=== PATIENT | female | born 1950 | race Native Hawaiian/Other Pacific Islander ===

== ENCOUNTER 2017-09-25 20:15 | Inpatient (IN) | payer BC, MEDICARE ==
[2017-09-25] MEDS ORDERED: Sodium Chloride 0.9% 1,000 ML IV SCH (20:30)
[2017-09-25] MEDS ORDERED: Piperacill/Tazo 4.5gm in NS 4.5 GM/100 ML BAG IVPB STA (20:39)
--- NOTE | 2017-09-25 20:48 | ED PDOC ---
Arrival/HPI - General Chief Complaint: Shortness Of Breath Time Seen by Provider: 09/25/17 20:17 Historian: Patient, Family - History of Present Illness Narrative History of Present Illness (Text): you were treated in the ED today for hx of diabetes, hypertension, having eaten very little at [employer], went home with nausea/vomiting/difficulty breathing and intermittent abdomen discomfort but no bile/blood and had transient loss of consciousness without head injury/neck pain per daughter and otherwise without any headache/dizziness/difficulty breathing/chest pain/abdomen pain/numbness/ tingling/loss of limb function/pain with urination. Time/Duration: 4-6 hours Past Medical History - Provider Review Nursing Documentation Reviewed: Yes - Travel History Have you recently traveled outside [place] w/in the past 3 mons?: No - Endocrine/Metabolic Hx Diabetes Mellitus Type 2: Yes - Psychiatric Hx Substance Use: No Family/Social History - Physician Review Nursing Documentation Reviewed: Yes Family/Social History: No Known Family HX Smoking Status: n Hx Alcohol Use: No Hx Substance Use: No Allergies/Home Meds Allergies/Adverse Reactions: Allergies No Known Allergies Allergy (Verified 09/25/17 20:25) Home Medications: Home Meds Medication Instructions Recorded Confirmed Clopidogrel [Plavix] 75 mg PO DAILY 09/25/17 09/25/17 Enalapril Maleate [Vasotec] 20 mg PO DAILY 09/25/17 09/25/17 Gemfibrozil 600 mg PO DAILY 09/25/17 09/25/17 Insulin Glargine, Recombina 30 unit SC ACB 09/25/17 09/25/17 [Lantus] Insulin Glargine, Recombina 30 unit SC ACD 09/25/17 09/25/17 [Lantus] Insulin Lispro [humALOG] 30 units SC ACL 09/25/17 09/25/17 MetFORMIN [glucOPHAGE] 1,000 mg PO BID 09/25/17 09/25/17 Metoprolol Succinate [Toprol XL] 200 mg PO BID 09/25/17 09/25/17 Pravastatin Sodium [Pravachol] 40 mg PO DAILY 09/25/17 09/25/17 Review of Systems - Review of Systems Constitutional: Fatigue Eyes: Normal ENT: Normal Respiratory: SOB, Cough Cardiovascular: Chest Pain Gastrointestinal: Abdominal Pain, Nausea, Vomiting Genitourinary Female: Normal Musculoskeletal: Normal Skin: Normal Neurological: Normal Endocrine: Normal Hemo/Lymphatic: Normal Psychiatric: Normal Physical Exam Vital Signs Reviewed: Yes Vital Signs Temp Pulse Resp BP Pulse Ox 09/25/17 23:00 100.1 F H 75 16 142/51 L 98 09/25/17 22:10 100.2 F H 16 98 09/25/17 21:56 100.4 F H 81 16 145/54 L 97 09/25/17 20:25 102.4 F H 113 H 18 154/120 H 91 L Temperature: Afebrile Blood Pressure: Hypertensive Pulse: Tachycardic Respiratory Rate: Normal Appearance: Positive for: Ill-Appearing Pain Distress: None Mental Status: Positive for: Alert and Oriented X 3 - Systems Exam Head: Present: Atraumatic, Normocephalic Pupils: Present: PERRL Extroacular Muscles: Present: EOMI Conjunctiva: Present: Normal Ears: Present: Normal Mouth: Present: Moist Mucous Membranes Pharnyx: Present: Normal Nose (External): Present: Atraumatic Nose (Internal): Present: Normal Inspection Neck: Present: Normal Range of Motion Respiratory/Chest: Present: Clear to Auscultation, Good Air Exchange Cardiovascular: Present: Regular Rate and Rhythm Abdomen: No: Tenderness, Distention, Normal Bowel Sounds, Peritoneal Signs, Rebound, Guarding, McBurney's Point Tender, Rovsing's Sign Present, Hernias, Feeding Tubes, Ostomy Tubes, Mass/Organomegaly, Scars, Other Back: Present: Normal Inspection Upper Extremity: Present: Normal Inspection Lower Extremity: Present: Normal Inspection Neurological: Present: GCS=15, CN II-XII Intact, Speech Normal, Motor Func Grossly Intact Skin: Present: Warm, Normal Color Psychiatric: Present: Alert, Oriented x 3, Normal Insight, Normal Concentration Medical Decision Making ED Course and Treatment: you were treated in the ED today for hx of diabetes, hypertension, having eaten very little at [employer], went home with nausea/vomiting/difficulty breathing and intermittent abdomen discomfort but no bile/blood and had transient loss of consciousness without head injury/neck pain per daughter and otherwise without any headache/dizziness/difficulty breathing/chest pain/abdomen pain/numbness/ tingling/loss of limb function/pain with urination. You were otherwise breathing easily, pink moist lips, talking with daughter, good strength/ sensation, alert/oriented, walking easily, clear lungs, no abdomen tenderness, fever temp 102.4, fast heart rate 113, stable breathing rate 18, low oxygen level 91% room air, elevated blood pressure 154/110 which we recommend repeat in 2-3 days primary care office to determine further treatment, you have blood tests infection count 22, stable blood level hemoglobin 17/platelets 365, stable chemistry sodium, potassium 3.4 replaced, glucose 82, anion gap elevated 24, liver AST/ALT 503/256 elevated, Liver Alklaline Phosphatase 267 elevated, Liver bilirubin 3.1 elevated, magnesium 1.4 replaced, heart blood test 0.02, elevated lactic 5.9, urine test____, ECG NSR, intraveous fluids, zosyn, tylenol , zofran, influenza, code sepsis, observation done in the ED with improvement. 09/25/17 22:18: Patient is influenza positive. fs 49 dextrose, d5 ns 20meq k improved 278 cxr mild vascular markings CT Head Without Intravenous Contrast Dictated and Authenticated by: Mayo Barrios MD 09/25/2017 10:13 PM Eastern Time ([place] & [place]) CLINICAL HISTORY: 67 years old, female; Signs and symptoms; Alteration of consciousness; Somnolence (drowsiness); Additional info: 67yof, loss of consciousness TECHNIQUE: Axial computed tomography images of the head/brain without intravenous contrast. All CT scans at this facility use one or more dose reduction techniques, viz.: automated exposure control; ma/kV adjustment per patient size (including targeted exams where dose is matched to indication; i.e. head); or iterative reconstruction technique. COMPARISON: No relevant prior studies available. FINDINGS: Limitations: Limited asymmetric positioning. Brain: Small extra-axial nodule is present in the right hemispheric convexity near the vertex consistent with meningioma, which measures approximately 15 mm image 21, series #2. No additional intra-axial lesions are seen. Mild volume loss is seen in keeping with age. Mild decrease in attenuation of the periventricular white matter likely related to small vessel ischemic change. The brain is otherwise unremarkable. Normal fung-white matter differentiation is present, without acute hemorrhage, or additional mass. Ventricles: Unremarkable. No ventriculomegaly. Bones/joints: Unremarkable. No acute fracture. Soft tissues: Unremarkable. Vasculature: The vasculature demonstrates diffuse moderate atherosclerotic calcification. Sinuses: Unremarkable as visualized. No acute sinusitis. Mastoid air cells: Unremarkable as visualized. No mastoid effusion. IMPRESSION: Age-related atrophy and chronic white matter ischemic changes, with no evidence of an acute intracranial abnormality. Small meningioma is present in the right hemispheric convexity, measuring 1.5 cm. No significant mass effect or midline shift. CT Abdomen and Pelvis Without Intravenous Contrast Dictated and Authenticated by: Mayo Barrios MD 09/25/2017 10:17 PM Eastern Time ([place] & [place]) CLINICAL HISTORY: 67 years old, female; Signs and symptoms; Fever; Shortness of breath; Additional info: 67yof, fever, SOB, hypoxia TECHNIQUE: Axial computed tomography images of the abdomen and pelvis without intravenous contrast. All CT scans at this facility use one or more dose reduction techniques, viz.: automated exposure control; ma/kV adjustment per patient size (including targeted exams where dose is matched to indication; i.e. head); or iterative reconstruction technique. COMPARISON: No relevant prior studies available. FINDINGS: Artifacts: Motion artifact does moderately limit the sensitivity of this examination. Patient arm positioning results in beam hardening artifact which degrades image quality.The spine demonstrates moderate degenerative changes at multiple levels. Lower thorax: No acute findings. ABDOMEN: Liver: There is a diffuse mild decrease in hepatic parenchymal density, consistent with mild fatty infiltration. Gallbladder and bile ducts: Mild gallbladder distention is seen. Multiple calcified gallstones are present. No gallbladder wall thickening or pericholecystic fluid to suggest cholecystitis. Pancreas: Mild pancreatic atrophy without mass or surrounding fluid. No ductal dilation. Spleen: Unremarkable. No splenomegaly. Adrenals: Unremarkable. No mass. Kidneys and ureters: No obstructing renal stones or hydronephrosis. No solid mass. Normal appearance of both ureters, and renal pelvises. Stomach and bowel: There is nonspecific colonic wall thickening most likely related to incomplete distention. The stomach is normal. The small bowel loops appear within normal limits, no signs of wall thickening, mucosal edema, or bowel distention. Moderate amount of formed fecal material is seen within the sigmoid loops which may be associated with constipation. Appendix: A normal appendix is identified. A normal appendix is identified. PELVIS: Bladder: Unremarkable. No stones. Reproductive: Unremarkable as visualized. ABDOMEN and PELVIS: Intraperitoneal space: Unremarkable. No free air. No significant fluid collection. Bones/joints: The spine demonstrates moderate degenerative changes at multiple levels. Soft tissues: There is minimal focus of subcutaneous stranding without air consistent with recent injection. Vasculature: The aorta demonstrates moderate atherosclerotic calcification. No abdominal aortic aneurysm. Lymph nodes: Unremarkable. No enlarged lymph nodes. IMPRESSION: Study is limited secondary to motion. No acute findings are seen. Cholelithiasis, with moderate gallbladder distention, no definite signs of cholecystitis. Mild hepatic steatosis. CT Chest Without Intravenous Contrast Dictated and Authenticated by: Mayo Barrios MD 09/25/2017 10:19 PM Eastern Time ([place] & [place]) CLINICAL HISTORY: 67 years old, female; Signs and symptoms; Fever; Shortness of breath; Additional info: 67yof, fever, SOB, hypoxia TECHNIQUE: Axial computed tomography images of the chest without intravenous contrast. All CT scans at this facility use one or more dose reduction techniques, viz.: automated exposure control; ma/kV adjustment per patient size (including targeted exams where dose is matched to indication; i.e. head); or iterative reconstruction technique. COMPARISON: No relevant prior studies available. FINDINGS: Lungs: Minimal scarring of the inferior margin of the lingula. Lungs overall clear. No focal lung consolidation, pulmonary infiltrates, no cavitary changes are seen. Pleural space: Unremarkable. No pneumothorax. No significant effusion. Heart: Unremarkable. No cardiomegaly. No significant pericardial effusion. Bones/joints: The spine demonstrates mild degenerative changes at multiple levels. No acute fracture. No dislocation. Soft tissues: Unremarkable. Vasculature: The aorta demonstrates moderate atherosclerotic calcification. There is moderate atherosclerotic calcification of the coronary arteries. No thoracic aortic aneurysm. Lymph nodes: Unremarkable. No enlarged lymph nodes. IMPRESSION: No acute chest findings. No signs of edema or pneumonia. 09/25/17 23:26 09/26/17 00:37 09/26/17 00:38 awaiting us. 09/26/17 01:18 US Abdomen Limited, Right Upper Quadrant EXAM DATE/TIME: 09/25/2017 9:36 PM Dictated and Authenticated by: Unique Fisher MD 09/26/2017 1:17 AM Eastern Time ([place] & [place]) CLINICAL HISTORY: 67 years old, female; Pain; Abdominal pain; Generalized; Additional info: 67yof , n/v total bili 3.1. Small gallstone seen on CT 09/25/17 TECHNIQUE: Real-time ultrasound of the right upper quadrant with image documentation. COMPARISON: CT - CHEST,ABDOMEN,PELVIS W/O CONT 2017-09-25 20:51 FINDINGS: Liver: Echotexture of the liver is heterogeneous. Liver is enlarged.There is hepatopedal flow in the main portal vein. Gallbladder: Gallbladder is distended with no stones, sludge or wall thickening. Common bile duct: Common bile duct measures 5.5 mm in diameter. Pancreas: Pancreas is partially obscured by bowel gas. Right kidney: Right kidney is unremarkable. Aorta: Aorta and inferior vena cava are not optimally demonstrated. Other findings: The IMPRESSION: Enlarged fatty liver; distended gallbladder, no ductal dilatation, small stones seen on CT are not identified; limited visualization of the pancreas 09/26/17 01:24 d/w Dr. Hall who stated continue ivf hydration, add vancomycin, d/w ICU Dr. Cheek for rule out cholangitis. 09/26/17 01:31 d/w Dr. Cheek who accepted to icu. npo. Reassessment Condition: Improved - Lab Interpretations Lab Results: 09/25/17 20:30 09/25/17 20:30 Lab Results 09/26/17 00:30: POC Glucose (mg/dL) 278 H 09/26/17 00:22: POC Glucose (mg/dL) 49 L 09/26/17 00:21: POC Glucose (mg/dL) 59 L 09/25/17 23:50: pO2 57 H, VBG pH 7.33, VBG pCO2 42.0, VBG HCO3 22.1, VBG Total CO2 23.4, VBG O2 Sat (Calc) 92.4 H, VBG Base Excess -3.7 L, VBG Potassium 4.1, Sodium 137.0, Chloride 104.0, Glucose 55 L, Lactate 2.9 H, FiO2 21.0, Venous Blood Potassium 4.1 09/25/17 21:30: Influenza Typ A,B (EIA) Pos for influenza a H 09/25/17 20:30: pO2 51, VBG pH 7.33, VBG pCO2 41.0, VBG HCO3 21.6, VBG Total CO2 22.9, VBG O2 Sat (Calc) 90.7 H, VBG Base Excess -4.1 L, VBG Potassium 3.8, Sodium 138.0, Chloride 101.0, Glucose 84, Lactate 5.9 H*, FiO2 21.0, Venous Blood Potassium 3.8 09/25/17 20:30: Sodium 144, Chloride 100, Potassium 3.4 L, Carbon Dioxide 23, Anion Gap 24 H, BUN 18, Creatinine 0.9, Est GFR ( Amer) > 60, Est GFR ( Non-Af Amer) > 60, Random Glucose 86, Calcium 10.7 H, Magnesium 1.4 L, Total Bilirubin 3.1 H, AST 503 H, ALT 256 H, Alkaline Phosphatase 267 H, Lactate Dehydrogenase 1956 H, Total Creatine Kinase 92, Troponin I 0.02, NT-Pro-B Natriuret Pep 603 H, Total Protein 9.4 H, Albumin 4.9 H, Globulin 4.5, Albumin/ Globulin Ratio 1.1 09/25/17 20:30: PT 12.0, INR 1.05, APTT 35.9 09/25/17 20:30: WBC 22.2 H, RBC 5.79, Hgb 17.3 H, Hct 49.4 H, MCV 85.3, MCH 29.9 , MCHC 35.0, RDW 14.4, Plt Count 365, MPV 12.2 H, Gran % 89.6 H, Lymph % (Auto) 8.1 L, [place] % (Auto) 2.1, Eos % (Auto) 0.1 L, Baso % (Auto) 0.1, Gran # 19.85 H , Lymph # (Auto) 1.8, [place] # (Auto) 0.5, Eos # (Auto) 0.0, Baso # (Auto) 0.02 09/25/17 20:23: POC Glucose (mg/dL) 82 I have reviewed the lab results: Yes - RAD Interpretation Radiology Orders: 09/25/17 20:26 CHEST PORTABLE [RAD] Stat 09/25/17 20:41 CHEST,ABDOMEN, PELVIS W/O CONT [CT] Stat HEAD W/O CONTRAST [CT] Stat 09/25/17 21:36 GALL BLADDER [US] Stat Auto Motor Mechanic: Radiologist (ct head/chest/abdome and pelvis mdm) - EKG Interpretation Interpreted by ED Physician: Yes (NSR, flipped t waves avr) Type: 12 lead EKG - Medication Orders Current Medication Orders: Sodium Chloride (Sodium Chloride 0.9%) 1,000 mls @ 100 mls/hr IV .Q10H ADRIANE Last Admin: 09/25/17 20:44 Dose: 100 mls/hr eMAR Start Stop Document 09/25/17 20:44 AB (Rec: 09/25/17 20:44 AB [id number]) Intravenous Solution Start Date 09/25/17 Start Time 20:44 End Date 09/25/17 Potassium Chloride/Dextrose/Sod Cl (Potassium Chl 10 Meq In D5-1/2ns) 1,000 mls @ 100 mls/hr IV .Q10H ADRIANE Last Admin: 09/26/17 01:02 Dose: 100 mls/hr eMAR Start Stop Document 09/26/17 01:02 AB (Rec: 09/26/17 01:02 AB [id number]) Intravenous Solution Start Date 09/26/17 Start Time 01:02 End Date 09/26/17 Vancomycin HCl (Vancomycin 1gm) 1 gm in 250 mls @ 167 mls/hr IVPB STAT STA PRN Reason: Protocol Stop: 09/26/17 02:41 Oseltamivir Phosphate (Tamiflu) 30 mg PO BID ADRIANE PRN Reason: Protocol Last Admin: 09/25/17 23:20 Dose: 30 mg Discontinued Medications Acetaminophen (Tylenol 650 Mg Supp) 650 mg RC STAT STA Stop: 09/25/17 20:40 Last Admin: 09/25/17 21:10 Dose: 650 mg Re-Assess: MAR Pain/Vitals Document 09/25/17 22:10 AB (Rec: 09/25/17 23:09 AB [id number]) Vitals Temperature (97.6 F-99.6 F) 100.2 F Temperature Source Rectal Dextrose (Dextrose 50% Inj) 50 ml IVP STAT STA Stop: 09/26/17 00:37 Last Admin: 09/26/17 00:49 Dose: Piperacillin Sod/Tazobactam Sod (Zosyn 4.5 Gm In Ns 100ml) 4.5 gm in 100 mls @ 200 mls/hr IVPB STAT STA PRN Reason: Protocol Stop: 09/25/17 21:08 Last Admin: 09/25/17 21:09 Dose: 200 mls/hr eMAR Start Stop Document 09/25/17 21:09 SAEED (Rec: 09/25/17 21:10 SAEED [facility] [id number]) Intravenous Solution Start Date 09/25/17 Start Time 21:10 Magnesium Sulfate/Dextrose (Magnesium Sulfate 1 Gm/100 Ml D5w) 1 gm in 100 mls @ 100 mls/hr IVPB ONCE ONE Stop: 09/25/17 22:36 Last Admin: 09/25/17 23:18 Dose: 100 mls/hr eMAR Start Stop Document 09/25/17 23:18 AB (Rec: 09/25/17 23:18 AB [id number]) Intravenous Solution Start Date 09/25/17 Start Time 23:18 End Date 09/25/17 Sodium Chloride (Sodium Chloride 0.9%) 1,000 mls @ 999 mls/hr IV .Q1H1M STA Stop: 09/26/17 00:24 Last Admin: 09/26/17 00:30 Dose: 999 mls/hr eMAR Start Stop Document 09/26/17 00:30 AB (Rec: 09/26/17 00:30 AB [id number]) Intravenous Solution Start Date 09/25/17 Start Time 20:56 End Date 09/25/17 End time 21:56 Total Infusion Time 60 Dextrose/Sodium Chloride (Dextrose 5%/0.45% Ns 1000 Ml) 1,000 mls @ 100 mls/hr IV .Q10H ADRIANE Ondansetron HCl (Zofran Inj) 4 mg IVP STAT STA Stop: 09/25/17 20:40 Last Admin: 09/25/17 20:43 Dose: 4 mg IVP Administration Document 09/25/17 20:43 AB (Rec: 09/25/17 20:43 AB [id number]) Charges for Administration # of IVP Administrations 1 Potassium Chloride (K-Dur 20 Meq Er Tab) 20 meq PO STAT STA Stop: 09/25/17 21:38 Last Admin: 09/25/17 23:18 Dose: 20 meq NIHSS Stroke Scale 3 - Date/Time Evaluation Performed Date Performed: 09/25/17 - How Severe is the Stroke Level of Consciousness: 0=Alert LOC to Questions: 0=Both comments correct LOC to commands: 0=Obeys both correctly Best Gaze: 0=Normal Visual: 0=No visual loss Facial: 0=Normal Motor Arm - Left: 0=No drift Motor Arm - Right: 0=No drift Motor Leg - Left: 0=No drift Motor Leg - Right: 0=No drift Limb Ataxia: 0=Absent Sensory: 0=Normal Best Language: 0=No aphasia Dysarthia: 0=Normal articulation Extinction & Inattention (Neglect): 0=Normal, no object Score: 0 Disposition/Present on Arrival - Present on Arrival Any Indicators Present on Arrival: No History of DVT/PE: No History of Uncontrolled Diabetes: No Urinary Catheter: No History of Decub. Ulcer: No History Surgical Site Infection Following: None - Disposition Have Diagnosis and Disposition been Completed?: Yes Diagnosis: Influenza, Elevated liver enzymes, Sepsis Disposition: HOSPITALIZED Disposition Time: 01:34 Patient Plan: Admission Condition: IMPROVED Discharge Instructions (ExitCare): Sepsis (ED) Referrals: Patito Camejo, [Primary Care Provider] - Follow up with primary Forms: [employer] ([place] Citizen)
[2017-09-25 20:52] LABS: VENOUS BLOOD GAS BASE EXCESS -4.1 mmol/L (0.0-2.0); VENOUS BLOOD GAS PO2 51 mm/Hg (30-55); VENOUS BLOOD PH 7.33 (7.32-7.43)
[2017-09-25 20:54] LABS: BASO # 0.02 K/mm3 (0.0-2.0); BASO % 0.1 % (0.0-3.0); EOS % 0.1 % (1.5-5.0); GRAN # 19.85 (1.4-6.5); GRAN % 89.6 % (50.0-68.0); HEMOGLOBIN 17.3 g/dL (12.0-16.0); LYMPH # 1.8 (1.2-3.4); LYMPH % 8.1 % (22.0-35.0); MEAN CELL VOLUME 85.3 fl (80.0-105.0); MEAN CORPUSCULAR HEMOGLOBIN 29.9 pg (25.0-35.0); MEAN PLATELET VOLUME 12.2 fl (7.0-11.0); MONO # 0.5 (0.1-0.6); MONO % 2.1 % (1.0-6.0); RBC 5.79 10^6/uL (3.5-6.1); RED CELL DISTRIBUTION WIDTH 14.4 % (11.5-14.5); WHITE BLOOD COUNT 22.2 10^3/ul (4.5-11.0)
[2017-09-25 21:01] LABS: ALB/GLOB RATIO 1.1 (1.1-1.8); ALBUMIN 4.9 g/dL (3.0-4.8); ALT/SGPT 256 U/L (7-56); AST/SGOT 503 U/L (14-36); BLOOD UREA NITROGEN 18 mg/dL (7-21); CALCIUM 10.7 mg/dL (8.4-10.5); GFR AFRICAN-AMERICAN > 60; GFR NON-AFRICAN AMERICAN > 60
[2017-09-25 21:04] LABS: INR 1.05 (0.93-1.08); PARTIAL THROMBOPLASTIN TIME 35.9 Seconds (25.1-36.5)
[2017-09-25 21:13] LABS: B-TYPE NATRIURETIC PEPTIDE 603 pg/mL (0-450); TROPONIN I 0.02 ng/mL
[2017-09-25] MEDS ORDERED: Potassium Chloride 20 mEq ER Tab PO STA (21:37)
[2017-09-25] MEDS ORDERED: Magnesium Sulfate 1 gm in D5W 1 GM/100 ML BAG IVPB ONE (21:37)
[2017-09-25] MEDS ORDERED: Sodium Chloride 0.9% 1,000 ML IV STA (23:24)
[2017-09-26] MEDS ORDERED: Dextrose 50% SYRINGE Inj (50 ml) ONE (00:24)
[2017-09-26 00:29] LABS: VENOUS BLOOD GAS BASE EXCESS -3.7 mmol/L (0.0-2.0); VENOUS BLOOD GAS PO2 57 mm/Hg (30-55); VENOUS BLOOD PH 7.33 (7.32-7.43)
[2017-09-26] MEDS ORDERED: Dextrose 50% SYRINGE Inj (50 ml) IVP STA (00:36)
--- NOTE | 2017-09-26 00:40 | PCM.SEPTIC ---
Sepsis Progress Note - Reassessment Type Date of Evaluation: 09/26/17 Time of Evaluation: 00:32 Reassessment Type: Non-invasive reassessment - Non Invasive Reassessment Were the most recent vital sign reviewed: Yes Vital Sign (Latest): Temp Pulse Resp BP Pulse Ox 100.1 F H 75 16 142/51 L 98 09/25/17 23:00 09/25/17 23:00 09/25/17 23:00 09/25/17 23:00 09/25/17 23:00 Cardiovascular: Yes: Regular Rate, Rhythm Respiratory: Yes: Normal Breath Sounds Capillary Refill: Normal (Less than 2 sec) Skin: Normal Color, Warm <Steve Reyes - Last Filed: 09/26/17 00:41> - Non Invasive Reassessment Vital Sign (Latest): Temp Pulse Resp BP Pulse Ox 99.2 F 62 20 123/61 98 09/26/17 02:57 09/26/17 02:57 09/26/17 02:57 09/26/17 02:57 09/26/17 02:57 <Jenny Beasley - Last Filed: 09/26/17 03:41> Attending/Attestation - Attestation I have personally seen and examined this patient.: No I have fully participated in the care of the patient.: Yes I have reviewed all pertinent clinical information, including history, physical exam and plan: Yes <Jenny Beasley - Last Filed: 09/26/17 03:41>
[2017-09-26] MEDS ORDERED: Potassium Chl 10 mEq in D5-1/2 1,000 ML IV SCH ×2 (00:45→05:07)
[2017-09-26] MEDS ORDERED: Dextrose 5%/0.45% NS 1,000 ML IV SCH (00:45)
[2017-09-26] MEDS ORDERED: Vancomycin 1gm in NS 250ml 1 GM/250 ML BAG IVPB STA (01:12)
--- NOTE | 2017-09-26 01:17 | US ---
EXAM: US Abdomen Limited, Right Upper Quadrant EXAM DATE/TIME: 09/25/2017 9:36 PM CLINICAL HISTORY: 67 years old, female; Pain; Abdominal pain; Generalized; Additional info: 67yof, n/v total bili 3.1. Small gallstone seen on CT 09/25/17 TECHNIQUE: Real-time ultrasound of the right upper quadrant with image documentation. COMPARISON: CT - CHEST,ABDOMEN,PELVIS W/O CONT 2017-09-25 20:51 FINDINGS: Liver: Echotexture of the liver is heterogeneous. Liver is enlarged.There is hepatopedal flow in the main portal vein. Gallbladder: Gallbladder is distended with no stones, sludge or wall thickening. Common bile duct: Common bile duct measures 5.5 mm in diameter. Pancreas: Pancreas is partially obscured by bowel gas. Right kidney: Right kidney is unremarkable. Aorta: Aorta and inferior vena cava are not optimally demonstrated. Other findings: The IMPRESSION: Enlarged fatty liver; distended gallbladder, no ductal dilatation, small stones seen on CT are not identified; limited visualization of the pancreas
[2017-09-26 04:02] VITALS: BMI 27.3
--- NOTE | 2017-09-26 04:22 | CP.PCM.CON ---
History of Present Illness - History of Present Illness History of Present Illness: Josselyn Rankin, PGY1, ICU Consult Note for Dr Cheek: CC: nausea, vomiting, fever 67 year old female, poor historian with PMH DM, HTN, HLD, presents for nausea, vomiting, subjective fevers for past 2 days. Pt states that she also felt weakness, decreased appetite, nausea, vomiting 2-3 episodes of nonbloody, yellow fluid per day. Pt reports that while vomiting this AM, she hit her forehead in the bathroom to the door. Denies LOC, syncope, mental status changes. Pt also reports nonbloody, yellow diarrheal episodes for past 2 days, associated with epigastric abdominal discomfort. ROS is positive for chills, dizziness, decreased appetite, nonproductive cough, mild body aches. Denies cp, sob, diaphoresis, palpitations, wheezing, neck pain, urinary symptoms, leg swelling. Denies sick contacts or recent travel. In ED, pt febrile 102 F, tachycardic HR 113 NSR, leukocytosis 22.2, lactate 5.9 , elevated t bili 3.1, elevated AST 503, ALT 256, ALP 267, LDH 1956, hypoglycemic 49. Abd US showed enlarged fatty liver, distended gallbladder; no inflammation. Influenza positive. Received renally dosed tamiflu, Vanc, Zosyn, 1 L NS bolus, D50 amp, zofran in ED. 12 point ROS obtained and negative, except as per HPI. PMD: in [place], [place] - does not recall name PMH: DM, HTN, HLD PSH: denies All: NKA FH: father, DM Mother, heart enlargement SH: lives with and daughter in [place]. Denies alcohol/tobacco/ recreational drug use. Retired. Review of Systems - Review of Systems All systems: reviewed and no additional remarkable complaints except Review of Systems: as pre HPI Past Patient History - Past Social History Smoking Status: n - ENDOCRINE/METABOLIC Hx Diabetes Mellitus Type 2: Yes - PSYCHIATRIC Hx Substance Use: No Meds Allergies/Adverse Reactions: Allergies Allergy/AdvReac Type Severity Reaction Status Date / Time No Known Allergies Allergy Verified 09/25/17 20:25 - Medications Medications: Current Medications Sodium Chloride (Sodium Chloride 0.9%) 1,000 mls @ 100 mls/hr IV .Q10H ADRIANE Last Admin: 09/25/17 20:44 Dose: 100 mls/hr Potassium Chloride/Dextrose/Sod Cl (Potassium Chl 10 Meq In D5-1/2ns) 1,000 mls @ 100 mls/hr IV .Q10H ADRIANE Last Admin: 09/26/17 01:02 Dose: 100 mls/hr Piperacillin Sod/Tazobactam Sod (Zosyn 3.375 In Ns 100ml) 100 mls @ 200 mls/hr IVPB Q6 ADRIANE PRN Reason: Protocol Stop: 09/26/17 12:29 Oseltamivir Phosphate (Tamiflu) 30 mg PO BID ADRIANE PRN Reason: Protocol Physical Exam - Constitutional Appears: Non-toxic, No Acute Distress, Older Than Stated Age - Head Exam Head Exam: NORMOCEPHALIC Additional comments: + bluish bruise on left frontal area - Eye Exam Eye Exam: EOMI, PERRL. absent: Conjunctival injection, Nystagmus, Periorbital tenderness Pupil Exam: NORMAL ACCOMODATION, PERRL. absent: Fixed, Irregular, Unequal Additional comments: + mild scleral icterus - ENT Exam ENT Exam: Mucous Membranes Dry - Neck Exam Neck exam: Positive for: Full Rom - Respiratory Exam Respiratory Exam: Clear to Auscultation Bilateral, NORMAL BREATHING PATTERN. absent: Accessory Muscle Use, Chest Wall Tenderness, Rales, Rhonchi, Wheezes, Stridor - Cardiovascular Exam Cardiovascular Exam: RRR, +S1, +S2. absent: Systolic Murmur - GI/Abdominal Exam GI & Abdominal Exam: Normal Bowel Sounds, Soft, Tenderness (epigastric tenderness). absent: Distended, Guarding, Mass, Organomegaly, Rebound, Rigid - Extremities Exam Extremities exam: Positive for: normal inspection, pedal pulses present. Negative for: calf tenderness, pedal edema - Back Exam Back exam: NORMAL INSPECTION. absent: CVA tenderness (L), CVA tenderness (R) - Neurological Exam Neurological exam: Alert, CN II-XII Intact, Oriented x3 - Psychiatric Exam Psychiatric exam: Normal Affect, Normal Mood - Skin Skin Exam: Dry, Warm Additional comments: + mildly jaundiced Results - Vital Signs Recent Vital Signs: Last Vital Signs Temp 99.2 F 09/26/17 02:57 Pulse 62 09/26/17 02:57 Resp 20 09/26/17 02:57 BP 123/61 09/26/17 02:57 Pulse Ox 98 09/26/17 02:57 - Labs Result Diagrams: 09/25/17 20:30 09/25/17 20:30 Labs: Laboratory Results - last 24 hr 09/26/17 02:02 POC Glucose (mg/dL) 181 H Assessment & Plan - Assessment and Plan (Free Text) Assessment: 67 year old female with PMH DM, HTN, HLD, presents for epigastric pain, vomiting , fever, diarrhea, found to have influenza, sepsis: Neurological AAOx4 at the time of my exam. Previously in ED, pt was AOx2. Cont to monitor. Head CT neg for acute changes. Small meningioma is present in the right hemispheric convexity, measuring 1.5 cm. No significant mass effect or midline shift. Under close monitoring Cardiovascular BP on low side, HR 62 NSR. Hx of HTN. Hold home antiHTN - vasotec and toprol xl Pt complains of epigastric pain Initial trop 0.02. f/u serial trops with EKG Maintain MAP>65. Hemodynamically stable. Cont to monitor. Pulmonary Saturating well on 2L NC CT chest: No acute chest findings. No signs of edema or pneumonia. Continuous pulse ox monitoring GI CT abd pelvis: Study is limited secondary to motion. No acute findings are seen. Cholelithiasis, with moderate gallbladder distention, no definite signs of cholecystitis. Mild hepatic steatosis. Abd US: Enlarged fatty liver; distended gallbladder, no ductal dilatation, small stones seen on CT are not identified; limited visualization of the pancreas t bili 3.1, AST 503, ALT 267, ALP 267, LDH 1955 - cholestasis holding home statin and gemfibrozil in setting of cholestasis F/u GGT, direct bili NPO Start Protonix 40 mg IV q 12h PRN zofran GI consulted. F/u recs - ERCP? daily cmp. monitor LFTs Neprhro/Electrolytes BUN/Cr 18/0.9. Hypokalemic 3.4, repleted in IVF. Hypomagnesemia 1.4, repleted. maintain euvolemia. Continue to monitor. ID Leukocytosis 22.2, hgb 17.3 (no prior baseline as this is pt's first visit here) Tmax 102 F, tachycardic 113, leukocytosis 22.2, lactate 5.9->2.9. Influenza positive. Received tamiflu, vancomycin, zosyn, IVF bolus 1L in ED after code sepsis called. Sepsis 2/2 cholangitis vs influenza vs gastroenteritis F/u lactate, UA, Urine culture, cbc in AM IVF D51/2 NS @ 125/h On Renally dosed Tamiflu (as low CrCl), zosyn Endo Pt has hx of DM. Hypoglycemic in setting of sepsis? D51/2 NS @ 100 Accucheck q 2h Hold home hypoglycemic agents and insulin Cont to monitor. Consider adding ISS once BS readings are better. GI/DVT ppx: protonix/SCDs Patient was seen and examined and case was discussed at length with attending physician, Dr Cheek. - Date & Time Date: 09/26/17 Time: 05:27
[2017-09-26] MEDS: Piperacillin/Tazobact 3.375 gm 100 ML IVPB SCH ×2 (06:01→11:04)
[2017-09-26 06:54] LABS: VENOUS BLOOD GAS BASE EXCESS -4.5 mmol/L (0.0-2.0); VENOUS BLOOD GAS PO2 61 mm/Hg (30-55); VENOUS BLOOD PH 7.33 (7.32-7.43)
[2017-09-26 06:57] LABS: BASO # 0.02 K/mm3 (0.0-2.0); BASO % 0.1 % (0.0-3.0); EOS % 0.1 % (1.5-5.0); GRAN # 16.73 (1.4-6.5); GRAN % 89.4 % (50.0-68.0); HEMOGLOBIN 12.9 g/dL (12.0-16.0); LYMPH # 1.1 (1.2-3.4); MEAN CELL VOLUME 84.9 fl (80.0-105.0); MEAN CORPUSCULAR HEMOGLOBIN 28.7 pg (25.0-35.0); MEAN CORPUSCULAR HGB CONC 33.9 g/dl (31.0-37.0); MEAN PLATELET VOLUME 11.9 fl (7.0-11.0); MONO # 0.8 (0.1-0.6); MONO % 4.4 % (1.0-6.0); RBC 4.49 10^6/uL (3.5-6.1); RED CELL DISTRIBUTION WIDTH 14.4 % (11.5-14.5); WHITE BLOOD COUNT 18.7 10^3/ul (4.5-11.0)
--- NOTE | 2017-09-26 06:58 | CP.CCUPN ---
<Brenda Brownla - Last Filed: 09/26/17 10:13> CCU Subjective - Physician Review Subjective (Free Text): 09/26/17 08:00 Patient was admitted to icu overnight due to sepsis. Patient has been hemodynamically stable. States the abdominal pain has resolved. Denies cp, sob, n/v/d. Tmax 102.4, but has since resolved. Currently afebrile. CCU Objective - Vital Signs / Intake & Output Vital Signs (Last 4 hours): Vital Signs Temp Pulse Pulse Resp BP Pulse Ox 09/26/17 06:00 61 16 114/52 L 98 09/26/17 05:00 60 15 107/47 L 99 09/26/17 04:00 97.5 F L 58 L 15 104/47 L 98 09/26/17 03:15 97.5 F L 62 62 22 131/64 Intake and Output (Last 8hrs): Intake & Output 09/25/17 09/25/17 09/26/17 14:59 22:59 06:59 Intake Total 1800 Balance 1800 Weight 149 lb 12.8 oz Intake: IV 1800 Left Hand 1450 Right Hand 350 Other: Voiding Method Bedpan - Physical Exam Head: Positive for: Atraumatic, Normocephalic Pupils: Positive for: PERRL Extroacular Muscles: Positive for: EOMI Conjunctiva: Positive for: Normal Ears: Positive for: Normal Mouth: Positive for: Moist Mucous Membranes Pharnyx: Positive for: Normal Nose (External): Positive for: Atraumatic Nose (Internal): Positive for: Normal Inspection Neck: Positive for: Normal Range of Motion Respiratory/Chest: Positive for: Clear to Auscultation, Good Air Exchange Cardiovascular: Positive for: Regular Rate and Rhythm Abdomen: Negative for: Tenderness, Distention, Normal Bowel Sounds, Peritoneal Signs, Rebound, Guarding, McBurney's Point Tender, Rovsing's Sign Present, Hernias, Feeding Tubes, Ostomy Tubes, Mass/Organomegaly, Scars, Other Back: Positive for: Normal Inspection Upper Extremity: Positive for: Normal Inspection Lower Extremity: Positive for: Normal Inspection Neurological: Positive for: GCS=15, CN II-XII Intact, Speech Normal, Motor Func Grossly Intact Skin: Positive for: Warm, Normal Color Psychiatric: Positive for: Alert, Oriented x 3, Normal Insight, Normal Concentration - Medications Active Medications: Active Medications Generic Name Dose Route Start Last Admin Trade Name Freq PRN Reason Stop Dose Admin Piperacillin Sod/Tazobactam Sod 100 mls @ 200 mls/hr 09/26/17 06:00 09/26/17 06:01 Zosyn 3.375 In Ns 100ml IVPB 09/26/17 12:29 200 mls/hr Q6 ADRIANE Administration Protocol Potassium Chloride/Dextrose/Sod Cl 1,000 mls @ 125 mls/hr 09/26/17 05:07 01/08 05:10 Potassium Chl 10 Meq In D5-1/2ns IV 125 mls/hr .Q8H ADRIANE Administration Ondansetron HCl 4 mg 09/26/17 04:21 Zofran Inj IVP Q6H PRN Nausea/Vomiting Oseltamivir Phosphate 30 mg 09/26/17 10:00 Tamiflu PO BID ADRIANE Protocol Pantoprazole Sodium 40 mg 09/26/17 10:00 Protonix Inj IVP Q12 ADRIANE - Patient Studies Lab Studies: Lab Studies 09/26/17 09/26/17 Range/Units 04:11 02:02 POC Glucose (mg/dL) 149 H 181 H (65-110) mg/dL Laboratory Results - last 24 hr 09/26/17 09/26/17 02:02 04:11 POC Glucose (mg/dL) 181 H 149 H EKG/Cardiology Studies: Cardiology / EKG Studies 09/26/17 EKG [ELECTROCARDIOGRAM] Routine Comment: Reason For Exam: epigastric pain Fingerstick Blood Sugar Results: 173 Results Reviewed to Date: Yes Critical Care Progress Note - Nutrition Nutrition: Nutrition Category Date Time Status NPO Diet [DIET] Diets 09/26/17 Breakfast Ordered Assessment/Plan - Assessment and Plan (Free Text) Assessment: Patient is a 67 y/o with PMHx DM, HTN, HLD, admitted with sepsis likely due to acute cholangitis. Patient responded to adequate fluid resuscitation, and lactic acid trended down. patient was also found to have influenza, on tramiflu and droplet isolation. Plan: Neuro: awake and alert at baseline Pulm: O2 supplementation prn to maintain O2 sat above 90%. Cardiac: h/o htn, on iv hydration to maintain MAP above 65%. ID: sepsis with cholangitis as the possible source. Patient also had influenza positive. Cultures are pending. Leukocytosis trending down, fever resolved. continue with zosyn. will change tamiflu dosage to 75 mg bid. Renal: Lactic acidosis likely due to sepsis, lactic acid trended down. Will continue to monitor renal function. Endo: h/o DM- hypoglycemia resolved, fingerstick and insulin sliding scale. GI: Transaminitis likely due to acute cholangitis, u/s with cbd of 5.5, with sludge, and fatty liver. patient is npo for ERCP this morning. LFT trending down. Gi following Heme: Leukocytosis trended down h/h stabilizing, will continue to monitor. DVT prophylaxis: mechanical compressive device. Patient seen, examined and case discussed with the visual specialist. - Date & Time Date: 09/26/17 Time: 10:15 <Ariel Jacobs - Last Filed: 09/26/17 10:57> CCU Objective - Vital Signs / Intake & Output Vital Signs (Last 4 hours): Vital Signs Pulse 09/26/17 08:58 61 Intake and Output (Last 8hrs): Intake & Output 09/25/17 09/26/17 09/26/17 22:59 06:59 14:59 Intake Total 1800 Balance 1800 Weight 149 lb 12.8 oz Intake: IV 1800 Left Hand 1450 Right Hand 350 Other: Voiding Method Bedpan - Medications Active Medications: Active Medications Generic Name Dose Route Start Last Admin Trade Name Freq PRN Reason Stop Dose Admin Piperacillin Sod/Tazobactam Sod 100 mls @ 200 mls/hr 09/26/17 06:00 09/26/17 06:01 Zosyn 3.375 In Ns 100ml IVPB 09/26/17 12:29 200 mls/hr Q6 ADRIANE Administration Protocol Potassium Chloride 20 meq/ 1,010 mls @ 125 mls/hr 09/26/17 10:30 Sodium Chloride IV 09/27/17 10:44 .Q8H5M ADRIANE Insulin Human Regular 0 units 09/26/17 12:00 Humulin R Low SC Q6 ADRIANE Protocol Ondansetron HCl 4 mg 09/26/17 04:21 Zofran Inj IVP Q6H PRN Nausea/Vomiting Oseltamivir Phosphate 30 mg 09/26/17 10:00 Tamiflu PO BID ADRIANE Protocol Pantoprazole Sodium 40 mg 09/26/17 10:00 Protonix Inj IVP DAILY ADRIANE - Patient Studies Lab Studies: Lab Studies 09/26/17 09/26/17 09/26/17 Range/Units 06:30 06:30 06:30 WBC (4.5-11.0) 10^3/ul RBC (3.5-6.1) 10^6/uL Hgb (12.0-16.0) g/dL Hct (36.0-48.0) % MCV (80.0-105.0) fl MCH (25.0-35.0) pg MCHC (31.0-37.0) g/dl RDW (11.5-14.5) % Plt Count (120.0-450.0) 10^3/uL MPV (7.0-11.0) fl Gran % (50.0-68.0) % Lymph % (Auto) (22.0-35.0) % [place] % (Auto) (1.0-6.0) % Eos % (Auto) (1.5-5.0) % Baso % (Auto) (0.0-3.0) % Gran # (1.4-6.5) Lymph # (Auto) (1.2-3.4) [place] # (Auto) (0.1-0.6) Eos # (Auto) (0.0-0.7) Baso # (Auto) (0.0-2.0) K/mm3 PT (9.4-12.5) SECONDS INR (0.93-1.08) APTT (25.1-36.5) Seconds pO2 61 H (30-55) mm/Hg VBG pH 7.33 (7.32-7.43) VBG pCO2 40.0 (40-60) VBG HCO3 21.1 (21-28) mmol/l VBG Total CO2 22.3 (22-28) mmol.L VBG O2 Sat (Calc) 94.3 H (40-65) % VBG Base Excess -4.5 L (0.0-2.0) mmol/L VBG Potassium 3.9 (3.6-5.2) mmol/L Sodium 136.0 137 (132-148) mmol/L Chloride 105.0 105 (98-107) mmol/L Glucose 188 H (65-105) mg/dl Lactate 2.1 (0.7-2.1) mmol/L FiO2 21.0 % Potassium 3.8 (3.6-5.0) mmol/L Carbon Dioxide 21 (21-33) mmol/L Anion Gap 16 (10-20) BUN 23 H (7-21) mg/dL Creatinine 1.1 (0.7-1.2) mg/dl Est GFR ( Amer) 60 Est GFR (Non-Af Amer) 49 POC Glucose (mg/dL) (65-110) mg/dL Random Glucose 187 H (70-110) mg/dL Calcium 8.9 (8.4-10.5) mg/dL Total Bilirubin 2.8 H (0.2-1.3) mg/dL Direct Bilirubin 2.6 H (0.0-0.4) mg/dL GGT 255 H (8-78) U/L AST 272 H D (14-36) U/L ALT 187 H (7-56) U/L Alkaline Phosphatase 153 H D (38-126) U/L Total Creatine Kinase 99 (35-230) U/L Troponin I 0.04 D ng/mL Total Protein 6.5 (5.8-8.3) g/dL Albumin 3.3 (3.0-4.8) g/dL Globulin 3.2 gm/dL Albumin/Globulin Ratio 1.0 L (1.1-1.8) Triglycerides 78 (35-160) mg/dL Cholesterol 103 L (130-200) mg/dL LDL Cholesterol Direct 33 (0-129) mg/dL HDL Cholesterol 37 (29-60) mg/dL Venous Blood Potassium 3.9 (3.6-5.2) mmol/L 09/26/17 09/26/17 09/26/17 Range/Units 06:30 06:01 06:00 WBC 18.7 H (4.5-11.0) 10^3/ul RBC 4.49 (3.5-6.1) 10^6/uL Hgb 12.9 D (12.0-16.0) g/dL Hct 38.1 (36.0-48.0) % MCV 84.9 (80.0-105.0) fl MCH 28.7 (25.0-35.0) pg MCHC 33.9 (31.0-37.0) g/dl RDW 14.4 (11.5-14.5) % Plt Count 278 (120.0-450.0) 10^3/uL MPV 11.9 H (7.0-11.0) fl Gran % 89.4 H (50.0-68.0) % Lymph % (Auto) 6.0 L (22.0-35.0) % [place] % (Auto) 4.4 (1.0-6.0) % Eos % (Auto) 0.1 L (1.5-5.0) % Baso % (Auto) 0.1 (0.0-3.0) % Gran # 16.73 H (1.4-6.5) Lymph # (Auto) 1.1 L (1.2-3.4) [place] # (Auto) 0.8 H (0.1-0.6) Eos # (Auto) 0.0 (0.0-0.7) Baso # (Auto) 0.02 (0.0-2.0) K/mm3 PT 13.5 H (9.4-12.5) SECONDS INR 1.17 H (0.93-1.08) APTT 30.6 (25.1-36.5) Seconds pO2 (30-55) mm/Hg VBG pH (7.32-7.43) VBG pCO2 (40-60) VBG HCO3 (21-28) mmol/l VBG Total CO2 (22-28) mmol.L VBG O2 Sat (Calc) (40-65) % VBG Base Excess (0.0-2.0) mmol/L VBG Potassium (3.6-5.2) mmol/L Sodium (132-148) mmol/L Chloride (98-107) mmol/L Glucose (65-105) mg/dl Lactate (0.7-2.1) mmol/L FiO2 % Potassium (3.6-5.0) mmol/L Carbon Dioxide (21-33) mmol/L Anion Gap (10-20) BUN (7-21) mg/dL Creatinine (0.7-1.2) mg/dl Est GFR ( Amer) Est GFR (Non-Af Amer) POC Glucose (mg/dL) 173 H (65-110) mg/dL Random Glucose (70-110) mg/dL Calcium (8.4-10.5) mg/dL Total Bilirubin (0.2-1.3) mg/dL Direct Bilirubin (0.0-0.4) mg/dL GGT (8-78) U/L AST (14-36) U/L ALT (7-56) U/L Alkaline Phosphatase (38-126) U/L Total Creatine Kinase (35-230) U/L Troponin I ng/mL Total Protein (5.8-8.3) g/dL Albumin (3.0-4.8) g/dL Globulin gm/dL Albumin/Globulin Ratio (1.1-1.8) Triglycerides (35-160) mg/dL Cholesterol (130-200) mg/dL LDL Cholesterol Direct (0-129) mg/dL HDL Cholesterol (29-60) mg/dL Venous Blood Potassium (3.6-5.2) mmol/L 09/26/17 09/26/17 Range/Units 04:11 02:02 WBC (4.5-11.0) 10^3/ul RBC (3.5-6.1) 10^6/uL Hgb (12.0-16.0) g/dL Hct (36.0-48.0) % MCV (80.0-105.0) fl MCH (25.0-35.0) pg MCHC (31.0-37.0) g/dl RDW (11.5-14.5) % Plt Count (120.0-450.0) 10^3/uL MPV (7.0-11.0) fl Gran % (50.0-68.0) % Lymph % (Auto) (22.0-35.0) % [place] % (Auto) (1.0-6.0) % Eos % (Auto) (1.5-5.0) % Baso % (Auto) (0.0-3.0) % Gran # (1.4-6.5) Lymph # (Auto) (1.2-3.4) [place] # (Auto) (0.1-0.6) Eos # (Auto) (0.0-0.7) Baso # (Auto) (0.0-2.0) K/mm3 PT (9.4-12.5) SECONDS INR (0.93-1.08) APTT (25.1-36.5) Seconds pO2 (30-55) mm/Hg VBG pH (7.32-7.43) VBG pCO2 (40-60) VBG HCO3 (21-28) mmol/l VBG Total CO2 (22-28) mmol.L VBG O2 Sat (Calc) (40-65) % VBG Base Excess (0.0-2.0) mmol/L VBG Potassium (3.6-5.2) mmol/L Sodium (132-148) mmol/L Chloride (98-107) mmol/L Glucose (65-105) mg/dl Lactate (0.7-2.1) mmol/L FiO2 % Potassium (3.6-5.0) mmol/L Carbon Dioxide (21-33) mmol/L Anion Gap (10-20) BUN (7-21) mg/dL Creatinine (0.7-1.2) mg/dl Est GFR ( Amer) Est GFR (Non-Af Amer) POC Glucose (mg/dL) 149 H 181 H (65-110) mg/dL Random Glucose (70-110) mg/dL Calcium (8.4-10.5) mg/dL Total Bilirubin (0.2-1.3) mg/dL Direct Bilirubin (0.0-0.4) mg/dL GGT (8-78) U/L AST (14-36) U/L ALT (7-56) U/L Alkaline Phosphatase (38-126) U/L Total Creatine Kinase (35-230) U/L Troponin I ng/mL Total Protein (5.8-8.3) g/dL Albumin (3.0-4.8) g/dL Globulin gm/dL Albumin/Globulin Ratio (1.1-1.8) Triglycerides (35-160) mg/dL Cholesterol (130-200) mg/dL LDL Cholesterol Direct (0-129) mg/dL HDL Cholesterol (29-60) mg/dL Venous Blood Potassium (3.6-5.2) mmol/L Laboratory Results - last 24 hr 09/26/17 09/26/17 09/26/17 02:02 04:11 06:00 WBC 18.7 H RBC 4.49 Hgb 12.9 D Hct 38.1 MCV 84.9 MCH 28.7 MCHC 33.9 RDW 14.4 Plt Count 278 MPV 11.9 H Gran % 89.4 H Lymph % (Auto) 6.0 L [place] % (Auto) 4.4 Eos % (Auto) 0.1 L Baso % (Auto) 0.1 Gran # 16.73 H Lymph # (Auto) 1.1 L [place] # (Auto) 0.8 H Eos # (Auto) 0.0 Baso # (Auto) 0.02 PT INR APTT pO2 VBG pH VBG pCO2 VBG HCO3 VBG Total CO2 VBG O2 Sat (Calc) VBG Base Excess VBG Potassium Sodium Chloride Glucose Lactate FiO2 Potassium Carbon Dioxide Anion Gap BUN Creatinine Est GFR ( Amer) Est GFR (Non-Af Amer) POC Glucose (mg/dL) 181 H 149 H Random Glucose Calcium Total Bilirubin Direct Bilirubin GGT AST ALT Alkaline Phosphatase Total Creatine Kinase Troponin I Total Protein Albumin Globulin Albumin/Globulin Ratio Triglycerides Cholesterol LDL Cholesterol Direct HDL Cholesterol Venous Blood Potassium 09/26/17 09/26/17 09/26/17 06:01 06:30 06:30 WBC RBC Hgb Hct MCV MCH MCHC RDW Plt Count MPV Gran % Lymph % (Auto) [place] % (Auto) Eos % (Auto) Baso % (Auto) Gran # Lymph # (Auto) [place] # (Auto) Eos # (Auto) Baso # (Auto) PT 13.5 H INR 1.17 H APTT 30.6 pO2 VBG pH VBG pCO2 VBG HCO3 VBG Total CO2 VBG O2 Sat (Calc) VBG Base Excess VBG Potassium Sodium 137 Chloride 105 Glucose Lactate FiO2 Potassium 3.8 Carbon Dioxide 21 Anion Gap 16 BUN 23 H Creatinine 1.1 Est GFR ( Amer) 60 Est GFR (Non-Af Amer) 49 POC Glucose (mg/dL) 173 H Random Glucose 187 H Calcium 8.9 Total Bilirubin 2.8 H Direct Bilirubin 2.6 H GGT 255 H AST 272 H D ALT 187 H Alkaline Phosphatase 153 H D Total Creatine Kinase Troponin I Total Protein 6.5 Albumin 3.3 Globulin 3.2 Albumin/Globulin Ratio 1.0 L Triglycerides Cholesterol LDL Cholesterol Direct HDL Cholesterol Venous Blood Potassium 09/26/17 09/26/17 06:30 06:30 WBC RBC Hgb Hct MCV MCH MCHC RDW Plt Count MPV Gran % Lymph % (Auto) [place] % (Auto) Eos % (Auto) Baso % (Auto) Gran # Lymph # (Auto) [place] # (Auto) Eos # (Auto) Baso # (Auto) PT INR APTT pO2 61 H VBG pH 7.33 VBG pCO2 40.0 VBG HCO3 21.1 VBG Total CO2 22.3 VBG O2 Sat (Calc) 94.3 H VBG Base Excess -4.5 L VBG Potassium 3.9 Sodium 136.0 Chloride 105.0 Glucose 188 H Lactate 2.1 FiO2 21.0 Potassium Carbon Dioxide Anion Gap BUN Creatinine Est GFR ( Amer) Est GFR (Non-Af Amer) POC Glucose (mg/dL) Random Glucose Calcium Total Bilirubin Direct Bilirubin GGT AST ALT Alkaline Phosphatase Total Creatine Kinase 99 Troponin I 0.04 D Total Protein Albumin Globulin Albumin/Globulin Ratio Triglycerides 78 Cholesterol 103 L LDL Cholesterol Direct 33 HDL Cholesterol 37 Venous Blood Potassium 3.9 EKG/Cardiology Studies: Cardiology / EKG Studies 09/26/17 EKG [ELECTROCARDIOGRAM] Routine Comment: Reason For Exam: epigastric pain 09/26/17 07:45 EKG [ELECTROCARDIOGRAM] DAILY Comment: Reason For Exam: HTN 09/27/17 07:45 EKG [ELECTROCARDIOGRAM] DAILY Comment: Reason For Exam: HTN Critical Care Progress Note - Nutrition Nutrition: Nutrition Category Date Time Status NPO Diet [DIET] Diets 09/26/17 Breakfast Ordered Assessment/Plan - Assessment and Plan (Free Text) Plan: Patient seen and examined, on rounds with resident, agree with note with following additions/exceptions: Patient is a 67 y/o with PMHx DM, HTN, HLD, admitted with severe sepsis, likely 2/2 GB pathology, ascending cholangitis, as well influenza. Currently afebrile, HD stable, comfortable in NAD, benign abd exam. Reports no major complaints. Lactic acid downtrended. Seen by GI, awaiting ERCP today Severe Sepsis DM Influenza/FLU Elevated LFTs r/o Cholangitis Gallstones Recommend: - supp o2 as needed - broad spectrum antibiotics, Vanco, Zosyn - follow UCx, BCx, Procal - IVF hydration - monitor HH - monitor LFTs - NPO - ERCP today - FS control - GI ppx - DVT ppx - Monitor in MICU
[2017-09-26 07:15] LABS: INR 1.17 (0.93-1.08); PROTHROMBIN TIME 13.5 SECONDS (9.4-12.5)
[2017-09-26 07:30] LABS: PARTIAL THROMBOPLASTIN TIME 30.6 Seconds (25.1-36.5)
[2017-09-26 07:40] LABS: ALBUMIN 3.3 g/dL (3.0-4.8); BILIRUBIN,DIRECT 2.6 mg/dL (0.0-0.4); CALCIUM 8.9 mg/dL (8.4-10.5)
[2017-09-26 08:27] LABS: TROPONIN I 0.04 ng/mL
--- NOTE | 2017-09-26 08:46 | RAD ---
HISTORY: 67F, sob COMPARISON: 09/02/2014 FINDINGS: LUNGS: No active pulmonary disease. PLEURA: No significant pleural effusion identified, no pneumothorax apparent. CARDIOVASCULAR: Normal. OSSEOUS STRUCTURES: No significant abnormalities. VISUALIZED UPPER ABDOMEN: Normal. OTHER FINDINGS: None. IMPRESSION: No active disease.
--- NOTE | 2017-09-26 09:51 | CT ---
PROCEDURE: CT HEAD WITHOUT CONTRAST. HISTORY: 67yoF, loss of consciousness COMPARISON: None available. TECHNIQUE: Axial computed tomography images were obtained through the head/brain without intravenous contrast. Radiation dose: Total exam DLP = 1086 mGy-cm. This CT exam was performed using one or more of the following dose reduction techniques: Automated exposure control, adjustment of the mA and/or kV according to patient size, and/or use of iterative reconstruction technique. FINDINGS: HEMORRHAGE: No intracranial hemorrhage. BRAIN: There is a 12 x 18 mm meningioma over the right posterior frontal convexity. No atrophy or chronic microvascular ischemic changes. VENTRICLES: Unremarkable. No hydrocephalus. CALVARIUM: Unremarkable. PARANASAL SINUSES: Unremarkable as visualized. No significant inflammatory changes. MASTOID AIR CELLS: Unremarkable as visualized. No inflammatory changes. OTHER FINDINGS: The report concurs with the preliminary [facility] report IMPRESSION: No acute findings
--- NOTE | 2017-09-26 09:57 | CT ---
PROCEDURE: CT Chest, Abdomen and Pelvis without intravenous contrast HISTORY: 67yoF, fever, sob, hypoxia COMPARISON: None. TECHNIQUE: Radiation dose: Total exam DLP = 1532 mGy-cm. This CT exam was performed using one or more of the following dose reduction techniques: Automated exposure control, adjustment of the mA and/or kV according to patient size, and/or use of iterative reconstruction technique. FINDINGS: CT CHEST WITHOUT CONTRAST: LUNGS: Clear. No nodule, mass or consolidation. MEDIASTINUM: Unremarkable. Normal caliber aorta and pulmonary arterial trunk. Normal size heart. LYMPH NODES: Unremarkable. PLEURA: Unremarkable. No pneumothorax. No pleural fluid. BONES: Unremarkable. OTHER FINDINGS: None. CT ABDOMEN AND PELVIS: LIVER: There is diffuse fatty infiltration of the liver GALLBLADDER AND BILE DUCTS: Gallbladder is mildly distended. Small stones are layered in the gallbladder fundus. No evidence of inflammation PANCREAS: Unremarkable. No gross lesion or ductal dilatation. SPLEEN: Unremarkable. ADRENALS: Unremarkable. No mass. KIDNEYS AND URETERS: Unremarkable. No hydronephrosis. No solid mass. VASCULATURE: Unremarkable. No aortic aneurysm. BOWEL: Unremarkable. No obstruction. No gross mural thickening. APPENDIX: Normal appendix. PERITONEUM: Unremarkable. No free fluid. No free air. LYMPH NODES: Unremarkable. No enlarged lymph nodes. BLADDER: Unremarkable. REPRODUCTIVE: Unremarkable. BONES: No acute fracture. OTHER FINDINGS: The report concurs with the preliminary [facility] report IMPRESSION: No acute findings
--- NOTE | 2017-09-26 10:24 | CP.PCM.PN ---
Subjective - Date & Time of Evaluation Date of Evaluation: 09/26/17 Time of Evaluation: 07:45 - Subjective Subjective: PGY1 Medicine Note for Dr. Hall Patient seen and examined at bedside. Patient is feeling a little better. She is alert, awake, and oriented. Patient is going for ERCP today with GI. Patient has only complaining of mild abd pain. Objective - Vital Signs/Intake and Output Vital Signs (last 24 hours): Temp Pulse Resp BP Pulse Ox 97.5 F L 61 16 114/52 L 98 09/26/17 04:00 09/26/17 08:58 09/26/17 06:00 09/26/17 06:00 09/26/17 06:00 Intake and Output: 09/26/17 09/26/17 06:59 18:59 Intake Total 1800 Balance 1800 - Medications Medications: Current Medications Piperacillin Sod/Tazobactam Sod (Zosyn 3.375 In Ns 100ml) 100 mls @ 200 mls/hr IVPB Q6 ADRIANE PRN Reason: Protocol Stop: 09/26/17 12:29 Last Admin: 09/26/17 06:01 Dose: 200 mls/hr Potassium Chloride/Dextrose/Sod Cl (Potassium Chl 10 Meq In D5-1/2ns) 1,000 mls @ 125 mls/hr IV .Q8H ADRIANE Last Admin: 09/26/17 05:10 Dose: 125 mls/hr Insulin Human Regular (Humulin R Low) 0 units SC Q6 ADRIANE PRN Reason: Protocol Ondansetron HCl (Zofran Inj) 4 mg IVP Q6H PRN PRN Reason: Nausea/Vomiting Oseltamivir Phosphate (Tamiflu) 30 mg PO BID [facility] PRN Reason: Protocol Pantoprazole Sodium (Protonix Inj) 40 mg IVP DAILY ADRIANE - Labs Labs: 09/26/17 06:00 09/26/17 06:30 PT 13.5 SECONDS (9.4-12.5) H 09/26/17 06:30 INR 1.17 (0.93-1.08) H 09/26/17 06:30 APTT 30.6 Seconds (25.1-36.5) 09/26/17 06:30 - Constitutional Appears: No Acute Distress - Head Exam Head Exam: ATRAUMATIC, NORMOCEPHALIC - Eye Exam Eye Exam: EOMI Pupil Exam: PERRL - ENT Exam ENT Exam: Mucous Membranes Moist - Respiratory Exam Respiratory Exam: Clear to Ausculation Bilateral, NORMAL BREATHING PATTERN - Cardiovascular Exam Cardiovascular Exam: REGULAR RHYTHM, +S1, +S2 - GI/Abdominal Exam GI & Abdominal Exam: Soft, Tenderness (RUQ), Normal Bowel Sounds. absent: Distended, Firm, Guarding, Rigid - Extremities Exam Extremities Exam: Normal Capillary Refill. absent: Pedal Edema - Back Exam Back Exam: absent: CVA tenderness (L), CVA tenderness (R) - Neurological Exam Neurological Exam: Alert, Awake, Oriented x3 - Psychiatric Exam Psychiatric exam: Normal Affect, Normal Mood - Skin Skin Exam: Dry, Intact, Warm Assessment and Plan - Assessment and Plan (Free Text) Plan: 67 year old female with PMH DM, HTN, HLD, presents for epigastric pain, vomiting , fever, diarrhea, found to have influenza and sepsis likely secondary to ascending cholangitis Neuro AAOx3 Head CT neg for acute changes. Small meningioma is present in the right hemispheric convexity, measuring 1.5 cm. No significant mass effect or midline shift. HOB > 30 degrees Cardio IVF D5 1/2 NS Hx of HTN. Hold home antiHTN - vasotec and toprol xl Maintain MAP>65 Pulm Saturating well on 2L NC Maintain SaO2 >90% CT chest: No acute chest findings. No signs of edema or pneumonia. Continuous pulse ox monitoring GI ERCP today CT abd pelvis: Study is limited secondary to motion. No acute findings are seen. Cholelithiasis, with moderate gallbladder distention, no definite signs of cholecystitis. Mild hepatic steatosis. Abd US: Enlarged fatty liver; distended gallbladder, no ductal dilatation, small stones seen on CT are not identified; limited visualization of the pancreas Monitor LFTs NPO Protonix Q12h zofran PRN GI consult, help appreciated Nephro Replete electrolytes as needed IVF D5 1/2 NS ID Leukocytosis 22.2, hgb 17.3 (no prior baseline as this is pt's first visit here) Tmax 102 F, tachycardic 113, leukocytosis 22.2, lactate 5.9->2.9. Influenza positive. Received tamiflu, vancomycin, zosyn, IVF bolus 1L in ED after code sepsis called. Sepsis 2/2 cholangitis vs influenza vs gastroenteritis IVF D5 1/2 NS On Renally dosed Tamiflu (as low CrCl), zosyn Endo Euglycemia 140-180 D5 1/2 NS Accuchecks Hold home hypoglycemic agents and insulin GI/DVT prophylaxis: protonix/SCDs Discussed with Dr. Rafael Wilkinson PGY1
[2017-09-26] MEDS ORDERED: Iohexol 240 (50 ml) ONE (10:40)
[2017-09-26 11:01] LABS: VENOUS BLOOD GAS BASE EXCESS -3.6 mmol/L (0.0-2.0); VENOUS BLOOD GAS PO2 63 mm/Hg (30-55); VENOUS BLOOD PH 7.36 (7.32-7.43)
[2017-09-26 11:04] LABS: ALB/GLOB RATIO 1.1 (1.1-1.8); ALBUMIN 3.2 g/dL (3.0-4.8); BILIRUBIN,DIRECT 2.5 mg/dL (0.0-0.4)
[2017-09-26] MEDS: Insulin Reg-LOW-Coverage SC SCH ×2 (11:05→17:10)
[2017-09-26] MEDS ORDERED: Etomidate 20 mg/10ml Inj IV ONE (11:10)
[2017-09-26] MEDS ORDERED: Midazolam 2 MG/2 ML VIAL ONE (11:24)
[2017-09-26] MEDS ORDERED: Succinylcholine 200 mg/10 ml Inj IV ONE (11:24)
--- NOTE | 2017-09-26 11:29 | CP.PCM.CON ---
<Lily Silverman - Last Filed: 09/26/17 12:13> History of Present Illness - History of Present Illness History of Present Illness: GI Fellow PGY4 Consult Note This is a 67 year old female, poor historian with PMH DM, HTN, HLD, presents for nausea, vomiting, abdominal pain and subjective fevers for past 1 day. Pt states that after eating her lunch which was soup she did not feels well and was associated with abdominal pain and multiple episodes of vomiting. Pain was epigastric and spread though her abdomen but abdominal pain got better after nonbloody biliou emesis. She felt dizzy after vomiting and hit her head on the bathroom flood but no LOC. Pt took two Excedrin which helped her sleep for a few hrs. But soon she started having fevers and chills and felt ill so came to the ER. She reports nonproductive cough, mild body aches. Denies cp, sob, Denies sick contacts or recent travel. In ED, pt febrile 102.5 F, tachycardic HR 113 NSR, leukocytosis 22.2, lactate 5.9, elevated t bili 3.1, elevated AST 503, ALT 256, ALP 267, LDH 1956, hypoglycemic 49. CT showed gallstones with no dilated CBD, Abd US showed enlarged fatty liver, distended gallbladder; no inflammation. Influenza positive. Received tamiflu, Vanc, Zosyn, 1 L NS bolus, D50 amp, zofran in ED. ROS: 12 point ROS obtained and negative, except as per HPI. PMH: DM, HTN, HLD PSH: denies FH: negative for liver or colon cancer SH: lives with and daughter in [place]. Denies alcohol/tobacco/ recreational drug use. Retired. Past Patient History - Past Social History Smoking Status: n - CARDIAC Hx Angina: No Hx Cardia Arrhythmia: No Hx Circulatory Problems: No Hx Congestive Heart Failure: No Hx Hypertension: Yes - PULMONARY Hx Respiratory Disorders: No - NEUROLOGICAL Hx Neurological Disorder: No - HEENT Hx HEENT Problems: No Other/Comment: use reading eyeglasses - RENAL Hx Chronic Kidney Disease: No - ENDOCRINE/METABOLIC Hx Diabetes Mellitus Type 2: Yes - HEMATOLOGICAL/ONCOLOGICAL Hx Blood Disorders: No - INTEGUMENTARY Hx Dermatological Problems: No - MUSCULOSKELETAL/RHEUMATOLOGICAL Hx Falls: Yes - GASTROINTESTINAL Hx Gastrointestinal Disorders: No - GENITOURINARY/GYNECOLOGICAL Hx Genitourinary Disorders: No - PSYCHIATRIC Hx Substance Use: No - SURGICAL HISTORY Hx Surgeries: No Hx Cardiac Catheterization: No Hx Coronary Stent: No Meds Allergies/Adverse Reactions: Allergies Allergy/AdvReac Type Severity Reaction Status Date / Time No Known Allergies Allergy Verified 09/25/17 20:25 - Medications Medications: Current Medications Piperacillin Sod/Tazobactam Sod (Zosyn 3.375 In Ns 100ml) 100 mls @ 200 mls/hr IVPB Q6 ADRIANE PRN Reason: Protocol Stop: 09/26/17 12:29 Last Admin: 09/26/17 11:04 Dose: 200 mls/hr Potassium Chloride 20 meq/ (Sodium Chloride) 1,010 mls @ 125 mls/hr IV .Q8H5M [facility] Stop: 09/27/17 10:44 Insulin Human Regular (Humulin R Low) 0 units SC Q6 ADRIANE PRN Reason: Protocol Last Admin: 09/26/17 11:05 Dose: Not Given Ondansetron HCl (Zofran Inj) 4 mg IVP Q6H PRN PRN Reason: Nausea/Vomiting Oseltamivir Phosphate (Tamiflu) 30 mg PO BID [facility] PRN Reason: Protocol Last Admin: 09/26/17 11:02 Dose: 30 mg Pantoprazole Sodium (Protonix Inj) 40 mg IVP DAILY [facility] Last Admin: 09/26/17 11:04 Dose: 40 mg Physical Exam - Constitutional Appears: Non-toxic, No Acute Distress - Head Exam Head Exam: ATRAUMATIC, NORMAL INSPECTION, NORMOCEPHALIC - Eye Exam Eye Exam: EOMI, Normal appearance, PERRL Pupil Exam: PERRL - ENT Exam ENT Exam: Mucous Membranes Dry - Neck Exam Neck exam: Positive for: Normal Inspection - Respiratory Exam Respiratory Exam: Clear to Auscultation Bilateral, NORMAL BREATHING PATTERN - Cardiovascular Exam Cardiovascular Exam: REGULAR RHYTHM - GI/Abdominal Exam GI & Abdominal Exam: Normal Bowel Sounds, Soft. absent: Distended, Guarding, Organomegaly, Rigid, Tenderness - Extremities Exam Extremities exam: Positive for: full ROM, normal inspection - Back Exam Back exam: NORMAL INSPECTION - Neurological Exam Neurological exam: Alert, Oriented x3 - Psychiatric Exam Psychiatric exam: Normal Affect, Normal Mood - Skin Skin Exam: Dry, Intact, Normal Color, Warm Results - Vital Signs Recent Vital Signs: Last Vital Signs Temp 97.5 F L 09/26/17 04:00 Pulse 61 09/26/17 08:58 Resp 16 09/26/17 06:00 BP 114/52 L 09/26/17 06:00 Pulse Ox 98 09/26/17 06:00 - Labs Result Diagrams: 09/26/17 06:00 09/26/17 06:30 Labs: Laboratory Results - last 24 hr 09/26/17 09/26/17 09/26/17 02:02 04:11 06:00 WBC 18.7 H RBC 4.49 Hgb 12.9 D Hct 38.1 MCV 84.9 MCH 28.7 MCHC 33.9 RDW 14.4 Plt Count 278 MPV 11.9 H Gran % 89.4 H Lymph % (Auto) 6.0 L [place] % (Auto) 4.4 Eos % (Auto) 0.1 L Baso % (Auto) 0.1 Gran # 16.73 H Lymph # (Auto) 1.1 L [place] # (Auto) 0.8 H Eos # (Auto) 0.0 Baso # (Auto) 0.02 PT INR APTT pO2 VBG pH VBG pCO2 VBG HCO3 VBG Total CO2 VBG O2 Sat (Calc) VBG Base Excess VBG Potassium Sodium Chloride Glucose Lactate FiO2 Potassium Carbon Dioxide Anion Gap BUN Creatinine Est GFR ( Amer) Est GFR (Non-Af Amer) POC Glucose (mg/dL) 181 H 149 H Random Glucose Calcium Magnesium Total Bilirubin Direct Bilirubin GGT AST ALT Alkaline Phosphatase Total Creatine Kinase Troponin I Total Protein Albumin Globulin Albumin/Globulin Ratio Triglycerides Cholesterol LDL Cholesterol Direct HDL Cholesterol Venous Blood Potassium 09/26/17 09/26/17 09/26/17 06:01 06:30 06:30 WBC RBC Hgb Hct MCV MCH MCHC RDW Plt Count MPV Gran % Lymph % (Auto) [place] % (Auto) Eos % (Auto) Baso % (Auto) Gran # Lymph # (Auto) [place] # (Auto) Eos # (Auto) Baso # (Auto) PT 13.5 H INR 1.17 H APTT 30.6 pO2 VBG pH VBG pCO2 VBG HCO3 VBG Total CO2 VBG O2 Sat (Calc) VBG Base Excess VBG Potassium Sodium 137 Chloride 105 Glucose Lactate FiO2 Potassium 3.8 Carbon Dioxide 21 Anion Gap 16 BUN 23 H Creatinine 1.1 Est GFR ( Amer) 60 Est GFR (Non-Af Amer) 49 POC Glucose (mg/dL) 173 H Random Glucose 187 H Calcium 8.9 Magnesium Total Bilirubin 2.8 H Direct Bilirubin 2.6 H GGT 255 H AST 272 H D ALT 187 H Alkaline Phosphatase 153 H D Total Creatine Kinase Troponin I Total Protein 6.5 Albumin 3.3 Globulin 3.2 Albumin/Globulin Ratio 1.0 L Triglycerides Cholesterol LDL Cholesterol Direct HDL Cholesterol Venous Blood Potassium 09/26/17 09/26/17 09/26/17 06:30 06:30 10:30 WBC RBC Hgb Hct MCV MCH MCHC RDW Plt Count MPV Gran % Lymph % (Auto) [place] % (Auto) Eos % (Auto) Baso % (Auto) Gran # Lymph # (Auto) [place] # (Auto) Eos # (Auto) Baso # (Auto) PT INR APTT pO2 61 H 63 H VBG pH 7.33 7.36 VBG pCO2 40.0 38.0 L VBG HCO3 21.1 21.5 VBG Total CO2 22.3 22.7 VBG O2 Sat (Calc) 94.3 H 95.2 H VBG Base Excess -4.5 L -3.6 L VBG Potassium 3.9 3.6 Sodium 136.0 136.0 Chloride 105.0 106.0 Glucose 188 H 173 H Lactate 2.1 2.0 FiO2 21.0 21.0 Potassium Carbon Dioxide Anion Gap BUN Creatinine Est GFR ( Amer) Est GFR (Non-Af Amer) POC Glucose (mg/dL) Random Glucose Calcium Magnesium Total Bilirubin Direct Bilirubin GGT AST ALT Alkaline Phosphatase Total Creatine Kinase 99 Troponin I 0.04 D Total Protein Albumin Globulin Albumin/Globulin Ratio Triglycerides 78 Cholesterol 103 L LDL Cholesterol Direct 33 HDL Cholesterol 37 Venous Blood Potassium 3.9 3.6 09/26/17 09/26/17 10:30 11:05 WBC RBC Hgb Hct MCV MCH MCHC RDW Plt Count MPV Gran % Lymph % (Auto) [place] % (Auto) Eos % (Auto) Baso % (Auto) Gran # Lymph # (Auto) [place] # (Auto) Eos # (Auto) Baso # (Auto) PT INR APTT pO2 VBG pH VBG pCO2 VBG HCO3 VBG Total CO2 VBG O2 Sat (Calc) VBG Base Excess VBG Potassium Sodium Chloride Glucose Lactate FiO2 Potassium Carbon Dioxide Anion Gap BUN Creatinine Est GFR ( Amer) Est GFR (Non-Af Amer) POC Glucose (mg/dL) 139 H Random Glucose Calcium Magnesium 1.9 Total Bilirubin 2.7 H Direct Bilirubin 2.5 H GGT AST 282 H ALT 186 H Alkaline Phosphatase 144 H Total Creatine Kinase Troponin I Total Protein 6.3 Albumin 3.2 Globulin 3.1 Albumin/Globulin Ratio 1.1 Triglycerides Cholesterol LDL Cholesterol Direct HDL Cholesterol Venous Blood Potassium Assessment & Plan - Assessment and Plan (Free Text) Assessment: This is a 67y F with pmhx of HTN HLD, DM presenting with abdominal pain, N/V. 1. Cholangitis-elevated LFTs, WBC, fevers and imaging with possible stones 2. Influenza 3. Elevated LFTs 4. Sepsis Plan: -Continue supportive care for pain control and anti-emetics -Pt initially presenting with abdominal pain,N/V,febrile, sepsis,WBC, elevated LFTs with imaging concerning for stones, concern for cholanagitis as etiology for presentation -Aggressive IVF hydration -Broad spectrum IV abx -Blood cx -Plan for EUS/ERCP for cholangitis today, possible sludge vs stone -Tamiflu for influenza -Monitor LFTs -Will continue to follow closely <Jamie Ndiaye - Last Filed: 09/26/17 13:50> Meds - Medications Medications: Current Medications Potassium Chloride 20 meq/ (Sodium Chloride) 1,010 mls @ 125 mls/hr IV .Q8H5M [facility] Stop: 09/27/17 10:44 Insulin Human Regular (Humulin R Low) 0 units SC Q6 ADRIANE PRN Reason: Protocol Last Admin: 09/26/17 11:05 Dose: Not Given Ondansetron HCl (Zofran Inj) 4 mg IVP Q6H PRN PRN Reason: Nausea/Vomiting Oseltamivir Phosphate (Tamiflu) 30 mg PO BID [facility] PRN Reason: Protocol Last Admin: 09/26/17 11:02 Dose: 30 mg Pantoprazole Sodium (Protonix Inj) 40 mg IVP DAILY [facility] Last Admin: 09/26/17 11:04 Dose: 40 mg Results - Vital Signs Recent Vital Signs: Last Vital Signs Temp 98.7 F 09/26/17 12:50 Pulse 61 09/26/17 12:50 Resp 18 09/26/17 12:50 BP 145/60 03/06/18 12:50 Pulse Ox 98 09/26/17 12:50 - Labs Result Diagrams: 09/26/17 06:00 09/26/17 06:30 Labs: Laboratory Results - last 24 hr 09/26/17 09/26/17 09/26/17 02:02 04:11 06:00 WBC 18.7 H RBC 4.49 Hgb 12.9 D Hct 38.1 MCV 84.9 MCH 28.7 MCHC 33.9 RDW 14.4 Plt Count 278 MPV 11.9 H Gran % 89.4 H Lymph % (Auto) 6.0 L [place] % (Auto) 4.4 Eos % (Auto) 0.1 L Baso % (Auto) 0.1 Gran # 16.73 H Lymph # (Auto) 1.1 L [place] # (Auto) 0.8 H Eos # (Auto) 0.0 Baso # (Auto) 0.02 PT INR APTT pO2 VBG pH VBG pCO2 VBG HCO3 VBG Total CO2 VBG O2 Sat (Calc) VBG Base Excess VBG Potassium Sodium Chloride Glucose Lactate FiO2 Potassium Carbon Dioxide Anion Gap BUN Creatinine Est GFR ( Amer) Est GFR (Non-Af Amer) POC Glucose (mg/dL) 181 H 149 H Random Glucose Hemoglobin A1c Calcium Magnesium Total Bilirubin Direct Bilirubin GGT AST ALT Alkaline Phosphatase Total Creatine Kinase Troponin I Total Protein Albumin Globulin Albumin/Globulin Ratio Triglycerides Cholesterol LDL Cholesterol Direct HDL Cholesterol Venous Blood Potassium 09/26/17 09/26/17 09/26/17 06:00 06:01 06:30 WBC RBC Hgb Hct MCV MCH MCHC RDW Plt Count MPV Gran % Lymph % (Auto) [place] % (Auto) Eos % (Auto) Baso % (Auto) Gran # Lymph # (Auto) [place] # (Auto) Eos # (Auto) Baso # (Auto) PT 13.5 H INR 1.17 H APTT 30.6 pO2 VBG pH VBG pCO2 VBG HCO3 VBG Total CO2 VBG O2 Sat (Calc) VBG Base Excess VBG Potassium Sodium Chloride Glucose Lactate FiO2 Potassium Carbon Dioxide Anion Gap BUN Creatinine Est GFR ( Amer) Est GFR (Non-Af Amer) POC Glucose (mg/dL) 173 H Random Glucose Hemoglobin A1c 9.0 H Calcium Magnesium Total Bilirubin Direct Bilirubin GGT AST ALT Alkaline Phosphatase Total Creatine Kinase Troponin I Total Protein Albumin Globulin Albumin/Globulin Ratio Triglycerides Cholesterol LDL Cholesterol Direct HDL Cholesterol Venous Blood Potassium 09/26/17 09/26/17 09/26/17 06:30 06:30 06:30 WBC RBC Hgb Hct MCV MCH MCHC RDW Plt Count MPV Gran % Lymph % (Auto) [place] % (Auto) Eos % (Auto) Baso % (Auto) Gran # Lymph # (Auto) [place] # (Auto) Eos # (Auto) Baso # (Auto) PT INR APTT pO2 61 H VBG pH 7.33 VBG pCO2 40.0 VBG HCO3 21.1 VBG Total CO2 22.3 VBG O2 Sat (Calc) 94.3 H VBG Base Excess -4.5 L VBG Potassium 3.9 Sodium 137 136.0 Chloride 105 105.0 Glucose 188 H Lactate 2.1 FiO2 21.0 Potassium 3.8 Carbon Dioxide 21 Anion Gap 16 BUN 23 H Creatinine 1.1 Est GFR ( Amer) 60 Est GFR (Non-Af Amer) 49 POC Glucose (mg/dL) Random Glucose 187 H Hemoglobin A1c Calcium 8.9 Magnesium Total Bilirubin 2.8 H Direct Bilirubin 2.6 H GGT 255 H AST 272 H D ALT 187 H Alkaline Phosphatase 153 H D Total Creatine Kinase 99 Troponin I 0.04 D Total Protein 6.5 Albumin 3.3 Globulin 3.2 Albumin/Globulin Ratio 1.0 L Triglycerides 78 Cholesterol 103 L LDL Cholesterol Direct 33 HDL Cholesterol 37 Venous Blood Potassium 3.9 09/26/17 09/26/17 09/26/17 10:30 10:30 11:05 WBC RBC Hgb Hct MCV MCH MCHC RDW Plt Count MPV Gran % Lymph % (Auto) [place] % (Auto) Eos % (Auto) Baso % (Auto) Gran # Lymph # (Auto) [place] # (Auto) Eos # (Auto) Baso # (Auto) PT INR APTT pO2 63 H VBG pH 7.36 VBG pCO2 38.0 L VBG HCO3 21.5 VBG Total CO2 22.7 VBG O2 Sat (Calc) 95.2 H VBG Base Excess -3.6 L VBG Potassium 3.6 Sodium 136.0 Chloride 106.0 Glucose 173 H Lactate 2.0 FiO2 21.0 Potassium Carbon Dioxide Anion Gap BUN Creatinine Est GFR ( Amer) Est GFR (Non-Af Amer) POC Glucose (mg/dL) 139 H Random Glucose Hemoglobin A1c Calcium Magnesium 1.9 Total Bilirubin 2.7 H Direct Bilirubin 2.5 H GGT AST 282 H ALT 186 H Alkaline Phosphatase 144 H Total Creatine Kinase Troponin I Total Protein 6.3 Albumin 3.2 Globulin 3.1 Albumin/Globulin Ratio 1.1 Triglycerides Cholesterol LDL Cholesterol Direct HDL Cholesterol Venous Blood Potassium 3.6 Attending/Attestation - Attestation I have personally seen and examined this patient.: Yes I have fully participated in the care of the patient.: Yes I have reviewed all pertinent clinical information: Yes Notes (Text): 09/26/17 11:49 67 year old female with h/o DM, HTN, HLD admitted with N/V, abdo pain, jaundice , fever/leukocytosis and cholelithiasis. Suspect cholangitis. Recommend urgent EUS/ERCP today. Recommend IV antibiotics in the meantime.
[2017-09-26] MEDS: Indomethacin 50 MG Suppository PR ONE ×2 (12:29→14:39)
[2017-09-26] MEDS ORDERED: Lactated Ringer's 1,000 ML IV SCH (12:30)
--- NOTE | 2017-09-26 12:58 | RAD ---
PROCEDURE: ERCP HISTORY: ? CBD OBST COMPARISON: TECHNIQUE: Fluoroscopy was provided in the endoscopy suite. 21 seconds of fluoro time. Three images were provided FINDINGS: The study shows opacification of the common duct with passage of a wire. The common duct is normal in caliber IMPRESSION: As above
[2017-09-26] MEDS ORDERED: Sodium Chloride 0.9% 1,000 ML IV SCH (13:30)
--- NOTE | 2017-09-26 13:47 | CP.PCM.CON ---
History of Present Illness - History of Present Illness History of Present Illness: Surgery: Dr. Saunders CC: abd pain HPI: 67F w. pmh of HTN and DM presents to ED w/ sepsis 2/2 cholangitis. Pt had new onset epigastric pain starting yesterday. Pain was constant. She denied alleviating aggravating factors. She reported decreased appetite and multiple episodes of non-bloody emesis which left her feeling light headed. She also reported fever and chills. She states that there was no improvement in her symptoms prompting her to come to ED where she was found to be septic w. wbc of 22, lactate of 5.[address] of abd showed gallstones and U/S of abd showed sludge. After undergoing IVF resuscitation pt underwent ERCP w. sphincterotomy today. 12Pt ROS negative unless specified PMH: see above PSH: none NKDA Meds: MAR reviewed Social: No ETOH/Tobacco/Drugs Fhx: non-contributory Review of Systems - Review of Systems All systems: reviewed and no additional remarkable complaints except (HPI) Past Patient History - Past Social History Smoking Status: n - CARDIAC Hx Angina: No Hx Cardia Arrhythmia: No Hx Circulatory Problems: No Hx Congestive Heart Failure: No Hx Hypertension: Yes - PULMONARY Hx Respiratory Disorders: No - NEUROLOGICAL Hx Neurological Disorder: No - HEENT Hx HEENT Problems: No Other/Comment: use reading eyeglasses - RENAL Hx Chronic Kidney Disease: No - ENDOCRINE/METABOLIC Hx Diabetes Mellitus Type 2: Yes - HEMATOLOGICAL/ONCOLOGICAL Hx Blood Disorders: No - INTEGUMENTARY Hx Dermatological Problems: No - MUSCULOSKELETAL/RHEUMATOLOGICAL Hx Falls: Yes - GASTROINTESTINAL Hx Gastrointestinal Disorders: No - GENITOURINARY/GYNECOLOGICAL Hx Genitourinary Disorders: No - PSYCHIATRIC Hx Substance Use: No - SURGICAL HISTORY Hx Surgeries: No Hx Cardiac Catheterization: No Hx Coronary Stent: No Meds Allergies/Adverse Reactions: Allergies Allergy/AdvReac Type Severity Reaction Status Date / Time No Known Allergies Allergy Verified 09/25/17 20:25 - Medications Medications: Current Medications Potassium Chloride 20 meq/ (Sodium Chloride) 1,010 mls @ 125 mls/hr IV .Q8H5M ADRIANE Stop: 09/27/17 10:44 Insulin Human Regular (Humulin R Low) 0 units SC Q6 ADRIANE PRN Reason: Protocol Last Admin: 09/26/17 11:05 Dose: Not Given Ondansetron HCl (Zofran Inj) 4 mg IVP Q6H PRN PRN Reason: Nausea/Vomiting Oseltamivir Phosphate (Tamiflu) 30 mg PO BID ADRIANE PRN Reason: Protocol Last Admin: 09/26/17 11:02 Dose: 30 mg Pantoprazole Sodium (Protonix Inj) 40 mg IVP DAILY [facility] Last Admin: 09/26/17 11:04 Dose: 40 mg Physical Exam - Constitutional Appears: Non-toxic, No Acute Distress - Head Exam Head Exam: ATRAUMATIC, NORMOCEPHALIC - Eye Exam Eye Exam: EOMI, Scleral icterus - ENT Exam ENT Exam: Mucous Membranes Moist - Neck Exam Neck exam: Positive for: Full Rom - Respiratory Exam Respiratory Exam: NORMAL BREATHING PATTERN. absent: Accessory Muscle Use, Respiratory Distress - Cardiovascular Exam Cardiovascular Exam: REGULAR RHYTHM - GI/Abdominal Exam GI & Abdominal Exam: Soft. absent: Distended, Firm, Guarding, Rebound, Rigid, Tenderness - Extremities Exam Extremities exam: Negative for: calf tenderness, pedal edema - Neurological Exam Neurological exam: Alert, Oriented x3 - Psychiatric Exam Psychiatric exam: Normal Affect, Normal Mood - Skin Skin Exam: Dry, Intact, Warm Results - Vital Signs Recent Vital Signs: Last Vital Signs Temp 98.7 F 09/26/17 12:50 Pulse 61 09/26/17 12:50 Resp 18 09/26/17 12:50 BP 145/60 09/26/17 12:50 Pulse Ox 98 09/26/17 12:50 - Labs Result Diagrams: 09/26/17 06:00 09/26/17 06:30 Labs: Laboratory Results - last 24 hr 09/26/17 09/26/17 09/26/17 02:02 04:11 06:00 WBC 18.7 H RBC 4.49 Hgb 12.9 D Hct 38.1 MCV 84.9 MCH 28.7 MCHC 33.9 RDW 14.4 Plt Count 278 MPV 11.9 H Gran % 89.4 H Lymph % (Auto) 6.0 L Atkinson % (Auto) 4.4 Eos % (Auto) 0.1 L Baso % (Auto) 0.1 Gran # 16.73 H Lymph # (Auto) 1.1 L Atkinson # (Auto) 0.8 H Eos # (Auto) 0.0 Baso # (Auto) 0.02 PT INR APTT pO2 VBG pH VBG pCO2 VBG HCO3 VBG Total CO2 VBG O2 Sat (Calc) VBG Base Excess VBG Potassium Sodium Chloride Glucose Lactate FiO2 Potassium Carbon Dioxide Anion Gap BUN Creatinine Est GFR ( Amer) Est GFR (Non-Af Amer) POC Glucose (mg/dL) 181 H 149 H Random Glucose Hemoglobin A1c Calcium Magnesium Total Bilirubin Direct Bilirubin GGT AST ALT Alkaline Phosphatase Total Creatine Kinase Troponin I Total Protein Albumin Globulin Albumin/Globulin Ratio Triglycerides Cholesterol LDL Cholesterol Direct HDL Cholesterol Venous Blood Potassium 09/26/17 09/26/17 09/26/17 06:00 06:01 06:30 WBC RBC Hgb Hct MCV MCH MCHC RDW Plt Count MPV Gran % Lymph % (Auto) Atkinson % (Auto) Eos % (Auto) Baso % (Auto) Gran # Lymph # (Auto) Atkinson # (Auto) Eos # (Auto) Baso # (Auto) PT 13.5 H INR 1.17 H APTT 30.6 pO2 VBG pH VBG pCO2 VBG HCO3 VBG Total CO2 VBG O2 Sat (Calc) VBG Base Excess VBG Potassium Sodium Chloride Glucose Lactate FiO2 Potassium Carbon Dioxide Anion Gap BUN Creatinine Est GFR ( Amer) Est GFR (Non-Af Amer) POC Glucose (mg/dL) 173 H Random Glucose Hemoglobin A1c 9.0 H Calcium Magnesium Total Bilirubin Direct Bilirubin GGT AST ALT Alkaline Phosphatase Total Creatine Kinase Troponin I Total Protein Albumin Globulin Albumin/Globulin Ratio Triglycerides Cholesterol LDL Cholesterol Direct HDL Cholesterol Venous Blood Potassium 09/26/17 09/26/17 09/26/17 06:30 06:30 06:30 WBC RBC Hgb Hct MCV MCH MCHC RDW Plt Count MPV Gran % Lymph % (Auto) Atkinson % (Auto) Eos % (Auto) Baso % (Auto) Gran # Lymph # (Auto) Atkinson # (Auto) Eos # (Auto) Baso # (Auto) PT INR APTT pO2 61 H VBG pH 7.33 VBG pCO2 40.0 VBG HCO3 21.1 VBG Total CO2 22.3 VBG O2 Sat (Calc) 94.3 H VBG Base Excess -4.5 L VBG Potassium 3.9 Sodium 137 136.0 Chloride 105 105.0 Glucose 188 H Lactate 2.1 FiO2 21.0 Potassium 3.8 Carbon Dioxide 21 Anion Gap 16 BUN 23 H Creatinine 1.1 Est GFR ( Amer) 60 Est GFR (Non-Af Amer) 49 POC Glucose (mg/dL) Random Glucose 187 H Hemoglobin A1c Calcium 8.9 Magnesium Total Bilirubin 2.8 H Direct Bilirubin 2.6 H GGT 255 H AST 272 H D ALT 187 H Alkaline Phosphatase 153 H D Total Creatine Kinase 99 Troponin I 0.04 D Total Protein 6.5 Albumin 3.3 Globulin 3.2 Albumin/Globulin Ratio 1.0 L Triglycerides 78 Cholesterol 103 L LDL Cholesterol Direct 33 HDL Cholesterol 37 Venous Blood Potassium 3.9 09/26/17 09/26/17 09/26/17 10:30 10:30 11:05 WBC RBC Hgb Hct MCV MCH MCHC RDW Plt Count MPV Gran % Lymph % (Auto) Atkinson % (Auto) Eos % (Auto) Baso % (Auto) Gran # Lymph # (Auto) Atkinson # (Auto) Eos # (Auto) Baso # (Auto) PT INR APTT pO2 63 H VBG pH 7.36 VBG pCO2 38.0 L VBG HCO3 21.5 VBG Total CO2 22.7 VBG O2 Sat (Calc) 95.2 H VBG Base Excess -3.6 L VBG Potassium 3.6 Sodium 136.0 Chloride 106.0 Glucose 173 H Lactate 2.0 FiO2 21.0 Potassium Carbon Dioxide Anion Gap BUN Creatinine Est GFR ( Amer) Est GFR (Non-Af Amer) POC Glucose (mg/dL) 139 H Random Glucose Hemoglobin A1c Calcium Magnesium 1.9 Total Bilirubin 2.7 H Direct Bilirubin 2.5 H GGT AST 282 H ALT 186 H Alkaline Phosphatase 144 H Total Creatine Kinase Troponin I Total Protein 6.3 Albumin 3.2 Globulin 3.1 Albumin/Globulin Ratio 1.1 Triglycerides Cholesterol LDL Cholesterol Direct HDL Cholesterol Venous Blood Potassium 3.6 - Imaging and Cardiology CT scan - abdomen Status: Image reviewed by me, Report reviewed by me US - abdomen Status: Image reviewed by me, Report reviewed by me Assessment & Plan - Assessment and Plan (Free Text) Assessment: 67F w. cholangitis s/p ERCP -c/w IVF and abx -Trend LFTs -will plan for cholecystectomy when LFTs WNL -will d/w attending John PGY3
--- NOTE | 2017-09-26 15:19 | HP ---
HISTORY OF PRESENT ILLNESS: The patient is a 67-year-old, [place] female, who presented to the [facility] emergency room complaining of vomiting, fever, shortness of breath. The patient came to the emergency room via [facility]. According to the ER physician evaluation, the patient presented with stated that she eaten at [employer] and went home and developed nausea, vomiting, difficulty breathing, intermittent abdominal discomfort. Shaw dizzy. The patient denies any loss of consciousness. CODE STATUS: Full code. LIVING WILL ADVANCED DIRECTIVE: None. ALLERGIES: NONE. HEIGHT: 5 feet 2. WEIGHT: 149. BMI: 27. HOME MEDICATIONS: Humalog 30 units with lunch and Lantus 30 units with dinner, Lantus 30 units with breakfast, Plavix 75 daily, Pravachol 40 mg daily, metformin 1000 mg twice a day, Toprol-XL 200 twice a day, gemfibrozil 600 mg daily, Vasotec 20 mg daily. SOCIAL HISTORY: Denies smoking, alcohol, drug use, communicable disease. MENSTRUAL HISTORY: Postmenopausal. FAMILY HISTORY: Positive for diabetes, hypertension. PAST MEDICAL AND SURGICAL HISTORY: History of hypertension, history of insulin-requiring diabetes mellitus, history of dyslipidemia. Past medical history is significant for history of hypertriglyceridemia, hyperlipidemia. PHYSICAL EXAMINATION: The patient is seen in the Intensive Care Unit. VITAL SIGNS: T-max is 102.4; heart rate 113, 81, 75, 58, 62; blood pressure 154/120, 145/42, 123/61, 104/47; respirations 15; O2 sat 98%. GENERAL: The patient is seen lying in the bed. The patient is alert, awake responsive. HEENT: Head examination normocephalic, atraumatic. HEENT examination shows pink conjunctivae, anicteric sclerae, dry oral mucosa. No neck rigidity. No carotid bruit. CHEST: Kyphosis. LUNGS: Shows occasional rhonchi. CARDIOVASCULAR: S1, S2. Regular rhythm. Questionable soft systolic murmur, left sternal border, right second intercostal space, left second intercostal space. ABDOMEN: Soft. Positive bowel sounds. Positive epigastric, right upper quadrant, right periumbilical tenderness. No rebound tenderness. Questionable right costovertebral angle tenderness. GENITALIA: Female. RECTAL: Deferred. EXTREMITIES: Show no pitting edema, no calf tenderness, no Homans' sign. Neurologic: The patient is alert, awake, responsive, is able to move upper and lower extremity without assistance. Gait examination is not tested. VASCULAR: Palpable pulses. MUSCULOSKELETAL: Shows a body mass index of 27.4. PSYCHIATRIC: Negative. DIAGNOSTICS: WBC 22.2, repeat WBC 18.7; hemoglobin and hematocrit 17.3 and 49.4, repeat hemoglobin and hematocrit 12.9 and 38.1; platelets 365, down to 278. Granulocytes 89%. PT/PTT 12.0 and 35.9, 13.5 and 30.6. VBG initially shows a lactate of 5.9, then 2.9, then 2.1. Initial chemistry was abnormal for potassium of 3.4, anion gap 24, BUN 18, creatinine 0.9, calcium 10.7, magnesium 1.4. Total bili 3.1, down to 2.8. DGTP 255. AST 503, down to 272; ALT 256 to 187; alk phos 267 to 153; LDH 1956. Troponin 0.02. BNP 603. Total protein 9.4, down to 6.5; albumin 4.9, down to 3.3. Cholesterol 103, LDL 33, HDL 37, triglyceride 78. Repeat sodium 137, potassium 3.8, chloride 105, CO2 of 21, anion gap 16, BUN 23, creatinine 1.1, glucose 187. Lipase is normal. Influenza A serology is positive. The patient had a chest x-ray done, which was reviewed. The patient had a CT of the chest, CT head, gallbladder ultrasound reviewed. EKG was done, which was reviewed. The patient was seen in the emergency room by Dr. Treadwell. The patient is started on IV fluid sepsis protocol. The patient was started on broad-spectrum antibiotics. The patient was evaluated by cook tortilla. IMPRESSION AND PLAN: A 67-year-old female presented with complaints of nausea, vomiting, subjective fever, weakness, poor appetite after eating at [facility]. Vomiting of yellowish material and also complaining of some infrequent diarrhea with abdominal discomfort. 1. Questionable sepsis versus systemic inflammatory response syndrome. 2. Hypertension and hypotension. 3. Leukocytosis with granulocytosis. 4. Erythrocytosis, probably hemoconcentration. 5. Lactic acidosis. 6. Increased anion gap metabolic acidosis. 7. Hypokalemia. 8. Prerenal kidney injury. 9. Hyperglycemia. 10. Hypomagnesemia. 11. Transaminitis with hyperbilirubinemia. 12. Indeterminate troponin. 13. Prerenal kidney injury. 14. Influenza A questionable viral infection with high-grade fever of 102.4. 15. Transaminitis. 16. Influenza viral infection. 17. Hepatic steatosis. 18. Cholelithiasis with gallbladder distention. 19. Questionable cholangitis. 20. Right posterior frontal 12 x 18 mm meningioma. 21. Hepatomegaly with hepatic steatosis and distended gallbladder. 22. History of hypertension, history of insulin-requiring diabetes mellitus, history of hyperlipidemia, hypertriglyceridemia. 23. Possible sepsis secondary to cholangitis and cholelithiasis versus questionable cholecystitis. 24. Acute influenza A infection. Plan at this time, the patient has been ordered repeat serial labs. The patient has been ordered hemoglobin A1c. The patient has been ordered repeat LFTs. Hepatitis serologies has been ordered. The patient has been ordered blood cultures. Urine cultures ordered. CONSULTATION: 1. Gastroenterology. 2. Infectious Disease. 3. Surgery. Procalcitonin level has been ordered. The patient is on IV fluid with potassium supplementation. The patient is on regular insulin low-dose sliding scale coverage. The patient has been given magnesium sulfate rider, Protonix 40 IV daily, Tamiflu 30 mg twice a day. The patient was given vancomycin 1 g IV in the ER, Zofran 4 mg IV q. 6, Zosyn 3.375 g IV q. 6 hours. Infectious Disease consultation, surgical consultation have been ordered. The patient was started on IV fluid with potassium supplementation 0.9. The patient is on normal saline with potassium supplementation. The patient is on sliding scale coverage q. 6 hours. The patient is on Protonix 40 IV daily. The patient has been ordered HIDA scan, oxygen, repeat EKG. The patient is on n.p.o. The patient has been ordered GI, DVT prophylaxis. At present, the patient is awaiting further evaluation by Gastroenterology, Infectious Disease and Surgery. In addition, the patient will be ordered an echo with Doppler for anticipated possible further GI surgical intervention. Cardiology consultation has also been requested. At present, the patient is admitted to Intensive Care Unit for further management and treatment and evaluation. Dictated and electronically signed, not read. Bruce Hall MD [facility] # [id number]
[2017-09-26 16:57] LABS: HEPATITIS B SURFACE AG Negative (NEGATIVE)
[2017-09-26 17:03] LABS: HEPATITIS A IGM NEGATIVE (NEGATIVE); HEPATITIS B CORE AB NEGATIVE (NEGATIVE)
[2017-09-26 17:14] LABS: HEPATITIS C ANTIBODY NEGATIVE (NEGATIVE)
[2017-09-26 17:39] LABS: URINE BILIRUBIN SMALL (NEGATIVE); URINE BLOOD TRACE-INTACT (NEGATIVE); URINE GLUCOSE (UA) NEGATIVE (NEGATIVE); URINE LEUKOCYTE ESTERASE NEGATIVE Leu/uL (NEGATIVE); URINE PROTEIN >=300 mg/dL (<30 mg/dL); URINE UROBILINOGEN 0.2 E.U./dL (<1 E.U./dL)
[2017-09-26 17:40] LABS: URINE APPEARANCE CLEAR (CLEAR); URINE COLOR YELLOW (YELLOW)
[2017-09-26 17:53] LABS: URINE WBC 0 - 2 /hpf (0-6)
[2017-09-26 17:54] LABS: URINE AMORPHOUS SEDIMENT FEW; URINE BACTERIA LARGE (NEG)
[2017-09-26] MEDS ORDERED: Piperacillin/Tazobact 3.375 gm 100 ML IVPB SCH (18:00)
--- NOTE | 2017-09-26 18:37 | CARD ---
APPROVED REPORT EXAM: Two-dimensional and M-mode echocardiogram with Doppler and color Doppler. INDICATION Cardiac Disease: CAD 2D DIMENSIONS Left Atrium (2D)3.7 (1.6-4.0cm)IVSd1.1 (0.7-1.1cm) LVDd4.0 (3.9-5.9cm)PWd1.1 (0.7-1.1cm) LVDs2.3 (2.5-4.0cm)FS (%) 42.8 % LVEF (%)74.5 (>50%) M-Mode DIMENSIONS Aortic Root3.00 (2.2-3.7cm)Aortic Cusp Exc.1.50 (1.5-2.0cm) Aortic Valve AoV Peak Bqtnioxd056.0cm/Shama Peak GR.10mmHg Mitral Valve MV E Fsiveezi96.3cm/sMV A Tlwssyyd841.0cm/sE/A ratio0.9 TDI Lateral E' Peak V8.48cm/sMedial E' Peak V7.70cm/sE/Lateral E'11.4 E/Medial E'12.5 Pulmonary Valve PV Peak Dmlllhqc94.7cm/sPV Peak Grad.1mmHg Tricuspid Valve TR Peak [id number]/sRAP [id number] Peak Gr.24mmHg [id number] LEFT VENTRICLE The left ventricle is normal size. There is borderline concentric left ventricular hypertrophy. The left ventricular function is normal. The left ventricular ejection fraction is within the normal range. There is normal LV segmental wall motion. Transmitral Doppler flow pattern is Grade I-abnormal relaxation pattern. RIGHT VENTRICLE The right ventricle is normal size. There is normal right ventricular wall thickness. The right ventricular systolic function is normal. ATRIA The left atrium size is normal. The right atrium size is normal. AORTIC VALVE The aortic valve is mildly thickened. No aortic regurgitation is present. There is no aortic valvular stenosis. MITRAL VALVE The mitral valve is moderately thickened. Mitral regurgitation is trace. There is no mitral valve stenosis. TRICUSPID VALVE There is mild pulmonary hypertension. GREAT VESSELS The aortic root is normal in size. The IVC is normal in size and collapses >50% with inspiration. PERICARDIAL EFFUSION There is a trace loculated anterior pericardial effusion. <Conclusion> The left ventricle is normal size. There is borderline concentric left ventricular hypertrophy. The left ventricular function is normal. The left ventricular ejection fraction is within the normal range. There is normal LV segmental wall motion. Transmitral Doppler flow pattern is Grade I-abnormal relaxation pattern. There is mild pulmonary hypertension.
--- NOTE | 2017-09-26 19:48 | CARD ---
APPROVED REPORT EKG Measurement Heart [id number] <Conclusion> Normal sinus rhythm Cannot rule out Anterior infarct, age undetermined Abnormal ECG
--- NOTE | 2017-09-26 21:18 | CARD ---
APPROVED REPORT EKG Measurement Heart [id number] <Conclusion> Normal sinus rhythm Possible Anterior infarct, age undetermined Abnormal ECG
[2017-09-26] MEDS ORDERED: Absorbable Gelatin Sponge Size 100 MM ONE (23:24)
[2017-09-26] MEDS ORDERED: [UNRECOGNIZED DRUG - OTHER] MM ONE (23:25)
--- NOTE | 2017-09-26 23:54 | CON ---
DATE: 09/26/2017 CARDIOLOGY CONSULTATION HISTORY OF PRESENT ILLNESS: The patient is a 67-year-old woman who presents with abdominal symptoms including nausea and vomiting. She was found to have elevated LFTs. PAST MEDICAL HISTORY: Notable for diabetes mellitus, hypertension, and hypercholesterolemia. No previous cardiac history is noted. No chest pain or shortness of breath. SOCIAL HISTORY: The patient does not smoke. REVIEW OF SYSTEMS: A 14-point review of systems was reviewed in detail. No cardiac symptomatology is noted. PHYSICAL EXAMINATION: VITAL SIGNS: Blood pressure 145/60; the heart rates in the 60s, normal sinus rhythm. NECK: Negative JVD. LUNGS: Without rales. HEART: Reveals S1, S2. EXTREMITIES: Without edema. EKG shows normal sinus rhythm with no acute changes. LABORATORY DATA: LFTs are elevated. Troponin is negative. BUN and creatinine are unremarkable. Hemoglobin is 12.9 with an elevated white count of 18.7. IMPRESSION: 1. Nausea and vomiting. 2. Gallbladder and biliary disease. 3. Diabetes mellitus. 4. Hypertension. 5. Hypercholesterolemia. Given these findings, there is no evidence for acute cardiac issues at this time. There are no cardiac contraindications or any possible planned abdominal surgery. We will obtain an echocardiogram to get a better understanding of her LV function. Yonathan De Dios MD
[2017-09-27] MEDS: Piperacillin/Tazobact 3.375 gm 100 ML IVPB SCH ×5 (00:15→23:09)
[2017-09-27] MEDS: Insulin Reg-LOW-Coverage SC SCH ×5 (00:21→23:22)
--- NOTE | 2017-09-27 05:50 | CON ---
DATE: 09/26/2017 LOCATION: The patient is seen in the ICU, 129, bed 3. CHIEF COMPLAINT: Fever, nausea and vomiting x1 day. HISTORY OF PRESENT ILLNESS: This is a 67-year-old [place] female with diabetes mellitus, hypertension, hyperlipidemia who was admitted to the emergency room with nausea, vomiting, abdominal pain, found to have cholangitis and influenza; Infectious Disease consultation requested. REVIEW OF SYSTEMS: Reveals the patient's daughter is at the bedside, who states that her fevers and chills, abdominal discomfort, nausea and vomiting were acute and 1-day duration. There is no chest pain. There is mild shortness of breath. No headaches or blurred vision. There is generalized aches and pains. PAST MEDICAL HISTORY: Significant for diabetes mellitus, hypertension, hyperlipidemia. PAST SURGICAL HISTORY: Noncontributory. ALLERGIES: PATIENT HAS NO KNOWN ALLERGIES. MEDICATIONS AT HOME: Include insulin, Plavix, pravastatin, metformin, metoprolol, gemfibrozil and Vasotec. PHYSICAL EXAMINATION: GENERAL: On exam, patient is in bed now with comfortable. VITAL SIGNS: Temperature of 98, T-max is 102.4, respiratory rate of 24; heart rate of 66, it was up to 113; blood pressure is 104/40. HEENT: Examination of HEENT is unremarkable. NECK: Supple. LUNGS: Have decreased breath sounds. HEART: Exam normal S1, S2. ABDOMEN: Examination is soft, nontender. No organomegaly. No rebound. LABORATORY DATA: Laboratory examination reveals the patient's white count of 22,000, hemoglobin of 17, platelets of 365 and 89% granulocytosis. Coagulation is noted. The blood gases are reviewed. BUN of 23, creatinine of 1.1. LFTs are noted and elevated, and patient did have a procalcitonin of 0.86. Urinalysis is reviewed. Immunology is reviewed. Serology is influenza positive. Hepatitis profile is negative. Microbiology reveals the blood cultures are negative. CAT scan of the chest and abdomen is reviewed. Chest x-rays, noted to be no active pulmonary disease. surgical consultation is reviewed. Dr. Ndiaye's consultation is also reviewed. ASSESSMENT AND PLAN: This is a 67-year-old female with diabetes mellitus, hypertension, hyperlipidemia, admitted with a fever of 102.4, heart rate of 113 and respiratory rate of 24, nausea, vomiting and abdominal pain. Sepsis with acute cholangitis, status post endoscopic retrograde cholangiopancreatography with sphincterotomy, also with positive influenza A. We will treat the patient with Tamiflu and Zosyn and check on the culture results. Recommend 5 days of Tamiflu and the patient for possible cholecystectomy. We will follow closely with you. Pawan Martin MD
[2017-09-27 06:50] LABS: BASO # 0.04 K/mm3 (0.0-2.0); BASO % 0.3 % (0.0-3.0); EOS # 0.3 (0.0-0.7); EOS % 2.2 % (1.5-5.0); GRAN # 8.86 (1.4-6.5); HEMOGLOBIN 13.7 g/dL (12.0-16.0); LYMPH # 1.1 (1.2-3.4); LYMPH % 9.5 % (22.0-35.0); MEAN CELL VOLUME 85.7 fl (80.0-105.0); MEAN CORPUSCULAR HEMOGLOBIN 28.8 pg (25.0-35.0); MEAN CORPUSCULAR HGB CONC 33.7 g/dl (31.0-37.0); MEAN PLATELET VOLUME 11.9 fl (7.0-11.0); MONO # 1.4 (0.1-0.6); RBC 4.75 10^6/uL (3.5-6.1); RED CELL DISTRIBUTION WIDTH 14.7 % (11.5-14.5); WHITE BLOOD COUNT 11.7 10^3/ul (4.5-11.0)
--- NOTE | 2017-09-27 06:52 | CP.CCUPN ---
<Love Brown - Last Filed: 09/27/17 10:42> CCU Subjective - Physician Review Subjective (Free Text): 09/27/17 08:27 Patient had no overnight acute events. Patient is s/p ERCP yesterday. Patient states the abdominal pain is mild. Denies fever or chills. No nausea or vomiting. CCU Objective - Vital Signs / Intake & Output Vital Signs (Last 4 hours): Vital Signs Temp Pulse Resp BP Pulse Ox 09/27/17 06:45 77 20 158/73 H 94 L 09/27/17 06:18 64 185/76 H 09/27/17 06:00 68 26 H 185/76 H 93 L 09/27/17 05:00 67 20 187/75 H 94 L 09/27/17 04:00 99 F 71 20 184/78 H 94 L 09/27/17 03:00 71 22 187/74 H 96 Intake and Output (Last 8hrs): Intake & Output 09/26/17 09/26/17 09/27/17 14:59 22:59 06:59 Intake Total 1590 2000 Output Total 400 1900 Balance 1190 100 Intake: IV 1350 1700 Left Hand 1250 1500 Right Hand 100 200 Oral 240 300 Output: Urine 400 1900 Urine, Voided 400 1900 - Physical Exam Head: Positive for: Atraumatic, Normocephalic Pupils: Positive for: PERRL Extroacular Muscles: Positive for: EOMI Conjunctiva: Positive for: Normal Ears: Positive for: Normal Mouth: Positive for: Moist Mucous Membranes Pharnyx: Positive for: Normal Nose (External): Positive for: Atraumatic Nose (Internal): Positive for: Normal Inspection Neck: Positive for: Normal Range of Motion Respiratory/Chest: Positive for: Clear to Auscultation, Good Air Exchange Cardiovascular: Positive for: Regular Rate and Rhythm Abdomen: Positive for: Tenderness (mild upper quadrant. ). Negative for: Distention, Normal Bowel Sounds, Peritoneal Signs, Rebound, Guarding, McBurney' s Point Tender, Rovsing's Sign Present, Hernias, Feeding Tubes, Ostomy Tubes, Mass/Organomegaly, Scars, Other Back: Positive for: Normal Inspection Upper Extremity: Positive for: Normal Inspection Lower Extremity: Positive for: Normal Inspection Neurological: Positive for: GCS=15, CN II-XII Intact, Speech Normal, Motor Func Grossly Intact Skin: Positive for: Warm, Normal Color Psychiatric: Positive for: Alert, Oriented x 3, Normal Insight, Normal Concentration - Medications Active Medications: Active Medications Generic Name Dose Route Start Last Admin Trade Name Freq PRN Reason Stop Dose Admin Hydralazine HCl 10 mg 09/27/17 06:07 09/27/17 06:18 Apresoline IVP 10 mg Q6 PRN Administration Systolic Blood Pressure Potassium Chloride 20 meq/ 1,010 mls @ 125 mls/hr 09/26/17 10:30 09/27/17 05: 00 Sodium Chloride IV 09/27/17 10:44 125 mls/hr .[id number] ADRIANE Administration Piperacillin Sod/Tazobactam Sod 100 mls @ 200 mls/hr 09/27/17 00:00 09/27/17 05:21 Zosyn 3.375 In Ns 100ml IVPB 10/07/17 00:01 200 mls/hr Q6 ADRIANE Administration Protocol Insulin Human Regular 0 units 09/26/17 12:00 09/27/17 06:06 Humulin R Low SC Not Given Q6 ADRIANE Protocol Ondansetron HCl 4 mg 09/26/17 04:21 Zofran Inj IVP Q6H PRN Nausea/Vomiting Oseltamivir Phosphate 30 mg 09/26/17 10:00 09/26/17 17:10 Tamiflu PO 30 mg BID ADRIANE Administration Protocol Pantoprazole Sodium 40 mg 09/26/17 10:00 09/26/17 11:04 Protonix Inj IVP 40 mg DAILY ADRIANE Administration - Patient Studies Lab Studies: Lab Studies 09/27/17 09/27/17 09/26/17 Range/Units 06:04 00:19 17:15 WBC (4.5-11.0) 10^3/ul RBC (3.5-6.1) 10^6/uL Hgb (12.0-16.0) g/dL Hct (36.0-48.0) % MCV (80.0-105.0) fl MCH (25.0-35.0) pg MCHC (31.0-37.0) g/dl RDW (11.5-14.5) % Plt Count (120.0-450.0) 10^3/uL MPV (7.0-11.0) fl Gran % (50.0-68.0) % Lymph % (Auto) (22.0-35.0) % [place] % (Auto) (1.0-6.0) % Eos % (Auto) (1.5-5.0) % Baso % (Auto) (0.0-3.0) % Gran # (1.4-6.5) Lymph # (Auto) (1.2-3.4) [place] # (Auto) (0.1-0.6) Eos # (Auto) (0.0-0.7) Baso # (Auto) (0.0-2.0) K/mm3 PT (9.4-12.5) SECONDS INR (0.93-1.08) APTT (25.1-36.5) Seconds pO2 (30-55) mm/Hg VBG pH (7.32-7.43) VBG pCO2 (40-60) VBG HCO3 (21-28) mmol/l VBG Total CO2 (22-28) mmol.L VBG O2 Sat (Calc) (40-65) % VBG Base Excess (0.0-2.0) mmol/L VBG Potassium (3.6-5.2) mmol/L Sodium (132-148) mmol/L Chloride (98-107) mmol/L Glucose (65-105) mg/dl Lactate (0.7-2.1) mmol/L FiO2 % Potassium (3.6-5.0) mmol/L Carbon Dioxide (21-33) mmol/L Anion Gap (10-20) BUN (7-21) mg/dL Creatinine (0.7-1.2) mg/dl Est GFR ( Amer) Est GFR (Non-Af Amer) POC Glucose (mg/dL) 89 106 (65-110) mg/dL Random Glucose (70-110) mg/dL Hemoglobin A1c (4.2-6.5) % Calcium (8.4-10.5) mg/dL Magnesium (1.7-2.2) mg/dL Total Bilirubin (0.2-1.3) mg/dL Direct Bilirubin (0.0-0.4) mg/dL GGT (8-78) U/L AST (14-36) U/L ALT (7-56) U/L Alkaline Phosphatase (38-126) U/L Total Creatine Kinase (35-230) U/L Troponin I ng/mL Total Protein (5.8-8.3) g/dL Albumin (3.0-4.8) g/dL Globulin gm/dL Albumin/Globulin Ratio (1.1-1.8) Triglycerides (35-160) mg/dL Cholesterol (130-200) mg/dL LDL Cholesterol Direct (0-129) mg/dL HDL Cholesterol (29-60) mg/dL Venous Blood Potassium (3.6-5.2) mmol/L Urine Color Yellow (YELLOW) Urine Appearance Clear (CLEAR) Urine pH 6.0 (4.7-8.0) Ur Specific [place] 1.025 (1.005-1.035) Urine Protein >=300 H (<30 mg/dL) mg/dL Urine Glucose (UA) Negative (NEGATIVE) mg/dL Urine Ketones Negative (NEGATIVE) mg/dL Urine Blood Trace-intact H (NEGATIVE) Urine Nitrate Negative (NEGATIVE) Urine Bilirubin Small H (NEGATIVE) Urine Urobilinogen 0.2 (<1 E.U./dL) E.U./dL Ur Leukocyte Esterase Negative (NEGATIVE) Blas/uL Urine RBC 2 - 5 (0-2) /hpf Urine WBC 0 - 2 (0-6) /hpf Ur Epithelial Cells 4 - 5 (0-5) /hpf Amorphous Sediment Few Urine Bacteria Large (NEG) Urine Other Fiber IgG (700.0-1600.0) mg/dL Hepatitis A IgM Ab (NEGATIVE) Hep Bs Antigen (NEGATIVE) Hep B Core IgM Ab (NEGATIVE) Hepatitis C Antibody (NEGATIVE) 09/26/17 09/26/17 09/26/17 Range/Units 15:52 13:00 11:05 WBC (4.5-11.0) 10^3/ul RBC (3.5-6.1) 10^6/uL Hgb (12.0-16.0) g/dL Hct (36.0-48.0) % MCV (80.0-105.0) fl MCH (25.0-35.0) pg MCHC (31.0-37.0) g/dl RDW (11.5-14.5) % Plt Count (120.0-450.0) 10^3/uL MPV (7.0-11.0) fl Gran % (50.0-68.0) % Lymph % (Auto) (22.0-35.0) % [place] % (Auto) (1.0-6.0) % Eos % (Auto) (1.5-5.0) % Baso % (Auto) (0.0-3.0) % Gran # (1.4-6.5) Lymph # (Auto) (1.2-3.4) [place] # (Auto) (0.1-0.6) Eos # (Auto) (0.0-0.7) Baso # (Auto) (0.0-2.0) K/mm3 PT (9.4-12.5) SECONDS INR (0.93-1.08) APTT (25.1-36.5) Seconds pO2 (30-55) mm/Hg VBG pH (7.32-7.43) VBG pCO2 (40-60) VBG HCO3 (21-28) mmol/l VBG Total CO2 (22-28) mmol.L VBG O2 Sat (Calc) (40-65) % VBG Base Excess (0.0-2.0) mmol/L VBG Potassium (3.6-5.2) mmol/L Sodium (132-148) mmol/L Chloride (98-107) mmol/L Glucose (65-105) mg/dl Lactate (0.7-2.1) mmol/L FiO2 % Potassium (3.6-5.0) mmol/L Carbon Dioxide (21-33) mmol/L Anion Gap (10-20) BUN (7-21) mg/dL Creatinine (0.7-1.2) mg/dl Est GFR ( Amer) Est GFR (Non-Af Amer) POC Glucose (mg/dL) 90 139 H (65-110) mg/dL Random Glucose (70-110) mg/dL Hemoglobin A1c (4.2-6.5) % Calcium (8.4-10.5) mg/dL Magnesium (1.7-2.2) mg/dL Total Bilirubin (0.2-1.3) mg/dL Direct Bilirubin (0.0-0.4) mg/dL GGT (8-78) U/L AST (14-36) U/L ALT (7-56) U/L Alkaline Phosphatase (38-126) U/L Total Creatine Kinase (35-230) U/L Troponin I ng/mL Total Protein (5.8-8.3) g/dL Albumin (3.0-4.8) g/dL Globulin gm/dL Albumin/Globulin Ratio (1.1-1.8) Triglycerides (35-160) mg/dL Cholesterol (130-200) mg/dL LDL Cholesterol Direct (0-129) mg/dL HDL Cholesterol (29-60) mg/dL Venous Blood Potassium (3.6-5.2) mmol/L Urine Color (YELLOW) Urine Appearance (CLEAR) Urine pH (4.7-8.0) Ur Specific [place] (1.005-1.035) Urine Protein (<30 mg/dL) mg/dL Urine Glucose (UA) (NEGATIVE) mg/dL Urine Ketones (NEGATIVE) mg/dL Urine Blood (NEGATIVE) Urine Nitrate (NEGATIVE) Urine Bilirubin (NEGATIVE) Urine Urobilinogen (<1 E.U./dL) E.U./dL Ur Leukocyte Esterase (NEGATIVE) Blas/uL Urine RBC (0-2) /hpf Urine WBC (0-6) /hpf Ur Epithelial Cells (0-5) /hpf Amorphous Sediment Urine Bacteria (NEG) Urine Other IgG 1162.7 (700.0-1600.0) mg/dL Hepatitis A IgM Ab (NEGATIVE) Hep Bs Antigen (NEGATIVE) Hep B Core IgM Ab (NEGATIVE) Hepatitis C Antibody (NEGATIVE) 09/26/17 09/26/17 09/26/17 Range/Units 10:30 10:30 10:30 WBC (4.5-11.0) 10^3/ul RBC (3.5-6.1) 10^6/uL Hgb (12.0-16.0) g/dL Hct (36.0-48.0) % MCV (80.0-105.0) fl MCH (25.0-35.0) pg MCHC (31.0-37.0) g/dl RDW (11.5-14.5) % Plt Count (120.0-450.0) 10^3/uL MPV (7.0-11.0) fl Gran % (50.0-68.0) % Lymph % (Auto) (22.0-35.0) % [place] % (Auto) (1.0-6.0) % Eos % (Auto) (1.5-5.0) % Baso % (Auto) (0.0-3.0) % Gran # (1.4-6.5) Lymph # (Auto) (1.2-3.4) [place] # (Auto) (0.1-0.6) Eos # (Auto) (0.0-0.7) Baso # (Auto) (0.0-2.0) K/mm3 PT (9.4-12.5) SECONDS INR (0.93-1.08) APTT (25.1-36.5) Seconds pO2 63 H (30-55) mm/Hg VBG pH 7.36 (7.32-7.43) VBG pCO2 38.0 L (40-60) VBG HCO3 21.5 (21-28) mmol/l VBG Total CO2 22.7 (22-28) mmol.L VBG O2 Sat (Calc) 95.2 H (40-65) % VBG Base Excess -3.6 L (0.0-2.0) mmol/L VBG Potassium 3.6 (3.6-5.2) mmol/L Sodium 136.0 (132-148) mmol/L Chloride 106.0 (98-107) mmol/L Glucose 173 H (65-105) mg/dl Lactate 2.0 (0.7-2.1) mmol/L FiO2 21.0 % Potassium (3.6-5.0) mmol/L Carbon Dioxide (21-33) mmol/L Anion Gap (10-20) BUN (7-21) mg/dL Creatinine (0.7-1.2) mg/dl Est GFR ( Amer) Est GFR (Non-Af Amer) POC Glucose (mg/dL) (65-110) mg/dL Random Glucose (70-110) mg/dL Hemoglobin A1c (4.2-6.5) % Calcium (8.4-10.5) mg/dL Magnesium 1.9 (1.7-2.2) mg/dL Total Bilirubin 2.7 H (0.2-1.3) mg/dL Direct Bilirubin 2.5 H (0.0-0.4) mg/dL GGT (8-78) U/L AST 282 H (14-36) U/L ALT 186 H (7-56) U/L Alkaline Phosphatase 144 H (38-126) U/L Total Creatine Kinase (35-230) U/L Troponin I ng/mL Total Protein 6.3 (5.8-8.3) g/dL Albumin 3.2 (3.0-4.8) g/dL Globulin 3.1 gm/dL Albumin/Globulin Ratio 1.1 (1.1-1.8) Triglycerides (35-160) mg/dL Cholesterol (130-200) mg/dL LDL Cholesterol Direct (0-129) mg/dL HDL Cholesterol (29-60) mg/dL Venous Blood Potassium 3.6 (3.6-5.2) mmol/L Urine Color (YELLOW) Urine Appearance (CLEAR) Urine pH (4.7-8.0) Ur Specific [place] (1.005-1.035) Urine Protein (<30 mg/dL) mg/dL Urine Glucose (UA) (NEGATIVE) mg/dL Urine Ketones (NEGATIVE) mg/dL Urine Blood (NEGATIVE) Urine Nitrate (NEGATIVE) Urine Bilirubin (NEGATIVE) Urine Urobilinogen (<1 E.U./dL) E.U./dL Ur Leukocyte Esterase (NEGATIVE) Blas/uL Urine RBC (0-2) /hpf Urine WBC (0-6) /hpf Ur Epithelial Cells (0-5) /hpf Amorphous Sediment Urine Bacteria (NEG) Urine Other IgG (700.0-1600.0) mg/dL Hepatitis A IgM Ab Negative (NEGATIVE) Hep Bs Antigen Negative (NEGATIVE) Hep B Core IgM Ab Negative (NEGATIVE) Hepatitis C Antibody Negative (NEGATIVE) 09/26/17 09/26/17 09/26/17 Range/Units 06:30 06:30 06:30 WBC (4.5-11.0) 10^3/ul RBC (3.5-6.1) 10^6/uL Hgb (12.0-16.0) g/dL Hct (36.0-48.0) % MCV (80.0-105.0) fl MCH (25.0-35.0) pg MCHC (31.0-37.0) g/dl RDW (11.5-14.5) % Plt Count (120.0-450.0) 10^3/uL MPV (7.0-11.0) fl Gran % (50.0-68.0) % Lymph % (Auto) (22.0-35.0) % [place] % (Auto) (1.0-6.0) % Eos % (Auto) (1.5-5.0) % Baso % (Auto) (0.0-3.0) % Gran # (1.4-6.5) Lymph # (Auto) (1.2-3.4) [place] # (Auto) (0.1-0.6) Eos # (Auto) (0.0-0.7) Baso # (Auto) (0.0-2.0) K/mm3 PT (9.4-12.5) SECONDS INR (0.93-1.08) APTT (25.1-36.5) Seconds pO2 61 H (30-55) mm/Hg VBG pH 7.33 (7.32-7.43) VBG pCO2 40.0 (40-60) VBG HCO3 21.1 (21-28) mmol/l VBG Total CO2 22.3 (22-28) mmol.L VBG O2 Sat (Calc) 94.3 H (40-65) % VBG Base Excess -4.5 L (0.0-2.0) mmol/L VBG Potassium 3.9 (3.6-5.2) mmol/L Sodium 136.0 137 (132-148) mmol/L Chloride 105.0 105 (98-107) mmol/L Glucose 188 H (65-105) mg/dl Lactate 2.1 (0.7-2.1) mmol/L FiO2 21.0 % Potassium 3.8 (3.6-5.0) mmol/L Carbon Dioxide 21 (21-33) mmol/L Anion Gap 16 (10-20) BUN 23 H (7-21) mg/dL Creatinine 1.1 (0.7-1.2) mg/dl Est GFR ( Amer) 60 Est GFR (Non-Af Amer) 49 POC Glucose (mg/dL) (65-110) mg/dL Random Glucose 187 H (70-110) mg/dL Hemoglobin A1c (4.2-6.5) % Calcium 8.9 (8.4-10.5) mg/dL Magnesium (1.7-2.2) mg/dL Total Bilirubin 2.8 H (0.2-1.3) mg/dL Direct Bilirubin 2.6 H (0.0-0.4) mg/dL GGT 255 H (8-78) U/L AST 272 H D (14-36) U/L ALT 187 H (7-56) U/L Alkaline Phosphatase 153 H D (38-126) U/L Total Creatine Kinase 99 (35-230) U/L Troponin I 0.04 D ng/mL Total Protein 6.5 (5.8-8.3) g/dL Albumin 3.3 (3.0-4.8) g/dL Globulin 3.2 gm/dL Albumin/Globulin Ratio 1.0 L (1.1-1.8) Triglycerides 78 (35-160) mg/dL Cholesterol 103 L (130-200) mg/dL LDL Cholesterol Direct 33 (0-129) mg/dL HDL Cholesterol 37 (29-60) mg/dL Venous Blood Potassium 3.9 (3.6-5.2) mmol/L Urine Color (YELLOW) Urine Appearance (CLEAR) Urine pH (4.7-8.0) Ur Specific [place] (1.005-1.035) Urine Protein (<30 mg/dL) mg/dL Urine Glucose (UA) (NEGATIVE) mg/dL Urine Ketones (NEGATIVE) mg/dL Urine Blood (NEGATIVE) Urine Nitrate (NEGATIVE) Urine Bilirubin (NEGATIVE) Urine Urobilinogen (<1 E.U./dL) E.U./dL Ur Leukocyte Esterase (NEGATIVE) Blas/uL Urine RBC (0-2) /hpf Urine WBC (0-6) /hpf Ur Epithelial Cells (0-5) /hpf Amorphous Sediment Urine Bacteria (NEG) Urine Other IgG (700.0-1600.0) mg/dL Hepatitis A IgM Ab (NEGATIVE) Hep Bs Antigen (NEGATIVE) Hep B Core IgM Ab (NEGATIVE) Hepatitis C Antibody (NEGATIVE) 09/26/17 09/26/17 09/26/17 Range/Units 06:30 06:01 06:00 WBC (4.5-11.0) 10^3/ul RBC (3.5-6.1) 10^6/uL Hgb (12.0-16.0) g/dL Hct (36.0-48.0) % MCV (80.0-105.0) fl MCH (25.0-35.0) pg MCHC (31.0-37.0) g/dl RDW (11.5-14.5) % Plt Count (120.0-450.0) 10^3/uL MPV (7.0-11.0) fl Gran % (50.0-68.0) % Lymph % (Auto) (22.0-35.0) % [place] % (Auto) (1.0-6.0) % Eos % (Auto) (1.5-5.0) % Baso % (Auto) (0.0-3.0) % Gran # (1.4-6.5) Lymph # (Auto) (1.2-3.4) [place] # (Auto) (0.1-0.6) Eos # (Auto) (0.0-0.7) Baso # (Auto) (0.0-2.0) K/mm3 PT 13.5 H (9.4-12.5) SECONDS INR 1.17 H (0.93-1.08) APTT 30.6 (25.1-36.5) Seconds pO2 (30-55) mm/Hg VBG pH (7.32-7.43) VBG pCO2 (40-60) VBG HCO3 (21-28) mmol/l VBG Total CO2 (22-28) mmol.L VBG O2 Sat (Calc) (40-65) % VBG Base Excess (0.0-2.0) mmol/L VBG Potassium (3.6-5.2) mmol/L Sodium (132-148) mmol/L Chloride (98-107) mmol/L Glucose (65-105) mg/dl Lactate (0.7-2.1) mmol/L FiO2 % Potassium (3.6-5.0) mmol/L Carbon Dioxide (21-33) mmol/L Anion Gap (10-20) BUN (7-21) mg/dL Creatinine (0.7-1.2) mg/dl Est GFR ( Amer) Est GFR (Non-Af Amer) POC Glucose (mg/dL) 173 H (65-110) mg/dL Random Glucose (70-110) mg/dL Hemoglobin A1c 9.0 H (4.2-6.5) % Calcium (8.4-10.5) mg/dL Magnesium (1.7-2.2) mg/dL Total Bilirubin (0.2-1.3) mg/dL Direct Bilirubin (0.0-0.4) mg/dL GGT (8-78) U/L AST (14-36) U/L ALT (7-56) U/L Alkaline Phosphatase (38-126) U/L Total Creatine Kinase (35-230) U/L Troponin I ng/mL Total Protein (5.8-8.3) g/dL Albumin (3.0-4.8) g/dL Globulin gm/dL Albumin/Globulin Ratio (1.1-1.8) Triglycerides (35-160) mg/dL Cholesterol (130-200) mg/dL LDL Cholesterol Direct (0-129) mg/dL HDL Cholesterol (29-60) mg/dL Venous Blood Potassium (3.6-5.2) mmol/L Urine Color (YELLOW) Urine Appearance (CLEAR) Urine pH (4.7-8.0) Ur Specific [place] (1.005-1.035) Urine Protein (<30 mg/dL) mg/dL Urine Glucose (UA) (NEGATIVE) mg/dL Urine Ketones (NEGATIVE) mg/dL Urine Blood (NEGATIVE) Urine Nitrate (NEGATIVE) Urine Bilirubin (NEGATIVE) Urine Urobilinogen (<1 E.U./dL) E.U./dL Ur Leukocyte Esterase (NEGATIVE) Blas/uL Urine RBC (0-2) /hpf Urine WBC (0-6) /hpf Ur Epithelial Cells (0-5) /hpf Amorphous Sediment Urine Bacteria (NEG) Urine Other IgG (700.0-1600.0) mg/dL Hepatitis A IgM Ab (NEGATIVE) Hep Bs Antigen (NEGATIVE) Hep B Core IgM Ab (NEGATIVE) Hepatitis C Antibody (NEGATIVE) 09/26/17 Range/Units 06:00 WBC 18.7 H (4.5-11.0) 10^3/ul RBC 4.49 (3.5-6.1) 10^6/uL Hgb 12.9 D (12.0-16.0) g/dL Hct 38.1 (36.0-48.0) % MCV 84.9 (80.0-105.0) fl MCH 28.7 (25.0-35.0) pg MCHC 33.9 (31.0-37.0) g/dl RDW 14.4 (11.5-14.5) % Plt Count 278 (120.0-450.0) 10^3/uL MPV 11.9 H (7.0-11.0) fl Gran % 89.4 H (50.0-68.0) % Lymph % (Auto) 6.0 L (22.0-35.0) % [place] % (Auto) 4.4 (1.0-6.0) % Eos % (Auto) 0.1 L (1.5-5.0) % Baso % (Auto) 0.1 (0.0-3.0) % Gran # 16.73 H (1.4-6.5) Lymph # (Auto) 1.1 L (1.2-3.4) [place] # (Auto) 0.8 H (0.1-0.6) Eos # (Auto) 0.0 (0.0-0.7) Baso # (Auto) 0.02 (0.0-2.0) K/mm3 PT (9.4-12.5) SECONDS INR (0.93-1.08) APTT (25.1-36.5) Seconds pO2 (30-55) mm/Hg VBG pH (7.32-7.43) VBG pCO2 (40-60) VBG HCO3 (21-28) mmol/l VBG Total CO2 (22-28) mmol.L VBG O2 Sat (Calc) (40-65) % VBG Base Excess (0.0-2.0) mmol/L VBG Potassium (3.6-5.2) mmol/L Sodium (132-148) mmol/L Chloride (98-107) mmol/L Glucose (65-105) mg/dl Lactate (0.7-2.1) mmol/L FiO2 % Potassium (3.6-5.0) mmol/L Carbon Dioxide (21-33) mmol/L Anion Gap (10-20) BUN (7-21) mg/dL Creatinine (0.7-1.2) mg/dl Est GFR ( Amer) Est GFR (Non-Af Amer) POC Glucose (mg/dL) (65-110) mg/dL Random Glucose (70-110) mg/dL Hemoglobin A1c (4.2-6.5) % Calcium (8.4-10.5) mg/dL Magnesium (1.7-2.2) mg/dL Total Bilirubin (0.2-1.3) mg/dL Direct Bilirubin (0.0-0.4) mg/dL GGT (8-78) U/L AST (14-36) U/L ALT (7-56) U/L Alkaline Phosphatase (38-126) U/L Total Creatine Kinase (35-230) U/L Troponin I ng/mL Total Protein (5.8-8.3) g/dL Albumin (3.0-4.8) g/dL Globulin gm/dL Albumin/Globulin Ratio (1.1-1.8) Triglycerides (35-160) mg/dL Cholesterol (130-200) mg/dL LDL Cholesterol Direct (0-129) mg/dL HDL Cholesterol (29-60) mg/dL Venous Blood Potassium (3.6-5.2) mmol/L Urine Color (YELLOW) Urine Appearance (CLEAR) Urine pH (4.7-8.0) Ur Specific [place] (1.005-1.035) Urine Protein (<30 mg/dL) mg/dL Urine Glucose (UA) (NEGATIVE) mg/dL Urine Ketones (NEGATIVE) mg/dL Urine Blood (NEGATIVE) Urine Nitrate (NEGATIVE) Urine Bilirubin (NEGATIVE) Urine Urobilinogen (<1 E.U./dL) E.U./dL Ur Leukocyte Esterase (NEGATIVE) Blas/uL Urine RBC (0-2) /hpf Urine WBC (0-6) /hpf Ur Epithelial Cells (0-5) /hpf Amorphous Sediment Urine Bacteria (NEG) Urine Other IgG (700.0-1600.0) mg/dL Hepatitis A IgM Ab (NEGATIVE) Hep Bs Antigen (NEGATIVE) Hep B Core IgM Ab (NEGATIVE) Hepatitis C Antibody (NEGATIVE) Laboratory Results - last 24 hr 09/26/17 09/26/17 09/26/17 06:00 06:00 06:01 WBC 18.7 H RBC 4.49 Hgb 12.9 D Hct 38.1 MCV 84.9 MCH 28.7 MCHC 33.9 RDW 14.4 Plt Count 278 MPV 11.9 H Gran % 89.4 H Lymph % (Auto) 6.0 L [place] % (Auto) 4.4 Eos % (Auto) 0.1 L Baso % (Auto) 0.1 Gran # 16.73 H Lymph # (Auto) 1.1 L [place] # (Auto) 0.8 H Eos # (Auto) 0.0 Baso # (Auto) 0.02 PT INR APTT pO2 VBG pH VBG pCO2 VBG HCO3 VBG Total CO2 VBG O2 Sat (Calc) VBG Base Excess VBG Potassium Sodium Chloride Glucose Lactate FiO2 Potassium Carbon Dioxide Anion Gap BUN Creatinine Est GFR ( Amer) Est GFR (Non-Af Amer) POC Glucose (mg/dL) 173 H Random Glucose Hemoglobin A1c 9.0 H Calcium Magnesium Total Bilirubin Direct Bilirubin GGT AST ALT Alkaline Phosphatase Total Creatine Kinase Troponin I Total Protein Albumin Globulin Albumin/Globulin Ratio Triglycerides Cholesterol LDL Cholesterol Direct HDL Cholesterol Venous Blood Potassium Urine Color Urine Appearance Urine pH Ur Specific [place] Urine Protein Urine Glucose (UA) Urine Ketones Urine Blood Urine Nitrate Urine Bilirubin Urine Urobilinogen Ur Leukocyte Esterase Urine RBC Urine WBC Ur Epithelial Cells Amorphous Sediment Urine Bacteria Urine Other IgG Hepatitis A IgM Ab Hep Bs Antigen Hep B Core IgM Ab Hepatitis C Antibody 09/26/17 09/26/17 09/26/17 06:30 06:30 06:30 WBC RBC Hgb Hct MCV MCH MCHC RDW Plt Count MPV Gran % Lymph % (Auto) [place] % (Auto) Eos % (Auto) Baso % (Auto) Gran # Lymph # (Auto) [place] # (Auto) Eos # (Auto) Baso # (Auto) PT 13.5 H INR 1.17 H APTT 30.6 pO2 61 H VBG pH 7.33 VBG pCO2 40.0 VBG HCO3 21.1 VBG Total CO2 22.3 VBG O2 Sat (Calc) 94.3 H VBG Base Excess -4.5 L VBG Potassium 3.9 Sodium 137 136.0 Chloride 105 105.0 Glucose 188 H Lactate 2.1 FiO2 21.0 Potassium 3.8 Carbon Dioxide 21 Anion Gap 16 BUN 23 H Creatinine 1.1 Est GFR ( Amer) 60 Est GFR (Non-Af Amer) 49 POC Glucose (mg/dL) Random Glucose 187 H Hemoglobin A1c Calcium 8.9 Magnesium Total Bilirubin 2.8 H Direct Bilirubin 2.6 H GGT 255 H AST 272 H D ALT 187 H Alkaline Phosphatase 153 H D Total Creatine Kinase Troponin I Total Protein 6.5 Albumin 3.3 Globulin 3.2 Albumin/Globulin Ratio 1.0 L Triglycerides Cholesterol LDL Cholesterol Direct HDL Cholesterol Venous Blood Potassium 3.9 Urine Color Urine Appearance Urine pH Ur Specific [place] Urine Protein Urine Glucose (UA) Urine Ketones Urine Blood Urine Nitrate Urine Bilirubin Urine Urobilinogen Ur Leukocyte Esterase Urine RBC Urine WBC Ur Epithelial Cells Amorphous Sediment Urine Bacteria Urine Other IgG Hepatitis A IgM Ab Hep Bs Antigen Hep B Core IgM Ab Hepatitis C Antibody 09/26/17 09/26/17 09/26/17 06:30 10:30 10:30 WBC RBC Hgb Hct MCV MCH MCHC RDW Plt Count MPV Gran % Lymph % (Auto) [place] % (Auto) Eos % (Auto) Baso % (Auto) Gran # Lymph # (Auto) [place] # (Auto) Eos # (Auto) Baso # (Auto) PT INR APTT pO2 63 H VBG pH 7.36 VBG pCO2 38.0 L VBG HCO3 21.5 VBG Total CO2 22.7 VBG O2 Sat (Calc) 95.2 H VBG Base Excess -3.6 L VBG Potassium 3.6 Sodium 136.0 Chloride 106.0 Glucose 173 H Lactate 2.0 FiO2 21.0 Potassium Carbon Dioxide Anion Gap BUN Creatinine Est GFR ( Amer) Est GFR (Non-Af Amer) POC Glucose (mg/dL) Random Glucose Hemoglobin A1c Calcium Magnesium 1.9 Total Bilirubin 2.7 H Direct Bilirubin 2.5 H GGT AST 282 H ALT 186 H Alkaline Phosphatase 144 H Total Creatine Kinase 99 Troponin I 0.04 D Total Protein 6.3 Albumin 3.2 Globulin 3.1 Albumin/Globulin Ratio 1.1 Triglycerides 78 Cholesterol 103 L LDL Cholesterol Direct 33 HDL Cholesterol 37 Venous Blood Potassium 3.6 Urine Color Urine Appearance Urine pH Ur Specific [place] Urine Protein Urine Glucose (UA) Urine Ketones Urine Blood Urine Nitrate Urine Bilirubin Urine Urobilinogen Ur Leukocyte Esterase Urine RBC Urine WBC Ur Epithelial Cells Amorphous Sediment Urine Bacteria Urine Other IgG Hepatitis A IgM Ab Hep Bs Antigen Hep B Core IgM Ab Hepatitis C Antibody 09/26/17 09/26/17 09/26/17 10:30 11:05 13:00 WBC RBC Hgb Hct MCV MCH MCHC RDW Plt Count MPV Gran % Lymph % (Auto) [place] % (Auto) Eos % (Auto) Baso % (Auto) Gran # Lymph # (Auto) [place] # (Auto) Eos # (Auto) Baso # (Auto) PT INR APTT pO2 VBG pH VBG pCO2 VBG HCO3 VBG Total CO2 VBG O2 Sat (Calc) VBG Base Excess VBG Potassium Sodium Chloride Glucose Lactate FiO2 Potassium Carbon Dioxide Anion Gap BUN Creatinine Est GFR ( Amer) Est GFR (Non-Af Amer) POC Glucose (mg/dL) 139 H Random Glucose Hemoglobin A1c Calcium Magnesium Total Bilirubin Direct Bilirubin GGT AST ALT Alkaline Phosphatase Total Creatine Kinase Troponin I Total Protein Albumin Globulin Albumin/Globulin Ratio Triglycerides Cholesterol LDL Cholesterol Direct HDL Cholesterol Venous Blood Potassium Urine Color Urine Appearance Urine pH Ur Specific [place] Urine Protein Urine Glucose (UA) Urine Ketones Urine Blood Urine Nitrate Urine Bilirubin Urine Urobilinogen Ur Leukocyte Esterase Urine RBC Urine WBC Ur Epithelial Cells Amorphous Sediment Urine Bacteria Urine Other IgG 1162.7 Hepatitis A IgM Ab Negative Hep Bs Antigen Negative Hep B Core IgM Ab Negative Hepatitis C Antibody Negative 09/26/17 09/26/17 09/27/17 15:52 17:15 00:19 WBC RBC Hgb Hct MCV MCH MCHC RDW Plt Count MPV Gran % Lymph % (Auto) [place] % (Auto) Eos % (Auto) Baso % (Auto) Gran # Lymph # (Auto) [place] # (Auto) Eos # (Auto) Baso # (Auto) PT INR APTT pO2 VBG pH VBG pCO2 VBG HCO3 VBG Total CO2 VBG O2 Sat (Calc) VBG Base Excess VBG Potassium Sodium Chloride Glucose Lactate FiO2 Potassium Carbon Dioxide Anion Gap BUN Creatinine Est GFR ( Amer) Est GFR (Non-Af Amer) POC Glucose (mg/dL) 90 106 Random Glucose Hemoglobin A1c Calcium Magnesium Total Bilirubin Direct Bilirubin GGT AST ALT Alkaline Phosphatase Total Creatine Kinase Troponin I Total Protein Albumin Globulin Albumin/Globulin Ratio Triglycerides Cholesterol LDL Cholesterol Direct HDL Cholesterol Venous Blood Potassium Urine Color Yellow Urine Appearance Clear Urine pH 6.0 Ur Specific [place] 1.025 Urine Protein >=300 H Urine Glucose (UA) Negative Urine Ketones Negative Urine Blood Trace-intact H Urine Nitrate Negative Urine Bilirubin Small H Urine Urobilinogen 0.2 Ur Leukocyte Esterase Negative Urine RBC 2 - 5 Urine WBC 0 - 2 Ur Epithelial Cells 4 - 5 Amorphous Sediment Few Urine Bacteria Large Urine Other Fiber IgG Hepatitis A IgM Ab Hep Bs Antigen Hep B Core IgM Ab Hepatitis C Antibody 09/27/17 06:04 WBC RBC Hgb Hct MCV MCH MCHC RDW Plt Count MPV Gran % Lymph % (Auto) [place] % (Auto) Eos % (Auto) Baso % (Auto) Gran # Lymph # (Auto) [place] # (Auto) Eos # (Auto) Baso # (Auto) PT INR APTT pO2 VBG pH VBG pCO2 VBG HCO3 VBG Total CO2 VBG O2 Sat (Calc) VBG Base Excess VBG Potassium Sodium Chloride Glucose Lactate FiO2 Potassium Carbon Dioxide Anion Gap BUN Creatinine Est GFR ( Amer) Est GFR (Non-Af Amer) POC Glucose (mg/dL) 89 Random Glucose Hemoglobin A1c Calcium Magnesium Total Bilirubin Direct Bilirubin GGT AST ALT Alkaline Phosphatase Total Creatine Kinase Troponin I Total Protein Albumin Globulin Albumin/Globulin Ratio Triglycerides Cholesterol LDL Cholesterol Direct HDL Cholesterol Venous Blood Potassium Urine Color Urine Appearance Urine pH Ur Specific [place] Urine Protein Urine Glucose (UA) Urine Ketones Urine Blood Urine Nitrate Urine Bilirubin Urine Urobilinogen Ur Leukocyte Esterase Urine RBC Urine WBC Ur Epithelial Cells Amorphous Sediment Urine Bacteria Urine Other IgG Hepatitis A IgM Ab Hep Bs Antigen Hep B Core IgM Ab Hepatitis C Antibody EKG/Cardiology Studies: Cardiology / EKG Studies 09/27/17 07:45 EKG [ELECTROCARDIOGRAM] DAILY Comment: Reason For Exam: HTN Fingerstick Blood Sugar Results: 89 Results Reviewed to Date: Yes Critical Care Progress Note - Nutrition Nutrition: Nutrition Category Date Time Status Liquid Diet [DIET] Diets 09/26/17 Dinner Ordered NPO Diet [DIET] Diets 09/27/17 Breakfast Ordered Assessment/Plan - Assessment and Plan (Free Text) Assessment: Patient is a 67 y/o with PMHx DM, HTN, HLD, admitted with sepsis likely due to possible acute cholangitis/cholecystitis. Patient responded to adequate fluid resuscitation, and lactic acid trended down. Patient is s/p ERCP yesterday. Plan: Neuro: awake and alert at baseline Pulm: O2 supplementation prn to maintain O2 sat above 90%. Cardiac: h/o htn- will resume home meds, starting with lisinopril 40 mg daily and adjust prn. ID: sepsis with cholangitis/cholecystitis as the possible source. Patient also had influenza positive on tamiflu. Cultures with no growth. leukocytosis continue to trend, and patient is afebrile. continue with zosyn. ID following. Renal: Lactic acidosis likely due to sepsis-resolved, will monitor renal function. Hypokalemia resolved. will dc iv hydration if patient tolerates po intake. Endo: h/o DM- hypoglycemia resolved, fingerstick and insulin sliding scale. GI: Transaminitis likely due to acute cholangitis/cholecystsis. s/p ERCP with sludge. Patient is scheduled for cholecystectomy tomorrow. LFTs trending down, except t bili with upward trend. Abdominal pain improved. Gi and surgery following Heme: Leukocytosis trended down h/h stabilizing, will continue to monitor. DVT prophylaxis: mechanical compressive device. Patient seen, examined and case discussed with the homogenizer operator. - Date & Time Date: 09/27/17 Time: 10:55 <Ariel Jacobs - Last Filed: 09/27/17 11:23> CCU Objective - Vital Signs / Intake & Output Vital Signs (Last 4 hours): Vital Signs Pulse BP 09/27/17 10:08 83 174/74 H Intake and Output (Last 8hrs): Intake & Output 09/26/17 09/27/17 09/27/17 22:59 06:59 14:59 Intake Total 1590 2000 Output Total 400 1900 Balance 1190 100 Intake: IV 1350 1700 Left Hand 1250 1500 Right Hand 100 200 Oral 240 300 Output: Urine 400 1900 Urine, Voided 400 1900 - Medications Active Medications: Active Medications Generic Name Dose Route Start Last Admin Trade Name Freq PRN Reason Stop Dose Admin Amlodipine Besylate 2.5 mg 09/27/17 11:00 Norvasc PO DAILY ADRIANE Hydralazine HCl 10 mg 09/27/17 06:07 09/27/17 10:08 Apresoline IVP 10 mg Q6 PRN Administration Systolic Blood Pressure Piperacillin Sod/Tazobactam Sod 100 mls @ 200 mls/hr 09/27/17 00:00 09/27/17 05:21 Zosyn 3.375 In Ns 100ml IVPB 10/07/17 00:01 200 mls/hr Q6 ADRIANE Administration Protocol Sodium Chloride 1,000 mls @ 80 mls/hr 09/27/17 09:30 09/27/17 09:47 Sodium Chloride 0.9% IV 80 mls/hr .[id number] ADRIANE Administration Insulin Human Regular 0 units 09/26/17 12:00 09/27/17 06:06 Humulin R Low SC Not Given Q6 [facility] Protocol Lisinopril 40 mg 09/27/17 11:00 Zestril PO DAILY ADRIANE Metoprolol Succinate 100 mg 09/27/17 11:00 Toprol Xl PO BRK ADRIANE Ondansetron HCl 4 mg 09/26/17 04:21 Zofran Inj IVP Q6H PRN Nausea/Vomiting Oseltamivir Phosphate 30 mg 09/27/17 09:18 09/27/17 09:45 Tamiflu PO 30 mg BID ADRIANE Administration Protocol Pantoprazole Sodium 40 mg 09/26/17 10:00 09/27/17 09:45 Protonix Inj IVP 40 mg DAILY ADRIANE Administration Phytonadione 5 mg 09/27/17 10:00 09/27/17 09:40 Vitamin K Tab PO 09/28/17 10:01 5 mg DAILY ADRIANE Administration - Patient Studies Lab Studies: Microbiology Studies 09/26/17 03:25 MRSA Culture (Admit) - Final Nose MRSA NOT DETECTED 09/26/17 17:15 Urine Culture - Final Urine,Clean Catch No Growth (<1,000 CFU/ML) Lab Studies 09/27/17 09/27/17 09/27/17 Range/Units 09:35 06:30 06:04 WBC (4.5-11.0) 10^3/ul RBC (3.5-6.1) 10^6/uL Hgb (12.0-16.0) g/dL Hct (36.0-48.0) % MCV (80.0-105.0) fl MCH (25.0-35.0) pg MCHC (31.0-37.0) g/dl RDW (11.5-14.5) % Plt Count (120.0-450.0) 10^3/uL MPV (7.0-11.0) fl Gran % (50.0-68.0) % Lymph % (Auto) (22.0-35.0) % [place] % (Auto) (1.0-6.0) % Eos % (Auto) (1.5-5.0) % Baso % (Auto) (0.0-3.0) % Gran # (1.4-6.5) Lymph # (Auto) (1.2-3.4) [place] # (Auto) (0.1-0.6) Eos # (Auto) (0.0-0.7) Baso # (Auto) (0.0-2.0) K/mm3 PT 13.5 H (9.4-12.5) SECONDS INR 1.17 H (0.93-1.08) APTT 36.1 (25.1-36.5) Seconds Sodium (132-148) mmol/L Potassium (3.6-5.0) mmol/L Chloride (98-107) mmol/L Carbon Dioxide (21-33) mmol/L Anion Gap (10-20) BUN (7-21) mg/dL Creatinine (0.7-1.2) mg/dl Est GFR ( Amer) Est GFR (Non-Af Amer) POC Glucose (mg/dL) 89 (65-110) mg/dL Random Glucose (70-110) mg/dL Hemoglobin A1c (4.2-6.5) % Calcium (8.4-10.5) mg/dL Magnesium (1.7-2.2) mg/dL Total Bilirubin (0.2-1.3) mg/dL Direct Bilirubin (0.0-0.4) mg/dL GGT 320 H (8-78) U/L AST (14-36) U/L ALT (7-56) U/L Alkaline Phosphatase (38-126) U/L Total Protein (5.8-8.3) g/dL Albumin (3.0-4.8) g/dL Globulin gm/dL Albumin/Globulin Ratio (1.1-1.8) Urine Color (YELLOW) Urine Appearance (CLEAR) Urine pH (4.7-8.0) Ur Specific [place] (1.005-1.035) Urine Protein (<30 mg/dL) mg/dL Urine Glucose (UA) (NEGATIVE) mg/dL Urine Ketones (NEGATIVE) mg/dL Urine Blood (NEGATIVE) Urine Nitrate (NEGATIVE) Urine Bilirubin (NEGATIVE) Urine Urobilinogen (<1 E.U./dL) E.U./dL Ur Leukocyte Esterase (NEGATIVE) Blas/uL Urine RBC (0-2) /hpf Urine WBC (0-6) /hpf Ur Epithelial Cells (0-5) /hpf Amorphous Sediment Urine Bacteria (NEG) Urine Other IgG (700.0-1600.0) mg/dL Hepatitis A IgM Ab (NEGATIVE) Hep Bs Antigen (NEGATIVE) Hep B Core IgM Ab (NEGATIVE) Hepatitis C Antibody (NEGATIVE) 09/27/17 09/27/17 09/27/17 Range/Units 06:00 06:00 00:19 WBC 11.7 H D (4.5-11.0) 10^3/ul RBC 4.75 (3.5-6.1) 10^6/uL Hgb 13.7 (12.0-16.0) g/dL Hct 40.7 (36.0-48.0) % MCV 85.7 (80.0-105.0) fl MCH 28.8 (25.0-35.0) pg MCHC 33.7 (31.0-37.0) g/dl RDW 14.7 H (11.5-14.5) % Plt Count 237 (120.0-450.0) 10^3/uL MPV 11.9 H (7.0-11.0) fl Gran % 76.0 H (50.0-68.0) % Lymph % (Auto) 9.5 L (22.0-35.0) % [place] % (Auto) 12.0 H (1.0-6.0) % Eos % (Auto) 2.2 (1.5-5.0) % Baso % (Auto) 0.3 (0.0-3.0) % Gran # 8.86 H (1.4-6.5) Lymph # (Auto) 1.1 L (1.2-3.4) [place] # (Auto) 1.4 H (0.1-0.6) Eos # (Auto) 0.3 (0.0-0.7) Baso # (Auto) 0.04 (0.0-2.0) K/mm3 PT (9.4-12.5) SECONDS INR (0.93-1.08) APTT (25.1-36.5) Seconds Sodium 146 (132-148) mmol/L Potassium 4.2 (3.6-5.0) mmol/L Chloride 112 H (98-107) mmol/L Carbon Dioxide 20 L (21-33) mmol/L Anion Gap 18 (10-20) BUN 17 (7-21) mg/dL Creatinine 0.9 (0.7-1.2) mg/dl Est GFR ( Amer) > 60 Est GFR (Non-Af Amer) > 60 POC Glucose (mg/dL) 106 (65-110) mg/dL Random Glucose 98 (70-110) mg/dL Hemoglobin A1c (4.2-6.5) % Calcium 9.2 (8.4-10.5) mg/dL Magnesium 1.9 (1.7-2.2) mg/dL Total Bilirubin 3.1 H (0.2-1.3) mg/dL Direct Bilirubin 2.9 H (0.0-0.4) mg/dL GGT (8-78) U/L AST 183 H D (14-36) U/L ALT 174 H (7-56) U/L Alkaline Phosphatase 186 H D (38-126) U/L Total Protein 6.4 (5.8-8.3) g/dL Albumin 3.3 (3.0-4.8) g/dL Globulin 3.1 gm/dL Albumin/Globulin Ratio 1.0 L (1.1-1.8) Urine Color (YELLOW) Urine Appearance (CLEAR) Urine pH (4.7-8.0) Ur Specific [place] (1.005-1.035) Urine Protein (<30 mg/dL) mg/dL Urine Glucose (UA) (NEGATIVE) mg/dL Urine Ketones (NEGATIVE) mg/dL Urine Blood (NEGATIVE) Urine Nitrate (NEGATIVE) Urine Bilirubin (NEGATIVE) Urine Urobilinogen (<1 E.U./dL) E.U./dL Ur Leukocyte Esterase (NEGATIVE) Blas/uL Urine RBC (0-2) /hpf Urine WBC (0-6) /hpf Ur Epithelial Cells (0-5) /hpf Amorphous Sediment Urine Bacteria (NEG) Urine Other IgG (700.0-1600.0) mg/dL Hepatitis A IgM Ab (NEGATIVE) Hep Bs Antigen (NEGATIVE) Hep B Core IgM Ab (NEGATIVE) Hepatitis C Antibody (NEGATIVE) 09/26/17 09/26/17 09/26/17 Range/Units 17:15 15:52 13:00 WBC (4.5-11.0) 10^3/ul RBC (3.5-6.1) 10^6/uL Hgb (12.0-16.0) g/dL Hct (36.0-48.0) % MCV (80.0-105.0) fl MCH (25.0-35.0) pg MCHC (31.0-37.0) g/dl RDW (11.5-14.5) % Plt Count (120.0-450.0) 10^3/uL MPV (7.0-11.0) fl Gran % (50.0-68.0) % Lymph % (Auto) (22.0-35.0) % [place] % (Auto) (1.0-6.0) % Eos % (Auto) (1.5-5.0) % Baso % (Auto) (0.0-3.0) % Gran # (1.4-6.5) Lymph # (Auto) (1.2-3.4) [place] # (Auto) (0.1-0.6) Eos # (Auto) (0.0-0.7) Baso # (Auto) (0.0-2.0) K/mm3 PT (9.4-12.5) SECONDS INR (0.93-1.08) APTT (25.1-36.5) Seconds Sodium (132-148) mmol/L Potassium (3.6-5.0) mmol/L Chloride (98-107) mmol/L Carbon Dioxide (21-33) mmol/L Anion Gap (10-20) BUN (7-21) mg/dL Creatinine (0.7-1.2) mg/dl Est GFR ( Amer) Est GFR (Non-Af Amer) POC Glucose (mg/dL) 90 (65-110) mg/dL Random Glucose (70-110) mg/dL Hemoglobin A1c (4.2-6.5) % Calcium (8.4-10.5) mg/dL Magnesium (1.7-2.2) mg/dL Total Bilirubin (0.2-1.3) mg/dL Direct Bilirubin (0.0-0.4) mg/dL GGT (8-78) U/L AST (14-36) U/L ALT (7-56) U/L Alkaline Phosphatase (38-126) U/L Total Protein (5.8-8.3) g/dL Albumin (3.0-4.8) g/dL Globulin gm/dL Albumin/Globulin Ratio (1.1-1.8) Urine Color Yellow (YELLOW) Urine Appearance Clear (CLEAR) Urine pH 6.0 (4.7-8.0) Ur Specific [place] 1.025 (1.005-1.035) Urine Protein >=300 H (<30 mg/dL) mg/dL Urine Glucose (UA) Negative (NEGATIVE) mg/dL Urine Ketones Negative (NEGATIVE) mg/dL Urine Blood Trace-intact H (NEGATIVE) Urine Nitrate Negative (NEGATIVE) Urine Bilirubin Small H (NEGATIVE) Urine Urobilinogen 0.2 (<1 E.U./dL) E.U./dL Ur Leukocyte Esterase Negative (NEGATIVE) Blas/uL Urine RBC 2 - 5 (0-2) /hpf Urine WBC 0 - 2 (0-6) /hpf Ur Epithelial Cells 4 - 5 (0-5) /hpf Amorphous Sediment Few Urine Bacteria Large (NEG) Urine Other Fiber IgG 1162.7 (700.0-1600.0) mg/dL Hepatitis A IgM Ab (NEGATIVE) Hep Bs Antigen (NEGATIVE) Hep B Core IgM Ab (NEGATIVE) Hepatitis C Antibody (NEGATIVE) 09/26/17 09/26/17 Range/Units 10:30 06:00 WBC (4.5-11.0) 10^3/ul RBC (3.5-6.1) 10^6/uL Hgb (12.0-16.0) g/dL Hct (36.0-48.0) % MCV (80.0-105.0) fl MCH (25.0-35.0) pg MCHC (31.0-37.0) g/dl RDW (11.5-14.5) % Plt Count (120.0-450.0) 10^3/uL MPV (7.0-11.0) fl Gran % (50.0-68.0) % Lymph % (Auto) (22.0-35.0) % [place] % (Auto) (1.0-6.0) % Eos % (Auto) (1.5-5.0) % Baso % (Auto) (0.0-3.0) % Gran # (1.4-6.5) Lymph # (Auto) (1.2-3.4) [place] # (Auto) (0.1-0.6) Eos # (Auto) (0.0-0.7) Baso # (Auto) (0.0-2.0) K/mm3 PT (9.4-12.5) SECONDS INR (0.93-1.08) APTT (25.1-36.5) Seconds Sodium (132-148) mmol/L Potassium (3.6-5.0) mmol/L Chloride (98-107) mmol/L Carbon Dioxide (21-33) mmol/L Anion Gap (10-20) BUN (7-21) mg/dL Creatinine (0.7-1.2) mg/dl Est GFR ( Amer) Est GFR (Non-Af Amer) POC Glucose (mg/dL) (65-110) mg/dL Random Glucose (70-110) mg/dL Hemoglobin A1c 9.0 H (4.2-6.5) % Calcium (8.4-10.5) mg/dL Magnesium (1.7-2.2) mg/dL Total Bilirubin (0.2-1.3) mg/dL Direct Bilirubin (0.0-0.4) mg/dL GGT (8-78) U/L AST (14-36) U/L ALT (7-56) U/L Alkaline Phosphatase (38-126) U/L Total Protein (5.8-8.3) g/dL Albumin (3.0-4.8) g/dL Globulin gm/dL Albumin/Globulin Ratio (1.1-1.8) Urine Color (YELLOW) Urine Appearance (CLEAR) Urine pH (4.7-8.0) Ur Specific [place] (1.005-1.035) Urine Protein (<30 mg/dL) mg/dL Urine Glucose (UA) (NEGATIVE) mg/dL Urine Ketones (NEGATIVE) mg/dL Urine Blood (NEGATIVE) Urine Nitrate (NEGATIVE) Urine Bilirubin (NEGATIVE) Urine Urobilinogen (<1 E.U./dL) E.U./dL Ur Leukocyte Esterase (NEGATIVE) Blas/uL Urine RBC (0-2) /hpf Urine WBC (0-6) /hpf Ur Epithelial Cells (0-5) /hpf Amorphous Sediment Urine Bacteria (NEG) Urine Other IgG (700.0-1600.0) mg/dL Hepatitis A IgM Ab Negative (NEGATIVE) Hep Bs Antigen Negative (NEGATIVE) Hep B Core IgM Ab Negative (NEGATIVE) Hepatitis C Antibody Negative (NEGATIVE) Laboratory Results - last 24 hr 09/26/17 09/26/17 09/26/17 06:00 10:30 13:00 WBC RBC Hgb Hct MCV MCH MCHC RDW Plt Count MPV Gran % Lymph % (Auto) [place] % (Auto) Eos % (Auto) Baso % (Auto) Gran # Lymph # (Auto) [place] # (Auto) Eos # (Auto) Baso # (Auto) PT INR APTT Sodium Potassium Chloride Carbon Dioxide Anion Gap BUN Creatinine Est GFR ( Amer) Est GFR (Non-Af Amer) POC Glucose (mg/dL) Random Glucose Hemoglobin A1c 9.0 H Calcium Magnesium Total Bilirubin Direct Bilirubin GGT AST ALT Alkaline Phosphatase Total Protein Albumin Globulin Albumin/Globulin Ratio Urine Color Urine Appearance Urine pH Ur Specific [place] Urine Protein Urine Glucose (UA) Urine Ketones Urine Blood Urine Nitrate Urine Bilirubin Urine Urobilinogen Ur Leukocyte Esterase Urine RBC Urine WBC Ur Epithelial Cells Amorphous Sediment Urine Bacteria Urine Other IgG 1162.7 Hepatitis A IgM Ab Negative Hep Bs Antigen Negative Hep B Core IgM Ab Negative Hepatitis C Antibody Negative 09/26/17 09/26/17 09/27/17 15:52 17:15 00:19 WBC RBC Hgb Hct MCV MCH MCHC RDW Plt Count MPV Gran % Lymph % (Auto) [place] % (Auto) Eos % (Auto) Baso % (Auto) Gran # Lymph # (Auto) [place] # (Auto) Eos # (Auto) Baso # (Auto) PT INR APTT Sodium Potassium Chloride Carbon Dioxide Anion Gap BUN Creatinine Est GFR ( Amer) Est GFR (Non-Af Amer) POC Glucose (mg/dL) 90 106 Random Glucose Hemoglobin A1c Calcium Magnesium Total Bilirubin Direct Bilirubin GGT AST ALT Alkaline Phosphatase Total Protein Albumin Globulin Albumin/Globulin Ratio Urine Color Yellow Urine Appearance Clear Urine pH 6.0 Ur Specific [place] 1.025 Urine Protein >=300 H Urine Glucose (UA) Negative Urine Ketones Negative Urine Blood Trace-intact H Urine Nitrate Negative Urine Bilirubin Small H Urine Urobilinogen 0.2 Ur Leukocyte Esterase Negative Urine RBC 2 - 5 Urine WBC 0 - 2 Ur Epithelial Cells 4 - 5 Amorphous Sediment Few Urine Bacteria Large Urine Other Fiber IgG Hepatitis A IgM Ab Hep Bs Antigen Hep B Core IgM Ab Hepatitis C Antibody 09/27/17 09/27/17 09/27/17 06:00 06:00 06:04 WBC 11.7 H D RBC 4.75 Hgb 13.7 Hct 40.7 MCV 85.7 MCH 28.8 MCHC 33.7 RDW 14.7 H Plt Count 237 MPV 11.9 H Gran % 76.0 H Lymph % (Auto) 9.5 L [place] % (Auto) 12.0 H Eos % (Auto) 2.2 Baso % (Auto) 0.3 Gran # 8.86 H Lymph # (Auto) 1.1 L [place] # (Auto) 1.4 H Eos # (Auto) 0.3 Baso # (Auto) 0.04 PT INR APTT Sodium 146 Potassium 4.2 Chloride 112 H Carbon Dioxide 20 L Anion Gap 18 BUN 17 Creatinine 0.9 Est GFR ( Amer) > 60 Est GFR (Non-Af Amer) > 60 POC Glucose (mg/dL) 89 Random Glucose 98 Hemoglobin A1c Calcium 9.2 Magnesium 1.9 Total Bilirubin 3.1 H Direct Bilirubin 2.9 H GGT AST 183 H D ALT 174 H Alkaline Phosphatase 186 H D Total Protein 6.4 Albumin 3.3 Globulin 3.1 Albumin/Globulin Ratio 1.0 L Urine Color Urine Appearance Urine pH Ur Specific [place] Urine Protein Urine Glucose (UA) Urine Ketones Urine Blood Urine Nitrate Urine Bilirubin Urine Urobilinogen Ur Leukocyte Esterase Urine RBC Urine WBC Ur Epithelial Cells Amorphous Sediment Urine Bacteria Urine Other IgG Hepatitis A IgM Ab Hep Bs Antigen Hep B Core IgM Ab Hepatitis C Antibody 09/27/17 09/27/17 06:30 09:35 WBC RBC Hgb Hct MCV MCH MCHC RDW Plt Count MPV Gran % Lymph % (Auto) [place] % (Auto) Eos % (Auto) Baso % (Auto) Gran # Lymph # (Auto) [place] # (Auto) Eos # (Auto) Baso # (Auto) PT 13.5 H INR 1.17 H APTT 36.1 Sodium Potassium Chloride Carbon Dioxide Anion Gap BUN Creatinine Est GFR ( Amer) Est GFR (Non-Af Amer) POC Glucose (mg/dL) Random Glucose Hemoglobin A1c Calcium Magnesium Total Bilirubin Direct Bilirubin GGT 320 H AST ALT Alkaline Phosphatase Total Protein Albumin Globulin Albumin/Globulin Ratio Urine Color Urine Appearance Urine pH Ur Specific [place] Urine Protein Urine Glucose (UA) Urine Ketones Urine Blood Urine Nitrate Urine Bilirubin Urine Urobilinogen Ur Leukocyte Esterase Urine RBC Urine WBC Ur Epithelial Cells Amorphous Sediment Urine Bacteria Urine Other IgG Hepatitis A IgM Ab Hep Bs Antigen Hep B Core IgM Ab Hepatitis C Antibody EKG/Cardiology Studies: Cardiology / EKG Studies 09/27/17 07:45 EKG [ELECTROCARDIOGRAM] DAILY Comment: Reason For Exam: HTN Critical Care Progress Note - Nutrition Nutrition: Nutrition Category Date Time Status Liquid Diet [DIET] Diets 09/27/17 Breakfast Ordered Assessment/Plan - Assessment and Plan (Free Text) Plan: Patient seen and examined, on rounds with resident, agree with note with following additions/exceptions: Patient is a 67 y/o with PMHx DM, HTN, HLD, admitted with severe sepsis, likely 2/2 GB pathology, ascending cholangitis, as well influenza. Currently afebrile, HD stable, comfortable in NAD, benign abd exam. Reports no major complaints. Lactic acid downtrended. Seen by GI, s/p ERCP yesterday ( please refer to the report) Severe Sepsis DM Influenza/FLU Elevated LFTs r/o Cholangitis Gallstones Recommend: - supp o2 as needed - broad spectrum antibiotics, Vanco, Zosyn - follow UCx, BCx, Procal - DC IVF - monitor HH - monitor LFTs - resume diet - BP control - FS control - GI ppx - DVT ppx - stable, transfer to telemetry
[2017-09-27 07:53] LABS: ALBUMIN 3.3 g/dL (3.0-4.8); ALT/SGPT 174 U/L (7-56); AST/SGOT 183 U/L (14-36); BILIRUBIN,DIRECT 2.9 mg/dL (0.0-0.4); BLOOD UREA NITROGEN 17 mg/dL (7-21); CALCIUM 9.2 mg/dL (8.4-10.5); GFR AFRICAN-AMERICAN > 60; GFR NON-AFRICAN AMERICAN > 60
--- NOTE | 2017-09-27 08:32 | CP.PCM.PN ---
Subjective - Date & Time of Evaluation Date of Evaluation: 09/27/17 Time of Evaluation: 08:31 - Subjective Subjective: Surgery: Dr. Palma Patient without abdominal pain, n/v/f/c. No acute events overnight. Objective - Vital Signs/Intake and Output Vital Signs (last 24 hours): Temp Pulse Resp BP Pulse Ox 99 F 77 20 158/73 H 94 L 09/27/17 04:00 09/27/17 06:45 09/27/17 06:45 09/27/17 06:45 09/27/17 06:45 Intake and Output: 09/27/17 09/27/17 06:59 18:59 Intake Total 2000 Output Total 1900 Balance 100 - Medications Medications: Current Medications Hydralazine HCl (Apresoline) 10 mg IVP Q6 PRN PRN Reason: Systolic Blood Pressure Last Admin: 09/27/17 06:18 Dose: 10 mg Potassium Chloride 20 meq/ (Sodium Chloride) 1,010 mls @ 125 mls/hr IV .Q8H5M [facility] Stop: 09/27/17 10:44 Last Admin: 09/27/17 05:00 Dose: 125 mls/hr Piperacillin Sod/Tazobactam Sod (Zosyn 3.375 In Ns 100ml) 100 mls @ 200 mls/hr IVPB Q6 ADRIANE PRN Reason: Protocol Stop: 10/07/17 00:01 Last Admin: 09/27/17 05:21 Dose: 200 mls/hr Insulin Human Regular (Humulin R Low) 0 units SC Q6 ADRIANE PRN Reason: Protocol Last Admin: 09/27/17 06:06 Dose: Not Given Ondansetron HCl (Zofran Inj) 4 mg IVP Q6H PRN PRN Reason: Nausea/Vomiting Oseltamivir Phosphate (Tamiflu) 30 mg PO BID [facility] PRN Reason: Protocol Last Admin: 09/26/17 17:10 Dose: 30 mg Pantoprazole Sodium (Protonix Inj) 40 mg IVP DAILY [facility] Last Admin: 09/26/17 11:04 Dose: 40 mg - Labs Labs: 09/27/17 06:00 09/27/17 06:00 PT 13.5 SECONDS (9.4-12.5) H 09/26/17 06:30 INR 1.17 (0.93-1.08) H 09/26/17 06:30 APTT 30.6 Seconds (25.1-36.5) 09/26/17 06:30 - Constitutional Appears: Non-toxic, No Acute Distress - Head Exam Head Exam: ATRAUMATIC, NORMOCEPHALIC - Eye Exam Eye Exam: EOMI, Normal appearance - ENT Exam ENT Exam: Mucous Membranes Moist - Respiratory Exam Respiratory Exam: NORMAL BREATHING PATTERN. absent: Respiratory Distress - Cardiovascular Exam Cardiovascular Exam: REGULAR RHYTHM. absent: Tachycardia - GI/Abdominal Exam GI & Abdominal Exam: Soft. absent: Distended, Guarding, Rigid, Tenderness, Rebound Assessment and Plan - Assessment and Plan (Free Text) Assessment: 67 y/o female with acute cholangitis s/p ERCP with sphincterotomy Plan: -+ flu, will postpone OR for lap pati until resolves -Tbili increased today, repeat CMP in am -ok for CLD, then ADAT -d/w Dr. Echavarria [facility] [place] PGY3
--- NOTE | 2017-09-27 08:33 | CP.PCM.PN ---
<Lily Silverman - Last Filed: 09/27/17 18:47> Subjective - Date & Time of Evaluation Date of Evaluation: 09/27/17 Time of Evaluation: 07:00 - Subjective Subjective: GI Fellow PGY4 Progress Note Pt seen and evaluated at bedside,she is doing okay with no abdominal pain, nausea, vomiting. Pt with no Bm bu passing gas. Pt still reports having chills, no fevers recorded. ROS: A 12pt ROS was negative except as above Objective - Vital Signs/Intake and Output Vital Signs (last 24 hours): Temp Pulse Resp BP Pulse Ox 99 F 77 20 158/73 H 94 L 09/27/17 04:00 09/27/17 06:45 09/27/17 06:45 09/27/17 06:45 09/27/17 06:45 Intake and Output: 09/27/17 09/27/17 06:59 18:59 Intake Total 2000 Output Total 1900 Balance 100 - Medications Medications: Current Medications Hydralazine HCl (Apresoline) 10 mg IVP Q6 PRN PRN Reason: Systolic Blood Pressure Last Admin: 09/27/17 06:18 Dose: 10 mg Potassium Chloride 20 meq/ (Sodium Chloride) 1,010 mls @ 125 mls/hr IV .[id number] [facility] Stop: 09/27/17 10:44 Last Admin: 09/27/17 05:00 Dose: 125 mls/hr Piperacillin Sod/Tazobactam Sod (Zosyn 3.375 In Ns 100ml) 100 mls @ 200 mls/hr IVPB Q6 [facility] PRN Reason: Protocol Stop: 10/07/17 00:01 Last Admin: 09/27/17 05:21 Dose: 200 mls/hr Insulin Human Regular (Humulin R Low) 0 units SC Q6 [facility] PRN Reason: Protocol Last Admin: 09/27/17 06:06 Dose: Not Given Ondansetron HCl (Zofran Inj) 4 mg IVP Q6H PRN PRN Reason: Nausea/Vomiting Oseltamivir Phosphate (Tamiflu) 30 mg PO BID [facility] PRN Reason: Protocol Last Admin: 09/26/17 17:10 Dose: 30 mg Pantoprazole Sodium (Protonix Inj) 40 mg IVP DAILY [facility] Last Admin: 09/26/17 11:04 Dose: 40 mg - Labs Labs: 09/27/17 06:00 09/27/17 06:00 PT 13.5 SECONDS (9.4-12.5) H 09/26/17 06:30 INR 1.17 (0.93-1.08) H 09/26/17 06:30 APTT 30.6 Seconds (25.1-36.5) 09/26/17 06:30 - Constitutional Appears: Non-toxic, No Acute Distress - Head Exam Head Exam: ATRAUMATIC, NORMAL INSPECTION, NORMOCEPHALIC - Eye Exam Eye Exam: EOMI, Normal appearance, PERRL Pupil Exam: PERRL - ENT Exam ENT Exam: Mucous Membranes Moist - Neck Exam Neck Exam: Full ROM, Normal Inspection - Respiratory Exam Respiratory Exam: Clear to Ausculation Bilateral, NORMAL BREATHING PATTERN - Cardiovascular Exam Cardiovascular Exam: REGULAR RHYTHM, +S1, +S2 - GI/Abdominal Exam GI & Abdominal Exam: Soft, Normal Bowel Sounds. absent: Distended, Guarding, Rigid, Tenderness - Rectal Exam Rectal Exam: Deferred - Extremities Exam Extremities Exam: Full ROM, Normal Inspection - Back Exam Back Exam: NORMAL INSPECTION - Neurological Exam Neurological Exam: Alert, Awake, Oriented x3 - Psychiatric Exam Psychiatric exam: Normal Affect, Normal Mood - Skin Skin Exam: Dry, Intact, Normal Color, Warm Assessment and Plan - Assessment and Plan (Free Text) Assessment: This is a 67y F with pmhx of HTN HLD, DM presenting with abdominal pain, N/V. 1. Suspected Cholangitis s/p ERCP with sludge 2. Influenza 3. Elevated LFTs 4. Sepsis Plan: -Continue supportive care for pain control and anti-emetics - Pt clinically improving with no fevers, abdominal pain and WBC 11.7 from 22 - s/p urgent EUS/ERCP for suspected cholangitis with sphincterotomy and sludge no stones - Monitor LFTs, slowly down trending - IVF hydration - IV abx - Blood cx negative - Tamiflu for influenza - Will continue to follow closely <Shani Florian - Last Filed: 09/27/17 19:43> Objective - Vital Signs/Intake and Output Vital Signs (last 24 hours): Temp Pulse Resp BP Pulse Ox 98.3 F 83 20 174/63 H 94 L 09/27/17 16:00 09/27/17 18:04 09/27/17 06:45 09/27/17 18:04 09/27/17 06:45 - Medications Medications: Current Medications Amlodipine Besylate (Norvasc) 2.5 mg PO DAILY [facility] Last Admin: 09/27/17 12:16 Dose: 2.5 mg Hydralazine HCl (Apresoline) 10 mg IVP Q6 PRN PRN Reason: Systolic Blood Pressure Last Admin: 09/27/17 18:04 Dose: 10 mg Piperacillin Sod/Tazobactam Sod (Zosyn 3.375 In Ns 100ml) 100 mls @ 200 mls/hr IVPB Q6 [facility] PRN Reason: Protocol Stop: 10/07/17 00:01 Last Admin: 09/27/17 17:34 Dose: 200 mls/hr Sodium Chloride (Sodium Chloride 0.9%) 1,000 mls @ 80 mls/hr IV .[id number] [facility] Last Admin: 09/27/17 09:47 Dose: 80 mls/hr Insulin Human Regular (Humulin R Low) 0 units SC Q6 [facility] PRN Reason: Protocol Last Admin: 09/27/17 17:48 Dose: 3 units Lisinopril (Zestril) 40 mg PO DAILY [facility] Last Admin: 09/27/17 12:16 Dose: 40 mg Metoprolol Succinate (Toprol Xl) 100 mg PO BRK [facility] Last Admin: 09/27/17 12:17 Dose: 100 mg Ondansetron HCl (Zofran Inj) 4 mg IVP Q6H PRN PRN Reason: Nausea/Vomiting Oseltamivir Phosphate (Tamiflu) 30 mg PO BID [facility] PRN Reason: Protocol Last Admin: 09/27/17 17:15 Dose: 30 mg Pantoprazole Sodium (Protonix Inj) 40 mg IVP DAILY [facility] Last Admin: 09/27/17 09:45 Dose: 40 mg Phytonadione (Vitamin K Tab) 5 mg PO DAILY [facility] Stop: 09/28/17 10:01 Last Admin: 09/27/17 09:40 Dose: 5 mg - Labs Labs: 09/27/17 06:00 09/27/17 06:00 PT 13.5 SECONDS (9.4-12.5) H 09/27/17 09:35 INR 1.17 (0.93-1.08) H 09/27/17 09:35 APTT 36.1 Seconds (25.1-36.5) 09/27/17 09:35 Attending/Attestation - Attestation I have personally seen and examined this patient.: Yes I have fully participated in the care of the patient.: Yes I have reviewed all pertinent clinical information, including history, physical exam and plan: Yes Notes (Text): 09/27/17 19:40 Patient seen with GI fellow. This is a 67 yr old F with PMH of HTN HLD, DM presenting with abdominal pain, N/V and cholangitis s/p ERCP with sphincterotomy. On contact precautions for Influenza. Clinical improvement. LFT slowly down trending. Clear liquid diet as per surgery. Rest of plan as per surgical team and MICU. Thank you for letting us participate in the care of your patient
[2017-09-27] MEDS: Sodium Chloride 0.9% 1,000 ML IV SCH ×2 (09:47→22:00)
[2017-09-27 10:14] LABS: INR 1.17 (0.93-1.08); PARTIAL THROMBOPLASTIN TIME 36.1 Seconds (25.1-36.5); PROTHROMBIN TIME 13.5 SECONDS (9.4-12.5)
--- NOTE | 2017-09-27 11:13 | PN ---
DATE: 09/27/2017 CARDIOLOGY FOLLOWUP SUBJECTIVE: The patient is more comfortable today. Her abdominal pain is resolved. PHYSICAL EXAMINATION VITAL SIGNS: Blood pressure is 158/73, the heart rates in the 70s. NECK: Negative JVD. LUNGS: Without rales. HEART: Reveals S1 and S2. EXTREMITIES: Without edema. LABORATORY DATA: White count is down to 11.7. Chemistries: The glucose is 89. IMPRESSION: 1. The patient is positive for the flu. 2. No evidence for acute cardiac issues. 3. Diabetes mellitus. 4. Gallbladder disease. 5. Hypertension. 6. Hypercholesterolemia. PLAN: Given these findings, an echocardiogram is pending today. Yonathan De Dios MD
[2017-09-27] MEDS: Metoprolol Succinate 100 mg XL Tab PO SCH (12:17)
--- NOTE | 2017-09-27 12:27 | PN ---
DATE: 09/27/2017 SUBJECTIVE: The patient is seen in room ICU, bed 3. The patient is lying in the bed. Overnight nurse's notes were reviewed. The patient underwent EGD, ERCP. The patient is in isolation for influenza. PHYSICAL EXAMINATION: VITAL SIGNS: T-max 99.1. Telemetry shows sinus rhythm; heart rate 64, 67, 61, 71; blood pressure is 158/73, 185/75, 177/84; respirations 20, O2 sat is 95%, 96%, 98%, 94%. Intake/output noted. HEENT: Head examination normocephalic, atraumatic. HEENT examination shows pinkish conjunctivae. Dry oral mucosa. No neck rigidity. CHEST: Kyphosis. LUNGS: Shows occasional rhonchi, upper lung perea. No rales, crackles or wheezing. CARDIOVASCULAR: S1, S2, regular rhythm. ABDOMEN: Soft. Positive bowel sound. Positive epigastric right upper quadrant tenderness. Positive periumbilical tenderness. GENITALIA: Female. RECTAL: Deferred. No hepatosplenomegaly noted. EXTREMITY: Shows no pitting edema, no calf tenderness, no Homans' sign. Positive SCDs noted. MUSCULOSKELETAL: Shows a body mass index of 27. NEUROLOGIC: The patient is alert, awake, responsive. DIAGNOSTICS: On 09/27/2017, WBC 11.7, hemoglobin and hematocrit 13.7 and 40.7, platelet 237. Granulocytes 76% segs. Sodium 146, potassium 4.2, chloride 112, CO2 of 20, anion gap 18, BUN 17, creatinine 0.9, GFR greater than 60, glucose 89, calcium 9.2, magnesium 1.9, total bili has gone up to 3.1 from 2.7, direct bili is 2.9. AST is coming down to 180 from 503, ALT is down to 174 from 256, alk phos is 186, total protein is 6.4, albumin 3.3. Troponin is indeterminate at 0.04. Cholesterol 103, LDL 33, HDL 37, triglyceride 78. The blood and urine cultures are negative. The patient underwent EUS followed by ERCP yesterday, the results noted. IMPRESSION AND PLAN: 1. Sepsis with acute cholangitis. 2. Status post endoscopic retrograde cholangiopancreatography and endoscopic ultrasound with sphincterotomy. 3. Acute influenza A. 4. Hypertension. 5. High-grade fever. 6. Transient hypoxemia. 7. Right antecubital area bleeding secondary to venipuncture. 8. Leukocytosis with granulocytosis. 9. Questionable mild coagulopathy. 10. Lactic acidosis. 11. Hyperbilirubinemia with transaminitis. 12. Uncontrolled insulin-requiring diabetes mellitus with hyperglycemia and hemoglobin A1c of 9.0. 13. Hypokalemia. 14. Severe transaminitis. 15. Hyperprocalcitoninemia. 16. Proteinuria. 17. Bilirubinuria, pyuria, bacteriuria. 18. Positive influenza A. 19. Left ventricle ejection fraction of 74% with borderline concentric left ventricular hypertrophy and grade 1 abnormal relaxation pattern. 20. Moderately thickened mitral valve with mild mitral regurgitation. 21. Deconditioning. 22. Hypertension. 23. Status post endoscopic ultrasound. 24. Gallbladder sludge and common bile duct sludge. 25. Hyperbilirubinemia. 26. Transaminitis. 27. Obstructive jaundice. 28. Status post endoscopic retrograde cholangiopancreatography with sphincterotomy and extraction of sludge. Plan at this time, the patient will be considered for transfer out of the ICU after cleared by Gastroenterology, Surgery. The patient has been ordered repeat serial labs. The patient has been ordered CMP, LFT, magnesium, CBC, PT/PTT. The patient was seen by patternmaker apprentice metal. DANIELLE, LKM, mitochondrial antismooth muscle antibodies ordered, blood cultures ordered. CURRENT CONSULTATION: 1. Cardiology. 2. Gastroenterology. 3. Surgery. 4. Infectious Disease. The patient is referred for diabetic education, TCU eval. CURRENT MEDICATIONS: 1. Hydralazine 10 mg IV q. 6 p.r.n. 2. Regular insulin sliding scale coverage q. 6. 3. Protonix 40 mg IV daily. 4. The patient is on IV fluid 0.9 normal saline at 125 mL an hour with potassium supplementation, which will be adjusted down from 125 to 80 mL an hour. The patient's IV fluid will be decreased to 80 mL an hour. 5. The patient is on Tamiflu 30 mg twice a day. 6. The patient was given a dose of vitamin K 5 mg. 7. Zofran 4 IV q. 6 p.r.n. 8. Zosyn 3.375 g IV q. 6. HIDA scan is pending. Oxygen 2 L continuous. The patient has been ordered liquid diet by the ICU resident. The patient has been ordered out of bed, occupational therapy, physical therapy. At present, the patient is evaluated by all subspecialty. The patient will be considered to be transferred out of the ICU once cleared by Gastroenterology and Surgery. Dictated and electronically signed, not read. Bruce Hall MD
--- NOTE | 2017-09-27 17:12 | CARD ---
APPROVED REPORT EKG Measurement Heart [id number] <Conclusion> Normal sinus rhythm Normal ECG
[2017-09-27] MEDS: guaiFENesin 200 mg/10 ml Syrup UD PO PRN (21:51)
--- NOTE | 2017-09-27 23:23 | PN ---
DATE: SUBJECTIVE: Patient is seen early this morning in room 129, bed 3. She is doing well. No fevers, no chills. PHYSICAL EXAMINATION: VITAL SIGNS: Temperature is down to 98, blood pressure is 170/60, respiratory rate of 18, heart rate of 83. HEENT: Unremarkable. NECK: Supple. LUNGS: Have decreased breath sounds. HEART: Normal S1, S2. ABDOMEN: Soft, nontender. LABORATORY EXAMINATION: Reveals the white count is down to 11,700, hemoglobin of 13, platelets of 237. The chemistries reveal a BUN of 17, creatinine of 0.9, procalcitonin is noted to be 0.8. Urinalysis is noted and immunology is noted. Serology: Influenza is positive. HIV is negative. Hepatitis profile is negative. Microbiology: Reveals the blood cultures, no growth. Nasal MRSA is not detected. Urine culture is negative. REVIEW OF ORDERS: Revels the patient to be on Zosyn and the patient is also on Tamiflu. ASSESSMENT AND PLAN: This is a 67-year-old female who is seen early this morning in room 129, bed 3, with history of diabetes, hypertension, and hyperlipidemia who was admitted with temperature of 102, tachycardia, dyspnea, nausea, vomiting, abdominal pain. 1. Sepsis with acute cholangitis and status post endoscopic retrograde cholangiopancreatography and sphincterotomy also with a positive influenza, on Tamiflu and Zosyn. We will complete 5 days of Tamiflu, awaiting for surgical intervention for the gallbladder, and patient had an endoscopic retrograde cholangiopancreatography with a balloon sweep and sphincterotomy and endoscopic ultrasound. Pawan Martin MD
[2017-09-28] MEDS: Piperacillin/Tazobact 3.375 gm 100 ML IVPB SCH ×2 (05:05→13:44)
[2017-09-28] MEDS: Insulin Reg-LOW-Coverage SC SCH ×3 (06:46→16:44)
[2017-09-28 06:51] LABS: BASO # 0.04 K/mm3 (0.0-2.0); BASO % 0.4 % (0.0-3.0); EOS # 0.2 (0.0-0.7); EOS % 1.7 % (1.5-5.0); GRAN # 8.67 (1.4-6.5); LYMPH # 1.4 (1.2-3.4); LYMPH % 12.5 % (22.0-35.0); MEAN CELL VOLUME 84.7 fl (80.0-105.0); MEAN CORPUSCULAR HEMOGLOBIN 28.9 pg (25.0-35.0); MEAN CORPUSCULAR HGB CONC 34.1 g/dl (31.0-37.0); MEAN PLATELET VOLUME 11.7 fl (7.0-11.0); MONO # 1.1 (0.1-0.6); MONO % 9.4 % (1.0-6.0); RBC 4.5 10^6/uL (3.5-6.1); RED CELL DISTRIBUTION WIDTH 14.7 % (11.5-14.5); WHITE BLOOD COUNT 11.4 10^3/ul (4.5-11.0)
[2017-09-28 07:21] LABS: ALBUMIN 3.3 g/dL (3.0-4.8); ALT/SGPT 123 U/L (7-56); AST/SGOT 87 U/L (14-36); BILIRUBIN,DIRECT 1.6 mg/dL (0.0-0.4); BLOOD UREA NITROGEN 12 mg/dL (7-21); CALCIUM 8.9 mg/dL (8.4-10.5); GAMMA GLUTAMYL TRANSPEPTIDASE 401 U/L (8-78); GFR AFRICAN-AMERICAN > 60; GFR NON-AFRICAN AMERICAN > 60
[2017-09-28 07:26] LABS: INR 1.09 (0.93-1.08); PARTIAL THROMBOPLASTIN TIME 34.3 Seconds (25.1-36.5); PROTHROMBIN TIME 12.6 SECONDS (9.4-12.5)
--- NOTE | 2017-09-28 08:50 | CP.PCM.PN ---
Subjective - Date & Time of Evaluation Date of Evaluation: 09/28/17 Time of Evaluation: 08:47 - Subjective Subjective: Surgery: Dr. Saunders Pt seen and examined. Resting comfortably in bed. Pain resolved. No N/V. Tolerating CLD. Objective - Vital Signs/Intake and Output Vital Signs (last 24 hours): Temp Pulse Resp BP Pulse Ox 99.3 F 82 20 178/75 H 96 09/28/17 04:00 09/28/17 06:00 09/28/17 04:00 09/28/17 04:50 09/28/17 04:00 Intake and Output: 09/28/17 09/28/17 06:59 18:59 Intake Total 1280 Output Total 1000 Balance 280 - Medications Medications: Current Medications Acetaminophen (Tylenol 325mg Tab) 650 mg PO Q4H PRN PRN Reason: Fever >100.4 F Amlodipine Besylate (Norvasc) 2.5 mg PO DAILY [facility] Last Admin: 09/27/17 12:16 Dose: 2.5 mg Guaifenesin (Robitussin) 200 mg PO Q4H PRN PRN Reason: Cough and congestion Last Admin: 09/27/17 21:51 Dose: 200 mg Hydralazine HCl (Apresoline) 10 mg IVP Q6 PRN PRN Reason: Systolic Blood Pressure Last Admin: 09/28/17 04:50 Dose: 10 mg Piperacillin Sod/Tazobactam Sod (Zosyn 3.375 In Ns 100ml) 100 mls @ 200 mls/hr IVPB Q6 [facility] PRN Reason: Protocol Stop: 10/07/17 00:01 Last Admin: 09/28/17 05:05 Dose: 200 mls/hr Sodium Chloride (Sodium Chloride 0.9%) 1,000 mls @ 80 mls/hr IV .[id number] [facility] Last Admin: 09/27/17 22:00 Dose: 80 mls/hr Insulin Human Regular (Humulin R Low) 0 units SC Q6 [facility] PRN Reason: Protocol Last Admin: 09/28/17 06:46 Dose: Not Given Lisinopril (Zestril) 40 mg PO DAILY [facility] Last Admin: 09/27/17 12:16 Dose: 40 mg Metoprolol Succinate (Toprol Xl) 100 mg PO BRK [facility] Last Admin: 09/27/17 12:17 Dose: 100 mg Ondansetron HCl (Zofran Inj) 4 mg IVP Q6H PRN PRN Reason: Nausea/Vomiting Oseltamivir Phosphate (Tamiflu) 30 mg PO BID [facility] PRN Reason: Protocol Last Admin: 09/27/17 17:15 Dose: 30 mg Pantoprazole Sodium (Protonix Inj) 40 mg IVP DAILY [facility] Last Admin: 09/27/17 09:45 Dose: 40 mg Phytonadione (Vitamin K Tab) 5 mg PO DAILY [facility] Stop: 09/28/17 10:01 Last Admin: 09/27/17 09:40 Dose: 5 mg - Labs Labs: 09/28/17 05:45 09/28/17 05:45 PT 12.6 SECONDS (9.4-12.5) H 09/28/17 05:45 INR 1.09 (0.93-1.08) H 09/28/17 05:45 APTT 34.3 Seconds (25.1-36.5) 09/28/17 05:45 - Constitutional Appears: Non-toxic, No Acute Distress - Head Exam Head Exam: ATRAUMATIC, NORMOCEPHALIC - Eye Exam Eye Exam: EOMI Pupil Exam: NORMAL ACCOMODATION - ENT Exam ENT Exam: Mucous Membranes Moist - Neck Exam Neck Exam: Full ROM - Respiratory Exam Respiratory Exam: NORMAL BREATHING PATTERN. absent: Accessory Muscle Use, Respiratory Distress - GI/Abdominal Exam GI & Abdominal Exam: absent: Distended, Firm, Guarding, Rigid, Tenderness, Rebound - Neurological Exam Neurological Exam: Alert, Awake, Oriented x3 - Psychiatric Exam Psychiatric exam: Normal Affect, Normal Mood Assessment and Plan - Assessment and Plan (Free Text) Assessment: 67F w. cholangitis s/p ERCP Plan: -Plan for OR tomorrow for lap pati -NPO at midnight -d/w attending Zemaitis PGY3
[2017-09-28] MEDS: Metoprolol Succinate 100 mg XL Tab PO SCH (10:18)
[2017-09-28] MEDS ORDERED: Magnesium Sulfate 2 GM in Sodium Chloride 0.9% 100 ML IVPB SCH (10:30)
[2017-09-28] MEDS: Sodium Chloride 0.9% 1,000 ML IV SCH (11:06)
--- NOTE | 2017-09-28 11:59 | CP.PCM.PN ---
Subjective - Date & Time of Evaluation Date of Evaluation: 09/28/17 Time of Evaluation: 09:00 - Subjective Subjective: Medicine Note for Dr. Hall Patient seen and examined at bedside. No acute event overnight. Patient states pain has improved. She states her breathing is getting better as well. Denies fever/chills and nausea/vomiting. Patient will likely have laparoscopic cholecystectomy Monday. She is now NPO. Objective - Vital Signs/Intake and Output Vital Signs (last 24 hours): Temp Pulse Resp BP Pulse Ox 99.3 F 86 18 163/83 H 96 09/28/17 04:00 09/28/17 10:18 09/28/17 09:59 09/28/17 10:18 09/28/17 09:59 Intake and Output: 09/28/17 09/28/17 06:59 18:59 Intake Total 1280 Output Total 1000 Balance 280 - Medications Medications: Current Medications Acetaminophen (Tylenol 325mg Tab) 650 mg PO Q4H PRN PRN Reason: Fever >100.4 F Guaifenesin (Robitussin) 200 mg PO Q4H PRN PRN Reason: Cough and congestion Last Admin: 09/27/17 21:51 Dose: 200 mg Hydralazine HCl (Apresoline) 10 mg IVP Q6 PRN PRN Reason: Systolic Blood Pressure Last Admin: 09/28/17 04:50 Dose: 10 mg Piperacillin Sod/Tazobactam Sod (Zosyn 3.375 In Ns 100ml) 100 mls @ 200 mls/hr IVPB Q6 [facility] PRN Reason: Protocol Stop: 10/07/17 00:01 Last Admin: 09/28/17 05:05 Dose: 200 mls/hr Sodium Chloride (Sodium Chloride 0.9%) 1,000 mls @ 80 mls/hr IV .[id number] [facility] Last Admin: 09/28/17 11:06 Dose: 80 mls/hr Magnesium Sulfate 2 gm/ Sodium (Chloride) 104 mls @ 102 mls/hr IVPB Q2H [facility] Stop: 09/28/17 13:32 Last Admin: 09/28/17 11:07 Dose: 102 mls/hr Potassium Chloride (Potassium Chloride 20 Meq/100 Ml) 20 meq in 100 mls @ 50 mls/hr IVPB Q2H [facility] Stop: 09/28/17 14:29 Last Admin: 09/28/17 11:36 Dose: 50 mls/hr Insulin Human Regular (Humulin R Low) 0 units SC Q6 [facility] PRN Reason: Protocol Last Admin: 09/28/17 06:46 Dose: Not Given Lisinopril (Zestril) 40 mg PO DAILY [facility] Last Admin: 09/28/17 11:37 Dose: 40 mg Metoprolol Succinate (Toprol Xl) 100 mg PO BRK [facility] Last Admin: 09/28/17 10:18 Dose: 100 mg Ondansetron HCl (Zofran Inj) 4 mg IVP Q6H PRN PRN Reason: Nausea/Vomiting Oseltamivir Phosphate (Tamiflu) 30 mg PO BID [facility] PRN Reason: Protocol Last Admin: 09/28/17 10:18 Dose: 30 mg Pantoprazole Sodium (Protonix Inj) 40 mg IVP DAILY [facility] Last Admin: 09/28/17 10:19 Dose: 40 mg - Labs Labs: 09/28/17 05:45 09/28/17 05:45 PT 12.6 SECONDS (9.4-12.5) H 09/28/17 05:45 INR 1.09 (0.93-1.08) H 09/28/17 05:45 APTT 34.3 Seconds (25.1-36.5) 09/28/17 05:45 - Constitutional Appears: No Acute Distress - Head Exam Head Exam: ATRAUMATIC, NORMOCEPHALIC - Eye Exam Eye Exam: EOMI, Normal appearance Pupil Exam: PERRL - ENT Exam ENT Exam: Mucous Membranes Moist - Neck Exam Neck Exam: absent: Tenderness - Respiratory Exam Respiratory Exam: Clear to Ausculation Bilateral, NORMAL BREATHING PATTERN - Cardiovascular Exam Cardiovascular Exam: REGULAR RHYTHM, +S1, +S2 - GI/Abdominal Exam GI & Abdominal Exam: Soft, Normal Bowel Sounds. absent: Distended, Firm, Guarding, Rigid, Tenderness, Rebound - Extremities Exam Extremities Exam: Normal Capillary Refill - Back Exam Back Exam: absent: CVA tenderness (L), CVA tenderness (R) - Neurological Exam Neurological Exam: Alert, Awake, CN II-XII Intact, Oriented x3 - Psychiatric Exam Psychiatric exam: Normal Affect, Normal Mood - Skin Skin Exam: Dry, Intact, Warm Assessment and Plan - Assessment and Plan (Free Text) Plan: 67 year old female with PMH DM, HTN, HLD, presents for epigastric pain, vomiting , fever, diarrhea, found to have influenza and sepsis likely secondary to ascending cholangitis Neuro AAOx3 Head CT neg for acute changes. Small meningioma is present in the right hemispheric convexity, measuring 1.5 cm. No significant mass effect or midline shift. HOB > 30 degrees Cardio IVF Maintain MAP>65 Lisinopril Metoprolol Hydralazine PRN Pulm Saturating well on 2L NC Maintain SaO2 >90% CT chest: No acute chest findings. No signs of edema or pneumonia. Continuous pulse ox monitoring Robitussin for cough GI NPO for OR Lap cholecystectomy planned for Monday LFTs downtrending CT abd pelvis: Study is limited secondary to motion. No acute findings are seen. Cholelithiasis, with moderate gallbladder distention, no definite signs of cholecystitis. Mild hepatic steatosis. Abd US: Enlarged fatty liver; distended gallbladder, no ductal dilatation, small stones seen on CT are not identified; limited visualization of the pancreas Protonix Q12h zofran PRN GI consult, help appreciated Nephro Replete electrolytes as needed (IV Mag sulfate/KCL today) IVF ID Leukocytosis resolving Influenza positive Tamiflu IV ABX Tylenol PRN Endo Euglycemia 140-180 Accuchecks ISS GI/DVT prophylaxis: protonix/SCDs Discussed with Dr. Rafael Wilkinson PGY1
--- NOTE | 2017-09-28 12:10 | PN ---
DATE: 09/28/2017 SUBJECTIVE: Patient is seen in ICU, bed three. Patient is lying in the bed. Patient is comfortable. Patient does not appear to be in any distress. Overnight nurse's notes were reviewed. Patient was found to be alert, awake and oriented x3 by the nurses. PHYSICAL EXAMINATION: VITAL SIGNS: T-max is 100 degrees Fahrenheit yesterday down to 99.3. Telemetry shows sinus rhythm, 80s, 90s. Blood pressure 163/83, 169/44, 178/75. O2 sat is 96% to 98%. Intake and output, output is 1300. Today's output is 1000. HEENT: Head examination, normocephalic, atraumatic. HEENT examination shows pink conjunctivae. Dry oral mucosa. No neck rigidity. CHEST: Kyphosis. LUNGS: Shows no rales, crackles or wheezing. Questionable decreased breath sound at the left base. CARDIOVASCULAR: Shows S1, S2, regular rhythm. ABDOMEN: Soft. Positive epigastric right upper quadrant tenderness. Positive right periumbilical tenderness. GENITALIA: Female. RECTAL: Examination is deferred. EXTREMITIES: Shows no pitting edema. No calf tenderness. No Homans' sign. Positive SCDs. NEUROLOGIC: Patient is alert, awake, responsive. Gait examination not tested. DIAGNOSTICS: On 09/28, WBC 11.4, hemoglobin/hematocrit 13 and 38.1, platelet 263. Granulocytes, 76% segs. PT/PTT 12.6, 34.9. Sodium 142, potassium 3.2, chloride 108, CO2 20, anion gap 16, BUN 12, creatinine 0.8, GFR greater than 60, glucose 208, magnesium 1.6, total bili 1.8, direct bili 1.6. Magnesium 1.6, total bili 1.8, direct bili 1.6, GGTP 401, AST 87, ALT 123, alk phos 243. HIV and hepatitis negative. Microbiology, urine MRSA and blood cultures negative. EKG and echo was reviewed. EKG is within normal limit. Patient is seen by Infectious Disease yesterday and Surgery. Their recommendations were noted. IMPRESSION AND PLAN: 1. Sepsis secondary to acute cholangitis. 2. Status post endoscopic retrograde cholangiopancreatography and sphincterotomy. 3. Positive influenza A systemic viral illness. 4. Cholelithiasis with acute cholangitis. 5. Hypertension. 6. Tachycardia. 7. Leukocytosis with granulocytosis. 8. Status post erythrocytosis. 9. Mild coagulopathy. 10. Lactic acidosis. 11. Hypokalemia. 12. Hyperglycemia with uncontrolled diabetes mellitus with hemoglobin A1c of 9.0. 13. Hypomagnesemia. 14. Hyperbilirubinemia. 15. Obstructive jaundice. 16. Transaminitis. 17. Possible gallstone hepatitis. 18. Hyperprocalcitoninemia 19. Proteinuria, microscopic hematuria, bacteriuria. 20. Borderline concentric left ventricular hypertrophy. 21. Grade 1 abnormal relaxation pattern. 22. Mild pulmonary arterial hypertension with right ventricular systolic pressure of 34 mmHg. Plan at this time, patient has been ordered serial labs. CONSULTATIONS: 1. Cardiology. 2. Surgery. 3. Infectious Disease. 4. Gastroenterology. CURRENT MEDICATIONS: 1. Hydralazine 10 mg IV q. 6 p.r.n. 2. Humulin low-dose sliding scale coverage. 3. Magnesium sulfate 2 g rider x2. 4. Potassium 20 mEq riders x2. 5. Protonix 40 mg IV daily. 6. Robitussin 200 mg q. 4 p.r.n. 7. 0.9 normal saline at 80 mL an hour ordered by the medical radiation tech. 8. Tamiflu 30 mg twice a day. 9. Toprol XL 100 mg daily. 10. Tylenol 650 mg q. 4. 11. Patient started on Zestril 40 mg daily. 12. Zofran 4 IV q. 6 p.r.n. 13. Zosyn 3.375 g IV q. 6. Patient is on oxygen. Patient is on n.p.o. made by the cardiovascular surgical tech. Patient is on fingerstick blood sugar. Patient has been ordered out of bed to chair, BENI barrett, SCDs, physical therapy, occupational therapy. Patient is awaiting out of transfer to ICU transfer. Dictated and electronically signed, not read. Bruce Hall MD
[2017-09-28] MEDS ORDERED: DiphenhydrAMINE 50 mg/ml Inj IVP PRN (13:06)
[2017-09-28] MEDS ORDERED: Midazolam 2 MG/2 ML VIAL ONE (17:44)
[2017-09-28] MEDS ORDERED: Propofol 10 mg/ml Inj (20 ML) ONE (17:44)
[2017-09-28] MEDS ORDERED: Rocuronium 10 mg/ml (5 ml) ONE (17:45)
[2017-09-28] MEDS ORDERED: Iohexol 240 (50 ml) ONE (17:49)
[2017-09-28] MEDS ORDERED: Bupivacaine 0.5% Inj(30mL) ONE (17:49)
[2017-09-28] MEDS ORDERED: Desflurane Inhalation Anesthetic Liq (240 ml) ONE (19:39)
--- NOTE | 2017-09-28 19:59 | PCM.SURG1 ---
Surgeon's Initial Post Op Note - Surgeon's Notes Surgeon: Chip Service Director: John PGY3 Type of Anesthesia: General Endo, Local Pre-Operative Diagnosis: Cholangitis Operative Findings: normal anatomy Post-Operative Diagnosis: same Operation Performed: laparoscopic cholecystectomy Specimen/Specimens Removed: gallbladder Estimated Blood Loss: EBL {In ML}: 10 Blood Products Given: N/A Drains Used: No Drains Post-Op Condition: Good Date of Surgery/Procedure: 09/28/17 Time of Surgery/Procedure: 19:59
[2017-09-28 20:24] LABS: ARTERIAL BLOOD GAS HCO3 21.1 mmol/L (21-28); ARTERIAL BLOOD GAS O2 SAT 99.3 % (95-98); ARTERIAL BLOOD GAS PCO2 45 mm/Hg (35-45); ARTERIAL BLOOD GAS PH 7.28 (7.35-7.45); ARTERIAL BLOOD GAS TCO2 22.5 mmol.L (22-28)
[2017-09-28] MEDS ORDERED: Labetalol 5 mg/ml Inj 20ML IV STA (20:35)
--- NOTE | 2017-09-28 21:25 | CP.PCM.CON ---
<Steve Reyes - Last Filed: 09/28/17 22:29> History of Present Illness - History of Present Illness History of Present Illness: ICU Consult Note Patient is a 67 female with past medical history of DM, HTN, HLD, who was brought to [facility] ICU s/p laproscopic cholecystectomy for ERCP evidence of biliary sludge and acute cholangitis during this admission. Patient noted to have tachypnea, elevated HTN, tachycardia and poor response to stimuli. Patient was placed on non-rebreather, given IV hydralazine, IV labatelol and IVP lasix. CXR was preformed showing increased pulmonary vasculature bilateral when compared to previous CXR. ABG was drawn showing pH 7.28, pCO2 45, pO2 153, HCO3 21.1. Patient was placed on BiPAP and repeat labs were drawn. Patient is somnolent at time of interview and responds to verbal stimuli and is able to follow simple commands. Patient ROS is limited secondary to mental status. Medical history is collected from chart review. PMH: DM, HTN, HLD, PSH: Lab cholecystectomy, SocHx: Denies Tobacco, EOTH, ID All: [id number] Meds: MAR Reviewed PMD: Dr. Bruce Hall Review of Systems - Review of Systems Review of Systems: Unable to obtain secondary to patient mental status Past Patient History - Past Social History Smoking Status: n Alcohol: None Drugs: Denies - CARDIAC Hx Congestive Heart Failure: No Hx Hypertension: Yes - PULMONARY Hx Respiratory Disorders: No - NEUROLOGICAL Hx Neurological Disorder: No - HEENT Hx HEENT Problems: No Other/Comment: use reading eyeglasses - RENAL Hx Chronic Kidney Disease: No - ENDOCRINE/METABOLIC Hx Diabetes Mellitus Type 2: Yes - HEMATOLOGICAL/ONCOLOGICAL Hx Blood Transfusions: No Hx Blood Transfusion Reaction: No - INTEGUMENTARY Hx Dermatological Problems: No - MUSCULOSKELETAL/RHEUMATOLOGICAL Hx Falls: Yes - GASTROINTESTINAL Hx Gastrointestinal Disorders: No - GENITOURINARY/GYNECOLOGICAL Hx Genitourinary Disorders: No - PSYCHIATRIC Hx Substance Use: No - SURGICAL HISTORY Hx Surgeries: No - ANESTHESIA Hx Anesthesia Reactions: No Hx Malignant Hyperthermia: No Meds Allergies/Adverse Reactions: Allergies Allergy/AdvReac Type Severity Reaction Status Date / Time No Known Allergies Allergy Verified 09/25/17 20:25 - Medications Medications: Current Medications Acetaminophen (Tylenol 325mg Tab) 650 mg PO Q4H PRN PRN Reason: Fever >100.4 F Diphenhydramine HCl (Benadryl) 50 mg IVP Q4H PRN PRN Reason: Allergy symptoms Last Admin: 09/28/17 13:44 Dose: 50 mg Guaifenesin (Robitussin) 200 mg PO Q4H PRN PRN Reason: Cough and congestion Last Admin: 09/27/17 21:51 Dose: 200 mg Hydralazine HCl (Apresoline) 10 mg IVP Q6 PRN PRN Reason: Systolic Blood Pressure Last Admin: 09/28/17 04:50 Dose: 10 mg Sodium Chloride (Sodium Chloride 0.9%) 1,000 mls @ 80 mls/hr IV .[id number] [facility] Last Admin: 09/28/17 11:06 Dose: 80 mls/hr Meropenem (Merrem Iv 1 Gm Premix) 50 mls @ 100 mls/hr IVPB Q8 [facility] PRN Reason: Protocol Stop: 10/07/17 22:01 Insulin Human Regular (Humulin R Low) 0 units SC Q6 [facility] PRN Reason: Protocol Last Admin: 09/28/17 16:44 Dose: 1 units Lisinopril (Zestril) 40 mg PO DAILY [facility] Last Admin: 09/28/17 11:37 Dose: 40 mg Metoprolol Succinate (Toprol Xl) 100 mg PO BRK [facility] Last Admin: 09/28/17 10:18 Dose: 100 mg Ondansetron HCl (Zofran Inj) 4 mg IVP Q6H PRN PRN Reason: Nausea/Vomiting Oseltamivir Phosphate (Tamiflu) 30 mg PO BID [facility] PRN Reason: Protocol Last Admin: 09/28/17 10:18 Dose: 30 mg Pantoprazole Sodium (Protonix Inj) 40 mg IVP DAILY [facility] Last Admin: 09/28/17 10:19 Dose: 40 mg Physical Exam - Constitutional Additional comments: Appears stated age, laying in bed on non-rebreather, tachypneic, responding to verbal stimuli, limited verbal response to questioning - Head Exam Head Exam: ATRAUMATIC, NORMAL INSPECTION, NORMOCEPHALIC - Eye Exam Eye Exam: EOMI, PERRL - ENT Exam ENT Exam: Mucous Membranes Moist - Respiratory Exam Respiratory Exam: Clear to Auscultation Bilateral, Respiratory Distress. absent : Rhonchi, Wheezes - Cardiovascular Exam Cardiovascular Exam: Tachycardia, +S1, +S2. absent: Systolic Murmur - GI/Abdominal Exam GI & Abdominal Exam: Diminished Bowel Sounds, Distended, Soft. absent: Firm, Guarding, Rigid - Extremities Exam Extremities exam: Positive for: normal inspection. Negative for: calf tenderness Additional comments: SCDs in place b/l - Neurological Exam Neurological exam: Alert Additional comments: oriented to name, able to follow simple commands - Psychiatric Exam Psychiatric exam: Anxious - Skin Skin Exam: Normal Color, Warm Results - Vital Signs Recent Vital Signs: Last Vital Signs Temp 97.8 F 09/28/17 16:00 Pulse 97 H 09/28/17 21:00 Resp 29 H 09/28/17 20:29 BP 224/124 H 09/28/17 21:00 Pulse Ox 99 09/28/17 20:29 - Labs Result Diagrams: 09/28/17 21:19 09/28/17 21:19 Labs: Laboratory Results - last 24 hr 09/27/17 09/27/17 09/28/17 06:00 23:18 05:22 WBC RBC Hgb Hct MCV MCH MCHC RDW Plt Count MPV Gran % Lymph % (Auto) Drew % (Auto) Eos % (Auto) Baso % (Auto) Gran # Lymph # (Auto) Drew # (Auto) Eos # (Auto) Baso # (Auto) PT INR APTT pCO2 pO2 HCO3 ABG pH ABG Total CO2 ABG O2 Saturation ABG Base Excess ABG Potassium Glucose Lactate FiO2 Sodium Potassium Chloride Carbon Dioxide Anion Gap BUN Creatinine Est GFR ( Amer) Est GFR (Non-Af Amer) POC Glucose (mg/dL) 211 H 181 H Random Glucose Calcium Magnesium Total Bilirubin Direct Bilirubin GGT AST ALT Alkaline Phosphatase Total Protein Albumin Globulin Albumin/Globulin Ratio Arterial Blood Potassium DANIELLE Screen Negative Anti-Mitochondrial Ab Negative Smooth Muscle Ab Titer TEST NOT PERFORMED Anti-Smooth Muscle Ab Negative 09/28/17 09/28/17 09/28/17 05:45 05:45 05:45 WBC 11.4 H RBC 4.50 Hgb 13.0 Hct 38.1 MCV 84.7 MCH 28.9 MCHC 34.1 RDW 14.7 H Plt Count 263 MPV 11.7 H Gran % 76.0 H Lymph % (Auto) 12.5 L Drew % (Auto) 9.4 H Eos % (Auto) 1.7 Baso % (Auto) 0.4 Gran # 8.67 H Lymph # (Auto) 1.4 Drew # (Auto) 1.1 H Eos # (Auto) 0.2 Baso # (Auto) 0.04 PT 12.6 H INR 1.09 H APTT 34.3 pCO2 pO2 HCO3 ABG pH ABG Total CO2 ABG O2 Saturation ABG Base Excess ABG Potassium Glucose Lactate FiO2 Sodium 142 Potassium 3.2 L Chloride 108 H Carbon Dioxide 20 L Anion Gap 16 BUN 12 Creatinine 0.8 Est GFR ( Amer) > 60 Est GFR (Non-Af Amer) > 60 POC Glucose (mg/dL) Random Glucose 208 H Calcium 8.9 Magnesium 1.6 L Total Bilirubin 1.8 H Direct Bilirubin 1.6 H GGT 401 H AST 87 H D ALT 123 H Alkaline Phosphatase 243 H D Total Protein 6.8 Albumin 3.3 Globulin 3.5 Albumin/Globulin Ratio 1.0 L Arterial Blood Potassium DANIELLE Screen Anti-Mitochondrial Ab Smooth Muscle Ab Titer Anti-Smooth Muscle Ab 09/28/17 09/28/17 09/28/17 12:07 16:39 20:21 WBC RBC Hgb Hct MCV MCH MCHC RDW Plt Count MPV Gran % Lymph % (Auto) Drew % (Auto) Eos % (Auto) Baso % (Auto) Gran # Lymph # (Auto) Drew # (Auto) Eos # (Auto) Baso # (Auto) PT INR APTT pCO2 45 pO2 153.0 H HCO3 21.1 ABG pH 7.28 L ABG Total CO2 22.5 ABG O2 Saturation 99.3 H ABG Base Excess -5.6 L ABG Potassium 3.3 L Glucose 211 H Lactate 1.3 FiO2 100.0 Sodium 138.0 Potassium Chloride 109.0 H Carbon Dioxide Anion Gap BUN Creatinine Est GFR ( Amer) Est GFR (Non-Af Amer) POC Glucose (mg/dL) 235 H 194 H Random Glucose Calcium Magnesium Total Bilirubin Direct Bilirubin GGT AST ALT Alkaline Phosphatase Total Protein Albumin Globulin Albumin/Globulin Ratio Arterial Blood Potassium 3.3 L DANIELLE Screen Anti-Mitochondrial Ab Smooth Muscle Ab Titer Anti-Smooth Muscle Ab Assessment & Plan - Assessment and Plan (Free Text) Assessment: 67 female with past medical history of DM, HTN, HLD, who presented to [facility] ED with cholecystitis, positive influenza who presents to ICU from OR s/p cholecystectomy with tachypnea, elevated HR, HTN and increased pulmonary congestion. Patient given antihypertensives, lasix, and placed on BiPAP. Patient will remain in ICU overnight for further monitoring and evaluation. Plan: Neuro: -Somnolent s/p anesthesia, AOx2, place and name - Likely 2/2 anesthesia vs. CO2 retention - CT head showing Small meningioma is present in the right hemispheric convexity , measuring 1.5 cm. No significant mass effect or midline shif - Keep HOB >30 degrees - Monitor mental status Cardio: HTN - BP noted to be 230s/100s s/p operation vs. pain, history of chronic HTN - Hydralazine 20mg IVP - Continue Hydralazine prn - Labatelol 10 IVP given - Lasix 40 IVP - BP showing improvement, 147/63 - Holding IVF - If patient BP continues to be elevated will consider labatelol gtt Tachycardia - NSR, 105-110 - Labatelol 10 IVP - HR 90s after placed on BiPAP - continue to monitor Pulmonary: Hypercapnic Respiratory Failure s/p lap cholecystectomy - Increased pulmonary congestion b/l on CXR when compared to prior in setting of s/p cholecystectomy with + influenza - ABG showing pH of 7.28, pCO2 45, pO2 153, HCO3 21 FiO2 100 - Lasix 40IVP given - Continue BiPAP with settings 14/6/40% FiO2 and monitor clinically - If patient continues to show tachypnea and poor respiratory picture will hold off ABG until morning, if not repeat after 1 hour of BiPAP and titrate GI: s/p Lab cholecystectomy previous imaging showing - CT abd pelvis: Study is limited secondary to motion. No acute findings are seen. Cholelithiasis, with moderate gallbladder distention, no definite signs of cholecystitis. Mild hepatic steatosis. - Abd US: Enlarged fatty liver; distended gallbladder, no ductal dilatation, small stones seen on CT are not identified; limited visualization of the pancreas - Protonix IV 40 - Zofran Prn - GI consulted and following patient Nephro ABG showing Metabolic Acidosis picture - monitor I/O - Replace lytes - Repeat CMP, Mg, Phos now ID Influenza positive - Tamiflu - Tylenol prn Acute cholangitis s/p lap pati - Continue merrem Endo Maintain euglycemia with gola of 140-180 Accuchecks ISS GI/DVT ppx - Protonix - SCDs Case and plan discussed with attending Dr. Charley Reyes PGY1 - Date & Time Date: 09/28/17 Time: 21:27 <Jim Whitehead Q - Last Filed: 09/29/17 02:52> Meds - Medications Medications: Current Medications Acetaminophen (Tylenol 325mg Tab) 650 mg PO Q4H PRN PRN Reason: Fever >100.4 F Diphenhydramine HCl (Benadryl) 50 mg IVP Q4H PRN PRN Reason: Allergy symptoms Last Admin: 09/28/17 13:44 Dose: 50 mg Guaifenesin (Robitussin) 200 mg PO Q4H PRN PRN Reason: Cough and congestion Last Admin: 09/27/17 21:51 Dose: 200 mg Hydralazine HCl (Apresoline) 10 mg IVP Q6 PRN PRN Reason: Systolic Blood Pressure Last Admin: 09/28/17 04:50 Dose: 10 mg Sodium Chloride (Sodium Chloride 0.9%) 1,000 mls @ 80 mls/hr IV .[id number] [facility] Last Admin: 09/28/17 11:06 Dose: 80 mls/hr Meropenem (Merrem Iv 1 Gm Premix) 50 mls @ 100 mls/hr IVPB Q8 [facility] PRN Reason: Protocol Stop: 10/07/17 22:01 Last Admin: 09/28/17 22:02 Dose: Not Given Insulin Human Regular (Humulin R Low) 0 units SC Q6 [facility] PRN Reason: Protocol Last Admin: 09/28/17 16:44 Dose: 1 units Lisinopril (Zestril) 40 mg PO DAILY [facility] Last Admin: 09/28/17 11:37 Dose: 40 mg Metoprolol Succinate (Toprol Xl) 100 mg PO BRK [facility] Last Admin: 09/28/17 10:18 Dose: 100 mg Ondansetron HCl (Zofran Inj) 4 mg IVP Q6H PRN PRN Reason: Nausea/Vomiting Oseltamivir Phosphate (Tamiflu) 30 mg PO BID [facility] PRN Reason: Protocol Last Admin: 09/28/17 10:18 Dose: 30 mg Pantoprazole Sodium (Protonix Inj) 40 mg IVP DAILY [facility] Last Admin: 09/28/17 10:19 Dose: 40 mg Results - Vital Signs Recent Vital Signs: Last Vital Signs Temp 98.6 F 09/28/17 22:35 Pulse 19 L 09/28/17 22:35 Resp 25 H 09/28/17 21:30 BP 133/61 09/28/17 21:30 Pulse Ox 99 09/28/17 21:30 - Labs Result Diagrams: 09/28/17 21:19 09/28/17 21:19 Labs: Laboratory Results - last 24 hr 09/27/17 09/27/17 09/28/17 06:00 23:18 05:22 WBC RBC Hgb Hct MCV MCH MCHC RDW Plt Count MPV Gran % Lymph % (Auto) Drew % (Auto) Eos % (Auto) Baso % (Auto) Gran # Lymph # (Auto) Drew # (Auto) Eos # (Auto) Baso # (Auto) PT INR APTT pCO2 pO2 HCO3 ABG pH ABG Total CO2 ABG O2 Saturation ABG Base Excess ABG Potassium Glucose Lactate FiO2 Sodium Potassium Chloride Carbon Dioxide Anion Gap BUN Creatinine Est GFR ( Amer) Est GFR (Non-Af Amer) POC Glucose (mg/dL) 211 H 181 H Random Glucose Calcium Phosphorus Magnesium Total Bilirubin Direct Bilirubin GGT AST ALT Alkaline Phosphatase Total Protein Albumin Globulin Albumin/Globulin Ratio Arterial Blood Potassium DANIELLE Screen Negative Anti-Mitochondrial Ab Negative Smooth Muscle Ab Titer TEST NOT PERFORMED Anti-Smooth Muscle Ab Negative 09/28/17 09/28/17 09/28/17 05:45 05:45 05:45 WBC 11.4 H RBC 4.50 Hgb 13.0 Hct 38.1 MCV 84.7 MCH 28.9 MCHC 34.1 RDW 14.7 H Plt Count 263 MPV 11.7 H Gran % 76.0 H Lymph % (Auto) 12.5 L Drew % (Auto) 9.4 H Eos % (Auto) 1.7 Baso % (Auto) 0.4 Gran # 8.67 H Lymph # (Auto) 1.4 Drew # (Auto) 1.1 H Eos # (Auto) 0.2 Baso # (Auto) 0.04 PT 12.6 H INR 1.09 H APTT 34.3 pCO2 pO2 HCO3 ABG pH ABG Total CO2 ABG O2 Saturation ABG Base Excess ABG Potassium Glucose Lactate FiO2 Sodium 142 Potassium 3.2 L Chloride 108 H Carbon Dioxide 20 L Anion Gap 16 BUN 12 Creatinine 0.8 Est GFR ( Amer) > 60 Est GFR (Non-Af Amer) > 60 POC Glucose (mg/dL) Random Glucose 208 H Calcium 8.9 Phosphorus Magnesium 1.6 L Total Bilirubin 1.8 H Direct Bilirubin 1.6 H GGT 401 H AST 87 H D ALT 123 H Alkaline Phosphatase 243 H D Total Protein 6.8 Albumin 3.3 Globulin 3.5 Albumin/Globulin Ratio 1.0 L Arterial Blood Potassium DANIELLE Screen Anti-Mitochondrial Ab Smooth Muscle Ab Titer Anti-Smooth Muscle Ab 09/28/17 09/28/17 09/28/17 12:07 16:39 20:21 WBC RBC Hgb Hct MCV MCH MCHC RDW Plt Count MPV Gran % Lymph % (Auto) Drew % (Auto) Eos % (Auto) Baso % (Auto) Gran # Lymph # (Auto) Drew # (Auto) Eos # (Auto) Baso # (Auto) PT INR APTT pCO2 45 pO2 153.0 H HCO3 21.1 ABG pH 7.28 L ABG Total CO2 22.5 ABG O2 Saturation 99.3 H ABG Base Excess -5.6 L ABG Potassium 3.3 L Glucose 211 H Lactate 1.3 FiO2 100.0 Sodium 138.0 Potassium Chloride 109.0 H Carbon Dioxide Anion Gap BUN Creatinine Est GFR ( Amer) Est GFR (Non-Af Amer) POC Glucose (mg/dL) 235 H 194 H Random Glucose Calcium Phosphorus Magnesium Total Bilirubin Direct Bilirubin GGT AST ALT Alkaline Phosphatase Total Protein Albumin Globulin Albumin/Globulin Ratio Arterial Blood Potassium 3.3 L DANIELLE Screen Anti-Mitochondrial Ab Smooth Muscle Ab Titer Anti-Smooth Muscle Ab 09/28/17 09/28/17 09/28/17 21:19 21:19 23:36 WBC 16.2 H D RBC 4.70 Hgb 13.6 Hct 40.3 MCV 85.7 MCH 28.9 MCHC 33.7 RDW 14.5 Plt Count 275 MPV 11.2 H Gran % 83.6 H Lymph % (Auto) 8.7 L Drew % (Auto) 5.8 Eos % (Auto) 1.6 Baso % (Auto) 0.3 Gran # 13.53 H Lymph # (Auto) 1.4 Drew # (Auto) 0.9 H Eos # (Auto) 0.3 Baso # (Auto) 0.05 PT INR APTT pCO2 pO2 HCO3 ABG pH ABG Total CO2 ABG O2 Saturation ABG Base Excess ABG Potassium Glucose Lactate FiO2 Sodium 140 Potassium 3.6 Chloride 107 Carbon Dioxide 20 L Anion Gap 18 BUN 12 Creatinine 0.9 Est GFR ( Amer) > 60 Est GFR (Non-Af Amer) > 60 POC Glucose (mg/dL) 243 H Random Glucose 246 H Calcium 9.1 Phosphorus 3.3 Magnesium 1.8 Total Bilirubin 1.8 H Direct Bilirubin GGT AST 80 H ALT 111 H Alkaline Phosphatase 281 H Total Protein 7.1 Albumin 3.6 Globulin 3.5 Albumin/Globulin Ratio 1.0 L Arterial Blood Potassium DANIELLE Screen Anti-Mitochondrial Ab Smooth Muscle Ab Titer Anti-Smooth Muscle Ab Attending/Attestation - Attestation I have personally seen and examined this patient.: Yes I have fully participated in the care of the patient.: Yes I have reviewed all pertinent clinical information: Yes Notes (Text): 09/29/17 02:47 I agree with the above mentioned note and exam by the resident with the addition /exception of the followin67 y/o female with Htn, DM, dyslipidemia was evaluated due to concerns for respiratory distress today. Patient was admitted on this visit for ascending cholangitis, underwent ERCP with removal of sludge, however symptoms persisted so she was taken for an Ex-lap today for cholecystectomy. Post-op, patient was extubated and transferred to her room which was physically in the ICU, however she was a remote telemetry patient. I was asked to evaluate the patient for respiratory distress, tachypnea, hypertensive urgency and tachycardia. Patient was speaking in short sentences complaining of difficulty breathing and shortness of breath. She appeared to have flash pulmonary edema after her surgical procedure; she was diuresed, placed on bipap and given labetolol IVP for blood pressure/heart rate management. She was officially transferred to the ICU now. She improved overnight and has been hemodynamically stable since. strict i's and o's continue with bipap therapy until the AM, then change to nasal cannula hypoxic respiratory failure improving; likely secondary to flash edema hypertensive urgency resolved; SBP returned to within normal limits; hydralazine IVP prn s/p ex lap; abd soft, ntd/nd labs and images available to myself thus far have been reviewed total time of care: 45 minutes
[2017-09-28 21:33] LABS: BASO # 0.05 K/mm3 (0.0-2.0); BASO % 0.3 % (0.0-3.0); EOS # 0.3 (0.0-0.7); EOS % 1.6 % (1.5-5.0); GRAN # 13.53 (1.4-6.5); GRAN % 83.6 % (50.0-68.0); HEMOGLOBIN 13.6 g/dL (12.0-16.0); LYMPH # 1.4 (1.2-3.4); LYMPH % 8.7 % (22.0-35.0); MEAN CELL VOLUME 85.7 fl (80.0-105.0); MEAN CORPUSCULAR HEMOGLOBIN 28.9 pg (25.0-35.0); MEAN CORPUSCULAR HGB CONC 33.7 g/dl (31.0-37.0); MEAN PLATELET VOLUME 11.2 fl (7.0-11.0); MONO # 0.9 (0.1-0.6); MONO % 5.8 % (1.0-6.0); RBC 4.7 10^6/uL (3.5-6.1); RED CELL DISTRIBUTION WIDTH 14.5 % (11.5-14.5); WHITE BLOOD COUNT 16.2 10^3/ul (4.5-11.0)
[2017-09-28 21:34] LABS: ALBUMIN 3.6 g/dL (3.0-4.8); ALT/SGPT 111 U/L (7-56); AST/SGOT 80 U/L (14-36); BLOOD UREA NITROGEN 12 mg/dL (7-21); CALCIUM 9.1 mg/dL (8.4-10.5); GFR AFRICAN-AMERICAN > 60; GFR NON-AFRICAN AMERICAN > 60
--- NOTE | 2017-09-28 21:38 | PN ---
DATE: 09/28/2017 SUBJECTIVE: The patient is in bed, in no acute distress, nontoxic, was seen this morning. PHYSICAL EXAMINATION: VITAL SIGNS: Temperature is 98, T-max is 100, blood pressure is 160/80, respiratory rate of 18. HEENT: Unremarkable. NECK: Supple. LUNGS: Have decreased breath sounds. HEART: Normal S1, S2. ABDOMEN: Soft, nontender. Later today, I was called. I heard the patient had developed a new rash on her arm, chest, and back. LABORATORY DATA: Reveals a white count of 11,400, hemoglobin of 13, platelets of 263. Chemistries reveals a BUN of 12, creatinine of 0.8. Urinalysis is noted. ASSESSMENT AND PLAN: A 67-year-old female, who was seen earlier this morning with diabetes, hypertension, hyperlipidemia, admitted with sepsis with acute cholangitis, status post endoscopic retrograde cholangiopancreatography and sphincterotomy, also found to have a positive influenza. We will discontinue the Zosyn. The patient is for possible surgery and we will continue Tamiflu for 5 days and use meropenem. Pending possible cholecystectomy tomorrow. We will follow closely with you. Pawan Martin MD
[2017-09-28] MEDS: Meropenem IV 1 gm in NS 50 ML IVPB SCH (22:02)
[2017-09-29] MEDS: Meropenem IV 1 gm in NS 50 ML IVPB SCH ×3 (06:21→21:38)
[2017-09-29 06:44] LABS: BASO # 0.02 K/mm3 (0.0-2.0); BASO % 0.1 % (0.0-3.0); EOS % 0.1 % (1.5-5.0); GRAN # 14.12 (1.4-6.5); GRAN % 86.7 % (50.0-68.0); HEMOGLOBIN 13.6 g/dL (12.0-16.0); LYMPH # 1.1 (1.2-3.4); MEAN CELL VOLUME 86.1 fl (80.0-105.0); MEAN CORPUSCULAR HEMOGLOBIN 28.6 pg (25.0-35.0); MEAN CORPUSCULAR HGB CONC 33.3 g/dl (31.0-37.0); MEAN PLATELET VOLUME 11.4 fl (7.0-11.0); MONO % 6.1 % (1.0-6.0); RBC 4.75 10^6/uL (3.5-6.1); RED CELL DISTRIBUTION WIDTH 14.9 % (11.5-14.5); WHITE BLOOD COUNT 16.3 10^3/ul (4.5-11.0)
[2017-09-29 06:50] LABS: INR 1.05 (0.93-1.08); PARTIAL THROMBOPLASTIN TIME 30.7 Seconds (25.1-36.5); PROTHROMBIN TIME 12.1 SECONDS (9.4-12.5)
[2017-09-29] MEDS: Insulin Reg-LOW-Coverage SC SCH ×5 (07:07→16:35)
--- NOTE | 2017-09-29 07:18 | CP.CCUPN ---
<WyattRosendo denise - Last Filed: 09/29/17 10:40> CCU Subjective - Physician Review Subjective (Free Text): Rosendo Schneider PGY1 ICU Note for Dr. Duval Patient was seen and examined in ICU. She states that her pain has improved and her breathing is better. she denies passing flatus or having BM's post-op. she denies n/v or severe abdominal pain. she denies fevers/chills, chest pain, or any shortness of breath, or back pain. she was on BiPAP overnight, but is now satting well and comfortable on NC. CCU Objective - Vital Signs / Intake & Output Vital Signs (Last 4 hours): Vital Signs Temp Pulse Resp BP Pulse Ox 09/29/17 05:00 99.1 F 09/29/17 04:46 163/73 H 09/29/17 04:45 84 20 100 09/29/17 04:30 99.5 F 78 17 151/68 H 100 09/29/17 04:15 81 18 163/61 H 100 09/29/17 04:00 99.5 F 82 17 150/68 100 09/29/17 03:45 85 16 163/67 H 100 09/29/17 03:30 83 21 162/70 H 100 Intake and Output (Last 8hrs): Intake & Output 09/28/17 09/29/17 09/29/17 22:59 06:59 14:59 Intake Total 1360 Output Total 1200 Balance 160 Intake: IV 1260 Right Hand 1260 Oral 100 Output: Urine 1200 Urine, Voided 1200 Other: # Bowel Movements 1 - Physical Exam Head: Positive for: Atraumatic, Normocephalic Pupils: Positive for: PERRL Extroacular Muscles: Positive for: EOMI Conjunctiva: Positive for: Normal Mouth: Positive for: Dry Neck: Positive for: Normal Range of Motion Respiratory/Chest: Positive for: Clear to Auscultation, Good Air Exchange. Negative for: Wheezes, Rales, Retracting, Rhonchi, Tachypneic Cardiovascular: Positive for: Regular Rate and Rhythm, Normal S1, S2. Negative for: Murmurs Abdomen: Positive for: Tenderness, Scars (incision sites post-op, clean/dry, no active bleeding). Negative for: Distention, Normal Bowel Sounds (hypoactive), Peritoneal Signs, Rebound, Guarding, McBurney's Point Tender, Rovsing's Sign Present, Hernias, Feeding Tubes, Ostomy Tubes, Mass/Organomegaly, Other Back: Positive for: Normal Inspection Upper Extremity: Positive for: Normal Inspection, NORMAL PULSES. Negative for: Edema Lower Extremity: Positive for: Normal Inspection, Neurovascularly Intact. Negative for: Edema Neurological: Positive for: GCS=15, CN II-XII Intact, Speech Normal, Motor Func Grossly Intact, Normal Sensory Function Skin: Positive for: Warm, Normal Color Psychiatric: Positive for: Alert, Oriented x 3, Normal Insight, Normal Concentration - Medications Active Medications: Active Medications Generic Name Dose Route Start Last Admin Trade Name Freq PRN Reason Stop Dose Admin Acetaminophen 650 mg 09/27/17 22:19 Tylenol 325mg Tab PO Q4H PRN Fever >100.4 F Diphenhydramine HCl 50 mg 09/28/17 13:06 09/28/17 13:44 Benadryl IVP 50 mg Q4H PRN Administration Allergy symptoms Guaifenesin 200 mg 09/27/17 21:40 09/27/17 21:51 Robitussin PO 200 mg Q4H PRN Administration Cough and congestion Hydralazine HCl 10 mg 09/27/17 06:07 09/28/17 04:50 Apresoline IVP 10 mg Q6 PRN Administration Systolic Blood Pressure Sodium Chloride 1,000 mls @ 80 mls/hr 09/27/17 09:30 09/28/17 11:06 Sodium Chloride 0.9% IV 80 mls/hr .[id number] YOSEPH Administration Meropenem 50 mls @ 100 mls/hr 09/28/17 22:00 09/29/17 06:21 Merrem Iv 1 Gm Premix IVPB 10/07/17 22:01 100 mls/hr Q8 YOSEPH Administration Protocol Insulin Human Regular 0 units 09/26/17 12:00 09/29/17 07:07 Humulin R Low SC Not Given Q6 YOSEPH Protocol Lisinopril 40 mg 09/27/17 11:00 09/28/17 11:37 Zestril PO 40 mg DAILY YOSEPH Administration Metoprolol Succinate 100 mg 09/27/17 11:00 09/28/17 10:18 Toprol Xl PO 100 mg BRK YOSEPH Administration Ondansetron HCl 4 mg 09/26/17 04:21 Zofran Inj IVP Q6H PRN Nausea/Vomiting Oseltamivir Phosphate 30 mg 09/27/17 09:18 09/28/17 10:18 Tamiflu PO 30 mg BID YOSEPH Administration Protocol Pantoprazole Sodium 40 mg 09/26/17 10:00 09/28/17 10:19 Protonix Inj IVP 40 mg DAILY YOSEPH Administration - Patient Studies Lab Studies: Lab Studies 09/29/17 09/29/17 09/29/17 Range/Units 06:35 05:50 05:50 WBC 16.3 H (4.5-11.0) 10^3/ul RBC 4.75 (3.5-6.1) 10^6/uL Hgb 13.6 (12.0-16.0) g/dL Hct 40.9 (36.0-48.0) % MCV 86.1 (80.0-105.0) fl MCH 28.6 (25.0-35.0) pg MCHC 33.3 (31.0-37.0) g/dl RDW 14.9 H (11.5-14.5) % Plt Count 315 (120.0-450.0) 10^3/uL MPV 11.4 H (7.0-11.0) fl Gran % 86.7 H (50.0-68.0) % Lymph % (Auto) 7.0 L (22.0-35.0) % [place] % (Auto) 6.1 H (1.0-6.0) % Eos % (Auto) 0.1 L (1.5-5.0) % Baso % (Auto) 0.1 (0.0-3.0) % Gran # 14.12 H (1.4-6.5) Lymph # (Auto) 1.1 L (1.2-3.4) [place] # (Auto) 1.0 H (0.1-0.6) Eos # (Auto) 0.0 (0.0-0.7) Baso # (Auto) 0.02 (0.0-2.0) K/mm3 PT 12.1 (9.4-12.5) SECONDS INR 1.05 (0.93-1.08) APTT 30.7 (25.1-36.5) Seconds pCO2 (35-45) mm/Hg pO2 (80-100) mm/Hg HCO3 (21-28) mmol/L ABG pH (7.35-7.45) ABG Total CO2 (22-28) mmol.L ABG O2 Saturation (95-98) % ABG Base Excess (-2.0-3.0) mmol/L ABG Potassium (3.6-5.2) mmol/L Glucose (65-105) mg/dl Lactate (0.7-2.1) mmol/L FiO2 % Sodium (132-148) mmol/L Potassium (3.6-5.0) mmol/L Chloride (98-107) mmol/L Carbon Dioxide (21-33) mmol/L Anion Gap (10-20) BUN (7-21) mg/dL Creatinine (0.7-1.2) mg/dl Est GFR ( Amer) Est GFR (Non-Af Amer) POC Glucose (mg/dL) 279 H (65-110) mg/dL Random Glucose (70-110) mg/dL Calcium (8.4-10.5) mg/dL Phosphorus (2.5-4.5) mg/dL Magnesium (1.7-2.2) mg/dL Total Bilirubin (0.2-1.3) mg/dL Direct Bilirubin (0.0-0.4) mg/dL GGT (8-78) U/L AST (14-36) U/L ALT (7-56) U/L Alkaline Phosphatase (38-126) U/L Total Protein (5.8-8.3) g/dL Albumin (3.0-4.8) g/dL Globulin gm/dL Albumin/Globulin Ratio (1.1-1.8) Arterial Blood Potassium (3.6-5.2) mmol/L DANIELLE Screen (Negative) Anti-Mitochondrial Ab (Negative) Smooth Muscle Ab Titer Anti-Smooth Muscle Ab (Negative) 09/28/17 09/28/17 09/28/17 Range/Units 23:36 21:19 21:19 WBC 16.2 H D (4.5-11.0) 10^3/ul RBC 4.70 (3.5-6.1) 10^6/uL Hgb 13.6 (12.0-16.0) g/dL Hct 40.3 (36.0-48.0) % MCV 85.7 (80.0-105.0) fl MCH 28.9 (25.0-35.0) pg MCHC 33.7 (31.0-37.0) g/dl RDW 14.5 (11.5-14.5) % Plt Count 275 (120.0-450.0) 10^3/uL MPV 11.2 H (7.0-11.0) fl Gran % 83.6 H (50.0-68.0) % Lymph % (Auto) 8.7 L (22.0-35.0) % [place] % (Auto) 5.8 (1.0-6.0) % Eos % (Auto) 1.6 (1.5-5.0) % Baso % (Auto) 0.3 (0.0-3.0) % Gran # 13.53 H (1.4-6.5) Lymph # (Auto) 1.4 (1.2-3.4) [place] # (Auto) 0.9 H (0.1-0.6) Eos # (Auto) 0.3 (0.0-0.7) Baso # (Auto) 0.05 (0.0-2.0) K/mm3 PT (9.4-12.5) SECONDS INR (0.93-1.08) APTT (25.1-36.5) Seconds pCO2 (35-45) mm/Hg pO2 (80-100) mm/Hg HCO3 (21-28) mmol/L ABG pH (7.35-7.45) ABG Total CO2 (22-28) mmol.L ABG O2 Saturation (95-98) % ABG Base Excess (-2.0-3.0) mmol/L ABG Potassium (3.6-5.2) mmol/L Glucose (65-105) mg/dl Lactate (0.7-2.1) mmol/L FiO2 % Sodium 140 (132-148) mmol/L Potassium 3.6 (3.6-5.0) mmol/L Chloride 107 (98-107) mmol/L Carbon Dioxide 20 L (21-33) mmol/L Anion Gap 18 (10-20) BUN 12 (7-21) mg/dL Creatinine 0.9 (0.7-1.2) mg/dl Est GFR ( Amer) > 60 Est GFR (Non-Af Amer) > 60 POC Glucose (mg/dL) 243 H (65-110) mg/dL Random Glucose 246 H (70-110) mg/dL Calcium 9.1 (8.4-10.5) mg/dL Phosphorus 3.3 (2.5-4.5) mg/dL Magnesium 1.8 (1.7-2.2) mg/dL Total Bilirubin 1.8 H (0.2-1.3) mg/dL Direct Bilirubin (0.0-0.4) mg/dL GGT (8-78) U/L AST 80 H (14-36) U/L ALT 111 H (7-56) U/L Alkaline Phosphatase 281 H (38-126) U/L Total Protein 7.1 (5.8-8.3) g/dL Albumin 3.6 (3.0-4.8) g/dL Globulin 3.5 gm/dL Albumin/Globulin Ratio 1.0 L (1.1-1.8) Arterial Blood Potassium (3.6-5.2) mmol/L DANIELLE Screen (Negative) Anti-Mitochondrial Ab (Negative) Smooth Muscle Ab Titer Anti-Smooth Muscle Ab (Negative) 09/28/17 09/28/17 09/28/17 Range/Units 20:21 16:39 12:07 WBC (4.5-11.0) 10^3/ul RBC (3.5-6.1) 10^6/uL Hgb (12.0-16.0) g/dL Hct (36.0-48.0) % MCV (80.0-105.0) fl MCH (25.0-35.0) pg MCHC (31.0-37.0) g/dl RDW (11.5-14.5) % Plt Count (120.0-450.0) 10^3/uL MPV (7.0-11.0) fl Gran % (50.0-68.0) % Lymph % (Auto) (22.0-35.0) % [place] % (Auto) (1.0-6.0) % Eos % (Auto) (1.5-5.0) % Baso % (Auto) (0.0-3.0) % Gran # (1.4-6.5) Lymph # (Auto) (1.2-3.4) [place] # (Auto) (0.1-0.6) Eos # (Auto) (0.0-0.7) Baso # (Auto) (0.0-2.0) K/mm3 PT (9.4-12.5) SECONDS INR (0.93-1.08) APTT (25.1-36.5) Seconds pCO2 45 (35-45) mm/Hg pO2 153.0 H (80-100) mm/Hg HCO3 21.1 (21-28) mmol/L ABG pH 7.28 L (7.35-7.45) ABG Total CO2 22.5 (22-28) mmol.L ABG O2 Saturation 99.3 H (95-98) % ABG Base Excess -5.6 L (-2.0-3.0) mmol/L ABG Potassium 3.3 L (3.6-5.2) mmol/L Glucose 211 H (65-105) mg/dl Lactate 1.3 (0.7-2.1) mmol/L FiO2 100.0 % Sodium 138.0 (132-148) mmol/L Potassium (3.6-5.0) mmol/L Chloride 109.0 H (98-107) mmol/L Carbon Dioxide (21-33) mmol/L Anion Gap (10-20) BUN (7-21) mg/dL Creatinine (0.7-1.2) mg/dl Est GFR ( Amer) Est GFR (Non-Af Amer) POC Glucose (mg/dL) 194 H 235 H (65-110) mg/dL Random Glucose (70-110) mg/dL Calcium (8.4-10.5) mg/dL Phosphorus (2.5-4.5) mg/dL Magnesium (1.7-2.2) mg/dL Total Bilirubin (0.2-1.3) mg/dL Direct Bilirubin (0.0-0.4) mg/dL GGT (8-78) U/L AST (14-36) U/L ALT (7-56) U/L Alkaline Phosphatase (38-126) U/L Total Protein (5.8-8.3) g/dL Albumin (3.0-4.8) g/dL Globulin gm/dL Albumin/Globulin Ratio (1.1-1.8) Arterial Blood Potassium 3.3 L (3.6-5.2) mmol/L DANIELLE Screen (Negative) Anti-Mitochondrial Ab (Negative) Smooth Muscle Ab Titer Anti-Smooth Muscle Ab (Negative) 09/28/17 09/28/17 09/28/17 Range/Units 05:45 05:45 05:45 WBC 11.4 H (4.5-11.0) 10^3/ul RBC 4.50 (3.5-6.1) 10^6/uL Hgb 13.0 (12.0-16.0) g/dL Hct 38.1 (36.0-48.0) % MCV 84.7 (80.0-105.0) fl MCH 28.9 (25.0-35.0) pg MCHC 34.1 (31.0-37.0) g/dl RDW 14.7 H (11.5-14.5) % Plt Count 263 (120.0-450.0) 10^3/uL MPV 11.7 H (7.0-11.0) fl Gran % 76.0 H (50.0-68.0) % Lymph % (Auto) 12.5 L (22.0-35.0) % [place] % (Auto) 9.4 H (1.0-6.0) % Eos % (Auto) 1.7 (1.5-5.0) % Baso % (Auto) 0.4 (0.0-3.0) % Gran # 8.67 H (1.4-6.5) Lymph # (Auto) 1.4 (1.2-3.4) [place] # (Auto) 1.1 H (0.1-0.6) Eos # (Auto) 0.2 (0.0-0.7) Baso # (Auto) 0.04 (0.0-2.0) K/mm3 PT 12.6 H (9.4-12.5) SECONDS INR 1.09 H (0.93-1.08) APTT 34.3 (25.1-36.5) Seconds pCO2 (35-45) mm/Hg pO2 (80-100) mm/Hg HCO3 (21-28) mmol/L ABG pH (7.35-7.45) ABG Total CO2 (22-28) mmol.L ABG O2 Saturation (95-98) % ABG Base Excess (-2.0-3.0) mmol/L ABG Potassium (3.6-5.2) mmol/L Glucose (65-105) mg/dl Lactate (0.7-2.1) mmol/L FiO2 % Sodium 142 (132-148) mmol/L Potassium 3.2 L (3.6-5.0) mmol/L Chloride 108 H (98-107) mmol/L Carbon Dioxide 20 L (21-33) mmol/L Anion Gap 16 (10-20) BUN 12 (7-21) mg/dL Creatinine 0.8 (0.7-1.2) mg/dl Est GFR ( Amer) > 60 Est GFR (Non-Af Amer) > 60 POC Glucose (mg/dL) (65-110) mg/dL Random Glucose 208 H (70-110) mg/dL Calcium 8.9 (8.4-10.5) mg/dL Phosphorus (2.5-4.5) mg/dL Magnesium 1.6 L (1.7-2.2) mg/dL Total Bilirubin 1.8 H (0.2-1.3) mg/dL Direct Bilirubin 1.6 H (0.0-0.4) mg/dL GGT 401 H (8-78) U/L AST 87 H D (14-36) U/L ALT 123 H (7-56) U/L Alkaline Phosphatase 243 H D (38-126) U/L Total Protein 6.8 (5.8-8.3) g/dL Albumin 3.3 (3.0-4.8) g/dL Globulin 3.5 gm/dL Albumin/Globulin Ratio 1.0 L (1.1-1.8) Arterial Blood Potassium (3.6-5.2) mmol/L DANIELLE Screen (Negative) Anti-Mitochondrial Ab (Negative) Smooth Muscle Ab Titer Anti-Smooth Muscle Ab (Negative) 09/27/17 Range/Units 06:00 WBC (4.5-11.0) 10^3/ul RBC (3.5-6.1) 10^6/uL Hgb (12.0-16.0) g/dL Hct (36.0-48.0) % MCV (80.0-105.0) fl MCH (25.0-35.0) pg MCHC (31.0-37.0) g/dl RDW (11.5-14.5) % Plt Count (120.0-450.0) 10^3/uL MPV (7.0-11.0) fl Gran % (50.0-68.0) % Lymph % (Auto) (22.0-35.0) % [place] % (Auto) (1.0-6.0) % Eos % (Auto) (1.5-5.0) % Baso % (Auto) (0.0-3.0) % Gran # (1.4-6.5) Lymph # (Auto) (1.2-3.4) [place] # (Auto) (0.1-0.6) Eos # (Auto) (0.0-0.7) Baso # (Auto) (0.0-2.0) K/mm3 PT (9.4-12.5) SECONDS INR (0.93-1.08) APTT (25.1-36.5) Seconds pCO2 (35-45) mm/Hg pO2 (80-100) mm/Hg HCO3 (21-28) mmol/L ABG pH (7.35-7.45) ABG Total CO2 (22-28) mmol.L ABG O2 Saturation (95-98) % ABG Base Excess (-2.0-3.0) mmol/L ABG Potassium (3.6-5.2) mmol/L Glucose (65-105) mg/dl Lactate (0.7-2.1) mmol/L FiO2 % Sodium (132-148) mmol/L Potassium (3.6-5.0) mmol/L Chloride (98-107) mmol/L Carbon Dioxide (21-33) mmol/L Anion Gap (10-20) BUN (7-21) mg/dL Creatinine (0.7-1.2) mg/dl Est GFR ( Amer) Est GFR (Non-Af Amer) POC Glucose (mg/dL) (65-110) mg/dL Random Glucose (70-110) mg/dL Calcium (8.4-10.5) mg/dL Phosphorus (2.5-4.5) mg/dL Magnesium (1.7-2.2) mg/dL Total Bilirubin (0.2-1.3) mg/dL Direct Bilirubin (0.0-0.4) mg/dL GGT (8-78) U/L AST (14-36) U/L ALT (7-56) U/L Alkaline Phosphatase (38-126) U/L Total Protein (5.8-8.3) g/dL Albumin (3.0-4.8) g/dL Globulin gm/dL Albumin/Globulin Ratio (1.1-1.8) Arterial Blood Potassium (3.6-5.2) mmol/L DANIELLE Screen Negative (Negative) Anti-Mitochondrial Ab Negative (Negative) Smooth Muscle Ab Titer TEST NOT PERFORMED Anti-Smooth Muscle Ab Negative (Negative) Laboratory Results - last 24 hr 09/27/17 09/28/17 09/28/17 06:00 05:45 05:45 WBC 11.4 H RBC 4.50 Hgb 13.0 Hct 38.1 MCV 84.7 MCH 28.9 MCHC 34.1 RDW 14.7 H Plt Count 263 MPV 11.7 H Gran % 76.0 H Lymph % (Auto) 12.5 L [place] % (Auto) 9.4 H Eos % (Auto) 1.7 Baso % (Auto) 0.4 Gran # 8.67 H Lymph # (Auto) 1.4 [place] # (Auto) 1.1 H Eos # (Auto) 0.2 Baso # (Auto) 0.04 PT INR APTT pCO2 pO2 HCO3 ABG pH ABG Total CO2 ABG O2 Saturation ABG Base Excess ABG Potassium Glucose Lactate FiO2 Sodium 142 Potassium 3.2 L Chloride 108 H Carbon Dioxide 20 L Anion Gap 16 BUN 12 Creatinine 0.8 Est GFR ( Amer) > 60 Est GFR (Non-Af Amer) > 60 POC Glucose (mg/dL) Random Glucose 208 H Calcium 8.9 Phosphorus Magnesium 1.6 L Total Bilirubin 1.8 H Direct Bilirubin 1.6 H GGT 401 H AST 87 H D ALT 123 H Alkaline Phosphatase 243 H D Total Protein 6.8 Albumin 3.3 Globulin 3.5 Albumin/Globulin Ratio 1.0 L Arterial Blood Potassium DANIELLE Screen Negative Anti-Mitochondrial Ab Negative Smooth Muscle Ab Titer TEST NOT PERFORMED Anti-Smooth Muscle Ab Negative 09/28/17 09/28/17 09/28/17 05:45 12:07 16:39 WBC RBC Hgb Hct MCV MCH MCHC RDW Plt Count MPV Gran % Lymph % (Auto) [place] % (Auto) Eos % (Auto) Baso % (Auto) Gran # Lymph # (Auto) [place] # (Auto) Eos # (Auto) Baso # (Auto) PT 12.6 H INR 1.09 H APTT 34.3 pCO2 pO2 HCO3 ABG pH ABG Total CO2 ABG O2 Saturation ABG Base Excess ABG Potassium Glucose Lactate FiO2 Sodium Potassium Chloride Carbon Dioxide Anion Gap BUN Creatinine Est GFR ( Amer) Est GFR (Non-Af Amer) POC Glucose (mg/dL) 235 H 194 H Random Glucose Calcium Phosphorus Magnesium Total Bilirubin Direct Bilirubin GGT AST ALT Alkaline Phosphatase Total Protein Albumin Globulin Albumin/Globulin Ratio Arterial Blood Potassium DANIELLE Screen Anti-Mitochondrial Ab Smooth Muscle Ab Titer Anti-Smooth Muscle Ab 09/28/17 09/28/17 09/28/17 20:21 21:19 21:19 WBC 16.2 H D RBC 4.70 Hgb 13.6 Hct 40.3 MCV 85.7 MCH 28.9 MCHC 33.7 RDW 14.5 Plt Count 275 MPV 11.2 H Gran % 83.6 H Lymph % (Auto) 8.7 L [place] % (Auto) 5.8 Eos % (Auto) 1.6 Baso % (Auto) 0.3 Gran # 13.53 H Lymph # (Auto) 1.4 [place] # (Auto) 0.9 H Eos # (Auto) 0.3 Baso # (Auto) 0.05 PT INR APTT pCO2 45 pO2 153.0 H HCO3 21.1 ABG pH 7.28 L ABG Total CO2 22.5 ABG O2 Saturation 99.3 H ABG Base Excess -5.6 L ABG Potassium 3.3 L Glucose 211 H Lactate 1.3 FiO2 100.0 Sodium 138.0 140 Potassium 3.6 Chloride 109.0 H 107 Carbon Dioxide 20 L Anion Gap 18 BUN 12 Creatinine 0.9 Est GFR ( Amer) > 60 Est GFR (Non-Af Amer) > 60 POC Glucose (mg/dL) Random Glucose 246 H Calcium 9.1 Phosphorus 3.3 Magnesium 1.8 Total Bilirubin 1.8 H Direct Bilirubin GGT AST 80 H ALT 111 H Alkaline Phosphatase 281 H Total Protein 7.1 Albumin 3.6 Globulin 3.5 Albumin/Globulin Ratio 1.0 L Arterial Blood Potassium 3.3 L DANIELLE Screen Anti-Mitochondrial Ab Smooth Muscle Ab Titer Anti-Smooth Muscle Ab 09/28/17 09/29/17 09/29/17 23:36 05:50 05:50 WBC 16.3 H RBC 4.75 Hgb 13.6 Hct 40.9 MCV 86.1 MCH 28.6 MCHC 33.3 RDW 14.9 H Plt Count 315 MPV 11.4 H Gran % 86.7 H Lymph % (Auto) 7.0 L [place] % (Auto) 6.1 H Eos % (Auto) 0.1 L Baso % (Auto) 0.1 Gran # 14.12 H Lymph # (Auto) 1.1 L [place] # (Auto) 1.0 H Eos # (Auto) 0.0 Baso # (Auto) 0.02 PT 12.1 INR 1.05 APTT 30.7 pCO2 pO2 HCO3 ABG pH ABG Total CO2 ABG O2 Saturation ABG Base Excess ABG Potassium Glucose Lactate FiO2 Sodium Potassium Chloride Carbon Dioxide Anion Gap BUN Creatinine Est GFR ( Amer) Est GFR (Non-Af Amer) POC Glucose (mg/dL) 243 H Random Glucose Calcium Phosphorus Magnesium Total Bilirubin Direct Bilirubin GGT AST ALT Alkaline Phosphatase Total Protein Albumin Globulin Albumin/Globulin Ratio Arterial Blood Potassium DANIELLE Screen Anti-Mitochondrial Ab Smooth Muscle Ab Titer Anti-Smooth Muscle Ab 09/29/17 06:35 WBC RBC Hgb Hct MCV MCH MCHC RDW Plt Count MPV Gran % Lymph % (Auto) [place] % (Auto) Eos % (Auto) Baso % (Auto) Gran # Lymph # (Auto) [place] # (Auto) Eos # (Auto) Baso # (Auto) PT INR APTT pCO2 pO2 HCO3 ABG pH ABG Total CO2 ABG O2 Saturation ABG Base Excess ABG Potassium Glucose Lactate FiO2 Sodium Potassium Chloride Carbon Dioxide Anion Gap BUN Creatinine Est GFR ( Amer) Est GFR (Non-Af Amer) POC Glucose (mg/dL) 279 H Random Glucose Calcium Phosphorus Magnesium Total Bilirubin Direct Bilirubin GGT AST ALT Alkaline Phosphatase Total Protein Albumin Globulin Albumin/Globulin Ratio Arterial Blood Potassium DANIELLE Screen Anti-Mitochondrial Ab Smooth Muscle Ab Titer Anti-Smooth Muscle Ab Fingerstick Blood Sugar Results: 249 Review of Systems - Review of Systems All systems: reviewed and no additional remarkable complaints except (as per HPI ) Critical Care Progress Note - Extremities/Vascular Does the Patient have a Central Venous Catheter?: No Does the Patient need a Central Venous Catheter?: No Does the Patient have a Garcia Catheter?: Yes Does the Patient need a Garcia Catheter?: Yes - Prophylaxis GI Prophylaxis GI: PPI - Prophylaxis DVT Prophylaxis DVT: Lovenox, SCDs - Nutrition Nutrition: Nutrition Category Date Time Status NPO Diet [DIET] Diets 09/29/17 Breakfast Ordered Assessment/Plan - Assessment and Plan (Free Text) Assessment: 67 yo female with past medical history of DM, HTN, and HLD who [place] [facility] with cholangitis s/p ERCP w/ removal of sludge and sphincterotomy, and cholecystitis s/p laparoscopic cholecystectomy POD1 who was transferred to ICU from [place] with tachypnea, tachycardia, HTN and increased pulmonary congestion. Patient given antihypertensives, lasix, and placed on BiPAP. She has clinically improved this morning and her SaO2 is 99% on NC. Her BP is better controlled today and she is hemodynamically stable. she remains on droplet precautions for +influenza. Plan: Neuro: - patient is awake and alert, at baseline - clinical condition improved significantly on BiPAP overnight - CT head showing Small meningioma is present in the right hemispheric convexity , measuring 1.5 cm. No significant mass effect or midline shift - Monitor mental status changes - encourage out of bed to chair - PT/OT pending Cardio: HTN w/ history of chronic HTN - BP has improved significantly and is normotensive at this time - Cont Hydralazine prn - cont Lisinopril yoseph, and metoprolol - IVF rate decreased - Cardiology following Tachycardia resolved - continue to monitor Pulmonary: post- op hypercapnic respiratory failure - AM CXR shows interval improvement in pulm congestion, as read by me - clinically improved - was on BiPAP all night, now satting well on NC - continue to monitor signs of hypoxemia or respiratory distress - O2 NC PRN - incentive spirometer encouraged - elevate head of bed > 30degress GI: s/p laparoscopic cholecystectomy POD1 - CT abd pelvis: showed cholelithiasis, with moderate gallbladder distention, no definite signs of cholecystitis. Mild hepatic steatosis. - Abd US: Enlarged fatty liver; distended gallbladder, no ductal dilatation, small stones seen on CT are not identified; limited visualization of the pancreas - ERCP showed normal caliber CBD - Protonix IV 40 - Zofran Prn - GI following patient - Surgery following patient - HHD diet - out of bed to chair encouraged Nephro - monitor I/O - Replace lytes as needed ID Influenza positive - Tamiflu - Tylenol prn - ID following Acute cholangitis s/p lap pati - Continue merrem Endo - Maintain euglycemia with goal of 140-180 - Accuchecks - ISS - Carb consistent diet GI/DVT ppx - Protonix - Lovenox and SCDs Dispo: Patient is hemodynamically stable. O2 Sats are satisfactory on NC. mental status has improved. will transfer from ICU to [facility] for further monitoring. Patient was seen, examined and discussed with attending, Dr. Simin Schneider PGY1 Pager # [phone] <Pedro Duval - Last Filed: 09/29/17 10:53> CCU Objective - Vital Signs / Intake & Output Vital Signs (Last 4 hours): Vital Signs Pulse Resp BP Pulse Ox 09/29/17 08:10 83 160/82 H 09/29/17 07:15 77 23 167/75 H 100 09/29/17 07:00 76 173/75 H 100 Intake and Output (Last 8hrs): Intake & Output 09/28/17 09/29/17 09/29/17 22:59 06:59 14:59 Intake Total 1360 100 Output Total 1200 1700 Balance 160 -1600 Intake: IV 1260 100 Left Hand 100 Right Hand 1260 Oral 100 Output: Urine 1200 1700 Urine, Voided 1200 1700 Other: # Bowel Movements 1 - Medications Active Medications: Active Medications Generic Name Dose Route Start Last Admin Trade Name Freq PRN Reason Stop Dose Admin Acetaminophen 650 mg 09/27/17 22:19 Tylenol 325mg Tab PO Q4H PRN Fever >100.4 F Diphenhydramine HCl 50 mg 09/28/17 13:06 09/28/17 13:44 Benadryl IVP 50 mg Q4H PRN Administration Allergy symptoms Enoxaparin Sodium 40 mg 09/29/17 10:00 09/29/17 09:46 Lovenox SC 40 mg DAILY YOSEPH Administration Protocol Guaifenesin 200 mg 09/27/17 21:40 09/27/17 21:51 Robitussin PO 200 mg Q4H PRN Administration Cough and congestion Hydralazine HCl 10 mg 09/27/17 06:07 09/28/17 04:50 Apresoline IVP 10 mg Q6 PRN Administration Systolic Blood Pressure Sodium Chloride 1,000 mls @ 80 mls/hr 09/27/17 09:30 09/28/17 11:06 Sodium Chloride 0.9% IV 80 mls/hr .[id number] YOSEPH Administration Meropenem 50 mls @ 100 mls/hr 09/28/17 22:00 09/29/17 06:21 Merrem Iv 1 Gm Premix IVPB 10/07/17 22:01 100 mls/hr Q8 YOSEPH Administration Protocol Insulin Human Regular 0 units 09/29/17 11:30 Humulin R Low SC ACHS YOSEPH Protocol Lisinopril 40 mg 09/27/17 11:00 09/29/17 09:46 Zestril PO 40 mg DAILY YOSEPH Administration Metoprolol Succinate 100 mg 09/27/17 11:00 09/29/17 08:10 Toprol Xl PO 100 mg BRK YOSEPH Administration Ondansetron HCl 4 mg 09/26/17 04:21 Zofran Inj IVP Q6H PRN Nausea/Vomiting Oseltamivir Phosphate 30 mg 09/27/17 09:18 09/29/17 09:45 Tamiflu PO 30 mg BID YOSEPH Administration Protocol Pantoprazole Sodium 40 mg 09/26/17 10:00 09/29/17 09:47 Protonix Inj IVP 40 mg DAILY YOSEPH Administration - Patient Studies Lab Studies: Lab Studies 09/29/17 09/29/17 09/29/17 Range/Units 07:42 06:35 05:50 WBC (4.5-11.0) 10^3/ul RBC (3.5-6.1) 10^6/uL Hgb (12.0-16.0) g/dL Hct (36.0-48.0) % MCV (80.0-105.0) fl MCH (25.0-35.0) pg MCHC (31.0-37.0) g/dl RDW (11.5-14.5) % Plt Count (120.0-450.0) 10^3/uL MPV (7.0-11.0) fl Gran % (50.0-68.0) % Lymph % (Auto) (22.0-35.0) % [place] % (Auto) (1.0-6.0) % Eos % (Auto) (1.5-5.0) % Baso % (Auto) (0.0-3.0) % Gran # (1.4-6.5) Lymph # (Auto) (1.2-3.4) [place] # (Auto) (0.1-0.6) Eos # (Auto) (0.0-0.7) Baso # (Auto) (0.0-2.0) K/mm3 PT 12.1 (9.4-12.5) SECONDS INR 1.05 (0.93-1.08) APTT 30.7 (25.1-36.5) Seconds pCO2 (35-45) mm/Hg pO2 (80-100) mm/Hg HCO3 (21-28) mmol/L ABG pH (7.35-7.45) ABG Total CO2 (22-28) mmol.L ABG O2 Saturation (95-98) % ABG Base Excess (-2.0-3.0) mmol/L ABG Potassium (3.6-5.2) mmol/L Sodium (132-148) mmol/L Chloride (98-107) mmol/L Glucose (65-105) mg/dl Lactate (0.7-2.1) mmol/L FiO2 % Potassium (3.6-5.0) mmol/L Carbon Dioxide (21-33) mmol/L Anion Gap (10-20) BUN (7-21) mg/dL Creatinine (0.7-1.2) mg/dl Est GFR ( Amer) Est GFR (Non-Af Amer) POC Glucose (mg/dL) 280 H 279 H (65-110) mg/dL Random Glucose (70-110) mg/dL Calcium (8.4-10.5) mg/dL Phosphorus (2.5-4.5) mg/dL Magnesium (1.7-2.2) mg/dL Total Bilirubin (0.2-1.3) mg/dL Direct Bilirubin (0.0-0.4) mg/dL GGT (8-78) U/L AST (14-36) U/L ALT (7-56) U/L Alkaline Phosphatase (38-126) U/L Total Protein (5.8-8.3) g/dL Albumin (3.0-4.8) g/dL Globulin gm/dL Albumin/Globulin Ratio (1.1-1.8) Arterial Blood Potassium (3.6-5.2) mmol/L DANIELLE Screen (Negative) Anti-Mitochondrial Ab (Negative) Smooth Muscle Ab Titer Anti-Smooth Muscle Ab (Negative) 09/29/17 09/29/17 09/28/17 Range/Units 05:50 05:50 23:36 WBC 16.3 H (4.5-11.0) 10^3/ul RBC 4.75 (3.5-6.1) 10^6/uL Hgb 13.6 (12.0-16.0) g/dL Hct 40.9 (36.0-48.0) % MCV 86.1 (80.0-105.0) fl MCH 28.6 (25.0-35.0) pg MCHC 33.3 (31.0-37.0) g/dl RDW 14.9 H (11.5-14.5) % Plt Count 315 (120.0-450.0) 10^3/uL MPV 11.4 H (7.0-11.0) fl Gran % 86.7 H (50.0-68.0) % Lymph % (Auto) 7.0 L (22.0-35.0) % [place] % (Auto) 6.1 H (1.0-6.0) % Eos % (Auto) 0.1 L (1.5-5.0) % Baso % (Auto) 0.1 (0.0-3.0) % Gran # 14.12 H (1.4-6.5) Lymph # (Auto) 1.1 L (1.2-3.4) [place] # (Auto) 1.0 H (0.1-0.6) Eos # (Auto) 0.0 (0.0-0.7) Baso # (Auto) 0.02 (0.0-2.0) K/mm3 PT (9.4-12.5) SECONDS INR (0.93-1.08) APTT (25.1-36.5) Seconds pCO2 (35-45) mm/Hg pO2 (80-100) mm/Hg HCO3 (21-28) mmol/L ABG pH (7.35-7.45) ABG Total CO2 (22-28) mmol.L ABG O2 Saturation (95-98) % ABG Base Excess (-2.0-3.0) mmol/L ABG Potassium (3.6-5.2) mmol/L Sodium 141 (132-148) mmol/L Chloride 107 (98-107) mmol/L Glucose (65-105) mg/dl Lactate (0.7-2.1) mmol/L FiO2 % Potassium 4.0 (3.6-5.0) mmol/L Carbon Dioxide 20 L (21-33) mmol/L Anion Gap 19 (10-20) BUN 16 (7-21) mg/dL Creatinine 1.0 (0.7-1.2) mg/dl Est GFR ( Amer) > 60 Est GFR (Non-Af Amer) 55 POC Glucose (mg/dL) 243 H (65-110) mg/dL Random Glucose 307 H* D (70-110) mg/dL Calcium 9.3 (8.4-10.5) mg/dL Phosphorus (2.5-4.5) mg/dL Magnesium 1.8 (1.7-2.2) mg/dL Total Bilirubin 2.0 H (0.2-1.3) mg/dL Direct Bilirubin 1.7 H (0.0-0.4) mg/dL GGT 393 H (8-78) U/L AST 73 H (14-36) U/L ALT 105 H (7-56) U/L Alkaline Phosphatase 244 H (38-126) U/L Total Protein 7.2 (5.8-8.3) g/dL Albumin 3.6 (3.0-4.8) g/dL Globulin 3.6 gm/dL Albumin/Globulin Ratio 1.0 L (1.1-1.8) Arterial Blood Potassium (3.6-5.2) mmol/L DANIELLE Screen (Negative) Anti-Mitochondrial Ab (Negative) Smooth Muscle Ab Titer Anti-Smooth Muscle Ab (Negative) 09/28/17 09/28/17 09/28/17 Range/Units 21:19 21:19 20:21 WBC 16.2 H D (4.5-11.0) 10^3/ul RBC 4.70 (3.5-6.1) 10^6/uL Hgb 13.6 (12.0-16.0) g/dL Hct 40.3 (36.0-48.0) % MCV 85.7 (80.0-105.0) fl MCH 28.9 (25.0-35.0) pg MCHC 33.7 (31.0-37.0) g/dl RDW 14.5 (11.5-14.5) % Plt Count 275 (120.0-450.0) 10^3/uL MPV 11.2 H (7.0-11.0) fl Gran % 83.6 H (50.0-68.0) % Lymph % (Auto) 8.7 L (22.0-35.0) % [place] % (Auto) 5.8 (1.0-6.0) % Eos % (Auto) 1.6 (1.5-5.0) % Baso % (Auto) 0.3 (0.0-3.0) % Gran # 13.53 H (1.4-6.5) Lymph # (Auto) 1.4 (1.2-3.4) [place] # (Auto) 0.9 H (0.1-0.6) Eos # (Auto) 0.3 (0.0-0.7) Baso # (Auto) 0.05 (0.0-2.0) K/mm3 PT (9.4-12.5) SECONDS INR (0.93-1.08) APTT (25.1-36.5) Seconds pCO2 45 (35-45) mm/Hg pO2 153.0 H (80-100) mm/Hg HCO3 21.1 (21-28) mmol/L ABG pH 7.28 L (7.35-7.45) ABG Total CO2 22.5 (22-28) mmol.L ABG O2 Saturation 99.3 H (95-98) % ABG Base Excess -5.6 L (-2.0-3.0) mmol/L ABG Potassium 3.3 L (3.6-5.2) mmol/L Sodium 140 138.0 (132-148) mmol/L Chloride 107 109.0 H (98-107) mmol/L Glucose 211 H (65-105) mg/dl Lactate 1.3 (0.7-2.1) mmol/L FiO2 100.0 % Potassium 3.6 (3.6-5.0) mmol/L Carbon Dioxide 20 L (21-33) mmol/L Anion Gap 18 (10-20) BUN 12 (7-21) mg/dL Creatinine 0.9 (0.7-1.2) mg/dl Est GFR ( Amer) > 60 Est GFR (Non-Af Amer) > 60 POC Glucose (mg/dL) (65-110) mg/dL Random Glucose 246 H (70-110) mg/dL Calcium 9.1 (8.4-10.5) mg/dL Phosphorus 3.3 (2.5-4.5) mg/dL Magnesium 1.8 (1.7-2.2) mg/dL Total Bilirubin 1.8 H (0.2-1.3) mg/dL Direct Bilirubin (0.0-0.4) mg/dL GGT (8-78) U/L AST 80 H (14-36) U/L ALT 111 H (7-56) U/L Alkaline Phosphatase 281 H (38-126) U/L Total Protein 7.1 (5.8-8.3) g/dL Albumin 3.6 (3.0-4.8) g/dL Globulin 3.5 gm/dL Albumin/Globulin Ratio 1.0 L (1.1-1.8) Arterial Blood Potassium 3.3 L (3.6-5.2) mmol/L DANIELLE Screen (Negative) Anti-Mitochondrial Ab (Negative) Smooth Muscle Ab Titer Anti-Smooth Muscle Ab (Negative) 09/28/17 09/28/17 09/27/17 Range/Units 16:39 12:07 06:00 WBC (4.5-11.0) 10^3/ul RBC (3.5-6.1) 10^6/uL Hgb (12.0-16.0) g/dL Hct (36.0-48.0) % MCV (80.0-105.0) fl MCH (25.0-35.0) pg MCHC (31.0-37.0) g/dl RDW (11.5-14.5) % Plt Count (120.0-450.0) 10^3/uL MPV (7.0-11.0) fl Gran % (50.0-68.0) % Lymph % (Auto) (22.0-35.0) % [place] % (Auto) (1.0-6.0) % Eos % (Auto) (1.5-5.0) % Baso % (Auto) (0.0-3.0) % Gran # (1.4-6.5) Lymph # (Auto) (1.2-3.4) [place] # (Auto) (0.1-0.6) Eos # (Auto) (0.0-0.7) Baso # (Auto) (0.0-2.0) K/mm3 PT (9.4-12.5) SECONDS INR (0.93-1.08) APTT (25.1-36.5) Seconds pCO2 (35-45) mm/Hg pO2 (80-100) mm/Hg HCO3 (21-28) mmol/L ABG pH (7.35-7.45) ABG Total CO2 (22-28) mmol.L ABG O2 Saturation (95-98) % ABG Base Excess (-2.0-3.0) mmol/L ABG Potassium (3.6-5.2) mmol/L Sodium (132-148) mmol/L Chloride (98-107) mmol/L Glucose (65-105) mg/dl Lactate (0.7-2.1) mmol/L FiO2 % Potassium (3.6-5.0) mmol/L Carbon Dioxide (21-33) mmol/L Anion Gap (10-20) BUN (7-21) mg/dL Creatinine (0.7-1.2) mg/dl Est GFR ( Amer) Est GFR (Non-Af Amer) POC Glucose (mg/dL) 194 H 235 H (65-110) mg/dL Random Glucose (70-110) mg/dL Calcium (8.4-10.5) mg/dL Phosphorus (2.5-4.5) mg/dL Magnesium (1.7-2.2) mg/dL Total Bilirubin (0.2-1.3) mg/dL Direct Bilirubin (0.0-0.4) mg/dL GGT (8-78) U/L AST (14-36) U/L ALT (7-56) U/L Alkaline Phosphatase (38-126) U/L Total Protein (5.8-8.3) g/dL Albumin (3.0-4.8) g/dL Globulin gm/dL Albumin/Globulin Ratio (1.1-1.8) Arterial Blood Potassium (3.6-5.2) mmol/L DANIELLE Screen Negative (Negative) Anti-Mitochondrial Ab Negative (Negative) Smooth Muscle Ab Titer TEST NOT PERFORMED Anti-Smooth Muscle Ab Negative (Negative) Laboratory Results - last 24 hr 09/27/17 09/28/17 09/28/17 06:00 12:07 16:39 WBC RBC Hgb Hct MCV MCH MCHC RDW Plt Count MPV Gran % Lymph % (Auto) [place] % (Auto) Eos % (Auto) Baso % (Auto) Gran # Lymph # (Auto) [place] # (Auto) Eos # (Auto) Baso # (Auto) PT INR APTT pCO2 pO2 HCO3 ABG pH ABG Total CO2 ABG O2 Saturation ABG Base Excess ABG Potassium Sodium Chloride Glucose Lactate FiO2 Potassium Carbon Dioxide Anion Gap BUN Creatinine Est GFR ( Amer) Est GFR (Non-Af Amer) POC Glucose (mg/dL) 235 H 194 H Random Glucose Calcium Phosphorus Magnesium Total Bilirubin Direct Bilirubin GGT AST ALT Alkaline Phosphatase Total Protein Albumin Globulin Albumin/Globulin Ratio Arterial Blood Potassium DANIELLE Screen Negative Anti-Mitochondrial Ab Negative Smooth Muscle Ab Titer TEST NOT PERFORMED Anti-Smooth Muscle Ab Negative 09/28/17 09/28/17 09/28/17 20:21 21:19 21:19 WBC 16.2 H D RBC 4.70 Hgb 13.6 Hct 40.3 MCV 85.7 MCH 28.9 MCHC 33.7 RDW 14.5 Plt Count 275 MPV 11.2 H Gran % 83.6 H Lymph % (Auto) 8.7 L [place] % (Auto) 5.8 Eos % (Auto) 1.6 Baso % (Auto) 0.3 Gran # 13.53 H Lymph # (Auto) 1.4 [place] # (Auto) 0.9 H Eos # (Auto) 0.3 Baso # (Auto) 0.05 PT INR APTT pCO2 45 pO2 153.0 H HCO3 21.1 ABG pH 7.28 L ABG Total CO2 22.5 ABG O2 Saturation 99.3 H ABG Base Excess -5.6 L ABG Potassium 3.3 L Sodium 138.0 140 Chloride 109.0 H 107 Glucose 211 H Lactate 1.3 FiO2 100.0 Potassium 3.6 Carbon Dioxide 20 L Anion Gap 18 BUN 12 Creatinine 0.9 Est GFR ( Amer) > 60 Est GFR (Non-Af Amer) > 60 POC Glucose (mg/dL) Random Glucose 246 H Calcium 9.1 Phosphorus 3.3 Magnesium 1.8 Total Bilirubin 1.8 H Direct Bilirubin GGT AST 80 H ALT 111 H Alkaline Phosphatase 281 H Total Protein 7.1 Albumin 3.6 Globulin 3.5 Albumin/Globulin Ratio 1.0 L Arterial Blood Potassium 3.3 L DANIELLE Screen Anti-Mitochondrial Ab Smooth Muscle Ab Titer Anti-Smooth Muscle Ab 09/28/17 09/29/17 09/29/17 23:36 05:50 05:50 WBC 16.3 H RBC 4.75 Hgb 13.6 Hct 40.9 MCV 86.1 MCH 28.6 MCHC 33.3 RDW 14.9 H Plt Count 315 MPV 11.4 H Gran % 86.7 H Lymph % (Auto) 7.0 L [place] % (Auto) 6.1 H Eos % (Auto) 0.1 L Baso % (Auto) 0.1 Gran # 14.12 H Lymph # (Auto) 1.1 L [place] # (Auto) 1.0 H Eos # (Auto) 0.0 Baso # (Auto) 0.02 PT INR APTT pCO2 pO2 HCO3 ABG pH ABG Total CO2 ABG O2 Saturation ABG Base Excess ABG Potassium Sodium 141 Chloride 107 Glucose Lactate FiO2 Potassium 4.0 Carbon Dioxide 20 L Anion Gap 19 BUN 16 Creatinine 1.0 Est GFR ( Amer) > 60 Est GFR (Non-Af Amer) 55 POC Glucose (mg/dL) 243 H Random Glucose 307 H* D Calcium 9.3 Phosphorus Magnesium 1.8 Total Bilirubin 2.0 H Direct Bilirubin 1.7 H GGT 393 H AST 73 H ALT 105 H Alkaline Phosphatase 244 H Total Protein 7.2 Albumin 3.6 Globulin 3.6 Albumin/Globulin Ratio 1.0 L Arterial Blood Potassium DANIELLE Screen Anti-Mitochondrial Ab Smooth Muscle Ab Titer Anti-Smooth Muscle Ab 09/29/17 09/29/17 09/29/17 05:50 06:35 07:42 WBC RBC Hgb Hct MCV MCH MCHC RDW Plt Count MPV Gran % Lymph % (Auto) [place] % (Auto) Eos % (Auto) Baso % (Auto) Gran # Lymph # (Auto) [place] # (Auto) Eos # (Auto) Baso # (Auto) PT 12.1 INR 1.05 APTT 30.7 pCO2 pO2 HCO3 ABG pH ABG Total CO2 ABG O2 Saturation ABG Base Excess ABG Potassium Sodium Chloride Glucose Lactate FiO2 Potassium Carbon Dioxide Anion Gap BUN Creatinine Est GFR ( Amer) Est GFR (Non-Af Amer) POC Glucose (mg/dL) 279 H 280 H Random Glucose Calcium Phosphorus Magnesium Total Bilirubin Direct Bilirubin GGT AST ALT Alkaline Phosphatase Total Protein Albumin Globulin Albumin/Globulin Ratio Arterial Blood Potassium DANIELLE Screen Anti-Mitochondrial Ab Smooth Muscle Ab Titer Anti-Smooth Muscle Ab Critical Care Progress Note - Nutrition Nutrition: Nutrition Category Date Time Status Consistent Carbohydrate [DIET] Diets 09/29/17 Breakfast Ordered Attending/Attestation - Attestation I have personally seen and examined this patient.: Yes I have fully participated in the care of the patient.: Yes I have reviewed all pertinent clinical information: Yes Notes (Text): 09/29/17 10:52 The patient was seen and examined at the bedside. Patient care was discussed with resident and ICU team in MDR rounds. Medical records, lab studies, and imaging were reviewed and management issues were discussed and formulated. Last 24H events reviewed. Agree with above treatment plans as outlined in ' note. Pt's condition is improved and pt is stable for downgrade.
--- NOTE | 2017-09-29 07:24 | CP.PCM.PN ---
Subjective - Date & Time of Evaluation Date of Evaluation: 09/29/17 Time of Evaluation: 07:20 - Subjective Subjective: Surgery: Dr. Saunders Patient denies pain, n/v/f/c. She tolerates liquids. On biPAP but overall clinically improved from last night. Objective - Vital Signs/Intake and Output Vital Signs (last 24 hours): Temp Pulse Resp BP Pulse Ox 99.1 F 77 23 167/75 H 100 09/29/17 05:00 09/29/17 07:15 09/29/17 07:15 09/29/17 07:15 09/29/17 07:15 Intake and Output: 09/29/17 09/29/17 06:59 18:59 Intake Total 100 Output Total 1700 Balance -1600 - Medications Medications: Current Medications Acetaminophen (Tylenol 325mg Tab) 650 mg PO Q4H PRN PRN Reason: Fever >100.4 F Diphenhydramine HCl (Benadryl) 50 mg IVP Q4H PRN PRN Reason: Allergy symptoms Last Admin: 09/28/17 13:44 Dose: 50 mg Guaifenesin (Robitussin) 200 mg PO Q4H PRN PRN Reason: Cough and congestion Last Admin: 09/27/17 21:51 Dose: 200 mg Hydralazine HCl (Apresoline) 10 mg IVP Q6 PRN PRN Reason: Systolic Blood Pressure Last Admin: 09/28/17 04:50 Dose: 10 mg Sodium Chloride (Sodium Chloride 0.9%) 1,000 mls @ 80 mls/hr IV .[id number] [facility] Last Admin: 09/28/17 11:06 Dose: 80 mls/hr Meropenem (Merrem Iv 1 Gm Premix) 50 mls @ 100 mls/hr IVPB Q8 [facility] PRN Reason: Protocol Stop: 10/07/17 22:01 Last Admin: 09/29/17 06:21 Dose: 100 mls/hr Insulin Human Regular (Humulin R Low) 0 units SC Q6 [facility] PRN Reason: Protocol Last Admin: 09/29/17 07:07 Dose: Not Given Lisinopril (Zestril) 40 mg PO DAILY [facility] Last Admin: 09/28/17 11:37 Dose: 40 mg Metoprolol Succinate (Toprol Xl) 100 mg PO BRK [facility] Last Admin: 09/28/17 10:18 Dose: 100 mg Ondansetron HCl (Zofran Inj) 4 mg IVP Q6H PRN PRN Reason: Nausea/Vomiting Oseltamivir Phosphate (Tamiflu) 30 mg PO BID [facility] PRN Reason: Protocol Last Admin: 09/28/17 10:18 Dose: 30 mg Pantoprazole Sodium (Protonix Inj) 40 mg IVP DAILY [facility] Last Admin: 09/28/17 10:19 Dose: 40 mg - Labs Labs: 09/29/17 05:50 09/28/17 21:19 PT 12.1 SECONDS (9.4-12.5) 09/29/17 05:50 INR 1.05 (0.93-1.08) 09/29/17 05:50 APTT 30.7 Seconds (25.1-36.5) 09/29/17 05:50 - Constitutional Appears: Non-toxic, No Acute Distress - Head Exam Head Exam: ATRAUMATIC, NORMOCEPHALIC - Eye Exam Eye Exam: EOMI, Normal appearance - ENT Exam ENT Exam: Mucous Membranes Moist - Respiratory Exam Respiratory Exam: Respiratory Distress Additional comments: on BiPAP but comfortable - Cardiovascular Exam Cardiovascular Exam: REGULAR RHYTHM. absent: Tachycardia - GI/Abdominal Exam GI & Abdominal Exam: Distended, Soft. absent: Guarding, Tenderness, Rebound Additional comments: surgical incisions CDI with dermabond closure - Neurological Exam Neurological Exam: Alert, Awake - Psychiatric Exam Psychiatric exam: Normal Affect, Normal Mood - Skin Skin Exam: Dry, Normal Color, Warm Assessment and Plan - Assessment and Plan (Free Text) Assessment: 67 y/o female s/p lap pati POD1 Plan: -ADAT -am labs -OOB -IS use -ok for DVT ppx -further recs per Dr. Saunders [facility] PGY3
[2017-09-29 08:09] LABS: ALBUMIN 3.6 g/dL (3.0-4.8); ALT/SGPT 105 U/L (7-56); AST/SGOT 73 U/L (14-36); BILIRUBIN,DIRECT 1.7 mg/dL (0.0-0.4); BLOOD UREA NITROGEN 16 mg/dL (7-21); CALCIUM 9.3 mg/dL (8.4-10.5); GAMMA GLUTAMYL TRANSPEPTIDASE 393 U/L (8-78); GFR AFRICAN-AMERICAN > 60; GFR NON-AFRICAN AMERICAN 55
[2017-09-29] MEDS: Metoprolol Succinate 100 mg XL Tab PO SCH (08:10)
--- NOTE | 2017-09-29 08:12 | CP.PCM.PN ---
Subjective - Date & Time of Evaluation Date of Evaluation: 09/29/17 Time of Evaluation: 07:45 - Subjective Subjective: (covering for Dr. Hall) Patient is lying in bed in CCU bed 3. She is status post lap cholecystectomy. Objective - Vital Signs/Intake and Output Vital Signs (last 24 hours): Temp Pulse Resp BP Pulse Ox 99.1 F 77 23 167/75 H 100 09/29/17 05:00 09/29/17 07:15 09/29/17 07:15 09/29/17 07:15 09/29/17 07:15 Intake and Output: 09/29/17 09/29/17 06:59 18:59 Intake Total 100 Output Total 1700 Balance -1600 - Medications Medications: Current Medications Acetaminophen (Tylenol 325mg Tab) 650 mg PO Q4H PRN PRN Reason: Fever >100.4 F Diphenhydramine HCl (Benadryl) 50 mg IVP Q4H PRN PRN Reason: Allergy symptoms Last Admin: 09/28/17 13:44 Dose: 50 mg Enoxaparin Sodium (Lovenox) 40 mg SC DAILY [facility] PRN Reason: Protocol Guaifenesin (Robitussin) 200 mg PO Q4H PRN PRN Reason: Cough and congestion Last Admin: 09/27/17 21:51 Dose: 200 mg Hydralazine HCl (Apresoline) 10 mg IVP Q6 PRN PRN Reason: Systolic Blood Pressure Last Admin: 09/28/17 04:50 Dose: 10 mg Sodium Chloride (Sodium Chloride 0.9%) 1,000 mls @ 80 mls/hr IV .[id number] [facility] Last Admin: 09/28/17 11:06 Dose: 80 mls/hr Meropenem (Merrem Iv 1 Gm Premix) 50 mls @ 100 mls/hr IVPB Q8 [facility] PRN Reason: Protocol Stop: 10/07/17 22:01 Last Admin: 09/29/17 06:21 Dose: 100 mls/hr Insulin Human Regular (Humulin R Low) 0 units SC Q6 [facility] PRN Reason: Protocol Last Admin: 09/29/17 07:07 Dose: Not Given Lisinopril (Zestril) 40 mg PO DAILY [facility] Last Admin: 09/28/17 11:37 Dose: 40 mg Metoprolol Succinate (Toprol Xl) 100 mg PO BRK [facility] Last Admin: 09/28/17 10:18 Dose: 100 mg Ondansetron HCl (Zofran Inj) 4 mg IVP Q6H PRN PRN Reason: Nausea/Vomiting Oseltamivir Phosphate (Tamiflu) 30 mg PO BID [facility] PRN Reason: Protocol Last Admin: 09/28/17 10:18 Dose: 30 mg Pantoprazole Sodium (Protonix Inj) 40 mg IVP DAILY [facility] Last Admin: 09/28/17 10:19 Dose: 40 mg - Labs Labs: 09/29/17 05:50 09/28/17 21:19 PT 12.1 SECONDS (9.4-12.5) 09/29/17 05:50 INR 1.05 (0.93-1.08) 09/29/17 05:50 APTT 30.7 Seconds (25.1-36.5) 09/29/17 05:50 - Constitutional Appears: No Acute Distress - Head Exam Head Exam: ATRAUMATIC, NORMOCEPHALIC - Respiratory Exam Respiratory Exam: Decreased Breath Sounds, NORMAL BREATHING PATTERN - Cardiovascular Exam Cardiovascular Exam: +S1, +S2 - GI/Abdominal Exam GI & Abdominal Exam: Soft, Normal Bowel Sounds - Neurological Exam Neurological Exam: Alert, Awake, Oriented x3 Assessment and Plan - Assessment and Plan (Free Text) Assessment: s/p lap cholecystectomy sepsis secondary to cholangitis s/p ERCP and sphincterotomy Influenza A HTN DMII Plan: Patient underwent lap cholecystectomy yesterday. She is on isolation for influenza. Infectious disease on case. Today is day 5 of Tamiflu. Patient may be taken off isolation if okay with infectious disease. continue antibiotics as per infectious disease.
--- NOTE | 2017-09-29 09:43 | RAD ---
HISTORY: dyspena COMPARISON: 09/25/2017 FINDINGS: LUNGS: No active pulmonary disease. PLEURA: No significant pleural effusion identified, no pneumothorax apparent. CARDIOVASCULAR: Mild to moderate vascular congestion OSSEOUS STRUCTURES: No significant abnormalities. VISUALIZED UPPER ABDOMEN: Normal. OTHER FINDINGS: None. IMPRESSION: Mild to moderate vascular congestion
[2017-09-29] MEDS: Enoxaparin 40 mg Syringe SC SCH (09:46)
--- NOTE | 2017-09-29 10:01 | PN ---
DATE: 09/28/2017 CARDIOLOGY FOLLOWUP SUBJECTIVE: The patient is comfortable without shortness of breath or chest pain. PHYSICAL EXAMINATION: VITAL SIGNS: Blood pressure is 163/83, heart rate in the 80s. NECK: Negative JVD. LUNGS: Without rales. HEART: Reveals S1 and S2. EXTREMITIES: Without edema. LABORATORY DATA: Hemoglobin is 13, BUN and creatinine are 12 and 0.1. The potassium is 3.2. IMPRESSION: 1. No evidence for acute cardiac issues. 2. Diabetes mellitus. 3. Hypertension. 4. Hypercholesterolemia. 5. Hypokalemia. Given these findings, the patient is scheduled for surgery today. Yonathan De Dios MD
--- NOTE | 2017-09-29 10:24 | RAD ---
HISTORY: pulm edema eval COMPARISON: 09/28/2017 FINDINGS: LUNGS: Improved vascular congestion PLEURA: No significant pleural effusion identified, no pneumothorax apparent. CARDIOVASCULAR: Normal. OSSEOUS STRUCTURES: No significant abnormalities. VISUALIZED UPPER ABDOMEN: Normal. OTHER FINDINGS: None. IMPRESSION: No active disease.
--- NOTE | 2017-09-29 11:18 | CP.PCM.PN ---
Subjective - Date & Time of Evaluation Date of Evaluation: 09/29/17 Time of Evaluation: 10:40 - Subjective Subjective: Comfortable on the chair, no cough or rhinorrhea, still with some abdominal pain but better, no fevers overnight, had cholecystectomy last night. No BM's yet today. Objective - Vital Signs/Intake and Output Vital Signs (last 24 hours): Temp Pulse Resp BP Pulse Ox 99.1 F 83 23 160/82 H 100 09/29/17 05:00 09/29/17 08:10 09/29/17 07:15 09/29/17 08:10 09/29/17 07:15 Intake and Output: 09/29/17 09/29/17 06:59 18:59 Intake Total 100 Output Total 1700 Balance -1600 - Medications Medications: Current Medications Acetaminophen (Tylenol 325mg Tab) 650 mg PO Q4H PRN PRN Reason: Fever >100.4 F Diphenhydramine HCl (Benadryl) 50 mg IVP Q4H PRN PRN Reason: Allergy symptoms Last Admin: 09/28/17 13:44 Dose: 50 mg Enoxaparin Sodium (Lovenox) 40 mg SC DAILY [facility] PRN Reason: Protocol Last Admin: 09/29/17 09:46 Dose: 40 mg Guaifenesin (Robitussin) 200 mg PO Q4H PRN PRN Reason: Cough and congestion Last Admin: 09/27/17 21:51 Dose: 200 mg Hydralazine HCl (Apresoline) 10 mg IVP Q6 PRN PRN Reason: Systolic Blood Pressure Last Admin: 09/28/17 04:50 Dose: 10 mg Sodium Chloride (Sodium Chloride 0.9%) 1,000 mls @ 80 mls/hr IV .[id number] [facility] Last Admin: 09/28/17 11:06 Dose: 80 mls/hr Meropenem (Merrem Iv 1 Gm Premix) 50 mls @ 100 mls/hr IVPB Q8 [facility] PRN Reason: Protocol Stop: 10/07/17 22:01 Last Admin: 09/29/17 06:21 Dose: 100 mls/hr Insulin Human Regular (Humulin R Low) 0 units SC ACHS [facility] PRN Reason: Protocol Lisinopril (Zestril) 40 mg PO DAILY [facility] Last Admin: 09/29/17 09:46 Dose: 40 mg Metoprolol Succinate (Toprol Xl) 100 mg PO BRK [facility] Last Admin: 09/29/17 08:10 Dose: 100 mg Ondansetron HCl (Zofran Inj) 4 mg IVP Q6H PRN PRN Reason: Nausea/Vomiting Oseltamivir Phosphate (Tamiflu) 30 mg PO BID [facility] PRN Reason: Protocol Last Admin: 09/29/17 09:45 Dose: 30 mg Pantoprazole Sodium (Protonix Inj) 40 mg IVP DAILY [facility] Last Admin: 09/29/17 09:47 Dose: 40 mg - Labs Labs: 09/29/17 05:50 09/29/17 05:50 PT 12.1 SECONDS (9.4-12.5) 09/29/17 05:50 INR 1.05 (0.93-1.08) 09/29/17 05:50 APTT 30.7 Seconds (25.1-36.5) 09/29/17 05:50 - Constitutional Appears: Non-toxic - Head Exam Head Exam: NORMAL INSPECTION - ENT Exam ENT Exam: Mucous Membranes Moist - Neck Exam Neck Exam: absent: Meningismus - Respiratory Exam Respiratory Exam: Decreased Breath Sounds. absent: Rales - Cardiovascular Exam Cardiovascular Exam: +S1, +S2 - GI/Abdominal Exam GI & Abdominal Exam: Soft, Tenderness. absent: Distended, Firm, Guarding, Rigid , Rebound Additional comments: mild, RUQ Assessment and Plan - Assessment and Plan (Free Text) Plan: Assessment Sepsis due to acute cholangitis S/P ERCP, S/P laparoscopic cholecystectomy POD # 1, on top of systemic viral illness with Influenza DM HTN dyslipidemia Plan Continue Merrem and will follow up OR cultures continue Tamiflu to complete 5 days (day 3) continue droplet isolation until tomorrow (7 days from start of symptoms)
--- NOTE | 2017-09-29 14:26 | PN ---
DATE: 09/29/2017 CARDIOLOGY FOLLOWUP SUBJECTIVE: The patient is comfortable without shortness of breath. PHYSICAL EXAMINATION VITAL SIGNS: Stable. NECK: Negative JVD. LUNGS: Without rales. HEART: Reveals S1, S2. EXTREMITIES: Without edema. LABORATORY DATA: Laboratories are noted. IMPRESSION: 1. Status post cholecystectomy. 2. Diabetes mellitus. 3. Hypertension. 4. Possible influenza. PLAN: Given these findings, the patient can be transferred to a Med-Surg floor. Yonathan De Dios MD
[2017-09-29] MEDS: Insulin Detemir 100 units/ml Vial (Levemir) SC SCH (16:35)
[2017-09-30] MEDS: Meropenem IV 1 gm in NS 50 ML IVPB SCH ×3 (05:04→21:45)
[2017-09-30 05:47] LABS: BASO # 0.03 K/mm3 (0.0-2.0); BASO % 0.2 % (0.0-3.0); EOS # 0.1 (0.0-0.7); EOS % 0.7 % (1.5-5.0); GRAN # 13.4 (1.4-6.5); LYMPH # 1.5 (1.2-3.4); LYMPH % 9.3 % (22.0-35.0); MEAN CELL VOLUME 85.7 fl (80.0-105.0); MEAN CORPUSCULAR HGB CONC 33.8 g/dl (31.0-37.0); MEAN PLATELET VOLUME 11.2 fl (7.0-11.0); MONO # 1.3 (0.1-0.6); MONO % 7.8 % (1.0-6.0); RBC 4.49 10^6/uL (3.5-6.1); RED CELL DISTRIBUTION WIDTH 14.9 % (11.5-14.5); WHITE BLOOD COUNT 16.3 10^3/ul (4.5-11.0)
[2017-09-30 06:03] LABS: ALB/GLOB RATIO 0.9 (1.1-1.8); ALBUMIN 3.6 g/dL (3.0-4.8); ALT/SGPT 78 U/L (7-56); AST/SGOT 45 U/L (14-36); BILIRUBIN,DIRECT 1.8 mg/dL (0.0-0.4); BLOOD UREA NITROGEN 27 mg/dL (7-21); CALCIUM 9.4 mg/dL (8.4-10.5); GAMMA GLUTAMYL TRANSPEPTIDASE 367 U/L (8-78); GFR AFRICAN-AMERICAN > 60; GFR NON-AFRICAN AMERICAN > 60
[2017-09-30 06:17] LABS: INR 1.04 (0.93-1.08)
--- NOTE | 2017-09-30 08:21 | CP.PCM.PN ---
Subjective - Date & Time of Evaluation Date of Evaluation: 09/30/17 Time of Evaluation: 08:00 - Subjective Subjective: (covering for Dr. Hall) Patient is lying in bed in the critical care unit bed 3. No overnight events. Objective - Vital Signs/Intake and Output Vital Signs (last 24 hours): Temp Pulse Resp BP Pulse Ox 97.5 F L 75 16 153/59 H 100 09/30/17 04:00 09/30/17 06:00 09/30/17 06:00 09/30/17 06:00 09/30/17 06:00 Intake and Output: 09/30/17 09/30/17 06:59 18:59 Intake Total 1000 Output Total 700 Balance 300 - Medications Medications: Current Medications Acetaminophen (Tylenol 325mg Tab) 650 mg PO Q4H PRN PRN Reason: Fever >100.4 F Last Admin: 09/29/17 21:39 Dose: 650 mg Diphenhydramine HCl (Benadryl) 50 mg IVP Q4H PRN PRN Reason: Allergy symptoms Last Admin: 09/28/17 13:44 Dose: 50 mg Enoxaparin Sodium (Lovenox) 40 mg SC DAILY [facility] PRN Reason: Protocol Last Admin: 09/29/17 09:46 Dose: 40 mg Guaifenesin (Robitussin) 200 mg PO Q4H PRN PRN Reason: Cough and congestion Last Admin: 09/27/17 21:51 Dose: 200 mg Hydralazine HCl (Apresoline) 10 mg IVP Q6 PRN PRN Reason: Systolic Blood Pressure Last Admin: 09/30/17 00:03 Dose: 10 mg Sodium Chloride (Sodium Chloride 0.9%) 1,000 mls @ 80 mls/hr IV .[id number] [facility] Last Admin: 09/28/17 11:06 Dose: 80 mls/hr Meropenem (Merrem Iv 1 Gm Premix) 50 mls @ 100 mls/hr IVPB Q8 [facility] PRN Reason: Protocol Stop: 10/07/17 22:01 Last Admin: 09/30/17 05:04 Dose: 100 mls/hr Insulin Detemir (Levemir) 30 unit SC ACD [facility] Last Admin: 09/29/17 16:35 Dose: 30 unit Insulin Human Regular (Humulin R Low) 0 units SC ACHS [facility] PRN Reason: Protocol Last Admin: 09/29/17 16:35 Dose: 5 units Lisinopril (Zestril) 40 mg PO DAILY [facility] Last Admin: 09/29/17 09:46 Dose: 40 mg Metoprolol Succinate (Toprol Xl) 100 mg PO BRK [facility] Last Admin: 09/29/17 08:10 Dose: 100 mg Ondansetron HCl (Zofran Inj) 4 mg IVP Q6H PRN PRN Reason: Nausea/Vomiting Oseltamivir Phosphate (Tamiflu) 30 mg PO BID [facility] PRN Reason: Protocol Last Admin: 09/29/17 17:40 Dose: 30 mg Pantoprazole Sodium (Protonix Inj) 40 mg IVP DAILY [facility] Last Admin: 09/29/17 09:47 Dose: 40 mg - Labs Labs: 09/30/17 05:00 09/30/17 05:00 PT 12.0 SECONDS (9.4-12.5) 09/30/17 05:00 INR 1.04 (0.93-1.08) 09/30/17 05:00 APTT 31.0 Seconds (25.1-36.5) 09/30/17 05:00 - Constitutional Appears: No Acute Distress - Head Exam Head Exam: ATRAUMATIC, NORMOCEPHALIC - Respiratory Exam Respiratory Exam: Clear to Ausculation Bilateral, NORMAL BREATHING PATTERN - Cardiovascular Exam Cardiovascular Exam: +S1, +S2 - GI/Abdominal Exam GI & Abdominal Exam: Soft - Neurological Exam Neurological Exam: Alert, Awake, Oriented x3 Assessment and Plan - Assessment and Plan (Free Text) Assessment: s/p lap cholecystectomy, ERCP and sphincterotomy Sepsis secondary to cholangitis Influenza A HTN DMII HLP Plan: Patient is on Tamiflu for influenza. She is status post lap cholecystectomy. She does not complain of pain this morning. She is on IV Merrem for cholangitis. continue insulin for diabetes. She will be transferred out of CCU once bed is available.
--- NOTE | 2017-09-30 08:22 | CP.PCM.PN ---
Subjective - Date & Time of Evaluation Date of Evaluation: 09/30/17 Time of Evaluation: 07:00 - Subjective Subjective: Patient seen and examined this morning. No acute events over night. Surgical incision sites are clean/dry/ intact. Objective - Vital Signs/Intake and Output Vital Signs (last 24 hours): Temp Pulse Resp BP Pulse Ox 97.5 F L 75 16 153/59 H 100 09/30/17 04:00 09/30/17 06:00 09/30/17 06:00 09/30/17 06:00 09/30/17 06:00 Intake and Output: 09/30/17 09/30/17 06:59 18:59 Intake Total 1000 Output Total 700 Balance 300 - Medications Medications: Current Medications Acetaminophen (Tylenol 325mg Tab) 650 mg PO Q4H PRN PRN Reason: Fever >100.4 F Last Admin: 09/29/17 21:39 Dose: 650 mg Diphenhydramine HCl (Benadryl) 50 mg IVP Q4H PRN PRN Reason: Allergy symptoms Last Admin: 09/28/17 13:44 Dose: 50 mg Enoxaparin Sodium (Lovenox) 40 mg SC DAILY [facility] PRN Reason: Protocol Last Admin: 09/29/17 09:46 Dose: 40 mg Guaifenesin (Robitussin) 200 mg PO Q4H PRN PRN Reason: Cough and congestion Last Admin: 09/27/17 21:51 Dose: 200 mg Hydralazine HCl (Apresoline) 10 mg IVP Q6 PRN PRN Reason: Systolic Blood Pressure Last Admin: 09/30/17 00:03 Dose: 10 mg Sodium Chloride (Sodium Chloride 0.9%) 1,000 mls @ 80 mls/hr IV .[id number] [facility] Last Admin: 09/28/17 11:06 Dose: 80 mls/hr Meropenem (Merrem Iv 1 Gm Premix) 50 mls @ 100 mls/hr IVPB Q8 [facility] PRN Reason: Protocol Stop: 10/07/17 22:01 Last Admin: 09/30/17 05:04 Dose: 100 mls/hr Insulin Detemir (Levemir) 30 unit SC ACD [facility] Last Admin: 09/29/17 16:35 Dose: 30 unit Insulin Human Regular (Humulin R Low) 0 units SC ACHS [facility] PRN Reason: Protocol Last Admin: 09/29/17 16:35 Dose: 5 units Lisinopril (Zestril) 40 mg PO DAILY [facility] Last Admin: 09/29/17 09:46 Dose: 40 mg Metoprolol Succinate (Toprol Xl) 100 mg PO BRK [facility] Last Admin: 09/29/17 08:10 Dose: 100 mg Ondansetron HCl (Zofran Inj) 4 mg IVP Q6H PRN PRN Reason: Nausea/Vomiting Oseltamivir Phosphate (Tamiflu) 30 mg PO BID [facility] PRN Reason: Protocol Last Admin: 09/29/17 17:40 Dose: 30 mg Pantoprazole Sodium (Protonix Inj) 40 mg IVP DAILY [facility] Last Admin: 09/29/17 09:47 Dose: 40 mg - Labs Labs: 09/30/17 05:00 09/30/17 05:00 PT 12.0 SECONDS (9.4-12.5) 09/30/17 05:00 INR 1.04 (0.93-1.08) 09/30/17 05:00 APTT 31.0 Seconds (25.1-36.5) 09/30/17 05:00 - Constitutional Appears: Non-toxic - Head Exam Head Exam: NORMOCEPHALIC - Eye Exam Eye Exam: Normal appearance Pupil Exam: NORMAL ACCOMODATION - ENT Exam ENT Exam: Mucous Membranes Moist - Respiratory Exam Respiratory Exam: NORMAL BREATHING PATTERN - Cardiovascular Exam Cardiovascular Exam: +S1, +S2 - GI/Abdominal Exam GI & Abdominal Exam: Soft. absent: Distended - Neurological Exam Neurological Exam: Alert, Oriented x3 - Psychiatric Exam Psychiatric exam: Normal Mood - Skin Skin Exam: Dry, Intact, Warm Assessment and Plan - Assessment and Plan (Free Text) Assessment: 67 y/o female s/p lap pati POD2 -ADAT -am labs -Encourage OOB -Encourage IS use -ok for DVT ppx -clear for d/c from surgical standpoint -further recs per Dr. Chip Granado PGY2
[2017-09-30] MEDS: Metoprolol Succinate 100 mg XL Tab PO SCH (09:49)
[2017-09-30] MEDS: Insulin Reg-LOW-Coverage SC SCH ×4 (09:51→21:44)
[2017-09-30] MEDS: Enoxaparin 40 mg Syringe SC SCH (09:54)
[2017-09-30] MEDS: Insulin Detemir 100 units/ml Vial (Levemir) SC SCH (16:31)
--- NOTE | 2017-09-30 16:58 | PN ---
DATE: 09/30/2017 SUBJECTIVE: The patient is seen early this morning in 129, bed 3. The patient is awake and alert and responsive, doing well. PHYSICAL EXAMINATION: VITAL SIGNS: Temperature is 97, T-max was 100.4 yesterday; respiratory rate of 16; heart rate of 75. HEENT: Unremarkable. NECK: Supple. LUNGS: Have decreased breath sounds. HEART: Normal S1 and S2. ABDOMEN: Soft, nontender. LABORATORY DATA: Reveals a white count of 16,000, hemoglobin of 13, platelets of 330. BUN of 27, creatinine of 0.8. Urinalysis is noted. Microbiology is noted. Review of orders, meropenem. The patient is on Tamiflu. ASSESSMENT AND PLAN: A 67-year-old female with sepsis with acute cholangitis, status post endoscopic retrograde cholangiopancreatography, status post laparoscopic cholecystectomy, day #2 on top of systemic viral influenza with meropenem and Tamiflu. Day #4 of Tamiflu. We will complete 5 days of Tamiflu. Today is day #4 of 5 days. WBC count and the pathology report pending. We will follow with you. Pawan Martin MD
[2017-09-30] MEDS: guaiFENesin 200 mg/10 ml Syrup UD PO PRN (21:52)
--- NOTE | 2017-10-01 00:48 | OP ---
PROCEDURE DATE: 09/28/2017 PREOPERATIVE DIAGNOSES: Chronic and acute cholecystitis and cholelithiasis. POSTOPERATIVE DIAGNOSES: Chronic and acute cholecystitis and cholelithiasis. PROCEDURE PERFORMED: Laparoscopic cholecystectomy with intraoperative cholangiogram. SURGEON: Alexis Saunders MD. COUNT TEAM CLERK: Dr. Malhotra. ANESTHESIOLOGIST: Dr. Garcia. ANESTHESIA: General endotracheal. ESTIMATED BLOOD LOSS: Minimal. SPECIMEN: Gallbladder with stones. INDICATIONS: Patient is a 67-year-old female who was admitted with cholangitis, subsequently underwent ERCP with sphincterotomy and now came and was taken for laparoscopic cholecystectomy. DESCRIPTION OF PROCEDURE: Patient was brought to the operating room and placed on the operating table in a supine position. Patient was connected to EKG, blood pressure and pulse oximetry monitors. Patient then underwent general endotracheal anesthesia and was prepped and draped in usual sterile fashion. First, standard time-out procedure took place and everybody in the room agreed as to the patient identity, diagnoses and procedure to be performed. An operative plan as well as postoperative management plan were discussed with the team. First, two towel clips were used in order to elevate abdominal wall and once the area just above the belly button was infiltrated with lidocaine mixed with Marcaine, an incision was made through which Veress needle was inserted into the abdominal cavity. The pneumoperitoneum was obtained and 12 mm trocar was inserted through that incision into the abdominal cavity. Once this was done, the scope was inserted through the port and careful evaluation of the abdominal cavity revealed presence of distended gallbladder with some adhesions of the omentum to the gallbladder. A second 5 mm port was placed just below the xiphoid and carefully dissection started. The infundibulum was grabbed and gallbladder was elevated by stretching the cystic duct. This was carefully skeletonized and dissected out so as the cystic artery. The cystic duct was then clipped proximally. A small incision was made on the side of it in order to place the cholangiocatheter. The catheter was placed into the cystic duct and carefully the dye was injected. There was significant leak outside and it was difficult to identify how the dye went through due to the extravasation. After several attempts, we finally had adequate inflammation above the insertion of the cystic duct into the common bile duct and remaining portion of the procedure was aborted. Now the catheter was removed from the cystic duct and the cystic duct was clipped distally and transected. The cystic artery was also clipped and transected. The gallbladder was carefully taken off the liver bed using electrocautery and once completely detached, it was placed in the EndoCatch bag and removed through the periumbilical incision. Now the right upper quadrant of the abdominal cavity was copiously irrigated. All the irrigant fluids were suctioned out and once the area was evaluated, there was excellent hemostasis noted. I then proceeded with removing the trocars and closed the trocar sites using 0-Vicryl for the fascia, 3-0 Vicryl for subcutaneous tissue and 4-0 Monocryl for skin. A sterile Dermabond dressing was applied to the wound. Patient tolerated procedure well and there was no complication. Patient was awakened and transferred to the recovery room for further observation. Alexis Saunders MD
[2017-10-01] MEDS ORDERED: Oxycodone/Acetaminophen 2.5/325 mg Tab PO PRN (03:38)
[2017-10-01] MEDS ORDERED: oxyCODONE 5 mg Immediate Release Tab PO PRN (03:45)
[2017-10-01] MEDS: Meropenem IV 1 gm in NS 50 ML IVPB SCH ×3 (05:23→22:42)
[2017-10-01 06:07] LABS: BASO # 0.04 K/mm3 (0.0-2.0); BASO % 0.3 % (0.0-3.0); EOS # 0.4 (0.0-0.7); EOS % 2.6 % (1.5-5.0); GRAN # 10.94 (1.4-6.5); GRAN % 73.4 % (50.0-68.0); HEMOGLOBIN 11.8 g/dL (12.0-16.0); LYMPH # 2.3 (1.2-3.4); LYMPH % 15.6 % (22.0-35.0); MEAN CELL VOLUME 86.8 fl (80.0-105.0); MEAN CORPUSCULAR HEMOGLOBIN 28.2 pg (25.0-35.0); MEAN CORPUSCULAR HGB CONC 32.5 g/dl (31.0-37.0); MEAN PLATELET VOLUME 10.9 fl (7.0-11.0); MONO # 1.2 (0.1-0.6); MONO % 8.1 % (1.0-6.0); RBC 4.18 10^6/uL (3.5-6.1); RED CELL DISTRIBUTION WIDTH 14.8 % (11.5-14.5); WHITE BLOOD COUNT 14.9 10^3/ul (4.5-11.0)
[2017-10-01 06:21] LABS: INR 1.05 (0.93-1.08); PROTHROMBIN TIME 12.1 SECONDS (9.4-12.5)
[2017-10-01 06:26] LABS: ALB/GLOB RATIO 0.9 (1.1-1.8); ALBUMIN 3.2 g/dL (3.0-4.8); ALT/SGPT 58 U/L (7-56); AST/SGOT 41 U/L (14-36); BLOOD UREA NITROGEN 23 mg/dL (7-21); GAMMA GLUTAMYL TRANSPEPTIDASE 318 U/L (8-78); GFR AFRICAN-AMERICAN > 60; GFR NON-AFRICAN AMERICAN > 60
[2017-10-01] MEDS: Insulin Reg-LOW-Coverage SC SCH ×4 (08:13→22:48)
[2017-10-01] MEDS: Metoprolol Succinate 100 mg XL Tab PO SCH (08:14)
[2017-10-01] MEDS ORDERED: Potassium Chloride 20 mEq ER Tab PO ONE (08:33)
--- NOTE | 2017-10-01 08:37 | CP.PCM.PN ---
Subjective - Date & Time of Evaluation Date of Evaluation: 10/01/17 Time of Evaluation: 07:45 - Subjective Subjective: (covering for Dr. Hall) Patient is seen this morning in CCU bed 3. She is up and sitting in the chair. She says that she has some abdominal pain which comes and goes. Objective - Vital Signs/Intake and Output Vital Signs (last 24 hours): Temp Pulse Resp BP Pulse Ox 98.7 F 85 20 137/103 H 97 10/01/17 04:00 10/01/17 08:14 10/01/17 06:00 10/01/17 08:14 10/01/17 06:00 Intake and Output: 10/01/17 10/01/17 06:59 18:59 Intake Total Output Total Balance - Medications Medications: Current Medications Diphenhydramine HCl (Benadryl) 50 mg IVP Q4H PRN PRN Reason: Allergy symptoms Last Admin: 09/28/17 13:44 Dose: 50 mg Enoxaparin Sodium (Lovenox) 40 mg SC DAILY [facility] PRN Reason: Protocol Last Admin: 09/30/17 09:54 Dose: 40 mg Guaifenesin (Robitussin) 200 mg PO Q4H PRN PRN Reason: Cough and congestion Last Admin: 09/30/17 21:52 Dose: 200 mg Hydralazine HCl (Apresoline) 10 mg IVP Q6 PRN PRN Reason: Systolic Blood Pressure Last Admin: 09/30/17 09:49 Dose: 10 mg Sodium Chloride (Sodium Chloride 0.9%) 1,000 mls @ 80 mls/hr IV .[id number] [facility] Last Admin: 09/28/17 11:06 Dose: 80 mls/hr Meropenem (Merrem Iv 1 Gm Premix) 50 mls @ 100 mls/hr IVPB Q8 [facility] PRN Reason: Protocol Stop: 10/07/17 22:01 Last Admin: 10/01/17 05:23 Dose: 100 mls/hr Insulin Detemir (Levemir) 30 unit SC ACD [facility] Last Admin: 09/30/17 16:31 Dose: 30 unit Insulin Human Regular (Humulin R Low) 0 units SC ACHS [facility] PRN Reason: Protocol Last Admin: 10/01/17 08:13 Dose: 1 units Lisinopril (Zestril) 40 mg PO DAILY [facility] Last Admin: 09/30/17 09:49 Dose: 40 mg Metoprolol Succinate (Toprol Xl) 100 mg PO BRK [facility] Last Admin: 10/01/17 08:14 Dose: 100 mg Ondansetron HCl (Zofran Inj) 4 mg IVP Q6H PRN PRN Reason: Nausea/Vomiting Oseltamivir Phosphate (Tamiflu) 30 mg PO BID [facility] PRN Reason: Protocol Last Admin: 09/30/17 18:37 Dose: 30 mg Oxycodone HCl (Oxycodone Immediate Release Tab) 5 mg PO Q6H PRN PRN Reason: Pain, moderate (4-7) Pantoprazole Sodium (Protonix Inj) 40 mg IVP DAILY [facility] Last Admin: 09/30/17 09:47 Dose: 40 mg Potassium Chloride (K-Dur 20 Meq Er Tab) 40 meq PO ONCE ONE Stop: 10/01/17 08:34 - Labs Labs: 10/01/17 05:00 10/01/17 05:00 PT 12.1 SECONDS (9.4-12.5) 10/01/17 05:00 INR 1.05 (0.93-1.08) 10/01/17 05:00 APTT 30.0 Seconds (25.1-36.5) 10/01/17 05:00 - Constitutional Appears: No Acute Distress - Head Exam Head Exam: ATRAUMATIC, NORMOCEPHALIC - Respiratory Exam Respiratory Exam: Clear to Ausculation Bilateral, NORMAL BREATHING PATTERN - Cardiovascular Exam Cardiovascular Exam: +S1, +S2 - GI/Abdominal Exam GI & Abdominal Exam: Soft - Neurological Exam Neurological Exam: Alert, Awake, Oriented x3 Assessment and Plan - Assessment and Plan (Free Text) Assessment: s/p Lap Cholecystectomy Sepsis secondary to cholangitis HTN DMII HLP Influenza A Plan: Patient is on Merrem for sepsis as per infectious disease. She is also on Tamiflu for influenza. continue insulin with coverage as needed. She will be transferred out of CCU once bed is available.
[2017-10-01] MEDS: Enoxaparin 40 mg Syringe SC SCH (09:42)
--- NOTE | 2017-10-01 11:39 | CP.PCM.PN ---
Subjective - Date & Time of Evaluation Date of Evaluation: 10/01/17 Time of Evaluation: 11:38 - Subjective Subjective: Surgery: Dr. Saunders Patient remains in ICU awaiting isolation floor bed. She denies abdominal pain, n/v/f/c. She reports tolerating diet. She has been OOB ambulating in room. She reports using IS. Objective - Vital Signs/Intake and Output Vital Signs (last 24 hours): Temp Pulse Resp BP Pulse Ox 98.7 F 85 20 137/103 H 97 10/01/17 04:00 10/01/17 08:14 10/01/17 06:00 10/01/17 08:14 10/01/17 06:00 Intake and Output: 10/01/17 10/01/17 06:59 18:59 Intake Total Output Total Balance - Medications Medications: Current Medications Diphenhydramine HCl (Benadryl) 50 mg IVP Q4H PRN PRN Reason: Allergy symptoms Last Admin: 09/28/17 13:44 Dose: 50 mg Enoxaparin Sodium (Lovenox) 40 mg SC DAILY [facility] PRN Reason: Protocol Last Admin: 10/01/17 09:42 Dose: 40 mg Guaifenesin (Robitussin) 200 mg PO Q4H PRN PRN Reason: Cough and congestion Last Admin: 09/30/17 21:52 Dose: 200 mg Hydralazine HCl (Apresoline) 10 mg IVP Q6 PRN PRN Reason: Systolic Blood Pressure Last Admin: 09/30/17 09:49 Dose: 10 mg Sodium Chloride (Sodium Chloride 0.9%) 1,000 mls @ 80 mls/hr IV .[id number] [facility] Last Admin: 09/28/17 11:06 Dose: 80 mls/hr Meropenem (Merrem Iv 1 Gm Premix) 50 mls @ 100 mls/hr IVPB Q8 [facility] PRN Reason: Protocol Stop: 10/07/17 22:01 Last Admin: 10/01/17 05:23 Dose: 100 mls/hr Insulin Detemir (Levemir) 30 unit SC ACD [facility] Last Admin: 09/30/17 16:31 Dose: 30 unit Insulin Human Regular (Humulin R Low) 0 units SC ACHS [facility] PRN Reason: Protocol Last Admin: 10/01/17 08:13 Dose: 1 units Lisinopril (Zestril) 40 mg PO DAILY [facility] Last Admin: 10/01/17 09:44 Dose: 40 mg Metoprolol Succinate (Toprol Xl) 100 mg PO BRK [facility] Last Admin: 10/01/17 08:14 Dose: 100 mg Ondansetron HCl (Zofran Inj) 4 mg IVP Q6H PRN PRN Reason: Nausea/Vomiting Oseltamivir Phosphate (Tamiflu) 30 mg PO BID [facility] PRN Reason: Protocol Last Admin: 10/01/17 09:43 Dose: 30 mg Oxycodone HCl (Oxycodone Immediate Release Tab) 5 mg PO Q6H PRN PRN Reason: Pain, moderate (4-7) Pantoprazole Sodium (Protonix Inj) 40 mg IVP DAILY [facility] Last Admin: 10/01/17 09:43 Dose: 40 mg - Labs Labs: 10/01/17 05:00 10/01/17 05:00 PT 12.1 SECONDS (9.4-12.5) 10/01/17 05:00 INR 1.05 (0.93-1.08) 10/01/17 05:00 APTT 30.0 Seconds (25.1-36.5) 10/01/17 05:00 - Constitutional Appears: Non-toxic, No Acute Distress - Head Exam Head Exam: ATRAUMATIC, NORMOCEPHALIC - ENT Exam ENT Exam: Mucous Membranes Moist - Respiratory Exam Respiratory Exam: NORMAL BREATHING PATTERN. absent: Respiratory Distress - Cardiovascular Exam Cardiovascular Exam: REGULAR RHYTHM. absent: Tachycardia - GI/Abdominal Exam GI & Abdominal Exam: Soft. absent: Distended, Guarding, Tenderness, Rebound Additional comments: incision CDI with dermabond dressing - Neurological Exam Neurological Exam: Alert, Awake - Psychiatric Exam Psychiatric exam: Normal Affect, Normal Mood - Skin Skin Exam: Dry, Normal Color, Warm Assessment and Plan - Assessment and Plan (Free Text) Assessment: 67 y/o female s/p lap pati POD3 Plan: -Tbili normalized today -Encourage OOB -Encourage IS use -ok for DVT ppx -f/u Dr. Saunders 1-2 weeks after d/c -can shower, do not bathe or soak incision -de-escalate pain medications as tolerating -no further surgical intervention at this time -further recs per Dr. Chip Contreras PGY3
--- NOTE | 2017-10-01 16:20 | PN ---
DATE: SUBJECTIVE: The patient is in bed in no acute distress, nontoxic. The patient was seen early this morning. She is moving her bowels. She is doing well. PHYSICAL EXAMINATION VITAL SIGNS: Temperature is 98, blood pressure is 130/100, respiratory rate of 20. HEENT: Unremarkable. NECK: Supple. LUNGS: Decreased breath sounds. HEART: Normal S1, S2. ABDOMEN: Soft and nontender. No organomegaly, no rebound. LABORATORY DATA: Laboratory examination reveals a white count is down to 14,900, hemoglobin of 11 and the chemistries are noted. LFTs are noted to be improving. Urinalysis is reviewed. Microbiology reveals the cultures are all negative. Review of orders reveals the patient is on meropenem and Tamiflu. ASSESSMENT AND PLAN: This is a 67-year-old female with sepsis with acute cholangitis, status post endoscopic retrograde cholangiopancreatography, status post laparoscopic cholecystectomy; day #3 on top of systemic viral influenza with meropenem and Tamiflu; day #5 of Tamiflu, would complete 5 days of Tamiflu, today is day #5 and we will follow the white count trending downward. We will discontinue the antibiotics next 24-48 hours once the white count is resolved and follow closely with you. May discontinue the isolation, the patient has had adequate isolation. Pawan Martin MD
[2017-10-01] MEDS: Insulin Detemir 100 units/ml Vial (Levemir) SC SCH (16:57)
[2017-10-02] MEDS: Meropenem IV 1 gm in NS 50 ML IVPB SCH (05:21)
[2017-10-02 07:05] LABS: ALB/GLOB RATIO 0.9 (1.1-1.8); ALBUMIN 3.4 g/dL (3.0-4.8); ALT/SGPT 54 U/L (7-56); AST/SGOT 51 U/L (14-36); BLOOD UREA NITROGEN 21 mg/dL (7-21); CALCIUM 9.9 mg/dL (8.4-10.5); GAMMA GLUTAMYL TRANSPEPTIDASE 304 U/L (8-78); GFR AFRICAN-AMERICAN > 60; GFR NON-AFRICAN AMERICAN > 60
[2017-10-02] MEDS ORDERED: Potassium Chloride 20 mEq ER Tab PO ONE (07:29)
--- NOTE | 2017-10-02 07:51 | CP.PCM.PN ---
Subjective - Date & Time of Evaluation Date of Evaluation: 10/02/17 Time of Evaluation: 07:30 - Subjective Subjective: Medicine Note for Dr. Hall Patient seen and examined at bedside. No acute event overnight. Patient resting in bed comfortably. She denies pain and nausea/vomiting. She is tolerating diet. Patient reports to passing gas and having BM. No complaints at this time. Objective - Vital Signs/Intake and Output Vital Signs (last 24 hours): Temp Pulse Resp BP Pulse Ox 98.6 F 84 18 175/79 H 94 L 10/01/17 22:00 10/02/17 07:03 10/01/17 22:00 10/02/17 07:03 10/01/17 15:59 - Medications Medications: Current Medications Acetaminophen (Tylenol 325mg Tab) 650 mg PO Q6 PRN PRN Reason: TEMP>=99.5F Acetaminophen (Tylenol 650 Mg Supp) 650 mg RC Q6H PRN PRN Reason: TEMP>=99.5F Diphenhydramine HCl (Benadryl) 50 mg IVP Q4H PRN PRN Reason: Allergy symptoms Last Admin: 09/28/17 13:44 Dose: 50 mg Enoxaparin Sodium (Lovenox) 40 mg SC DAILY [facility] PRN Reason: Protocol Last Admin: 10/01/17 09:42 Dose: 40 mg Guaifenesin (Robitussin) 200 mg PO Q4H PRN PRN Reason: Cough and congestion Last Admin: 09/30/17 21:52 Dose: 200 mg Hydralazine HCl (Apresoline) 10 mg PO Q6H PRN PRN Reason: FOR SBP>=170&/OR DBP>=100MMHG Last Admin: 10/02/17 07:03 Dose: 10 mg Meropenem (Merrem Iv 1 Gm Premix) 50 mls @ 100 mls/hr IVPB Q8 [facility] PRN Reason: Protocol Stop: 10/07/17 22:01 Last Admin: 10/02/17 05:21 Dose: 100 mls/hr Insulin Detemir (Levemir) 30 unit SC ACD [facility] Last Admin: 10/01/17 16:57 Dose: 30 unit Insulin Human Regular (Humulin R Low) 0 units SC ACHS [facility] PRN Reason: Protocol Last Admin: 10/01/17 22:48 Dose: Not Given Lisinopril (Zestril) 40 mg PO DAILY [facility] Last Admin: 10/01/17 09:44 Dose: 40 mg Metoprolol Succinate (Toprol Xl) 100 mg PO BRK [facility] Last Admin: 10/01/17 08:14 Dose: 100 mg Ondansetron HCl (Zofran Inj) 4 mg IVP Q6H PRN PRN Reason: Nausea/Vomiting Oseltamivir Phosphate (Tamiflu) 30 mg PO BID [facility] PRN Reason: Protocol Last Admin: 10/01/17 18:04 Dose: 30 mg Pantoprazole Sodium (Protonix Inj) 40 mg IVP DAILY [facility] Last Admin: 10/01/17 09:43 Dose: 40 mg Tramadol HCl (Ultram) 50 mg PO Q6 PRN PRN Reason: Pain, moderate (4-7) - Labs Labs: 10/01/17 05:00 10/02/17 05:30 PT 12.1 SECONDS (9.4-12.5) 10/01/17 05:00 INR 1.05 (0.93-1.08) 10/01/17 05:00 APTT 30.0 Seconds (25.1-36.5) 10/01/17 05:00 - Constitutional Appears: No Acute Distress - Head Exam Head Exam: ATRAUMATIC, NORMOCEPHALIC - Eye Exam Eye Exam: EOMI, Normal appearance - ENT Exam ENT Exam: Mucous Membranes Moist - Respiratory Exam Respiratory Exam: NORMAL BREATHING PATTERN - Cardiovascular Exam Cardiovascular Exam: REGULAR RHYTHM - GI/Abdominal Exam GI & Abdominal Exam: Soft. absent: Distended, Firm, Guarding, Rigid, Tenderness Additional comments: 2 laparoscopic incisions clean, dry, intact - Extremities Exam Extremities Exam: Normal Capillary Refill - Back Exam Back Exam: absent: CVA tenderness (L), CVA tenderness (R) - Neurological Exam Neurological Exam: Alert, Awake, CN II-XII Intact, Oriented x3 - Psychiatric Exam Psychiatric exam: Normal Affect, Normal Mood - Skin Skin Exam: Dry, Intact, Normal Color, Warm Assessment and Plan - Assessment and Plan (Free Text) Plan: 67 F who presented for influenza and cholangitis s/p laparoscopic cholecystectomy POD#4. Continue IV ABX as per ID. Afebrile. WBC downtrending. Surgery is following. Monitor BP and continue antihypertensives. Will get TCU evaluation for further conditioning and Physical Therapy. Will monitor and continue to follow closely. Kaleb Wilkinson PGY1
[2017-10-02 08:06] VITALS: RESP 20; O2SAT 93
[2017-10-02 08:16] LABS: BASO # 0.04 K/mm3 (0.0-2.0); BASO % 0.3 % (0.0-3.0); EOS # 0.9 (0.0-0.7); EOS % 6.3 % (1.5-5.0); GRAN # 9.72 (1.4-6.5); GRAN % 66.4 % (50.0-68.0); HEMOGLOBIN 12.7 g/dL (12.0-16.0); LYMPH # 2.8 (1.2-3.4); LYMPH % 19.3 % (22.0-35.0); MEAN CORPUSCULAR HEMOGLOBIN 28.9 pg (25.0-35.0); MEAN CORPUSCULAR HGB CONC 33.2 g/dl (31.0-37.0); MEAN PLATELET VOLUME 10.9 fl (7.0-11.0); MONO # 1.1 (0.1-0.6); MONO % 7.7 % (1.0-6.0); RBC 4.4 10^6/uL (3.5-6.1); RED CELL DISTRIBUTION WIDTH 14.6 % (11.5-14.5); WHITE BLOOD COUNT 14.6 10^3/ul (4.5-11.0)
[2017-10-02] MEDS: Insulin Reg-LOW-Coverage SC SCH ×2 (10:00→12:42)
[2017-10-02] MEDS: Enoxaparin 40 mg Syringe SC SCH (10:00)
[2017-10-02] MEDS: Potassium Chloride 20 mEq ER Tab PO SCH ×2 (10:03→12:41)
--- NOTE | 2017-10-02 10:03 | RAD ---
HISTORY: CHF/PNEUMONIA/FEFVER COMPARISON: 09/29/2017 TECHNIQUE: Chest PA and lateral FINDINGS: LUNGS: No active pulmonary disease. PLEURA: No significant pleural effusion identified. No pneumothorax apparent. CARDIOVASCULAR: Normal. OSSEOUS STRUCTURES: No significant abnormalities. VISUALIZED UPPER ABDOMEN: Normal. OTHER FINDINGS: None. IMPRESSION: No active disease.
[2017-10-02] MEDS: Metoprolol Succinate 100 mg XL Tab PO SCH (10:04)
[2017-10-02 10:17] VITALS: TEMP 100
[2017-10-02 12:58] VITALS: BP 179/77; PULSE 84
--- NOTE | 2017-10-02 14:37 | CP.PCM.PN ---
Subjective - Date & Time of Evaluation Date of Evaluation: 10/02/17 Time of Evaluation: 11:10 - Subjective Subjective: Comfortable, no fevers, no abdominal pain, no diarrhea. Objective - Vital Signs/Intake and Output Vital Signs (last 24 hours): Temp Pulse Resp BP Pulse Ox 99.4 F 90 20 175/79 H 93 L 10/02/17 08:05 10/02/17 08:05 10/02/17 08:05 10/02/17 08:05 10/02/17 08:05 Intake and Output: 10/02/17 10/02/17 06:59 18:59 Intake Total 1000 Output Total 400 Balance 600 - Medications Medications: Current Medications Acetaminophen (Tylenol 325mg Tab) 650 mg PO Q6 PRN PRN Reason: TEMP>=99.5F Acetaminophen (Tylenol 650 Mg Supp) 650 mg RC Q6H PRN PRN Reason: TEMP>=99.5F Diphenhydramine HCl (Benadryl) 50 mg IVP Q4H PRN PRN Reason: Allergy symptoms Last Admin: 09/28/17 13:44 Dose: 50 mg Enoxaparin Sodium (Lovenox) 40 mg SC DAILY [facility] PRN Reason: Protocol Last Admin: 10/01/17 09:42 Dose: 40 mg Guaifenesin (Robitussin) 200 mg PO Q4H PRN PRN Reason: Cough and congestion Last Admin: 09/30/17 21:52 Dose: 200 mg Hydralazine HCl (Apresoline) 10 mg PO Q6H PRN PRN Reason: FOR SBP>=170&/OR DBP>=100MMHG Last Admin: 10/02/17 07:03 Dose: 10 mg Meropenem (Merrem Iv 1 Gm Premix) 50 mls @ 100 mls/hr IVPB Q8 [facility] PRN Reason: Protocol Stop: 10/07/17 22:01 Last Admin: 10/02/17 05:21 Dose: 100 mls/hr Insulin Detemir (Levemir) 30 unit SC ACD [facility] Last Admin: 10/01/17 16:57 Dose: 30 unit Insulin Human Regular (Humulin R Low) 0 units SC ACHS [facility] PRN Reason: Protocol Last Admin: 10/01/17 22:48 Dose: Not Given Lisinopril (Zestril) 40 mg PO DAILY [facility] Last Admin: 10/01/17 09:44 Dose: 40 mg Metoprolol Succinate (Toprol Xl) 100 mg PO BRK [facility] Last Admin: 10/01/17 08:14 Dose: 100 mg Ondansetron HCl (Zofran Inj) 4 mg IVP Q6H PRN PRN Reason: Nausea/Vomiting Pantoprazole Sodium (Protonix Inj) 40 mg IVP DAILY [facility] Last Admin: 10/01/17 09:43 Dose: 40 mg Potassium Chloride (K-Dur 20 Meq Er Tab) 40 meq PO Q2H [facility] Stop: 10/02/17 11:16 Tramadol HCl (Ultram) 50 mg PO Q6 PRN PRN Reason: Pain, moderate (4-7) - Labs Labs: 10/02/17 07:55 10/02/17 05:30 PT 12.1 SECONDS (9.4-12.5) 10/01/17 05:00 INR 1.05 (0.93-1.08) 10/01/17 05:00 APTT 30.0 Seconds (25.1-36.5) 10/01/17 05:00 - Constitutional Appears: Chronically Ill - Head Exam Head Exam: NORMAL INSPECTION - Neck Exam Neck Exam: absent: Meningismus - Respiratory Exam Respiratory Exam: Decreased Breath Sounds - Cardiovascular Exam Cardiovascular Exam: +S1, +S2 - GI/Abdominal Exam GI & Abdominal Exam: Soft. absent: Tenderness Assessment and Plan - Assessment and Plan (Free Text) Plan: Assessment Sepsis due to acute cholangitis S/P ERCP, S/P laparoscopic cholecystectomy POD # 4, on top of systemic viral illness with Influenza DM HTN dyslipidemia Plan Continue Merrem and will follow up OR cultures; will trend WBC count as well completed Tamiflu
--- NOTE | 2017-10-02 16:50 | PN ---
DATE: 10/02/2017 CARDIOLOGY FOLLOWUP SUBJECTIVE: The patient is comfortable without shortness of breath. OBJECTIVE: VITAL SIGNS: Blood pressure is 179/77, heart rate in the 80s and normal sinus rhythm. NECK: Negative JVD. LUNGS: Without rales. HEART: Reveals S1, S2. EXTREMITIES: Without edema. LABORATORY DATA: Hemoglobin is 12.7 and white count is 14.6. Chemistries: Glucose is 159. IMPRESSION: 1. Status post cholecystectomy. 2. Diabetes mellitus. 3. Hypertension. 4. Resolution of influenza. Given these findings, we will add hydrochlorothiazide to her lisinopril for better blood pressure control. We will discontinue telemetry today. Yonathan De Dios MD
[2017-10-03] MEDS ORDERED: Pantoprazole 40 mg EC Tab PO SCH (07:30)
== END 2017-10-02 13:58 | DRG 853 ==
LOC: ED 20:15 → ERH 09-26 01:29 → CCU 09-26 03:07 → 3RNO 10-01 17:27
PROVIDERS: ADMIT Internal Medicine; ATTEND Internal Medicine
PROC: 0F798ZZ Dilation of Common Bile Duct, Via Natural or Artificial Opening Endoscopic (ICD-10-PCS; 2017-09-26 13:30)
PROC: BF43ZZZ Ultrasonography of Gallbladder and Bile Ducts (ICD-10-PCS; 2017-09-26 13:30)
PROC: 5A09457 Assistance with Respiratory Ventilation, 24-96 Consecutive Hours, Continuous Positive Airway Pressure (ICD-10-PCS; 2017-09-28)
PROC: 0FT44ZZ Resection of Gallbladder, Percutaneous Endoscopic Approach (ICD-10-PCS; principal; 2017-09-28 18:00)
DX: A41.9 Sepsis, unspecified organism (principal); K83.0 Cholangitis; K80.12 Calculus of gallbladder with acute and chronic cholecystitis without obstruction; J95.821 Acute postprocedural respiratory failure; E87.2 Acidosis; E83.42 Hypomagnesemia; I27.21 Secondary pulmonary arterial hypertension; J10.1 Influenza due to other identified influenza virus with other respiratory manifestations; E11.649 Type 2 diabetes mellitus with hypoglycemia without coma; E87.6 Hypokalemia; I10 Essential (primary) hypertension; E78.1 Pure hyperglyceridemia; E78.00 Pure hypercholesterolemia, unspecified; E11.65 Type 2 diabetes mellitus with hyperglycemia; I34.0 Nonrheumatic mitral (valve) insufficiency; R31.29 Other microscopic hematuria; K76.0 Fatty (change of) liver, not elsewhere classified; D32.0 Benign neoplasm of cerebral meninges; R80.9 Proteinuria, unspecified; Y83.8 Other surgical procedures as the cause of abnormal reaction of the patient, or of later complication, without mention of misadventure at the time of the procedure; I16.0 Hypertensive urgency

== ENCOUNTER 2017-10-02 14:04 | Inpatient (IN) | payer OTHER ==
[2017-10-02] MEDS: Insulin Reg-LOW-Coverage SC SCH ×2 (17:07→22:04)
[2017-10-02] MEDS: Insulin Detemir 100 units/ml Vial (Levemir) SC SCH (17:09)
[2017-10-02 17:26] VITALS: BMI 26.9
[2017-10-02] MEDS ORDERED: Pneumococcal 23-Valent Vaccine IM ONE (17:26)
[2017-10-02] MEDS ORDERED: Influenza Vaccine 60 mcg/0.5 mL SYR (4YR UP) IM ONE (17:26)
[2017-10-03] MEDS: Pantoprazole 40 mg EC Tab PO SCH (05:39)
[2017-10-03] MEDS: Insulin Reg-LOW-Coverage SC SCH ×3 (06:52→17:33)
[2017-10-03 07:29] LABS: BASO # 0.06 K/mm3 (0.0-2.0); BASO % 0.4 % (0.0-3.0); EOS # 0.9 (0.0-0.7); EOS % 6.5 % (1.5-5.0); GRAN # 9.69 (1.4-6.5); GRAN % 66.9 % (50.0-68.0); HEMOGLOBIN 12.6 g/dL (12.0-16.0); LYMPH # 2.7 (1.2-3.4); LYMPH % 18.3 % (22.0-35.0); MEAN CELL VOLUME 86.8 fl (80.0-105.0); MEAN CORPUSCULAR HEMOGLOBIN 28.6 pg (25.0-35.0); MEAN CORPUSCULAR HGB CONC 32.9 g/dl (31.0-37.0); MEAN PLATELET VOLUME 10.7 fl (7.0-11.0); MONO # 1.2 (0.1-0.6); MONO % 7.9 % (1.0-6.0); RBC 4.41 10^6/uL (3.5-6.1); RED CELL DISTRIBUTION WIDTH 14.5 % (11.5-14.5); WHITE BLOOD COUNT 14.5 10^3/ul (4.5-11.0)
[2017-10-03] MEDS: Metoprolol Succinate 100 mg XL Tab PO SCH (07:53)
[2017-10-03 08:00] LABS: ALB/GLOB RATIO 0.9 (1.1-1.8); ALBUMIN 3.6 g/dL (3.0-4.8); ALT/SGPT 56 U/L (7-56); AST/SGOT 52 U/L (14-36); BILIRUBIN,DIRECT 0.8 mg/dL (0.0-0.4); BLOOD UREA NITROGEN 21 mg/dL (7-21); CALCIUM 10.3 mg/dL (8.4-10.5); GFR AFRICAN-AMERICAN > 60; GFR NON-AFRICAN AMERICAN > 60
[2017-10-03] MEDS: Enoxaparin 40 mg Syringe SC SCH (09:55)
--- NOTE | 2017-10-03 11:25 | CP.PCM.HP ---
History of Present Illness - History of Present Illness History of Present Illness: CC: SOB HPI: Pt is a 67 yo F with PMH of HTN, IDDM, HLD who was originally admitted due to vomiting, fever, and dyspnea was found to have sepsis 2/2 ascending cholangitis and influenza infection. At that time, pt was admitted to the CCU. Pt underwent laparoscopic cholecystectomy and treated with Tamiflu and IV antibiotics. Pt is now transferred to TCU for continued therapy. Pt states that there is some abdominal soreness, but is improving. Pt denied CP, SOB, n/v/d, fever, chills, THORNE, or dizziness. PMH: HTN, IDDM, HLD Surg: Cholecystectomy FHx: DM, HTN All: NKDA SH: Denies tobacco, EtOH, and illicit drug use Present on Admission - Present on Admission Any Indicators Present on Admission: No Review of Systems - Review of Systems Review of Systems: 12 point ROS reviewed and is negative except for what is stated in HPI. Past Patient History - Past Social History Smoking Status: n - CARDIAC Hx Congestive Heart Failure: No Hx Hypertension: Yes - PULMONARY Hx Respiratory Disorders: No - NEUROLOGICAL Hx Neurological Disorder: No - HEENT Hx HEENT Problems: No Other/Comment: use reading eyeglasses - RENAL Hx Chronic Kidney Disease: No - ENDOCRINE/METABOLIC Hx Diabetes Mellitus Type 2: Yes - HEMATOLOGICAL/ONCOLOGICAL Hx Blood Transfusions: No Hx Blood Transfusion Reaction: No - INTEGUMENTARY Hx Dermatological Problems: No - MUSCULOSKELETAL/RHEUMATOLOGICAL Hx Falls: No - GASTROINTESTINAL Hx Gastrointestinal Disorders: (lap pati 09/28/17) - GENITOURINARY/GYNECOLOGICAL Hx Reproductive Disorders: No - PSYCHIATRIC Hx Substance Use: No - SURGICAL HISTORY Hx Surgeries: No - ANESTHESIA Hx Anesthesia Reactions: No Hx Malignant Hyperthermia: No Meds Allergies/Adverse Reactions: Allergies Allergy/AdvReac Type Severity Reaction Status Date / Time No Known Allergies Allergy Verified 09/25/17 20:25 Physical Exam - Head Exam Head Exam: NORMAL INSPECTION - Eye Exam Eye Exam: Normal appearance - ENT Exam ENT Exam: Mucous Membranes Moist - Neck Exam Neck exam: Positive for: Normal Inspection - Respiratory Exam Respiratory Exam: Clear to Auscultation Bilateral. absent: Rales, Rhonchi, Wheezes - Cardiovascular Exam Cardiovascular Exam: RRR, +S1, +S2. absent: Gallop, Rubs, Systolic Murmur - GI/Abdominal Exam GI & Abdominal Exam: Soft. absent: Distended, Guarding, Rebound, Tenderness Additional comments: Surgical site c/d/i - Back Exam Back exam: NORMAL INSPECTION - Neurological Exam Neurological exam: Alert, Oriented x3 - Psychiatric Exam Psychiatric exam: Normal Affect, Normal Mood - Skin Skin Exam: Dry, Intact, Normal Color, Warm Results - Vital Signs Recent Vital Signs: Last Vital Signs Temp 98.3 F 10/03/17 10:12 Pulse 93 H 10/03/17 10:12 Resp 20 10/03/17 10:12 BP 180/81 H 10/03/17 10:12 Pulse Ox 97 10/03/17 10:12 - Labs Result Diagrams: 10/03/17 06:45 10/03/17 06:45 Labs: Laboratory Results - last 24 hr 10/02/17 10/02/17 10/03/17 16:38 21:42 06:45 WBC 14.5 H RBC 4.41 Hgb 12.6 Hct 38.3 MCV 86.8 MCH 28.6 MCHC 32.9 RDW 14.5 Plt Count 432 MPV 10.7 Gran % 66.9 Lymph % (Auto) 18.3 L Zapata % (Auto) 7.9 H Eos % (Auto) 6.5 H Baso % (Auto) 0.4 Gran # 9.69 H Lymph # (Auto) 2.7 Zapata # (Auto) 1.2 H Eos # (Auto) 0.9 H Baso # (Auto) 0.06 Sodium Potassium Chloride Carbon Dioxide Anion Gap BUN Creatinine Est GFR ( Amer) Est GFR (Non-Af Amer) POC Glucose (mg/dL) 270 H 271 H Random Glucose Calcium Magnesium Total Bilirubin Direct Bilirubin AST ALT Alkaline Phosphatase Total Protein Albumin Globulin Albumin/Globulin Ratio 10/03/17 10/03/17 06:45 11:03 WBC RBC Hgb Hct MCV MCH MCHC RDW Plt Count MPV Gran % Lymph % (Auto) Zapata % (Auto) Eos % (Auto) Baso % (Auto) Gran # Lymph # (Auto) Zapata # (Auto) Eos # (Auto) Baso # (Auto) Sodium 139 Potassium 4.8 Chloride 101 Carbon Dioxide 30 Anion Gap 14 BUN 21 Creatinine 0.9 Est GFR ( Amer) > 60 Est GFR (Non-Af Amer) > 60 POC Glucose (mg/dL) 315 H Random Glucose 256 H Calcium 10.3 Magnesium 2.0 Total Bilirubin 1.2 Direct Bilirubin 0.8 H AST 52 H ALT 56 Alkaline Phosphatase 292 H Total Protein 7.5 Albumin 3.6 Globulin 3.9 Albumin/Globulin Ratio 0.9 L Assessment & Plan - Assessment and Plan (Free Text) Assessment: 67 yo F with PMH of HTN, IDDM, and HLD originally admitted for influenza and cholangitis s/p laparoscopic cholecystectomy POD#5, now transferred to TCU. Plan: 1. Cholangitis 2/2 cholecystectomy - Surgery consulted - ID consulted - POD #5 - Cont Merrem - Tylenol prn - Zofran prn - Cont PT eval and treat 2. Influenza - Tamiflu completed - Tessalon perles prn 3. HTN - Cardiology consulted - Cont Norvasc, HCTZ, Lisinopril, Lopressor - Cont Hydralazine prn 4. DM2 - Levemir 30 u ACD - ISS - Accuchecks ACHS - Carb consistent diet 5. HLD GI/DVT PPx - Protonix - Lovenox Pt seen and discussed in detail with Dr. Hall. Chriss Gutierrez, PGY1
--- NOTE | 2017-10-03 15:54 | CP.PCM.CON ---
History of Present Illness - History of Present Illness History of Present Illness: 67 year old female with PMH of DM, HTN, dyslipidemia, was initially admitted with abdominal pain and was found to have acute cholangitis as well as Influenza. She completed her course of Tamiflu and underwent antibiotic therapy , ERCP and cholecystectomy and has done well. She is now transferred to [facility] for continued medical therapy and physical rehab. Infectious Diseases consult is requested to see if she still needs antibiotics. Currently she is comfortable , walking around her room, no fever or chills, no headache or dizziness, no chest pain, no SOB, no abdominal pain, no nausea or vomiting, no diarrhea, no dysuria. Review of Systems - Review of Systems All systems: reviewed and no additional remarkable complaints except (as per HPI ) Past Patient History - Past Social History Smoking Status: n - CARDIAC Hx Congestive Heart Failure: No Hx Hypertension: Yes - PULMONARY Hx Respiratory Disorders: No - NEUROLOGICAL Hx Neurological Disorder: No - HEENT Hx HEENT Problems: No Other/Comment: use reading eyeglasses - RENAL Hx Chronic Kidney Disease: No - ENDOCRINE/METABOLIC Hx Diabetes Mellitus Type 2: Yes - HEMATOLOGICAL/ONCOLOGICAL Hx Blood Transfusions: No Hx Blood Transfusion Reaction: No - INTEGUMENTARY Hx Dermatological Problems: No - MUSCULOSKELETAL/RHEUMATOLOGICAL Hx Falls: No - GASTROINTESTINAL Hx Gastrointestinal Disorders: (angela krueger 09/28/17) - GENITOURINARY/GYNECOLOGICAL Hx Reproductive Disorders: No - PSYCHIATRIC Hx Substance Use: No - SURGICAL HISTORY Hx Surgeries: No - ANESTHESIA Hx Anesthesia Reactions: No Hx Malignant Hyperthermia: No Meds Allergies/Adverse Reactions: Allergies Allergy/AdvReac Type Severity Reaction Status Date / Time No Known Allergies Allergy Verified 09/25/17 20:25 - Medications Medications: Current Medications Acetaminophen (Tylenol 325 Mg Supp) 325 mg RC Q6H PRN; Protocol PRN Reason: Temp>=99.5F Acetaminophen (Tylenol 325mg Tab) 650 mg PO Q6H PRN; Protocol PRN Reason: Temp>=99.5F Benzonatate (Tessalon Perles) 200 mg PO TID [facility] PRN Reason: Protocol Last Admin: 10/02/17 17:07 Dose: 200 mg Enoxaparin Sodium (Lovenox) 40 mg SC DAILY [facility] PRN Reason: Protocol Hydralazine HCl (Apresoline) 10 mg PO Q6H PRN; Protocol PRN Reason: SBP>=170 AND/OR DBP>=100 Hydrochlorothiazide (Microzide) 12.5 mg PO DAILY [facility] PRN Reason: Protocol Meropenem 1,000 mg/ Sodium (Chloride) 50 mls @ 100 mls/hr IVPB 0600,1400,2200 [facility] PRN Reason: Protocol Stop: 10/09/17 22:01 Last Admin: 10/02/17 22:05 Dose: 100 mls/hr Insulin Detemir (Levemir) 30 unit SC ACD [facility] PRN Reason: Protocol Last Admin: 10/02/17 17:09 Dose: 30 unit Insulin Human Regular (Humulin R Low) 0 units SC ACHS [facility] PRN Reason: Protocol Last Admin: 10/02/17 22:04 Dose: Not Given Lisinopril (Zestril) 40 mg PO DAILY [facility] PRN Reason: Protocol Metoprolol Succinate (Toprol Xl) 100 mg PO BRK [facility] PRN Reason: Protocol Ondansetron HCl (Zofran Inj) 4 mg IVP Q6H PRN; Protocol PRN Reason: Nausea/Vomiting Pantoprazole Sodium (Protonix Ec Tab) 40 mg PO 0600 [facility] PRN Reason: Protocol Physical Exam - Constitutional Appears: Non-toxic, Chronically Ill - Head Exam Head Exam: NORMAL INSPECTION - Eye Exam Eye Exam: Normal appearance - Neck Exam Neck exam: Negative for: Meningismus - Respiratory Exam Respiratory Exam: Decreased Breath Sounds - Cardiovascular Exam Cardiovascular Exam: +S1, +S2 - GI/Abdominal Exam GI & Abdominal Exam: Soft. absent: Tenderness Results - Vital Signs Recent Vital Signs: Last Vital Signs Temp 97.7 F 10/02/17 17:34 Pulse 84 10/02/17 17:34 Resp 20 10/02/17 17:34 BP 185/69 H 10/02/17 17:34 Pulse Ox 97 10/02/17 17:34 - Labs Result Diagrams: 10/03/17 06:45 10/03/17 06:45 Labs: Laboratory Results - last 24 hr 10/02/17 10/02/17 16:38 21:42 POC Glucose (mg/dL) 270 H 271 H Assessment & Plan - Assessment and Plan (Free Text) Plan: Assessment Sepsis due to acute cholangitis S/P ERCP, S/P laparoscopic cholecystectomy POD # 5, S/P systemic viral illness with Influenza DM HTN dyslipidemia Plan Continue Merrem and will follow up OR cultures and trend WBC count completed Tamiflu course will monitor clinically - may be able to d/c antibiotics in the next 24-48 hours as long as patient remains afebrile
[2017-10-03] MEDS: Insulin Detemir 100 units/ml Vial (Levemir) SC SCH (17:49)
[2017-10-03] MEDS ORDERED: Insulin Lispro (HUMAlog) HIGH Coverage SC SCH ×2 (23:17→23:22)
[2017-10-03] MEDS: Insulin Lispro (HUMAlog) HIGH Coverage SC SCH (23:36)
[2017-10-04] MEDS: Insulin Lispro (HUMAlog) HIGH Coverage SC SCH ×4 (06:51→22:18)
[2017-10-04] MEDS: Insulin Detemir 100 units/ml Vial (Levemir) SC SCH ×2 (06:52→17:37)
[2017-10-04] MEDS: Pantoprazole 40 mg EC Tab PO SCH (07:03)
[2017-10-04] MEDS ORDERED: Insulin Lispro (HUMAlog) HIGH Coverage SC SCH (07:30)
[2017-10-04 08:28] LABS: BASO # 0.08 K/mm3 (0.0-2.0); BASO % 0.4 % (0.0-3.0); EOS # 0.8 (0.0-0.7); GRAN # 13.01 (1.4-6.5); HEMOGLOBIN 13.6 g/dL (12.0-16.0); LYMPH # 3.7 (1.2-3.4); LYMPH % 19.8 % (22.0-35.0); MEAN CORPUSCULAR HGB CONC 33.3 g/dl (31.0-37.0); MEAN PLATELET VOLUME 10.5 fl (7.0-11.0); MONO # 1.3 (0.1-0.6); MONO % 6.8 % (1.0-6.0); RBC 4.69 10^6/uL (3.5-6.1); RED CELL DISTRIBUTION WIDTH 14.5 % (11.5-14.5); WHITE BLOOD COUNT 18.9 10^3/ul (4.5-11.0)
[2017-10-04] MEDS: Metoprolol Succinate 100 mg XL Tab PO SCH (08:38)
[2017-10-04 08:55] LABS: ALB/GLOB RATIO 0.9 (1.1-1.8); ALT/SGPT 100 U/L (7-56); AST/SGOT 108 U/L (14-36); BILIRUBIN,DIRECT 0.9 mg/dL (0.0-0.4); BLOOD UREA NITROGEN 31 mg/dL (7-21); CALCIUM 10.3 mg/dL (8.4-10.5); GFR AFRICAN-AMERICAN > 60; GFR NON-AFRICAN AMERICAN 55; URIC ACID 6.3 mg/dL (2.5-6.2)
[2017-10-04] MEDS: Enoxaparin 40 mg Syringe SC SCH (08:59)
--- NOTE | 2017-10-04 12:59 | HP ---
DATE OF EXAM: 10/03/2017 HISTORY OF PRESENT ILLNESS: The patient is now transferred to TCU from the Acute Care Services site. The patient is now seen in room 317, bed 1. The patient is in a reclining and the patient is sitting up in the bed. The patient is alert, awake, responsive. The patient is watching TV. Overnight nurses' notes were reviewed. The patient slept well overnight without any adverse events documented. The patient was seen by the day nurse also; after initial evaluation of the patient, overnight nurse's notes were reviewed. The patient was found to be alert, awake, oriented without any chest pain without shortness of breath , without nausea, vomiting, diarrhea or constipation and the patient tolerated diet. The patient is seen and examined in room 317, bed 1. Please refer to the history and physical examination dictated on 09/26 and discharge summary dictated on 10/02. PHYSICAL EXAMINATION VITAL SIGNS: T-max 98.4; heart rate 74, 92, 93, 79, 84; ; blood pressure in the last 24 hours 146/70, 180/81, 149/75, 185/69; respirations 20; O2 sat 92-97%. HEAD: Normocephalic, atraumatic. HEENT: Shows pink conjunctivae. Anicteric sclerae. No oropharyngeal lesion. No neck rigidity. CHEST: Kyphosis. LUNGS: Shows no rales, crackles or wheezing. The patient has rhonchi in upper lung perea noted anteriorly. CARDIOVASCULAR: S1, S2, regular rhythm. Questionable soft systolic murmur, left sternal border, right second intercostal space, left second intercostal space. ABDOMEN: Soft. Positive bowel sounds. Positive healed surgical scar of laparoscopic cholecystectomy, slightly protuberant abdomen. No hepatosplenomegaly noted. No guarding. No rigidity. No rebound tenderness. No costovertebral angle tenderness. GENITALIA: Female. RECTAL: Deferred. EXTREMITIES: Shows no pitting edema, no calf tenderness, no Homans' sign. NEUROLOGIC: The patient is alert, awake, oriented x3. Cranial nerves II-XII intact. Gait examination, independent. VASCULAR: Palpable pulses. MUSCULOSKELETAL: Shows a body mass index of 26.1. PSYCHIATRIC: Negative. DIAGNOSTICS: 10/03: WBC 14.5, hemoglobin/hematocrit 12.6/38.3, platelet 432,000. Granulocytes are normal. Sodium 139, potassium 4.8, chloride 101, CO2 of 30, anion gap 14, BUN 21, creatinine 0.9, GFR greater than 60. Glucose , 271, 256, 315, 363, 305; calcium 10.3; magnesium 2.0. AST is almost normalized to 52, alkaline phosphatase 292. MICROBIOLOGY: Negative. BLOOD : Negative. REPORTS: Noted. IMPRESSION 1. Deconditioning. 2. Gait dysfunction. 3. Sepsis secondary to acute cholangitis. 4. Status post endoscopic retrograde cholangiopancreatography, status post endoscopic ultrasound, status post sphincterotomy and removal of gallbladder sludge. 5. Status post laparoscopic cholecystectomy, postop day #5. 6. Influenza A systemic viral illness. 7. Transient uncontrolled hypertension. 8. Transient hypoxemia. 9. Leukocytosis. 10. Insulin-requiring diabetes mellitus with hyperglycemia. 11. Transaminitis. 12. History of dyslipidemia. 13. Cholangitis. PLAN: At this time, the patient is seen by Infectious Disease, awaiting surgical and Cardiology followup. CURRENT MEDICATIONS 1. Hydralazine 10 mg p.o. q. 6 hours. p.r.n. for systolic blood pressure greater than or equal to 170 and diastolic blood pressure greater than or equal to 100. The patient is on insulin, Humalog high dose sliding scale coverage. 2. Levemir 18 units twice a day. 3. Lovenox 40 mg subcu daily. 4. Meropenem 1 g IV q. 8 hours. 5. Hydrochlorothiazide 12.5 mg daily. 6. Norvasc 5 mg daily. 7. Protonix 40 mg daily. 8. Tessalon Perles 200 mg three times a day. 9. Toprol-XL 100 mg daily. 10. Tylenol 650 mg p.o. or suppository q. 6 hours. p.r.n. 11. Zestril 40 mg daily. 12. Zofran 4 mg IV q. 6 hours. p.r.n. The patient is ordered consistent carbohydrate diet; out of bed to chair; physical therapy, ambulation therapy, gait training ordered. The patient was advised, encouraged to be out of bed to chair. The patient was updated about her diagnosis, test results, recommendation and evaluation. The patient's case is referred to diabetic education evaluation. The patient has been ordered fingerstick blood sugar. The patient has been ordered out of bed. The patient has been ordered SCDs and BENI stockings in addition to DVT prophylaxis. The patient has been ordered daily weights, SCDs. Occupational therapy, Physical Therapy has been ordered. The patient will be continued on the above therapeutic intervention. Please refer to the detailed history and physical examination and final discharge summary on this patient from 09/26/2017 and 10/02/2017. Dictated and electronically signed, not read. Bruce Hall MD
--- NOTE | 2017-10-04 15:34 | RAD ---
HISTORY: Dyspnea COMPARISON: No prior. TECHNIQUE: Chest PA and lateral FINDINGS: LUNGS: Pulmonary vascular congestion progressive compared to the prior study. PLEURA: No significant pleural effusion identified. No pneumothorax apparent. CARDIOVASCULAR: Cardiomegaly/mild CHF. OSSEOUS STRUCTURES: No significant abnormalities. VISUALIZED UPPER ABDOMEN: Normal. OTHER FINDINGS: None. IMPRESSION: Acute CHF, mild.
--- NOTE | 2017-10-04 15:34 | CP.PCM.PN ---
Subjective - Date & Time of Evaluation Date of Evaluation: 10/04/17 Time of Evaluation: 11:35 - Subjective Subjective: No fevers, not in distress, afebrile, no diarrhea, no nausea, no abdominal pain. Objective - Vital Signs/Intake and Output Vital Signs (last 24 hours): Temp Pulse Resp BP Pulse Ox 98.5 F 89 18 136/62 94 L 10/04/17 10:19 10/04/17 10:19 10/04/17 10:19 10/04/17 10:19 10/04/17 10:19 - Medications Medications: Current Medications Acetaminophen (Tylenol 325mg Tab) 650 mg PO Q6H PRN; Protocol PRN Reason: Temp>=99.5F Acetaminophen (Tylenol 325 Mg Supp) 325 mg RC Q6H PRN; Protocol PRN Reason: Temp>=99.5F, IF can't take PO Amlodipine Besylate (Norvasc) 5 mg PO DAILY [facility] Last Admin: 10/04/17 09:00 Dose: 5 mg Benzonatate (Tessalon Perles) 200 mg PO TID [facility] PRN Reason: Protocol Last Admin: 10/04/17 14:06 Dose: 200 mg Enoxaparin Sodium (Lovenox) 40 mg SC DAILY [facility] PRN Reason: Protocol Last Admin: 10/04/17 08:59 Dose: 40 mg Hydralazine HCl (Apresoline) 10 mg PO Q6H PRN; Protocol PRN Reason: SBP>=170 AND/OR DBP>=100 Last Admin: 10/03/17 09:57 Dose: 10 mg Hydrochlorothiazide (Microzide) 12.5 mg PO DAILY [facility] PRN Reason: Protocol Last Admin: 10/04/17 09:00 Dose: 12.5 mg Meropenem 1,000 mg/ Sodium (Chloride) 50 mls @ 100 mls/hr IVPB 0600,1400,2200 [facility] PRN Reason: Protocol Stop: 10/09/17 22:01 Last Admin: 10/04/17 14:06 Dose: 100 mls/hr Insulin Detemir (Levemir) 18 unit SC ACBD [facility] PRN Reason: Protocol Last Admin: 10/04/17 06:52 Dose: 18 unit Insulin Human Lispro (Humalog High) 0 units SC ACHS [facility] PRN Reason: Protocol Last Admin: 10/04/17 12:23 Dose: 5 units Lisinopril (Zestril) 40 mg PO DAILY [facility] PRN Reason: Protocol Last Admin: 10/04/17 09:00 Dose: 40 mg Metoprolol Succinate (Toprol Xl) 100 mg PO BRK [facility] PRN Reason: Protocol Last Admin: 10/04/17 08:38 Dose: 100 mg Ondansetron HCl (Zofran Inj) 4 mg IVP Q6H PRN; Protocol PRN Reason: Nausea/Vomiting Pantoprazole Sodium (Protonix Ec Tab) 40 mg PO 0600 [facility] PRN Reason: Protocol Last Admin: 10/04/17 07:03 Dose: 40 mg - Labs Labs: 10/04/17 08:20 10/04/17 08:20 - Constitutional Appears: Non-toxic, Chronically Ill - Head Exam Head Exam: NORMAL INSPECTION - ENT Exam ENT Exam: Mucous Membranes Moist - Neck Exam Neck Exam: absent: Meningismus - Respiratory Exam Respiratory Exam: Decreased Breath Sounds - Cardiovascular Exam Cardiovascular Exam: +S1, +S2 - GI/Abdominal Exam GI & Abdominal Exam: Soft. absent: Tenderness Assessment and Plan - Assessment and Plan (Free Text) Plan: Assessment Sepsis due to acute cholangitis S/P ERCP, S/P laparoscopic cholecystectomy POD # 6, S/P systemic viral illness with Influenza DM HTN dyslipidemia Plan Continue Merrem (Day 6) and continue to trend WBC count (still elevated) completed Tamiflu course
--- NOTE | 2017-10-04 15:52 | US ---
HISTORY: S/P LAP ALBERT,TRANSAMINITIS/CHOLANGITIS Relevant surgical history: Cholecystectomy approximately 1 week ago COMPARISON: 09/26/2017. TECHNIQUE: Sonographic evaluation of the abdomen. FINDINGS: LIVER: Measures 13.8 cm. Hepatopedal blood flow. Fatty infiltration manifest ultrasonographically as increased echogenicity of the liver parenchyma. No mass. No intrahepatic bile duct dilatation. GALLBLADDER: Status post cholecystectomy. Increased echogenicity within the gallbladder fossa, of measuring approximately 1.4 cm in diameter. This likely represents expected postoperative change/complex fluid. COMMON BILE DUCT: Measures 4.7 mm. No stones. No dilatation. PANCREAS: Unremarkable as visualized. No mass. No ductal dilatation. RIGHT KIDNEY: Measures 3.9 x 11cm. Normal echogenicity. No calculus, mass, or hydronephrosis. LEFT KIDNEY: Measures 5.2 x 10.1cm. Normal echogenicity. No calculus, mass, or hydronephrosis. SPLEEN: Normal in size and contour. No mass. AORTA: No aneurysmal dilatation. IVC: Unremarkable. OTHER FINDINGS: None. IMPRESSION: Presumed/expected postoperative changes gallbladder fossa one-week status post cholecystectomy. No abnormal fluid collections identified in the visualized abdomen. Remaining visualized abdominal viscera are unchanged.
--- NOTE | 2017-10-04 17:04 | CP.PCM.CON ---
History of Present Illness - History of Present Illness History of Present Illness: This is a 67 yr old F admitted initially with sepsis found to have influenza and treated with tamiflu, with elevated LFT due to cholecystitis s/p ERCP with sphincterotomy s/p Laproscopic CCY on 09/28 now with elevated transminases. She has had uncontrolled BP and blood sugars in this past week. Her ALT has been 187 -> 54 -> 100 with normal total bilirubin. She has had increase in her leukocytes with no fever or RUQ pain. Her CTAP done on admission showed fatty liver. Review of Systems - Review of Systems Review of Systems: 12 point ROS unremarkable except that documented in HPI Past Patient History - Past Social History Smoking Status: n - CARDIAC Hx Hypertension: Yes - PULMONARY Hx Respiratory Disorders: No - NEUROLOGICAL Hx Neurological Disorder: No - HEENT Hx HEENT Problems: No Other/Comment: use reading eyeglasses - RENAL Hx Chronic Kidney Disease: No - ENDOCRINE/METABOLIC Hx Diabetes Mellitus Type 2: Yes - HEMATOLOGICAL/ONCOLOGICAL Hx Blood Transfusions: No Hx Blood Transfusion Reaction: No - INTEGUMENTARY Hx Dermatological Problems: No - MUSCULOSKELETAL/RHEUMATOLOGICAL Hx Falls: No - GASTROINTESTINAL Hx Gastrointestinal Disorders: (lap pati 09/28/17) - GENITOURINARY/GYNECOLOGICAL Hx Reproductive Disorders: No - PSYCHIATRIC Hx Substance Use: No - SURGICAL HISTORY Hx Surgeries: No - ANESTHESIA Hx Anesthesia Reactions: No Hx Malignant Hyperthermia: No Meds Allergies/Adverse Reactions: Allergies Allergy/AdvReac Type Severity Reaction Status Date / Time No Known Allergies Allergy Verified 09/25/17 20:25 - Medications Medications: Current Medications Acetaminophen (Tylenol 325mg Tab) 650 mg PO Q6H PRN; Protocol PRN Reason: Temp>=99.5F Acetaminophen (Tylenol 325 Mg Supp) 325 mg RC Q6H PRN; Protocol PRN Reason: Temp>=99.5F, IF can't take PO Amlodipine Besylate (Norvasc) 5 mg PO DAILY [facility] Last Admin: 10/04/17 09:00 Dose: 5 mg Benzonatate (Tessalon Perles) 200 mg PO TID [facility] PRN Reason: Protocol Last Admin: 10/04/17 14:06 Dose: 200 mg Enoxaparin Sodium (Lovenox) 40 mg SC DAILY [facility] PRN Reason: Protocol Last Admin: 10/04/17 08:59 Dose: 40 mg Hydralazine HCl (Apresoline) 10 mg PO Q6H PRN; Protocol PRN Reason: SBP>=170 AND/OR DBP>=100 Last Admin: 10/03/17 09:57 Dose: 10 mg Hydrochlorothiazide (Microzide) 12.5 mg PO DAILY [facility] PRN Reason: Protocol Last Admin: 10/04/17 09:00 Dose: 12.5 mg Meropenem 1,000 mg/ Sodium (Chloride) 50 mls @ 100 mls/hr IVPB 0600,1400,2200 [facility] PRN Reason: Protocol Stop: 10/09/17 22:01 Last Admin: 10/04/17 14:06 Dose: 100 mls/hr Insulin Detemir (Levemir) 18 unit SC ACBD [facility] PRN Reason: Protocol Last Admin: 10/04/17 06:52 Dose: 18 unit Insulin Human Lispro (Humalog High) 0 units SC ACHS [facility] PRN Reason: Protocol Last Admin: 10/04/17 12:23 Dose: 5 units Lisinopril (Zestril) 40 mg PO DAILY [facility] PRN Reason: Protocol Last Admin: 10/04/17 09:00 Dose: 40 mg Metoprolol Succinate (Toprol Xl) 100 mg PO BRK [facility] PRN Reason: Protocol Last Admin: 10/04/17 08:38 Dose: 100 mg Ondansetron HCl (Zofran Inj) 4 mg IVP Q6H PRN; Protocol PRN Reason: Nausea/Vomiting Pantoprazole Sodium (Protonix Ec Tab) 40 mg PO 0600 [facility] PRN Reason: Protocol Last Admin: 10/04/17 07:03 Dose: 40 mg Physical Exam - Constitutional Appears: Well, Non-toxic, No Acute Distress - Head Exam Head Exam: ATRAUMATIC, NORMAL INSPECTION, NORMOCEPHALIC - Eye Exam Eye Exam: EOMI, Normal appearance, PERRL Additional comments: No scleral icterus - Respiratory Exam Respiratory Exam: Clear to Auscultation Bilateral, NORMAL BREATHING PATTERN - Cardiovascular Exam Cardiovascular Exam: REGULAR RHYTHM, RRR, +S1, +S2 - GI/Abdominal Exam GI & Abdominal Exam: Distended, Normal Bowel Sounds, Soft. absent: Tenderness Additional comments: No guarding Results - Vital Signs Recent Vital Signs: Last Vital Signs Temp 98.5 F 10/04/17 10:19 Pulse 89 10/04/17 10:19 Resp 18 10/04/17 10:19 BP 136/62 10/04/17 10:19 Pulse Ox 94 L 10/04/17 10:19 - Labs Result Diagrams: 10/04/17 08:20 10/04/17 08:20 Labs: Laboratory Results - last 24 hr 10/03/17 10/03/17 10/04/17 17:00 22:07 05:55 WBC RBC Hgb Hct MCV MCH MCHC RDW Plt Count MPV Gran % Lymph % (Auto) Wilkes % (Auto) Eos % (Auto) Baso % (Auto) Gran # Lymph # (Auto) Wilkes # (Auto) Eos # (Auto) Baso # (Auto) Sodium Potassium Chloride Carbon Dioxide Anion Gap BUN Creatinine Est GFR ( Amer) Est GFR (Non-Af Amer) POC Glucose (mg/dL) 363 H 305 H 168 H Random Glucose Uric Acid Calcium Phosphorus Magnesium Total Bilirubin Direct Bilirubin AST ALT Alkaline Phosphatase Total Protein Albumin Globulin Albumin/Globulin Ratio 10/04/17 10/04/17 10/04/17 08:20 08:20 11:08 WBC 18.9 H D RBC 4.69 Hgb 13.6 Hct 40.8 MCV 87.0 MCH 29.0 MCHC 33.3 RDW 14.5 Plt Count 498 H MPV 10.5 Gran % 69.0 H Lymph % (Auto) 19.8 L Wilkes % (Auto) 6.8 H Eos % (Auto) 4.0 Baso % (Auto) 0.4 Gran # 13.01 H Lymph # (Auto) 3.7 H Wilkes # (Auto) 1.3 H Eos # (Auto) 0.8 H Baso # (Auto) 0.08 Sodium 140 Potassium 4.5 Chloride 99 Carbon Dioxide 28 Anion Gap 17 BUN 31 H Creatinine 1.0 Est GFR ( Amer) > 60 Est GFR (Non-Af Amer) 55 POC Glucose (mg/dL) 330 H Random Glucose 223 H Uric Acid 6.3 H Calcium 10.3 Phosphorus 4.5 Magnesium 2.0 Total Bilirubin 1.3 Direct Bilirubin 0.9 H AST 108 H D ALT 100 H Alkaline Phosphatase 365 H D Total Protein 8.4 H Albumin 4.0 Globulin 4.4 Albumin/Globulin Ratio 0.9 L 10/04/17 16:34 WBC RBC Hgb Hct MCV MCH MCHC RDW Plt Count MPV Gran % Lymph % (Auto) Wilkes % (Auto) Eos % (Auto) Baso % (Auto) Gran # Lymph # (Auto) Wilkes # (Auto) Eos # (Auto) Baso # (Auto) Sodium Potassium Chloride Carbon Dioxide Anion Gap BUN Creatinine Est GFR ( Amer) Est GFR (Non-Af Amer) POC Glucose (mg/dL) 270 H Random Glucose Uric Acid Calcium Phosphorus Magnesium Total Bilirubin Direct Bilirubin AST ALT Alkaline Phosphatase Total Protein Albumin Globulin Albumin/Globulin Ratio Assessment & Plan - Assessment and Plan (Free Text) Assessment: 67 yr old F admitted with sepsis and influenza post tamiflu with elevated LFT s/ p ERCP with sphincterotomy and cholecystectomy POD 6 with fresh elevation of leukocytes and ALT. She has also had uncontrolled BP and blood sugars. CTAP with fatty liver Plan: - Consider C diff and stool infectious work up for new onset leukocytosis - Consider sending UA and urine culture - Consider surgical consult for elevated LFT s/p cholecystectomy - Consider HIDA scan for bile leak - Patient has a sphincterotomy - No Fever or RUQ pain - Tight control of BP and blood sugar in setting of fatty liver- may be contributing to increased LFT - Will follow - Avoid hepatotoxic medications like tylenol
--- NOTE | 2017-10-05 03:05 | PN ---
DATE: 10/04/2017 SUBJECTIVE: Patient was seen again in room 317, bed 1. Patient was seen lying in the bed. Overnight nurse's notes were reviewed. Patient stayed well without any adverse events documented. PHYSICAL EXAMINATION: VITAL SIGNS: Patient's T-max is 98.7; pulse 89, 74, 75; blood pressure in the last 24 hours 180/81, 146/70, 130/67, 136/62; respiration 18; O2 sat 94%, 92%. HEENT: Head examination, normocephalic, atraumatic. HEENT examination shows pink conjunctivae. Dry oral mucosa. No neck rigidity. CHEST: Kyphosis. LUNGS: Shows positive crepitus, crackles, decreased breath sound at the bases. CARDIOVASCULAR: S1, S2, regular rhythm. Questionable soft systolic murmur left sternal border, right second intercostal space, left second intercostal space. ABDOMEN: Soft, slightly protuberant. Positive bowel sounds. Mild epigastric and right upper quadrant tenderness. GENITALIA: Male. RECTAL: Examination is deferred. EXTREMITIES: Shows no pitting edema, no calf tenderness, no Homans' sign. NEUROLOGIC: Patient is alert, awake, responsive, is able to move upper and lower extremities without assistance. MUSCULOSKELETAL: Shows a body mass index of 25.7. Gait examination not tested. VASCULAR: Palpable pulses. DIAGNOSTICS: On 10/04, WBC count has gone up to 18.9, hemoglobin/hematocrit 13.6 and 40.8, platelet 498. Granulocytes, 69% segs. Sodium 140, potassium 4.5, chloride 99, CO2 28, anion gap 17, BUN 31, creatinine 1.0, GFR greater than 60, glucose 223. Fingerstick blood sugar 315, 363 , 305, 168, 330. Uric acid 6.3, direct bili has gone up to 0.9 from 0.8. AST has doubled from 52 to 108. ALT has gone up to 100 from 56. Alk phos is 365 from 292. Total protein 8.4. A-G ratio is 0.9. Chest x-ray was done because of the patient's abnormal lung examination, which shows pulmonary vascular congestion increasing and acute CHF, mild. Patient was ordered a stat ultrasound of the abdomen for evaluation of transaminitis, which shows fatty infiltration with hepatic steatosis with increased echogenicity within the gallbladder fossa suggestive of postoperative laparoscopic cholecystectomy. Patient was requested Gastroenterology evaluation. Patient was seen by special diet cook. Their recommendation was noted. IMPRESSION AND PLAN: 1. Deconditioning. 2. Gait dysfunction. 3. Status post uncontrolled hypertension. 4. Transient hypoxemia. 5. Acute congestive heart failure with increased pulmonary vascular congestion bilaterally. 6. Fatty infiltration of the liver with increased echogenicity of the liver parenchyma and hepatic steatosis. 7. Status post laparoscopic cholecystectomy. 8. Increased echogenicity within the gallbladder fossa suggestive of postoperative change complex fluid. 9. Leukocytosis with granulocytosis. 10. Hyperglycemia. 11. Hyperuricemia. 12. Hyperbilirubinemia. 13. Transaminitis. 14. Reversed A-G ratio. 15. Sepsis with ascending cholangitis and acute cholangitis. 16. Systemic viral infection with influenza. 17. Status post endoscopic retrograde cholangiopancreatography with sphincterotomy and gallbladder sludge removal. Plan at this time, patient has been ordered repeat labs. Blood cultures, urine cultures, stool C. diff ordered. CURRENT CONSULTATIONS: 1. Nephrology. 2. Gastroenterology. 3. Surgery. Consultation has been requested, but pending evaluation. 4. Cardiology consultation and Infectious Disease consultation ordered. early childhood educator aide ordered. MEDICATIONS: Patient is started on: 1. Actigall 300 mg twice a day. 2. Hydralazine 10 mg p.o. q. 6 p.r.n. 3. Humalog high-dose sliding scale coverage. 4. Patient is started on Lasix 40 mg IV daily. 5. Patient is started on Levemir 18 units twice a day. 6. Lovenox 40 mg subcu daily. 7. Meropenem 1 g IV q. 8. 8. Norvasc 5 mg daily. 9. Protonix 40 mg daily. 10. Tessalon Perles 200 three times a day. 11. Toprol XL 100 mg daily. 12. Tylenol 650 mg daily, which will be stopped because of transaminitis. 13. Patient is on Zestril 40 mg daily. 14. Zofran 4 mg q. 6 p.r.n. Patient was seen by Gastroenterology. Recommendations noted. Patient has been ordered a biliary HIDA scan for evaluation of biliary leak. Patient has been ordered oxygen 2 liters continuous humidified for hypoxemia. Patient is ordered consistent carbohydrate diet. Patient has been ordered head of the bed at 30 degrees, out of bed, BENI stockings, SCDs, physical therapy, occupational therapy. Patient will be continued on TCU until further management. Patient will be reconsulted with Surgery who has not seen the patient yet. At present, patient will be continued to be monitored. Patient has been being reconsulted with Surgery. Patient is presently being followed by Medicine, Infectious Disease and Gastroenterology. Dictated and electronically signed, not read. Bruce Hall MD
[2017-10-05] MEDS: Pantoprazole 40 mg EC Tab PO SCH (05:14)
[2017-10-05 06:20] LABS: BASO # 0.06 K/mm3 (0.0-2.0); BASO % 0.3 % (0.0-3.0); EOS # 1.1 (0.0-0.7); EOS % 5.2 % (1.5-5.0); GRAN # 13.68 (1.4-6.5); HEMOGLOBIN 13.8 g/dL (12.0-16.0); LYMPH # 4.3 (1.2-3.4); LYMPH % 20.8 % (22.0-35.0); MEAN CELL VOLUME 85.8 fl (80.0-105.0); MEAN CORPUSCULAR HEMOGLOBIN 28.3 pg (25.0-35.0); MEAN PLATELET VOLUME 11.2 fl (7.0-11.0); MONO # 1.4 (0.1-0.6); MONO % 6.7 % (1.0-6.0); RBC 4.87 10^6/uL (3.5-6.1); RED CELL DISTRIBUTION WIDTH 14.5 % (11.5-14.5); WHITE BLOOD COUNT 20.4 10^3/ul (4.5-11.0)
[2017-10-05 07:23] LABS: ALB/GLOB RATIO 0.9 (1.1-1.8); ALBUMIN 4.1 g/dL (3.0-4.8); ALT/SGPT 85 U/L (7-56); AST/SGOT 71 U/L (14-36); BILIRUBIN,DIRECT 0.7 mg/dL (0.0-0.4); BLOOD UREA NITROGEN 29 mg/dL (7-21); CALCIUM 10.6 mg/dL (8.4-10.5); GFR AFRICAN-AMERICAN > 60; GFR NON-AFRICAN AMERICAN > 60
--- NOTE | 2017-10-05 07:24 | CP.PCM.PN ---
Subjective - Date & Time of Evaluation Date of Evaluation: 10/05/17 Time of Evaluation: 07:05 - Subjective Subjective: Medicine Note for Dr. Hall Patient sen and examined at bedside. No acute event overnight. Yesterday CXR showed some congestion so Lasix was given. Repeat CXR today. Patient sitiing up in bed comfortably. Patient denies pain. Patient is tolerating diet and having BM. She has no complaints at this time. WBC is increasing. Objective - Vital Signs/Intake and Output Vital Signs (last 24 hours): Temp Pulse Resp BP Pulse Ox 97.9 F 74 18 131/73 94 L 10/04/17 17:35 10/04/17 17:35 10/04/17 17:35 10/05/17 00:25 10/04/17 17:35 - Medications Medications: Current Medications Amlodipine Besylate (Norvasc) 5 mg PO DAILY [facility] Last Admin: 10/04/17 09:00 Dose: 5 mg Benzonatate (Tessalon Perles) 200 mg PO TID [facility] PRN Reason: Protocol Last Admin: 10/04/17 17:39 Dose: 200 mg Enoxaparin Sodium (Lovenox) 40 mg SC DAILY [facility] PRN Reason: Protocol Last Admin: 10/04/17 08:59 Dose: 40 mg Furosemide (Lasix) 40 mg IVP DAILY [facility] Last Admin: 10/05/17 00:25 Dose: 40 mg Hydralazine HCl (Apresoline) 10 mg PO Q6H PRN; Protocol PRN Reason: SBP>=170 AND/OR DBP>=100 Last Admin: 10/03/17 09:57 Dose: 10 mg Meropenem 1,000 mg/ Sodium (Chloride) 50 mls @ 100 mls/hr IVPB 0600,1400,2200 [facility] PRN Reason: Protocol Stop: 10/09/17 22:01 Last Admin: 10/05/17 05:12 Dose: 100 mls/hr Insulin Detemir (Levemir) 18 unit SC ACBD [facility] PRN Reason: Protocol Last Admin: 10/04/17 17:37 Dose: 18 unit Insulin Human Lispro (Humalog High) 0 units SC ACHS [facility] Last Admin: 10/04/17 22:18 Dose: 2 units Lisinopril (Zestril) 40 mg PO DAILY [facility] PRN Reason: Protocol Last Admin: 10/04/17 09:00 Dose: 40 mg Metoprolol Succinate (Toprol Xl) 100 mg PO BRK [facility] PRN Reason: Protocol Last Admin: 10/04/17 08:38 Dose: 100 mg Ondansetron HCl (Zofran Inj) 4 mg IVP Q6H PRN; Protocol PRN Reason: Nausea/Vomiting Pantoprazole Sodium (Protonix Ec Tab) 40 mg PO 0600 [facility] PRN Reason: Protocol Last Admin: 10/05/17 05:14 Dose: 40 mg Ursodiol (Actigall) 300 mg PO BID [facility] Last Admin: 10/05/17 00:25 Dose: 300 mg - Labs Labs: 10/05/17 05:30 10/05/17 05:30 - Constitutional Appears: No Acute Distress - Head Exam Head Exam: ATRAUMATIC, NORMOCEPHALIC - Eye Exam Eye Exam: EOMI, Normal appearance Pupil Exam: PERRL - ENT Exam ENT Exam: Mucous Membranes Moist - Neck Exam Neck Exam: absent: Tenderness - Respiratory Exam Respiratory Exam: Clear to Ausculation Bilateral, NORMAL BREATHING PATTERN - Cardiovascular Exam Cardiovascular Exam: REGULAR RHYTHM, +S1, +S2 - GI/Abdominal Exam GI & Abdominal Exam: Soft, Normal Bowel Sounds. absent: Tenderness - Neurological Exam Neurological Exam: Alert, Awake, Oriented x3 - Psychiatric Exam Psychiatric exam: Normal Affect, Normal Mood - Skin Skin Exam: Dry, Intact, Normal Color, Warm Assessment and Plan - Assessment and Plan (Free Text) Plan: 67 yo F with PMH of HTN, IDDM, and HLD originally admitted for influenza and cholangitis s/p laparoscopic cholecystectomy POD#7, now in TCU 1. Cholangitis s/p cholecystectomy - Surgery consulted - ID consulted - POD #7 - Cont Merrem - Tylenol prn - Zofran prn - Cont PT eval and treat - f/u HIDA ordered by medical attending 2. Influenza - Tamiflu completed - Tessalon perles prn - f/u CXR 3. HTN - Cardiology consulted - Cont Norvasc, HCTZ, Lisinopril, Lopressor - Cont Hydralazine prn 4. DM2 - Levemir 30 u ACD - ISS - Accuchecks ACHS - Carb consistent diet 5. Dyspnea Lasix 40 mg IVP daily f/u CXR GI/DVT PPx - Protonix - Lovenox Discussed in detail with Dr. Rafael Wilkinson PGY1
[2017-10-05] MEDS: Insulin Detemir 100 units/ml Vial (Levemir) SC SCH ×2 (07:49→17:24)
[2017-10-05] MEDS: Insulin Lispro (HUMAlog) HIGH Coverage SC SCH ×4 (07:50→22:00)
[2017-10-05 07:57] LABS: PH,URINE 5.5 (4.7-8.0); URINE BILIRUBIN NEGATIVE (NEGATIVE); URINE BLOOD NEGATIVE (NEGATIVE); URINE GLUCOSE (UA) 500 mg/dL (NEGATIVE); URINE LEUKOCYTE ESTERASE NEGATIVE Leu/uL (NEGATIVE); URINE PROTEIN NEGATIVE mg/dL (<30 mg/dL); URINE UROBILINOGEN 0.2 E.U./dL (<1 E.U./dL)
[2017-10-05 07:58] LABS: URINE APPEARANCE CLEAR (CLEAR); URINE COLOR YELLOW (YELLOW)
[2017-10-05] MEDS: Metoprolol Succinate 100 mg XL Tab PO SCH (08:39)
--- NOTE | 2017-10-05 09:22 | CP.PCM.PN ---
<Lily Silverman - Last Filed: 10/05/17 09:48> Subjective - Date & Time of Evaluation Date of Evaluation: 10/05/17 Time of Evaluation: 09:00 - Subjective Subjective: GI Fellow PGY 4 Progress Note Pt seen and evaluated at bedside, pt doing well with no abdominal pain. Pt reports BM is normal no more diarrhea. Denies F/C, N/V, she is tolerating her diet. Pt report no more itching which she was having before. ROS: A 12pt ROS was negative except as above. Objective - Vital Signs/Intake and Output Vital Signs (last 24 hours): Temp Pulse Resp BP Pulse Ox 97.9 F 90 18 129/75 94 L 10/04/17 17:35 10/05/17 08:39 10/04/17 17:35 10/05/17 08:39 10/04/17 17:35 - Medications Medications: Current Medications Amlodipine Besylate (Norvasc) 5 mg PO DAILY [facility] Last Admin: 10/04/17 09:00 Dose: 5 mg Benzonatate (Tessalon Perles) 200 mg PO TID [facility] PRN Reason: Protocol Last Admin: 10/04/17 17:39 Dose: 200 mg Enoxaparin Sodium (Lovenox) 40 mg SC DAILY [facility] PRN Reason: Protocol Last Admin: 10/04/17 08:59 Dose: 40 mg Furosemide (Lasix) 40 mg IVP DAILY [facility] Last Admin: 10/05/17 00:25 Dose: 40 mg Hydralazine HCl (Apresoline) 10 mg PO Q6H PRN; Protocol PRN Reason: SBP>=170 AND/OR DBP>=100 Last Admin: 10/03/17 09:57 Dose: 10 mg Meropenem 1,000 mg/ Sodium (Chloride) 50 mls @ 100 mls/hr IVPB 0600,1400,2200 [facility] PRN Reason: Protocol Stop: 10/09/17 22:01 Last Admin: 10/05/17 05:12 Dose: 100 mls/hr Insulin Detemir (Levemir) 22 unit SC ACBD [facility] PRN Reason: Protocol Insulin Human Lispro (Humalog High) 0 units SC ACHS [facility] Last Admin: 10/05/17 07:50 Dose: 10 units Lisinopril (Zestril) 40 mg PO DAILY [facility] PRN Reason: Protocol Last Admin: 10/04/17 09:00 Dose: 40 mg Metoprolol Succinate (Toprol Xl) 100 mg PO BRK [facility] PRN Reason: Protocol Last Admin: 10/05/17 08:39 Dose: 100 mg Ondansetron HCl (Zofran Inj) 4 mg IVP Q6H PRN; Protocol PRN Reason: Nausea/Vomiting Pantoprazole Sodium (Protonix Ec Tab) 40 mg PO 0600 [facility] PRN Reason: Protocol Last Admin: 10/05/17 05:14 Dose: 40 mg Ursodiol (Actigall) 300 mg PO BID [facility] Last Admin: 10/05/17 00:25 Dose: 300 mg - Labs Labs: 10/05/17 05:30 10/05/17 05:30 - Constitutional Appears: Non-toxic, No Acute Distress - Head Exam Head Exam: ATRAUMATIC, NORMAL INSPECTION, NORMOCEPHALIC - Eye Exam Eye Exam: EOMI, Normal appearance, PERRL Pupil Exam: PERRL - ENT Exam ENT Exam: Mucous Membranes Moist, Normal Exam - Neck Exam Neck Exam: Full ROM, Normal Inspection - Respiratory Exam Respiratory Exam: Clear to Ausculation Bilateral, NORMAL BREATHING PATTERN - Cardiovascular Exam Cardiovascular Exam: REGULAR RHYTHM, RRR, +S1, +S2 - GI/Abdominal Exam GI & Abdominal Exam: Soft, Normal Bowel Sounds. absent: Distended, Guarding, Tenderness, Organomegaly - Rectal Exam Rectal Exam: Deferred - Extremities Exam Extremities Exam: Full ROM, Normal Inspection - Back Exam Back Exam: NORMAL INSPECTION - Neurological Exam Neurological Exam: Alert, Awake, Oriented x3 - Psychiatric Exam Psychiatric exam: Normal Affect, Normal Mood - Skin Skin Exam: Dry, Intact, Normal Color, Warm Assessment and Plan - Assessment and Plan (Free Text) Assessment: -Continue supportive care, pt clinically improved and tolerating diet with no abdominal pain - s/p urgent EUS/ERCP for suspected cholangitis with sphincterotomy and sludge no stones - s/p lap cholecystectomy - WBC elevated at 20 - Monitor LFTs, trending down - Continue Ursodiol ddx PSC - Plan for HID per surgery to r/o bile leak - IV abx per primary team - Blood cx/urine negative - Check cdiff with hx of recent diarrhea - Treated with tamiflu for influenza - Will continue to follow closely <[place],Jamie - Last Filed: 10/05/17 11:08> Objective - Vital Signs/Intake and Output Vital Signs (last 24 hours): Temp Pulse Resp BP Pulse Ox 97.9 F 90 18 129/75 94 L 10/04/17 17:35 10/05/17 08:39 10/04/17 17:35 10/05/17 09:54 10/04/17 17:35 - Medications Medications: Current Medications Amlodipine Besylate (Norvasc) 5 mg PO DAILY [facility] Last Admin: 10/05/17 09:54 Dose: 5 mg Benzonatate (Tessalon Perles) 200 mg PO TID [facility] PRN Reason: Protocol Last Admin: 10/05/17 09:54 Dose: 200 mg Enoxaparin Sodium (Lovenox) 40 mg SC DAILY [facility] PRN Reason: Protocol Last Admin: 10/05/17 09:53 Dose: 40 mg Furosemide (Lasix) 40 mg IVP DAILY [facility] Last Admin: 10/05/17 09:53 Dose: 40 mg Hydralazine HCl (Apresoline) 10 mg PO Q6H PRN; Protocol PRN Reason: SBP>=170 AND/OR DBP>=100 Last Admin: 10/03/17 09:57 Dose: 10 mg Meropenem 1,000 mg/ Sodium (Chloride) 50 mls @ 100 mls/hr IVPB 0600,1400,2200 [facility] PRN Reason: Protocol Stop: 10/09/17 22:01 Last Admin: 10/05/17 05:12 Dose: 100 mls/hr Insulin Detemir (Levemir) 22 unit SC ACBD [facility] PRN Reason: Protocol Insulin Human Lispro (Humalog High) 0 units SC ACHS [facility] PRN Reason: Protocol Lisinopril (Zestril) 40 mg PO DAILY [facility] PRN Reason: Protocol Last Admin: 10/05/17 09:54 Dose: 40 mg Metoprolol Succinate (Toprol Xl) 100 mg PO BRK [facility] PRN Reason: Protocol Last Admin: 10/05/17 08:39 Dose: 100 mg Ondansetron HCl (Zofran Inj) 4 mg IVP Q6H PRN; Protocol PRN Reason: Nausea/Vomiting Pantoprazole Sodium (Protonix Ec Tab) 40 mg PO 0600 [facility] PRN Reason: Protocol Last Admin: 10/05/17 05:14 Dose: 40 mg Ursodiol (Actigall) 300 mg PO BID [facility] Last Admin: 10/05/17 09:53 Dose: 300 mg - Labs Labs: 10/05/17 05:30 10/05/17 05:30 Attending/Attestation - Attestation I have personally seen and examined this patient.: Yes I have fully participated in the care of the patient.: Yes I have reviewed all pertinent clinical information, including history, physical exam and plan: Yes Notes (Text): 10/05/17 11:07 67 year old female admitted with flu, also found to have cholelithiasis, elevated lfts, s/p ERCP with sphincterotomy, s/p cholecystectomy, with persistently elevated lfts. Eval for chronic liver disease is negative. Ddx includes fatty liver, PSC. Consider liver biopsy if persistently elevated. On ursodiol. Await hida to r/o bile leak.
[2017-10-05] MEDS: Enoxaparin 40 mg Syringe SC SCH (09:53)
--- NOTE | 2017-10-05 15:44 | CP.PCM.PN ---
Subjective - Date & Time of Evaluation Date of Evaluation: 10/05/17 Time of Evaluation: 11:15 - Subjective Subjective: No fevers, not in distress, abdominal pain is improved. No diarrhea. Objective - Vital Signs/Intake and Output Vital Signs (last 24 hours): Temp Pulse Resp BP Pulse Ox 97.9 F 90 18 129/75 94 L 10/04/17 17:35 10/05/17 08:39 10/04/17 17:35 10/05/17 08:39 10/04/17 17:35 - Medications Medications: Current Medications Amlodipine Besylate (Norvasc) 5 mg PO DAILY [facility] Last Admin: 10/04/17 09:00 Dose: 5 mg Benzonatate (Tessalon Perles) 200 mg PO TID [facility] PRN Reason: Protocol Last Admin: 10/04/17 17:39 Dose: 200 mg Enoxaparin Sodium (Lovenox) 40 mg SC DAILY [facility] PRN Reason: Protocol Last Admin: 10/04/17 08:59 Dose: 40 mg Furosemide (Lasix) 40 mg IVP DAILY [facility] Last Admin: 10/05/17 00:25 Dose: 40 mg Hydralazine HCl (Apresoline) 10 mg PO Q6H PRN; Protocol PRN Reason: SBP>=170 AND/OR DBP>=100 Last Admin: 10/03/17 09:57 Dose: 10 mg Meropenem 1,000 mg/ Sodium (Chloride) 50 mls @ 100 mls/hr IVPB 0600,1400,2200 [facility] PRN Reason: Protocol Stop: 10/09/17 22:01 Last Admin: 10/05/17 05:12 Dose: 100 mls/hr Insulin Detemir (Levemir) 22 unit SC ACBD [facility] PRN Reason: Protocol Insulin Human Lispro (Humalog High) 0 units SC ACHS [facility] Last Admin: 10/05/17 07:50 Dose: 10 units Lisinopril (Zestril) 40 mg PO DAILY [facility] PRN Reason: Protocol Last Admin: 10/04/17 09:00 Dose: 40 mg Metoprolol Succinate (Toprol Xl) 100 mg PO BRK [facility] PRN Reason: Protocol Last Admin: 10/05/17 08:39 Dose: 100 mg Ondansetron HCl (Zofran Inj) 4 mg IVP Q6H PRN; Protocol PRN Reason: Nausea/Vomiting Pantoprazole Sodium (Protonix Ec Tab) 40 mg PO 0600 [facility] PRN Reason: Protocol Last Admin: 10/05/17 05:14 Dose: 40 mg Ursodiol (Actigall) 300 mg PO BID [facility] Last Admin: 10/05/17 00:25 Dose: 300 mg - Labs Labs: 10/05/17 05:30 10/05/17 05:30 - Constitutional Appears: Chronically Ill - Head Exam Head Exam: NORMAL INSPECTION - ENT Exam ENT Exam: Mucous Membranes Moist - Neck Exam Neck Exam: absent: Meningismus - Respiratory Exam Respiratory Exam: Decreased Breath Sounds - Cardiovascular Exam Cardiovascular Exam: +S1, +S2 - GI/Abdominal Exam GI & Abdominal Exam: Soft. absent: Tenderness Assessment and Plan - Assessment and Plan (Free Text) Plan: Assessment Sepsis due to acute cholangitis S/P ERCP, S/P laparoscopic cholecystectomy POD # 7, S/P systemic viral illness with Influenza, R/O post-operative fluid collection DM HTN dyslipidemia Plan Continue Merrem (Day 7) and continue to trend WBC count (still elevated) - follow up HIDA scan results completed Tamiflu course
--- NOTE | 2017-10-05 23:40 | CP.PCM.PN ---
Subjective - Date & Time of Evaluation Date of Evaluation: 10/05/17 Time of Evaluation: 16:00 - Subjective Subjective: Patient seen and examined. Denies nausea/vomiting, denies abdominal pain. Tolerating regular diet. Having BM. Afebrile. Objective - Vital Signs/Intake and Output Vital Signs (last 24 hours): Temp Pulse Resp BP Pulse Ox 98.1 F 69 18 114/61 93 L 10/05/17 17:47 10/05/17 17:47 10/05/17 17:47 10/05/17 17:47 10/05/17 17:47 - Medications Medications: Current Medications Amlodipine Besylate (Norvasc) 5 mg PO DAILY [facility] Last Admin: 10/05/17 09:54 Dose: 5 mg Benzonatate (Tessalon Perles) 200 mg PO TID [facility] PRN Reason: Protocol Last Admin: 10/05/17 17:24 Dose: 200 mg Enoxaparin Sodium (Lovenox) 40 mg SC DAILY [facility] PRN Reason: Protocol Last Admin: 10/05/17 09:53 Dose: 40 mg Furosemide (Lasix) 40 mg IVP DAILY [facility] Stop: 10/06/17 23:00 Last Admin: 10/05/17 09:53 Dose: 40 mg Hydralazine HCl (Apresoline) 10 mg PO Q6H PRN; Protocol PRN Reason: SBP>=170 AND/OR DBP>=100 Last Admin: 10/03/17 09:57 Dose: 10 mg Meropenem 1,000 mg/ Sodium (Chloride) 50 mls @ 100 mls/hr IVPB 0600,1400,2200 [facility] PRN Reason: Protocol Stop: 10/09/17 22:01 Last Admin: 10/05/17 21:31 Dose: 100 mls/hr Insulin Detemir (Levemir) 22 unit SC ACBD [facility] PRN Reason: Protocol Last Admin: 10/05/17 17:24 Dose: 22 unit Insulin Human Lispro (Humalog High) 0 units SC ACHS [facility] PRN Reason: Protocol Last Admin: 10/05/17 22:00 Dose: Not Given Lisinopril (Zestril) 40 mg PO DAILY [facility] PRN Reason: Protocol Last Admin: 10/05/17 09:54 Dose: 40 mg Metoprolol Succinate (Toprol Xl) 100 mg PO BRK [facility] PRN Reason: Protocol Last Admin: 10/05/17 08:39 Dose: 100 mg Ondansetron HCl (Zofran Inj) 4 mg IVP Q6H PRN; Protocol PRN Reason: Nausea/Vomiting Pantoprazole Sodium (Protonix Ec Tab) 40 mg PO 0600 [facility] PRN Reason: Protocol Last Admin: 10/05/17 05:14 Dose: 40 mg Ursodiol (Actigall) 300 mg PO BID [facility] Last Admin: 10/05/17 17:21 Dose: 300 mg - Labs Labs: 10/05/17 05:30 10/05/17 05:30 - Constitutional Appears: No Acute Distress - Head Exam Head Exam: NORMOCEPHALIC - Eye Exam Eye Exam: EOMI, Normal appearance, PERRL - ENT Exam ENT Exam: Mucous Membranes Moist - Respiratory Exam Respiratory Exam: NORMAL BREATHING PATTERN - Cardiovascular Exam Cardiovascular Exam: +S1, +S2 - GI/Abdominal Exam GI & Abdominal Exam: Soft. absent: Distended, Firm, Guarding, Rigid, Tenderness - Neurological Exam Neurological Exam: Alert, Awake, Oriented x3 - Psychiatric Exam Psychiatric exam: Normal Mood - Skin Skin Exam: Dry, Intact, Warm Assessment and Plan - Assessment and Plan (Free Text) Assessment: 67F w/ cholangitis s/p ERCP, s/p lap cholecystectomy POD8 Plan: R/o post-operative intra-abdominal collection F/u HIDA scan results D/w Dr. Duglas Granado PGY2
[2017-10-06] MEDS: Pantoprazole 40 mg EC Tab PO SCH (05:44)
[2017-10-06 06:27] LABS: BASO # 0.07 K/mm3 (0.0-2.0); BASO % 0.4 % (0.0-3.0); EOS # 1.1 (0.0-0.7); EOS % 6.4 % (1.5-5.0); GRAN # 11.01 (1.4-6.5); GRAN % 65.6 % (50.0-68.0); HEMOGLOBIN 12.2 g/dL (12.0-16.0); LYMPH # 3.5 (1.2-3.4); LYMPH % 20.8 % (22.0-35.0); MEAN CELL VOLUME 86.9 fl (80.0-105.0); MEAN CORPUSCULAR HEMOGLOBIN 28.1 pg (25.0-35.0); MEAN CORPUSCULAR HGB CONC 32.4 g/dl (31.0-37.0); MEAN PLATELET VOLUME 11.5 fl (7.0-11.0); MONO # 1.1 (0.1-0.6); MONO % 6.8 % (1.0-6.0); RBC 4.34 10^6/uL (3.5-6.1); RED CELL DISTRIBUTION WIDTH 14.4 % (11.5-14.5); WHITE BLOOD COUNT 16.8 10^3/ul (4.5-11.0)
[2017-10-06] MEDS: Insulin Detemir 100 units/ml Vial (Levemir) SC SCH ×2 (06:38→18:48)
[2017-10-06] MEDS: Insulin Lispro (HUMAlog) HIGH Coverage SC SCH ×4 (06:39→21:36)
[2017-10-06 07:04] LABS: BILIRUBIN,DIRECT 0.7 mg/dL (0.0-0.4)
[2017-10-06 07:26] LABS: ALB/GLOB RATIO 0.9 (1.1-1.8); ALBUMIN 3.5 g/dL (3.0-4.8); ALT/SGPT 63 U/L (7-56); AST/SGOT 52 U/L (14-36); BLOOD UREA NITROGEN 35 mg/dL (7-21); CALCIUM 10.1 mg/dL (8.4-10.5); GFR AFRICAN-AMERICAN > 60; GFR NON-AFRICAN AMERICAN 55
[2017-10-06] MEDS ORDERED: Insulin Detemir 100 units/ml Vial (Levemir) SC SCH ×2 (08:08→08:23)
[2017-10-06] MEDS: Metoprolol Succinate 100 mg XL Tab PO SCH (08:33)
[2017-10-06] MEDS: Enoxaparin 40 mg Syringe SC SCH (09:53)
--- NOTE | 2017-10-06 10:47 | CP.PCM.PN ---
Subjective - Date & Time of Evaluation Date of Evaluation: 10/06/17 Time of Evaluation: 10:46 - Subjective Subjective: Surgery: Dr. Ardon covering for Dr. Saunders Pt seen and examined. Resting comfortably in bed. Pain controlled. Objective - Vital Signs/Intake and Output Vital Signs (last 24 hours): Temp Pulse Resp BP Pulse Ox 98.6 F 70 16 136/78 94 L 10/06/17 06:00 10/06/17 09:53 10/06/17 06:00 10/06/17 10:23 10/06/17 06:00 - Medications Medications: Current Medications Amlodipine Besylate (Norvasc) 5 mg PO DAILY [facility] Last Admin: 10/06/17 09:53 Dose: 5 mg Benzonatate (Tessalon Perles) 200 mg PO TID [facility] PRN Reason: Protocol Last Admin: 10/06/17 09:52 Dose: 200 mg Enoxaparin Sodium (Lovenox) 40 mg SC DAILY [facility] PRN Reason: Protocol Last Admin: 10/06/17 09:53 Dose: 40 mg Furosemide (Lasix) 40 mg IVP DAILY [facility] Stop: 10/06/17 23:00 Last Admin: 10/06/17 10:23 Dose: 40 mg Hydralazine HCl (Apresoline) 10 mg PO Q6H PRN; Protocol PRN Reason: SBP>=170 AND/OR DBP>=100 Last Admin: 10/03/17 09:57 Dose: 10 mg Meropenem 1,000 mg/ Sodium (Chloride) 50 mls @ 100 mls/hr IVPB 0600,1800 [facility] PRN Reason: Protocol Stop: 10/13/17 18:01 Insulin Detemir (Levemir) 30 unit SC ACBD [facility] PRN Reason: Protocol Insulin Human Lispro (Humalog High) 0 units SC ACHS [facility] PRN Reason: Protocol Last Admin: 10/06/17 06:39 Dose: 10 units Lisinopril (Zestril) 40 mg PO DAILY [facility] PRN Reason: Protocol Last Admin: 10/06/17 09:53 Dose: 40 mg Metoprolol Succinate (Toprol Xl) 100 mg PO BRK [facility] PRN Reason: Protocol Last Admin: 10/06/17 08:33 Dose: 100 mg Ondansetron HCl (Zofran Inj) 4 mg IVP Q6H PRN; Protocol PRN Reason: Nausea/Vomiting Pantoprazole Sodium (Protonix Ec Tab) 40 mg PO 0600 [facility] PRN Reason: Protocol Last Admin: 10/06/17 05:44 Dose: 40 mg Ursodiol (Actigall) 300 mg PO BID [facility] Last Admin: 10/06/17 09:53 Dose: 300 mg - Labs Labs: 10/06/17 05:20 10/06/17 05:20 - Constitutional Appears: Non-toxic, No Acute Distress - Head Exam Head Exam: ATRAUMATIC, NORMOCEPHALIC - Eye Exam Eye Exam: EOMI - ENT Exam ENT Exam: Mucous Membranes Moist - Neck Exam Neck Exam: Full ROM - Respiratory Exam Respiratory Exam: NORMAL BREATHING PATTERN. absent: Accessory Muscle Use, Respiratory Distress - GI/Abdominal Exam GI & Abdominal Exam: Soft. absent: Distended, Firm, Guarding, Rigid, Tenderness - Extremities Exam Extremities Exam: Calf Tenderness. absent: Pedal Edema - Neurological Exam Neurological Exam: Alert, Oriented x3 - Psychiatric Exam Psychiatric exam: Normal Affect, Normal Mood Assessment and Plan - Assessment and Plan (Free Text) Assessment: 67F w. cholangitis s/p lap pati w. new onset leukocytosis and transaminitis now resolving -Pt asymptomatic -HIDA negative for bile leak -U/S no fluid collection -will sign off -please re-consult if needed -d/w attending Zemaitis PGY3
--- NOTE | 2017-10-06 11:02 | RAD ---
HISTORY: sob COMPARISON: 10/04/2017 TECHNIQUE: Chest PA and lateral FINDINGS: LUNGS: No active pulmonary disease. PLEURA: No significant pleural effusion identified. No pneumothorax apparent. CARDIOVASCULAR: Normal. OSSEOUS STRUCTURES: No significant abnormalities. VISUALIZED UPPER ABDOMEN: Normal. OTHER FINDINGS: None. IMPRESSION: No active disease.
--- NOTE | 2017-10-06 11:32 | CP.PCM.PN ---
<John Loja - Last Filed: 10/06/17 11:36> Subjective - Date & Time of Evaluation Date of Evaluation: 10/06/17 Time of Evaluation: 07:00 - Subjective Subjective: GI Fellow PGY 4 Progress Note Pt seen and evaluated at bedside, pt doing well with no abdominal pain. Pt reports BM is normal no more diarrhea. Denies F/C, N/V, she is tolerating her diet. ROS: A 12pt ROS was negative except as above. Objective - Vital Signs/Intake and Output Vital Signs (last 24 hours): Temp Pulse Resp BP Pulse Ox 98.6 F 70 16 136/78 94 L 10/06/17 06:00 10/06/17 09:53 10/06/17 06:00 10/06/17 10:23 10/06/17 06:00 - Medications Medications: Current Medications Amlodipine Besylate (Norvasc) 5 mg PO DAILY [facility] Last Admin: 10/06/17 09:53 Dose: 5 mg Benzonatate (Tessalon Perles) 200 mg PO TID [facility] PRN Reason: Protocol Last Admin: 10/06/17 09:52 Dose: 200 mg Enoxaparin Sodium (Lovenox) 40 mg SC DAILY [facility] PRN Reason: Protocol Last Admin: 10/06/17 09:53 Dose: 40 mg Furosemide (Lasix) 40 mg IVP DAILY [facility] Stop: 10/06/17 23:00 Last Admin: 10/06/17 10:23 Dose: 40 mg Hydralazine HCl (Apresoline) 10 mg PO Q6H PRN; Protocol PRN Reason: SBP>=170 AND/OR DBP>=100 Last Admin: 10/03/17 09:57 Dose: 10 mg Meropenem 1,000 mg/ Sodium (Chloride) 50 mls @ 100 mls/hr IVPB 0600,1800 [facility] PRN Reason: Protocol Stop: 10/13/17 18:01 Insulin Detemir (Levemir) 30 unit SC 0730,1730 [facility] PRN Reason: Protocol Insulin Human Lispro (Humalog High) 0 units SC ACHS [facility] PRN Reason: Protocol Last Admin: 10/06/17 06:39 Dose: 10 units Lisinopril (Zestril) 40 mg PO DAILY [facility] PRN Reason: Protocol Last Admin: 10/06/17 09:53 Dose: 40 mg Metoprolol Succinate (Toprol Xl) 100 mg PO BRK [facility] PRN Reason: Protocol Last Admin: 10/06/17 08:33 Dose: 100 mg Ondansetron HCl (Zofran Inj) 4 mg IVP Q6H PRN; Protocol PRN Reason: Nausea/Vomiting Pantoprazole Sodium (Protonix Ec Tab) 40 mg PO 0600 [facility] PRN Reason: Protocol Last Admin: 10/06/17 05:44 Dose: 40 mg Ursodiol (Actigall) 300 mg PO 0800,1800 [facility] PRN Reason: Protocol - Labs Labs: 10/06/17 05:20 10/06/17 05:20 - Constitutional Appears: Well, No Acute Distress - Head Exam Head Exam: ATRAUMATIC, NORMOCEPHALIC - Eye Exam Eye Exam: Normal appearance - ENT Exam ENT Exam: Mucous Membranes Moist, Normal Exam - Respiratory Exam Respiratory Exam: Clear to Ausculation Bilateral, NORMAL BREATHING PATTERN. absent: Rales, Rhonchi, Wheezes, Respiratory Distress - Cardiovascular Exam Cardiovascular Exam: REGULAR RHYTHM, +S1, +S2 - GI/Abdominal Exam GI & Abdominal Exam: Soft, Normal Bowel Sounds. absent: Guarding, Rigid, Tenderness - Extremities Exam Extremities Exam: absent: Joint Swelling, Pedal Edema - Neurological Exam Neurological Exam: Alert, Awake, Oriented x3 - Psychiatric Exam Psychiatric exam: Normal Affect, Normal Mood - Skin Skin Exam: Dry, Intact, Normal Color, Warm Assessment and Plan - Assessment and Plan (Free Text) Assessment: Kathy Dominique is a 67F w/ hx of DM, HTN, dyslipidemia who was admitted for possible cholangitis, cholesystitis. s/p ERCP with sphincterotomy and cholecystectomy POD 8 with fresh elevation of leukocytes and ALT. Elevated LFTs (improving) Cholangits?, resolved, s/p ERCP -Continue supportive care, pt clinically improved and tolerating diet with no abdominal pain - s/p urgent EUS/ERCP for suspected cholangitis with sphincterotomy and sludge no stones - s/p lap cholecystectomy - Monitor LFTs, trending down - Continue Ursodiol ddx PSC - IV abx per primary team - Blood cx/urine negative - Check cdiff with hx of recent diarrhea - Treated with tamiflu for influenza - HIDA, neg for bile leak - Will sign off D/W Dr. Florian <Shani Florian - Last Filed: 10/06/17 22:09> Objective - Vital Signs/Intake and Output Vital Signs (last 24 hours): Temp Pulse Resp BP Pulse Ox 98.0 F 88 18 129/67 98 10/06/17 16:24 18 16:24 10/06/17 16:24 10/06/17 16:24 10/06/17 16:24 - Medications Medications: Current Medications Amlodipine Besylate (Norvasc) 5 mg PO DAILY [facility] Last Admin: 10/06/17 09:53 Dose: 5 mg Benzonatate (Tessalon Perles) 200 mg PO TID [facility] PRN Reason: Protocol Last Admin: 10/06/17 18:49 Dose: 200 mg Enoxaparin Sodium (Lovenox) 40 mg SC DAILY [facility] PRN Reason: Protocol Last Admin: 10/06/17 09:53 Dose: 40 mg Furosemide (Lasix) 40 mg IVP DAILY [facility] Stop: 10/06/17 23:00 Last Admin: 10/06/17 10:23 Dose: 40 mg Hydralazine HCl (Apresoline) 10 mg PO Q6H PRN; Protocol PRN Reason: SBP>=170 AND/OR DBP>=100 Last Admin: 10/03/17 09:57 Dose: 10 mg Meropenem 1,000 mg/ Sodium (Chloride) 50 mls @ 100 mls/hr IVPB 0600,1800 [facility] PRN Reason: Protocol Stop: 10/13/17 18:01 Last Admin: 10/06/17 19:49 Dose: 100 mls/hr Insulin Detemir (Levemir) 30 unit SC 0730,1730 [facility] PRN Reason: Protocol Last Admin: 10/06/17 18:48 Dose: 30 unit Insulin Human Lispro (Humalog High) 0 units SC ACHS [facility] PRN Reason: Protocol Last Admin: 10/06/17 21:36 Dose: Not Given Lisinopril (Zestril) 40 mg PO DAILY [facility] PRN Reason: Protocol Last Admin: 10/06/17 09:53 Dose: 40 mg Metoprolol Succinate (Toprol Xl) 100 mg PO BRK [facility] PRN Reason: Protocol Last Admin: 10/06/17 08:33 Dose: 100 mg Ondansetron HCl (Zofran Inj) 4 mg IVP Q6H PRN; Protocol PRN Reason: Nausea/Vomiting Pantoprazole Sodium (Protonix Ec Tab) 40 mg PO 0600 [facility] PRN Reason: Protocol Last Admin: 10/06/17 05:44 Dose: 40 mg Ursodiol (Actigall) 300 mg PO 0800,1800 [facility] PRN Reason: Protocol Last Admin: 10/06/17 18:47 Dose: 300 mg - Labs Labs: 10/06/17 05:20 10/06/17 05:20 Attending/Attestation - Attestation I have personally seen and examined this patient.: Yes I have fully participated in the care of the patient.: Yes I have reviewed all pertinent clinical information, including history, physical exam and plan: Yes Notes (Text): 10/06/17 22:08 67 year old female admitted with flu, also found to have cholelithiasis, elevated lfts, s/p ERCP with sphincterotomy, s/p cholecystectomy, with persistently elevated lfts. Eval for chronic liver disease is negative. Ddx includes fatty liver with metabolic syndrome. Consider liver biopsy if persistently elevated. HIDA negative for bile leak. Will follow trend
[2017-10-06 12:18] LABS: HEPATITIS B SURFACE AG Negative (NEGATIVE)
[2017-10-06 12:24] LABS: HEPATITIS A IGM NEGATIVE (NEGATIVE); HEPATITIS B CORE AB NEGATIVE (NEGATIVE)
[2017-10-06 12:36] LABS: HEPATITIS C ANTIBODY NEGATIVE (NEGATIVE)
--- NOTE | 2017-10-06 12:44 | PN ---
DATE: 10/06/2017 SUBJECTIVE: The patient is seen in room 317, bed 1. The patient is again seen lying in the bed. The patient was encouraged to be out of bed. The patient was advised to sit up in the chair. Overnight nurse's notes were reviewed. PHYSICAL EXAMINATION: VITAL SIGNS: T-max 98.6-98.7; pulse 70; blood pressure 136/78, 129/64, 119/61; respirations 16; O2 sat 95%, 94%. Intake/output not done. HEENT: Head examination normocephalic, atraumatic. HEENT examination shows pink conjunctivae. Anicteric sclerae. No oropharyngeal lesion. No neck rigidity. CHEST: Kyphosis. LUNGS: Examination shows decreasing rhonchi, crackles and creps bilaterally. CARDIOVASCULAR: S1, S2, regular rhythm. Positive systolic murmur, left sternal border, left second intercostal space, right second intercostal space. ABDOMEN: Soft. Positive bowel sounds. Healed surgical scar of laparoscopic cholecystectomy. No guarding. No rigidity. No rebound tenderness. No hepatosplenomegaly noted. GENITALIA: Female. RECTAL: Deferred. EXTREMITY: Shows no pitting edema, no calf tenderness, no Homans' sign. NEUROLOGIC: The patient is alert, awake, responsive, is able to move upper and lower extremity without assistance. Gait examinations is not tested, but the patient is able to ambulate out of bed to the chair. The patient is alert, awake, oriented x3. MUSCULOSKELETAL: Shows a body mass index of 26. DIAGNOSTICS: On 10/06/2017, WBC down to 16.8 from a peak WBC of 20.4, hemoglobin and hematocrit 12.2 and 37.7, platelet 485. Sodium 133, potassium 4.1, chloride 97, CO2 of 26, anion gap 14, BUN 35, creatinine 1.0, GFR greater than 60. Glucose 180, 384, 330. Calcium 10.1, direct bili 0.7, AST 52, ALT 63, alk phos 281. HIV nonreactive. Hepatitis serologies pending. Blood cultures negative. Repeat chest x-ray was done today. Official report is the patient still seems to have some small effusion at the bases. IMPRESSION AND PLAN: 1. Deconditioning. 2. Gait dysfunction. 3. Post laparoscopic cholecystectomy, persistent leukocytosis and persistent transaminitis and mild hyperbilirubinemia. 4. Sepsis secondary to acute cholangitis. 5. Status post endoscopic retrograde cholangiopancreatography. 6. Laparoscopic cholecystectomy. 7. Systemic viral illness secondary to influenza. 8. Transaminitis. 9. Questionable possible fatty liver versus primary sclerosing cholangitis. 10. Hypertension. 11. Persistent hyperglycemia. 12. Slow resolving transaminitis and mild hyperbilirubinemia. 13. Hyperuricemia. 14. Leukocytosis. 15. Gait dysfunction. 16. Deconditioning. 17. Hypertension. 18. Insulin-requiring diabetes mellitus. Plan at this time, repeat labs are ordered for the morning. C. diff toxin and antigen still unconnected. Urine culture reports are still not available. Blood cultures reports for 24 hours are negative. CURRENT MEDICATIONS: 1. Actigall 300 mg twice a day. 2. Hydralazine 10 mg q. 6 p.r.n. 3. Humalog high-dose sliding scale coverage before meals and at bedtime. 4. Lasix 40 mg IV daily. 5. Levemir 30 units subcu before breakfast and dinner. 6. Lovenox 40 mg subcu daily. 7. Meropenem 1 g IV q. 12, which was changed by Dr. Martin until 10/13/2017 for 7 days. 8. Norvasc 5 mg daily. 9. Protonix 40 mg daily. 10. Tessalon Perles 200 three times a day. 11. Toprol-XL 100 mg daily. 12. Lisinopril 40 mg daily. 13. Zofran 4 mg IV q. 6 p.r.n. The patient's repeat chest x-ray PA and lateral results are pending. Oxygen 2 L, out of bed to chair. Physical therapy, occupational therapy ordered. The patient at this time will be continued on the above therapeutic intervention with aggressive physical therapy, ambulation therapy, gait training. The patient's lab will be monitored. The patient's repeat blood and urine cultures and chest x-ray will be reviewed. Current consultations are Surgery, Gastroenterology, Cardiology, Infectious Disease. Dictated and electronically signed, not read. Bruce Hall MD [facility] # [id number]
--- NOTE | 2017-10-06 17:06 | CP.PCM.PN ---
Subjective - Date & Time of Evaluation Date of Evaluation: 10/06/17 Time of Evaluation: 11:55 - Subjective Subjective: Comfortable in bed, no fevers, no abdominal pain. No diarrhea. Objective - Vital Signs/Intake and Output Vital Signs (last 24 hours): Temp Pulse Resp BP Pulse Ox 98.6 F 70 16 129/64 94 L 10/06/17 06:00 10/06/17 09:53 10/06/17 06:00 10/06/17 09:53 10/06/17 06:00 - Medications Medications: Current Medications Amlodipine Besylate (Norvasc) 5 mg PO DAILY [facility] Last Admin: 10/06/17 09:53 Dose: 5 mg Benzonatate (Tessalon Perles) 200 mg PO TID [facility] PRN Reason: Protocol Last Admin: 10/06/17 09:52 Dose: 200 mg Enoxaparin Sodium (Lovenox) 40 mg SC DAILY [facility] PRN Reason: Protocol Last Admin: 10/06/17 09:53 Dose: 40 mg Furosemide (Lasix) 40 mg IVP DAILY [facility] Stop: 10/06/17 23:00 Last Admin: 10/05/17 09:53 Dose: 40 mg Hydralazine HCl (Apresoline) 10 mg PO Q6H PRN; Protocol PRN Reason: SBP>=170 AND/OR DBP>=100 Last Admin: 10/03/17 09:57 Dose: 10 mg Meropenem 1,000 mg/ Sodium (Chloride) 50 mls @ 100 mls/hr IVPB Q12 [facility] PRN Reason: Protocol Stop: 10/13/17 22:01 Insulin Detemir (Levemir) 30 unit SC ACBD [facility] PRN Reason: Protocol Insulin Human Lispro (Humalog High) 0 units SC ACHS [facility] PRN Reason: Protocol Last Admin: 10/06/17 06:39 Dose: 10 units Lisinopril (Zestril) 40 mg PO DAILY [facility] PRN Reason: Protocol Last Admin: 10/06/17 09:53 Dose: 40 mg Metoprolol Succinate (Toprol Xl) 100 mg PO BRK [facility] PRN Reason: Protocol Last Admin: 10/06/17 08:33 Dose: 100 mg Ondansetron HCl (Zofran Inj) 4 mg IVP Q6H PRN; Protocol PRN Reason: Nausea/Vomiting Pantoprazole Sodium (Protonix Ec Tab) 40 mg PO 0600 [facility] PRN Reason: Protocol Last Admin: 10/06/17 05:44 Dose: 40 mg Ursodiol (Actigall) 300 mg PO BID [facility] Last Admin: 10/06/17 09:53 Dose: 300 mg - Labs Labs: 10/06/17 05:20 10/06/17 05:20 - Constitutional Appears: Non-toxic, Chronically Ill - Head Exam Head Exam: NORMAL INSPECTION - Neck Exam Neck Exam: absent: Meningismus - Respiratory Exam Respiratory Exam: Decreased Breath Sounds - Cardiovascular Exam Cardiovascular Exam: +S1, +S2 - GI/Abdominal Exam GI & Abdominal Exam: Soft. absent: Tenderness Assessment and Plan - Assessment and Plan (Free Text) Plan: Assessment Sepsis due to acute cholangitis S/P ERCP, S/P laparoscopic cholecystectomy POD # 7, S/P systemic viral illness with Influenza, R/O post-operative fluid collection DM HTN dyslipidemia Plan Continue Merrem (Day 8) and continue to trend WBC count (starting to decrease) - HIDA scan is negative for biliary leak - complete 10-14 days of antibiotics completed Tamiflu course
[2017-10-07] MEDS: Pantoprazole 40 mg EC Tab PO SCH (05:40)
[2017-10-07] MEDS: Insulin Lispro (HUMAlog) HIGH Coverage SC SCH ×4 (06:40→22:01)
[2017-10-07] MEDS: Insulin Detemir 100 units/ml Vial (Levemir) SC SCH ×2 (07:02→17:55)
[2017-10-07 07:19] LABS: BASO # 0.09 K/mm3 (0.0-2.0); BASO % 0.6 % (0.0-3.0); EOS # 0.8 (0.0-0.7); EOS % 5.2 % (1.5-5.0); GRAN # 9.82 (1.4-6.5); GRAN % 62.7 % (50.0-68.0); HEMOGLOBIN 12.6 g/dL (12.0-16.0); LYMPH # 3.7 (1.2-3.4); LYMPH % 23.6 % (22.0-35.0); MEAN CELL VOLUME 84.9 fl (80.0-105.0); MEAN CORPUSCULAR HEMOGLOBIN 28.4 pg (25.0-35.0); MEAN CORPUSCULAR HGB CONC 33.4 g/dl (31.0-37.0); MEAN PLATELET VOLUME 11.1 fl (7.0-11.0); MONO # 1.2 (0.1-0.6); MONO % 7.9 % (1.0-6.0); RBC 4.44 10^6/uL (3.5-6.1); RED CELL DISTRIBUTION WIDTH 14.2 % (11.5-14.5); WHITE BLOOD COUNT 15.7 10^3/ul (4.5-11.0)
[2017-10-07 07:31] LABS: ALB/GLOB RATIO 0.9 (1.1-1.8); ALBUMIN 3.6 g/dL (3.0-4.8); ALT/SGPT 60 U/L (7-56); AST/SGOT 45 U/L (14-36); BILIRUBIN,DIRECT 0.6 mg/dL (0.0-0.4); BLOOD UREA NITROGEN 34 mg/dL (7-21); GFR AFRICAN-AMERICAN > 60; GFR NON-AFRICAN AMERICAN 55
[2017-10-07] MEDS: Metoprolol Succinate 100 mg XL Tab PO SCH (08:12)
[2017-10-07] MEDS: Enoxaparin 40 mg Syringe SC SCH (10:32)
--- NOTE | 2017-10-07 13:09 | CP.PCM.PN ---
<John Loja - Last Filed: 10/07/17 13:11> Subjective - Date & Time of Evaluation Date of Evaluation: 10/07/17 Time of Evaluation: 07:50 - Subjective Subjective: GI Fellow PGY 4 Progress Note Pt seen and evaluated at bedside, pt doing well with no abdominal pain. Pt reports BM is normal no more diarrhea. Denies F/C, N/V, she is tolerating her diet. ROS: A 12pt ROS was negative except as above. Objective - Vital Signs/Intake and Output Vital Signs (last 24 hours): Temp Pulse Resp BP Pulse Ox 98.2 F 72 18 122/67 95 10/07/17 11:20 10/07/17 11:20 10/07/17 11:20 10/07/17 11:20 10/07/17 11:20 - Medications Medications: Current Medications Amlodipine Besylate (Norvasc) 5 mg PO DAILY [facility] Last Admin: 10/07/17 10:32 Dose: 5 mg Benzonatate (Tessalon Perles) 200 mg PO TID [facility] PRN Reason: Protocol Last Admin: 10/07/17 10:33 Dose: 200 mg Enoxaparin Sodium (Lovenox) 40 mg SC DAILY [facility] PRN Reason: Protocol Last Admin: 10/07/17 10:32 Dose: 40 mg Hydralazine HCl (Apresoline) 10 mg PO Q6H PRN; Protocol PRN Reason: SBP>=170 AND/OR DBP>=100 Last Admin: 10/03/17 09:57 Dose: 10 mg Meropenem 1,000 mg/ Sodium (Chloride) 50 mls @ 100 mls/hr IVPB 0600,1800 [facility] PRN Reason: Protocol Stop: 10/13/17 18:01 Last Admin: 10/07/17 05:39 Dose: 100 mls/hr Insulin Detemir (Levemir) 30 unit SC 0730,1730 [facility] PRN Reason: Protocol Last Admin: 10/07/17 07:02 Dose: 30 unit Insulin Human Lispro (Humalog High) 0 units SC ACHS [facility] PRN Reason: Protocol Last Admin: 10/07/17 12:11 Dose: 10 units Lisinopril (Zestril) 40 mg PO DAILY [facility] PRN Reason: Protocol Last Admin: 10/07/17 10:34 Dose: 40 mg Metoprolol Succinate (Toprol Xl) 100 mg PO BRK [facility] PRN Reason: Protocol Last Admin: 10/07/17 08:12 Dose: 100 mg Ondansetron HCl (Zofran Inj) 4 mg IVP Q6H PRN; Protocol PRN Reason: Nausea/Vomiting Pantoprazole Sodium (Protonix Ec Tab) 40 mg PO 0600 [facility] PRN Reason: Protocol Last Admin: 10/07/17 05:40 Dose: 40 mg Ursodiol (Actigall) 300 mg PO 0800,1800 [facility] PRN Reason: Protocol Last Admin: 10/07/17 08:12 Dose: 300 mg - Labs Labs: 10/07/17 06:00 10/07/17 06:00 - Constitutional Appears: Well, No Acute Distress - Head Exam Head Exam: ATRAUMATIC, NORMOCEPHALIC - Eye Exam Eye Exam: Normal appearance - ENT Exam ENT Exam: Mucous Membranes Moist, Normal Exam - Neck Exam Neck Exam: Normal Inspection - Respiratory Exam Respiratory Exam: Clear to Ausculation Bilateral, NORMAL BREATHING PATTERN. absent: Rales, Rhonchi, Wheezes - Cardiovascular Exam Cardiovascular Exam: REGULAR RHYTHM, +S1, +S2 - GI/Abdominal Exam GI & Abdominal Exam: Soft, Normal Bowel Sounds. absent: Guarding, Rigid, Tenderness - Extremities Exam Extremities Exam: absent: Joint Swelling, Pedal Edema - Neurological Exam Neurological Exam: Alert, Awake - Psychiatric Exam Psychiatric exam: Normal Affect, Normal Mood - Skin Skin Exam: Dry, Intact, Normal Color, Warm Assessment and Plan - Assessment and Plan (Free Text) Assessment: Kathy Dominique is a 67F w/ hx of DM, HTN, dyslipidemia who was admitted for possible cholangitis, cholesystitis. s/p ERCP with sphincterotomy and cholecystectomy POD 8 with fresh elevation of leukocytes and ALT. Elevated LFTs (improving), etiology likely 2/2 hyperglycemia, TG Cholangits?, resolved, s/p ERCP -Continue supportive care, pt clinically improved and tolerating diet with no abdominal pain - s/p urgent EUS/ERCP for suspected cholangitis with sphincterotomy and sludge no stones - s/p lap cholecystectomy - LFTs trending down - Continue Ursodiol ddx PSC - IV abx per primary team - Blood cx/urine negative - Treated with tamiflu for influenza - HIDA, neg for bile leak - Will sign off D/W Dr. Florian <Shani Florian - Last Filed: 10/07/17 14:58> Objective - Vital Signs/Intake and Output Vital Signs (last 24 hours): Temp Pulse Resp BP Pulse Ox 98.2 F 72 18 122/67 95 10/07/17 11:20 10/07/17 11:20 10/07/17 11:20 10/07/17 11:20 10/07/17 11:20 - Medications Medications: Current Medications Amlodipine Besylate (Norvasc) 5 mg PO DAILY [facility] Last Admin: 10/07/17 10:32 Dose: 5 mg Benzonatate (Tessalon Perles) 200 mg PO TID [facility] PRN Reason: Protocol Last Admin: 10/07/17 14:04 Dose: 200 mg Enoxaparin Sodium (Lovenox) 40 mg SC DAILY [facility] PRN Reason: Protocol Last Admin: 10/07/17 10:32 Dose: 40 mg Hydralazine HCl (Apresoline) 10 mg PO Q6H PRN; Protocol PRN Reason: SBP>=170 AND/OR DBP>=100 Last Admin: 10/03/17 09:57 Dose: 10 mg Meropenem 1,000 mg/ Sodium (Chloride) 50 mls @ 100 mls/hr IVPB 0600,1800 [facility] PRN Reason: Protocol Stop: 10/13/17 18:01 Last Admin: 10/07/17 05:39 Dose: 100 mls/hr Insulin Detemir (Levemir) 30 unit SC 0730,1730 [facility] PRN Reason: Protocol Last Admin: 10/07/17 07:02 Dose: 30 unit Insulin Human Lispro (Humalog High) 0 units SC ACHS [facility] PRN Reason: Protocol Last Admin: 10/07/17 12:11 Dose: 10 units Lisinopril (Zestril) 40 mg PO DAILY [facility] PRN Reason: Protocol Last Admin: 10/07/17 10:34 Dose: 40 mg Metoprolol Succinate (Toprol Xl) 100 mg PO BRK [facility] PRN Reason: Protocol Last Admin: 10/07/17 08:12 Dose: 100 mg Ondansetron HCl (Zofran Inj) 4 mg IVP Q6H PRN; Protocol PRN Reason: Nausea/Vomiting Pantoprazole Sodium (Protonix Ec Tab) 40 mg PO 0600 [facility] PRN Reason: Protocol Last Admin: 10/07/17 05:40 Dose: 40 mg Ursodiol (Actigall) 300 mg PO 0800,1800 [facility] PRN Reason: Protocol Last Admin: 10/07/17 08:12 Dose: 300 mg - Labs Labs: 10/07/17 06:00 10/07/17 06:00 Attending/Attestation - Attestation I have personally seen and examined this patient.: Yes I have fully participated in the care of the patient.: Yes I have reviewed all pertinent clinical information, including history, physical exam and plan: Yes Notes (Text): 10/07/17 14:50 Patient seen with GI fellow on rounds. This is a 67 year old female admitted with flu, also found to have cholelithiasis, elevated lfts, s/p ERCP with sphincterotomy, s/p cholecystectomy, with persistently elevated LFT's. Evaluation for chronic liver disease is negative. Ddx includes fatty liver with metabolic syndrome. Consider liver biopsy if persistently elevated liver enzymes but currently they are trending down. HIDA negative for bile leak. Avoid hepatotoxic medications. Strict control of BP and blood sugars. Can follow as outpatient with GI. Will sign off now. Thank you for letting us participate in the care of your patients
--- NOTE | 2017-10-07 15:52 | PN ---
DATE: SUBJECTIVE: The patient is in bed in no acute distress, nontoxic. The patient is seen earlier in room 317. No fevers and chills. PHYSICAL EXAMINATION: VITAL SIGNS: Temperature is 98, blood pressure is 120/60, respiratory rate of 18. HEENT: Unremarkable. NECK: Supple. LUNGS: Have decreased breath sounds. HEART: Normal S1, S2. ABDOMEN: Soft, nontender. LABORATORY DATA: Reveals a white count of 15,700, hemoglobin of 12, platelets of 488. Chemistries reveals a BUN of 34, creatinine of 3 and 1. Urinalysis is noted. Serology is negative and microbiology reveals the blood cultures are negative. Urine cultures are negative. ASSESSMENT AND PLAN: She is a 67-year-old female who was seen earlier this morning in room 317 with sepsis due to acute cholangitis, status post ERCP, status post laparoscopic cholecystectomy postprocedure day #8, status post systemic viral illness with influenza with postoperative fluid collection, diabetes mellitus, hypertension, dyslipidemia, currently on meropenem day #9 with HIDA scan is negative for biliary leak. The patient's white count is down to 15,700 and consider if we can repeat CAT scan of the abdomen and pelvis for collection. Review of imaging, we will check on tomorrow's CBC reveals the patient had a CAT scan on 09/25/2017. We will discuss with you regarding need for repeat CAT scan, if the leukocytosis does not improve. Pawan Martin MD
--- NOTE | 2017-10-07 21:38 | PN ---
DATE: 10/07/2017 SUBJECTIVE: The patient is seen in room 317 bed one. The patient is out of bed to chair. The patient is tolerating the diet. The patient denies any chest pain. Denies shortness of breath. Denies nausea, vomiting, or diarrhea. Denies constipation. The patient denies any abdominal pain. Overnight nurse's notes were reviewed. PHYSICAL EXAMINATION: VITAL SIGNS: T-max 98.2, pulse 72, blood pressure 122/67, respirations 18, O2 sat is 95%. HEAD: Normocephalic, atraumatic. HEENT: Shows pink conjunctivae. Anicteric sclerae. No oropharyngeal lesion. No jugular venous distention. CHEST: Kyphosis. LUNGS: Show no rales, crackles, or wheezing. CARDIOVASCULAR: S1, S2, regular rhythm. ABDOMEN: Soft. Positive bowel sounds. Slightly protuberant. Healed surgical scar of cholecystectomy. GENITALIA: Female. RECTAL: Deferred. EXTREMITIES: Show no pitting edema, no calf tenderness, no Homans' sign. NEUROLOGIC: The patient is alert, awake, oriented x3. Cranial nerves II through XII grossly intact. Gait examination is independent. The patient ambulates independently without any assistance. Without any gross deficit. PSYCHIATRIC: Negative. DIAGNOSTICS: Abnormal lab findings from 10/07/2017 are WBC of 15.7 which is trending down, BUN and creatinine 34 and 1.0, random glucose 242, AST is down to 45, ALT is down to 60, alkaline phosphatase is 264. Hepatitis A, B serologies are negative. HIV is negative. Blood and urine cultures negative. IMPRESSION AND PLAN: 1. Deconditioning. 2. Gait dysfunction. 3. Status post laparoscopic cholecystectomy. 4. Sepsis secondary to cholangitis. 5. Status post endoscopic retrograde cholangiopancreatography and endoscopic ultrasound. 6. Status post endoscopic retrograde cholangiopancreatography with sphincterotomy and removal of gallbladder sludge. 7. Post laparoscopic cholecystectomy transaminitis (resolving). 8. Post laparoscopic cholecystectomy leukocytosis (resolving). 9. Hyperglycemia. 10. Uncontrolled insulin-requiring diabetes mellitus. 11. Prerenal kidney injury. 12. Hypertension. 13. Mild hyperbilirubinemia. PLAN: At this time, the patient is to be continued on Transitional Care Unit stay until approved number of days. The patient will continue on physical therapy, occupational therapy, ambulation therapy, gait training, and strengthening. The patient's medications are as per MAR which are reviewed. Repeat labs ordered for the morning. The patient updated about her condition. All questions concerned answered. Dictated and electronically signed, not read . Bruce Hall MD
[2017-10-08] MEDS: Pantoprazole 40 mg EC Tab PO SCH (05:48)
[2017-10-08] MEDS: Insulin Detemir 100 units/ml Vial (Levemir) SC SCH ×2 (06:45→22:17)
[2017-10-08] MEDS: Insulin Lispro (HUMAlog) HIGH Coverage SC SCH ×4 (06:46→21:46)
[2017-10-08 06:59] LABS: BASO # 0.06 K/mm3 (0.0-2.0); BASO % 0.5 % (0.0-3.0); EOS # 0.5 (0.0-0.7); EOS % 4.1 % (1.5-5.0); GRAN # 8.48 (1.4-6.5); GRAN % 66.1 % (50.0-68.0); HEMOGLOBIN 11.7 g/dL (12.0-16.0); LYMPH # 2.7 (1.2-3.4); LYMPH % 21.1 % (22.0-35.0); MEAN CELL VOLUME 85.2 fl (80.0-105.0); MEAN CORPUSCULAR HEMOGLOBIN 28.5 pg (25.0-35.0); MEAN CORPUSCULAR HGB CONC 33.4 g/dl (31.0-37.0); MEAN PLATELET VOLUME 11.1 fl (7.0-11.0); MONO # 1.1 (0.1-0.6); MONO % 8.2 % (1.0-6.0); RBC 4.11 10^6/uL (3.5-6.1); RED CELL DISTRIBUTION WIDTH 14.1 % (11.5-14.5); WHITE BLOOD COUNT 12.8 10^3/ul (4.5-11.0)
[2017-10-08 07:44] LABS: ALB/GLOB RATIO 0.9 (1.1-1.8); ALBUMIN 3.4 g/dL (3.0-4.8); ALT/SGPT 52 U/L (7-56); AST/SGOT 41 U/L (14-36); BILIRUBIN,DIRECT 0.5 mg/dL (0.0-0.4); BLOOD UREA NITROGEN 29 mg/dL (7-21); CALCIUM 9.7 mg/dL (8.4-10.5); GFR AFRICAN-AMERICAN > 60; GFR NON-AFRICAN AMERICAN > 60
[2017-10-08] MEDS: Metoprolol Succinate 100 mg XL Tab PO SCH (08:17)
[2017-10-08] MEDS: Enoxaparin 40 mg Syringe SC SCH (10:32)
--- NOTE | 2017-10-08 14:15 | PN ---
DATE: SUBJECTIVE: The patient is in room 317. No fevers and no chills. No nausea. No vomiting. PHYSICAL EXAMINATION: VITAL SIGNS: Temperature of 98, blood pressure is 130/60, respiratory rate of 18, heart rate of 72. HEENT: Examination of HEENT is unremarkable. NECK: Supple. LUNGS: Have decreased breath sounds. HEART: Normal S1 and S2. ABDOMINAL: Nontender. LABORATORY EXAMINATION: Reveals the patient's white count is down to 12,800, hemoglobin of 11, platelets of 435. Chemistries reveals a BUN of 29, creatinine of 0.8. Urinalysis is noted and serology is noted. Review of orders reveals the patient to be on meropenem. Dr. Hall's note is reviewed from yesterday. ASSESSMENT AND PLAN: This is a 67-year-old female who was seen earlier this morning in room 317 with sepsis with acute cholangitis, status post endoscopic retrograde cholangiopancreatography, status post laparoscopic cholecystectomy, postprocedure day #9 with systemic inflammatory response syndrome and sepsis, systemic viral illness with influenza and postoperative fluid collection with diabetes mellitus and hypertension, dyslipidemia. On day #10 of meropenem. The white count improving now. I would consider repeating CAT scan of the abdomen and pelvis regarding evaluation of abdominal collection. Continue meropenem. Pawan Martin MD
[2017-10-09] MEDS: Pantoprazole 40 mg EC Tab PO SCH (05:29)
[2017-10-09] MEDS: Insulin Detemir 100 units/ml Vial (Levemir) SC SCH ×2 (07:49→22:09)
[2017-10-09] MEDS: Insulin Lispro (HUMAlog) HIGH Coverage SC SCH ×5 (07:58→21:51)
[2017-10-09] MEDS: Metoprolol Succinate 100 mg XL Tab PO SCH (09:01)
[2017-10-09] MEDS: Enoxaparin 40 mg Syringe SC SCH (09:03)
--- NOTE | 2017-10-09 09:55 | PN ---
DATE: 10/08/2017 LOCATION: The patient was seen again in room 317, bed 1. SUBJECTIVE: The patient was seen and examined with the patient's nurse . The patient was seen lying in the bed. The patient appears to be comfortable. The patient stated that she had physical therapy twice today. REVIEW OF SYSTEMS: The patient's 13 systems review was negative for chest pain, negative for shortness of breath, negative for nausea, negative for vomiting, negative for diarrhea, negative for hemoptysis, negative for melena, negative for abdominal pain. PHYSICAL EXAMINATION VITAL SIGNS: T-max 98.2, heart rate 66, blood pressure 127/64, respirations 18, O2 sat 97%. HEENT: Head examination, normocephalic, atraumatic. HEENT examination shows pink conjunctivae. Anicteric sclerae. No oropharyngeal lesion. No neck rigidity. CHEST: Kyphosis. No rales, crackles or wheezing. CARDIOVASCULAR: S1 and S2, regular rhythm. Questionable soft systolic murmur, left sternal border, right second intercostal space, left second intercostal space. ABDOMEN: Nonprotuberant. No guarding, no rigidity. No rebound tenderness. No hepatosplenomegaly palpated. right upper quadrant and periumbilical tenderness noted. No costovertebral angle tenderness. LUNGS: Shows clear lung perea. GENITALIA: Female. RECTAL: Deferred. EXTREMITIES: Shows no pitting edema, no calf tenderness, no Homans' sign. NEUROLOGICAL: The patient is alert, awake, oriented x3. Cranial nerves II through XII intact. Gait exam is independent. VASCULAR: Palpable pulses. Plantars are downward. DTRs 2+. PSYCHIATRIC: Negative. DIAGNOSTICS: From 10/08/2017, WBC 12.8, hemoglobin and hematocrit 11.7 and 35, platelets 453. Significant chemistry result shows BUN of 29, creatinine 0.8, glucose of 307. AST is down to 41, ALT is normalized, alkaline phosphatase is 250. Rest of the labs were normal. Fingerstick blood sugar averaging around high to mid 200s to low 300s. IMPRESSION: 1. Deconditioning. 2. Gait dysfunction. 3. Sepsis secondary to cholangitis. 4. Status post laparoscopic cholecystectomy. 5. Status post endoscopic ultrasonography and endoscopic retrograde cholangiopancreatography with sphincterotomy and extraction of gallbladder sludge. 6. Post laparoscopic cholecystectomy leukocytosis and transaminitis and hyperbilirubinemia. 7. Persistent slow resolving leukocytosis. 8. Mild normocytic anemia. 9. Mild prerenal kidney injury. 10. Uncontrolled insulin-requiring diabetes mellitus with hyperglycemia. 11. Hyperbilirubinemia (resolving). 12. Hypertension. 13. Gallbladder sludge. PLAN: At this time, the patient is to be continued on the following medications: Actigall 300 mg twice a day, hydralazine 10 mg p.o. q. 6 p.r.n., patient is on fingerstick blood sugar before meals and at bedtime with Humalog high-dose sliding scale coverage. The patient's insulin is adjusted to Levemir 35 units at bedtime and 30 units with breakfast. The patient is on meropenem 1 g IV q. 12, Norvasc 5 mg daily, Protonix 40 mg daily, Tessalon Perles 200 three times a day, Toprol-XL 100 mg daily, Zestril 40 mg daily, Zofran 4 mg IV q. 6 p.r.n. At this time, the patient is to be continued on the above therapeutic intervention, with surgical followup, Infectious Disease followup, Gastroenterology followup. The patient is to be continued on above-therapeutic intervention. The patient is to be continued on antibiotics as per Infectious Disease recommendation. The patient has been updated about her condition, diagnoses, treatment plan, management plan. The patient will continue on the transitional care unit stay with physical therapy, occupational therapy, ambulation therapy, gait training, and strengthening therapy. Dictated and electronically signed, not read. Bruce Hall MD
--- NOTE | 2017-10-09 11:13 | CP.PCM.PN ---
Subjective - Date & Time of Evaluation Date of Evaluation: 10/09/17 Time of Evaluation: 07:30 - Subjective Subjective: Medicine Note for Dr. Hall Patient seen and examined at bedside. No acute event overnight. Patient has no complaints. She is feeling fine and participatig in PT. She is tolerating diet. ROS negative. Objective - Vital Signs/Intake and Output Vital Signs (last 24 hours): Temp Pulse Resp BP Pulse Ox 98.1 F 68 18 135/62 94 L 10/08/17 17:29 10/09/17 09:02 10/08/17 17:29 10/09/17 09:02 10/08/17 17:29 - Medications Medications: Current Medications Amlodipine Besylate (Norvasc) 5 mg PO DAILY [facility] Last Admin: 10/09/17 09:02 Dose: 5 mg Benzonatate (Tessalon Perles) 200 mg PO TID [facility] PRN Reason: Protocol Last Admin: 10/09/17 09:03 Dose: 200 mg Enoxaparin Sodium (Lovenox) 40 mg SC DAILY [facility] PRN Reason: Protocol Last Admin: 10/09/17 09:03 Dose: 40 mg Hydralazine HCl (Apresoline) 10 mg PO Q6H PRN; Protocol PRN Reason: SBP>=170 AND/OR DBP>=100 Last Admin: 10/03/17 09:57 Dose: 10 mg Meropenem 1,000 mg/ Sodium (Chloride) 50 mls @ 100 mls/hr IVPB 0600,1800 [facility] PRN Reason: Protocol Stop: 10/13/17 18:01 Last Admin: 10/09/17 05:33 Dose: 100 mls/hr Insulin Detemir (Levemir) 35 unit SC HS [facility] Last Admin: 10/08/17 22:17 Dose: 35 unit Insulin Detemir (Levemir) 30 unit SC ACB [facility] PRN Reason: Protocol Last Admin: 10/09/17 07:49 Dose: 30 unit Insulin Human Lispro (Humalog High) 0 units SC ACHS [facility] PRN Reason: Protocol Last Admin: 10/09/17 07:58 Dose: 4 units Lisinopril (Zestril) 40 mg PO DAILY [facility] PRN Reason: Protocol Last Admin: 10/09/17 09:01 Dose: 40 mg Metoprolol Succinate (Toprol Xl) 100 mg PO BRK [facility] PRN Reason: Protocol Last Admin: 10/09/17 09:01 Dose: 100 mg Ondansetron HCl (Zofran Inj) 4 mg IVP Q6H PRN; Protocol PRN Reason: Nausea/Vomiting Pantoprazole Sodium (Protonix Ec Tab) 40 mg PO 0600 [facility] PRN Reason: Protocol Last Admin: 10/09/17 05:29 Dose: 40 mg Ursodiol (Actigall) 300 mg PO 0800,1800 [facility] PRN Reason: Protocol Last Admin: 10/09/17 09:00 Dose: 300 mg - Labs Labs: 10/08/17 06:00 10/08/17 06:00 - Constitutional Appears: No Acute Distress - Head Exam Head Exam: ATRAUMATIC, NORMOCEPHALIC - Eye Exam Eye Exam: EOMI, Normal appearance Pupil Exam: PERRL - ENT Exam ENT Exam: Mucous Membranes Moist - Neck Exam Neck Exam: absent: Tenderness - Respiratory Exam Respiratory Exam: NORMAL BREATHING PATTERN - Cardiovascular Exam Cardiovascular Exam: REGULAR RHYTHM - GI/Abdominal Exam GI & Abdominal Exam: Soft. absent: Tenderness, Normal Bowel Sounds - Extremities Exam Extremities Exam: Normal Capillary Refill - Back Exam Back Exam: absent: CVA tenderness (L), CVA tenderness (R) - Neurological Exam Neurological Exam: Alert, Awake, Oriented x3 - Psychiatric Exam Psychiatric exam: Normal Affect, Normal Mood - Skin Skin Exam: Dry, Intact, Normal Color, Warm Assessment and Plan - Assessment and Plan (Free Text) Plan: 67 yo F with PMH of HTN, IDDM, and HLD originally admitted for influenza and cholangitis s/p laparoscopic cholecystectomy POD#11, now in TCU 1. Cholangitis s/p cholecystectomy - Resolved - Surgery consulted - ID consulted - Tylenol prn - Zofran prn - Cont PT eval and treat - Ursodiol 2. Influenza - Resolved - Tamiflu completed - Tessalon perles prn 3. HTN - Cardiology consulted - Cont Norvasc, HCTZ, Lisinopril, Lopressor - Cont Hydralazine prn 4. DM2 - Levemir 30 u ACD - ISS - Accuchecks ACHS - Carb consistent diet 5. Dyspnea Lasix 40 mg IVP daily f/u CXR GI/DVT PPx - Protonix - Lovenox Patient will be in TCU and continuing physical therapy until 3/22 Discussed in detail with Dr. Rafael Wilkinson PGY1
--- NOTE | 2017-10-09 14:45 | CP.PCM.PN ---
Subjective - Date & Time of Evaluation Date of Evaluation: 10/09/17 Time of Evaluation: 12:50 - Subjective Subjective: Comfortable, no abdominal pain, no fevers. Objective - Vital Signs/Intake and Output Vital Signs (last 24 hours): Temp Pulse Resp BP Pulse Ox 98.1 F 68 18 135/62 94 L 10/08/17 17:29 10/09/17 09:02 10/08/17 17:29 10/09/17 09:02 10/08/17 17:29 - Medications Medications: Current Medications Amlodipine Besylate (Norvasc) 5 mg PO DAILY [facility] Last Admin: 10/09/17 09:02 Dose: 5 mg Benzonatate (Tessalon Perles) 200 mg PO TID [facility] PRN Reason: Protocol Last Admin: 10/09/17 09:03 Dose: 200 mg Enoxaparin Sodium (Lovenox) 40 mg SC DAILY [facility] PRN Reason: Protocol Last Admin: 10/09/17 09:03 Dose: 40 mg Hydralazine HCl (Apresoline) 10 mg PO Q6H PRN; Protocol PRN Reason: SBP>=170 AND/OR DBP>=100 Last Admin: 10/03/17 09:57 Dose: 10 mg Meropenem 1,000 mg/ Sodium (Chloride) 50 mls @ 100 mls/hr IVPB 0600,1800 [facility] PRN Reason: Protocol Stop: 10/13/17 18:01 Last Admin: 10/09/17 05:33 Dose: 100 mls/hr Insulin Detemir (Levemir) 35 unit SC HS [facility] Last Admin: 10/08/17 22:17 Dose: 35 unit Insulin Detemir (Levemir) 30 unit SC ACB [facility] PRN Reason: Protocol Last Admin: 10/09/17 07:49 Dose: 30 unit Insulin Human Lispro (Humalog High) 0 units SC ACHS [facility] PRN Reason: Protocol Last Admin: 10/09/17 07:58 Dose: 4 units Lisinopril (Zestril) 40 mg PO DAILY [facility] PRN Reason: Protocol Last Admin: 10/09/17 09:01 Dose: 40 mg Metoprolol Succinate (Toprol Xl) 100 mg PO BRK [facility] PRN Reason: Protocol Last Admin: 10/09/17 09:01 Dose: 100 mg Ondansetron HCl (Zofran Inj) 4 mg IVP Q6H PRN; Protocol PRN Reason: Nausea/Vomiting Pantoprazole Sodium (Protonix Ec Tab) 40 mg PO 0600 [facility] PRN Reason: Protocol Last Admin: 10/09/17 05:29 Dose: 40 mg Ursodiol (Actigall) 300 mg PO 0800,1800 [facility] PRN Reason: Protocol Last Admin: 10/09/17 09:00 Dose: 300 mg - Labs Labs: 10/08/17 06:00 10/08/17 06:00 - Constitutional Appears: Non-toxic, Chronically Ill - Head Exam Head Exam: NORMAL INSPECTION - Neck Exam Neck Exam: absent: Meningismus - Respiratory Exam Respiratory Exam: Decreased Breath Sounds - Cardiovascular Exam Cardiovascular Exam: +S1, +S2 - GI/Abdominal Exam GI & Abdominal Exam: Soft. absent: Tenderness Assessment and Plan - Assessment and Plan (Free Text) Plan: Assessment Sepsis due to acute cholangitis S/P ERCP, S/P laparoscopic cholecystectomy POD # 10, S/P systemic viral illness with Influenza, R/O post-operative fluid collection DM HTN dyslipidemia Plan Continue Merrem (Day 11) and continue to trend WBC count (starting to decrease) - HIDA scan is negative for biliary leak - complete 10-14 days of antibiotics; if WBC count continues to be elevated, would suggest repeat CT A/P completed Tamiflu course
--- NOTE | 2017-10-09 14:57 | PN ---
DATE: 10/09/2017 SUBJECTIVE: The patient is seen in room 317, bed 1. The patient is out of bed to chair. The patient has been seen ambulating in the room. Overnight nurse's notes were reviewed. No adverse events documented. PHYSICAL EXAMINATION: VITAL SIGNS: T-max 98.1-98.2; pulse 68, 66, 70; blood pressure 135/62, 127/60; respirations 18; O2 sat is 94%, 97%, 95%. HEENT: Head examination is normocephalic, atraumatic. HEENT examination shows pinkish conjunctivae. Anicteric sclerae. No oropharyngeal lesion. No neck rigidity. CHEST: Kyphosis. LUNGS: Shows no rales, crackles or wheezing. CARDIOVASCULAR: S1, S2. Regular rhythm. Questionable soft systolic murmur, left sternal border, left second intercostal space, right second intercostal space. ABDOMEN: Soft. Positive bowel sounds. No hepatosplenomegaly noted. No guarding. No rigidity. No rebound tenderness. No costovertebral angle tenderness. GENITALIA: Female. RECTAL: Deferred. EXTREMITY: Shows no pitting edema, no calf tenderness, no Homans' sign. NEUROLOGIC: The patient is alert, awake, responsive, is able to move upper and lower extremity without assistance. Gait examinations unassisted. VASCULAR: Palpable pulses. MUSCULOSKELETAL: Shows a body mass index of 26. DIAGNOSTICS: From 10/09/2017, none. Fingerstick blood sugar 230, 240, 219, 117, 264. Microbiology: Urine and blood cultures are negative. IMPRESSION AND PLAN: 1. Deconditioning. 2. Gait dysfunction. 3. Sepsis. 4. Acute cholangitis (resolving). 5. Status post endoscopic retrograde cholangiopancreatography and endoscopic ultrasound. 6. Status post laparoscopic cholecystectomy, postop day 10. 7. Systemic viral illness with influenza. 8. History of hypertension, insulin-requiring diabetes mellitus, history of hyperlipidemia, hypertriglyceridemia. 9. Post laparoscopic cholecystectomy rebound leukocytosis and transaminitis. 10. Status post endoscopic retrograde cholangiopancreatography and endoscopic ultrasound with sphincterotomy and removal of gallbladder sludge. 11. Hypertension. 12. Insulin-requiring diabetes mellitus. Plan at this time, the patient is to be continued on Transitional Care Unit. CONSULTATION: 1. Surgery. 2. Cardiology. 3. Infectious Disease. The patient's case is referred to unit educator. CURRENT MEDICATIONS: 1. Actigall 300 mg twice a day. 2. Hydralazine 10 mg p.o. q. 6 p.r.n. 3. Humalog high-dose sliding scale coverage. 4. Levemir 35 units at bedtime and 30 units with breakfast. 5. Lovenox 40 mg subcu daily. 6. Meropenem 1 g IV q. 12 until 10/13/2017. 7. Norvasc 5 mg daily. 8. Protonix 40 mg daily. 9. Tessalon Perles 200 three times a day. 10. Toprol-XL 100 mg daily. 11. Zestril 40 mg daily. 12. Zofran 4 mg IV q. 6 p.r.n. We will repeat the labs for the morning. Depending upon the patient's diagnostic test results, we will determine whether the patient needs serial labs or only p.r.n. labs. The patient has been updated about her condition, diagnosis, treatment plan and management plan. The patient has been advised out of bed, SCDs, BENI stockings, occupational therapy, physical therapy to be continued. All of the above, the patient's condition, diagnoses, test results, all the events since admission and hospitalization was summarized to the patient in layman's language. All questions concerned answered. Dictated and electronically signed, not read. Bruce Hall MD
[2017-10-10] MEDS: Pantoprazole 40 mg EC Tab PO SCH (05:11)
[2017-10-10] MEDS: Insulin Lispro (HUMAlog) HIGH Coverage SC SCH ×4 (06:52→22:12)
[2017-10-10] MEDS: Insulin Detemir 100 units/ml Vial (Levemir) SC SCH ×2 (06:53→22:12)
[2017-10-10 07:19] LABS: BASO # 0.07 K/mm3 (0.0-2.0); BASO % 0.6 % (0.0-3.0); EOS # 0.9 (0.0-0.7); EOS % 7.2 % (1.5-5.0); GRAN # 7.05 (1.4-6.5); GRAN % 57.1 % (50.0-68.0); HEMOGLOBIN 12.9 g/dL (12.0-16.0); LYMPH # 3.3 (1.2-3.4); LYMPH % 26.7 % (22.0-35.0); MEAN CELL VOLUME 85.4 fl (80.0-105.0); MEAN CORPUSCULAR HEMOGLOBIN 28.6 pg (25.0-35.0); MEAN CORPUSCULAR HGB CONC 33.5 g/dl (31.0-37.0); MONO % 8.4 % (1.0-6.0); RBC 4.51 10^6/uL (3.5-6.1); RED CELL DISTRIBUTION WIDTH 14.2 % (11.5-14.5); WHITE BLOOD COUNT 12.4 10^3/ul (4.5-11.0)
[2017-10-10] MEDS: Metoprolol Succinate 100 mg XL Tab PO SCH (07:33)
[2017-10-10 07:59] LABS: ALB/GLOB RATIO 0.9 (1.1-1.8); ALBUMIN 3.9 g/dL (3.0-4.8); ALT/SGPT 36 U/L (7-56); AST/SGOT 35 U/L (14-36); BILIRUBIN,DIRECT 0.5 mg/dL (0.0-0.4); BLOOD UREA NITROGEN 21 mg/dL (7-21); CALCIUM 10.2 mg/dL (8.4-10.5); GFR AFRICAN-AMERICAN > 60; GFR NON-AFRICAN AMERICAN > 60
[2017-10-10] MEDS: Enoxaparin 40 mg Syringe SC SCH (10:01)
--- NOTE | 2017-10-10 14:05 | PN ---
DATE: 10/10/2017 LOCATION: The patient is seen in room 317, bed 1. SUBJECTIVE: Patient is lying in the bed. Patient is comfortable. Initially, according to the social media assistant and the patient, she wanted to go home today but after having a lengthy discussion with the patient, patient is agreed to complete the 14 days of IV antibiotics. Overnight nurse's notes were reviewed. No adverse events were documented. OBJECTIVE: VITAL SIGNS: T-max 98.2; pulse 66, 68, 74; blood pressure 118/81, 139/65, 125/60; respirations 18; O2 sat 95%. HEENT: Head examination normocephalic, atraumatic. HEENT examination shows pink conjunctivae. Anicteric sclerae. No oropharyngeal lesion. NECK: No neck rigidity. CHEST: Kyphosis. LUNGS: Shows no rales, crackles or wheezing. CARDIOVASCULAR: S1, S2, regular rhythm. Questionable soft systolic murmur left sternal border, right second intercostal space, left second intercostal space. ABDOMEN: Soft. Positive bowel sounds. No hepatosplenomegaly noted. No guarding. No rigidity. No rebound tenderness. GENITALIA: Female. RECTAL: Deferred. EXTREMITIES: Shows no pitting edema, no calf tenderness, no Homans' sign. MUSCULOSKELETAL: Shows a body mass index of 26. NEUROLOGIC: The patient is alert, awake, and oriented x3. Cranial nerves II-XII grossly intact. Gait examination not tested. DIAGNOSTICS: On 10/10/2017; WBC 12.4, hemoglobin/hematocrit 12.9/38.5, platelets 470. Sodium 143, potassium 4.2, chloride 106, CO2 of 25, anion gap 16, BUN 21, creatinine 0.8, GFR greater than 60, glucose 192, calcium 10.2, magnesium 2.1, alk phos is 232 and AST, ALT, total bilirubin was all down to normal. IMPRESSION: 1. Deconditioning. 2. Gait dysfunction. 3. Sepsis secondary to acute cholangitis. 4. Status post endoscopic retrograde cholangiopancreatography and sphincterotomy and removal of gallbladder sludge. 5. Status post laparoscopic cholecystectomy, postop day #10. 6. Systemic viral illness with influenza. 7. Hypertension. 8. Leukocytosis with granulocytosis, resolving. 9. Thrombocytosis. 10. Uncontrolled diabetes mellitus with hyperglycemia. 11. Hyperbilirubinemia and transaminitis. 12. Glycosuria. 13. Hyperlipidemia. 14. Hypertriglyceridemia. 15. Acute cholangitis. 16. Insulin-requiring diabetes mellitus. PLAN: At this time, the patient was seen by Infectious Disease. The recommendation is to continue IV antibiotics total of 14 days. The patient is currently on Actigall 300 twice a day, hydralazine 10 mg p.o. q.6 p.r.n., insulin Humalog high-dose sliding scale coverage a.c. and h.s., Levemir 35 units h.s., Levemir 30 units breakfast, Lovenox 40 mg subcu daily, meropenem 1 g IV q.12, Norvasc 5 mg daily, Protonix 40 mg daily, Tessalon Perles 200 three times a day, Toprol-XL 100 mg daily, Zestril 40 mg daily, Zofran 4 mg IV q.6 p.r.n. The patient will continue on the transitional care unit with daily physical therapy, ambulation therapy, gait training and occupational therapy. The patient has agreed to stay till completion of the duration of IV antibiotic. Dictated and electronically signed, not read. Bruce Hall MD
--- NOTE | 2017-10-10 17:06 | CP.PCM.PN ---
Subjective - Date & Time of Evaluation Date of Evaluation: 10/10/17 Time of Evaluation: 11:50 - Subjective Subjective: No abdominal pain, no fevers. Objective - Vital Signs/Intake and Output Vital Signs (last 24 hours): Temp Pulse Resp BP Pulse Ox 97.1 F L 74 18 118/81 95 10/10/17 10:00 10/10/17 10:02 10/10/17 10:00 10/10/17 10:02 10/10/17 10:00 - Medications Medications: Current Medications Amlodipine Besylate (Norvasc) 5 mg PO DAILY [facility] Last Admin: 10/10/17 10:02 Dose: 5 mg Benzonatate (Tessalon Perles) 200 mg PO TID [facility] PRN Reason: Protocol Last Admin: 10/10/17 14:44 Dose: 200 mg Enoxaparin Sodium (Lovenox) 40 mg SC DAILY [facility] PRN Reason: Protocol Last Admin: 10/10/17 10:01 Dose: 40 mg Hydralazine HCl (Apresoline) 10 mg PO Q6H PRN; Protocol PRN Reason: SBP>=170 AND/OR DBP>=100 Last Admin: 10/03/17 09:57 Dose: 10 mg Meropenem 1,000 mg/ Sodium (Chloride) 50 mls @ 100 mls/hr IVPB 0600,1800 [facility] PRN Reason: Protocol Stop: 10/13/17 18:01 Last Admin: 10/10/17 05:11 Dose: 100 mls/hr Insulin Detemir (Levemir) 35 unit SC HS [facility] Last Admin: 10/09/17 22:09 Dose: 35 unit Insulin Detemir (Levemir) 30 unit SC ACB [facility] PRN Reason: Protocol Last Admin: 10/10/17 06:53 Dose: 30 unit Insulin Human Lispro (Humalog High) 0 units SC ACHS [facility] PRN Reason: Protocol Last Admin: 10/10/17 12:27 Dose: 7 units Lisinopril (Zestril) 40 mg PO DAILY [facility] PRN Reason: Protocol Last Admin: 10/10/17 10:02 Dose: 40 mg Metoprolol Succinate (Toprol Xl) 100 mg PO BRK [facility] PRN Reason: Protocol Last Admin: 10/10/17 07:33 Dose: 100 mg Ondansetron HCl (Zofran Inj) 4 mg IVP Q6H PRN; Protocol PRN Reason: Nausea/Vomiting Pantoprazole Sodium (Protonix Ec Tab) 40 mg PO 0600 [facility] PRN Reason: Protocol Last Admin: 10/10/17 05:11 Dose: 40 mg Ursodiol (Actigall) 300 mg PO 0800,1800 [facility] PRN Reason: Protocol Last Admin: 10/10/17 07:33 Dose: 300 mg - Labs Labs: 10/10/17 06:30 10/10/17 06:30 - Constitutional Appears: Chronically Ill - Head Exam Head Exam: NORMAL INSPECTION - ENT Exam ENT Exam: Mucous Membranes Moist - Neck Exam Neck Exam: absent: Meningismus - Respiratory Exam Respiratory Exam: Decreased Breath Sounds - Cardiovascular Exam Cardiovascular Exam: +S1, +S2 - GI/Abdominal Exam GI & Abdominal Exam: Soft. absent: Tenderness Assessment and Plan - Assessment and Plan (Free Text) Plan: Assessment Sepsis due to acute cholangitis S/P ERCP, S/P laparoscopic cholecystectomy POD # 11, S/P systemic viral illness with Influenza, R/O post-operative fluid collection DM HTN dyslipidemia Plan Continue Merrem (Day 12) and continue to trend WBC count (starting to decrease) - HIDA scan is negative for biliary leak - complete 10-14 days of antibiotics completed Tamiflu course
[2017-10-11] MEDS: Pantoprazole 40 mg EC Tab PO SCH (05:02)
--- NOTE | 2017-10-11 07:02 | CP.PCM.PN ---
Subjective - Date & Time of Evaluation Date of Evaluation: 10/11/17 Time of Evaluation: 07:06 - Subjective Subjective: Medicine Note for Dr. Hall Patient seen and examined at bedside. No acute event overnight. Patient has no complaints. She is tolerating diet. Patient will be in TCU for IV ABX until . Objective - Vital Signs/Intake and Output Vital Signs (last 24 hours): Temp Pulse Resp BP Pulse Ox 98.1 F 66 16 143/74 95 10/10/17 17:46 10/10/17 17:46 10/10/17 17:46 10/10/17 17:46 10/10/17 17:46 - Medications Medications: Current Medications Amlodipine Besylate (Norvasc) 5 mg PO DAILY [facility] Last Admin: 10/10/17 10:02 Dose: 5 mg Benzonatate (Tessalon Perles) 200 mg PO TID [facility] PRN Reason: Protocol Last Admin: 10/10/17 17:30 Dose: 200 mg Enoxaparin Sodium (Lovenox) 40 mg SC DAILY [facility] PRN Reason: Protocol Last Admin: 10/10/17 10:01 Dose: 40 mg Hydralazine HCl (Apresoline) 10 mg PO Q6H PRN; Protocol PRN Reason: SBP>=170 AND/OR DBP>=100 Last Admin: 10/03/17 09:57 Dose: 10 mg Meropenem 1,000 mg/ Sodium (Chloride) 50 mls @ 100 mls/hr IVPB 0600,1800 [facility] PRN Reason: Protocol Stop: 10/13/17 18:01 Last Admin: 10/11/17 05:02 Dose: 100 mls/hr Insulin Detemir (Levemir) 35 unit SC HS [facility] Last Admin: 10/10/17 22:12 Dose: Not Given Insulin Detemir (Levemir) 30 unit SC ACB [facility] PRN Reason: Protocol Last Admin: 10/10/17 06:53 Dose: 30 unit Insulin Human Lispro (Humalog High) 0 units SC ACHS [facility] PRN Reason: Protocol Last Admin: 10/10/17 22:12 Dose: Not Given Lisinopril (Zestril) 40 mg PO DAILY [facility] PRN Reason: Protocol Last Admin: 10/10/17 10:02 Dose: 40 mg Metoprolol Succinate (Toprol Xl) 100 mg PO BRK [facility] PRN Reason: Protocol Last Admin: 10/10/17 07:33 Dose: 100 mg Ondansetron HCl (Zofran Inj) 4 mg IVP Q6H PRN; Protocol PRN Reason: Nausea/Vomiting Pantoprazole Sodium (Protonix Ec Tab) 40 mg PO 0600 [facility] PRN Reason: Protocol Last Admin: 10/11/17 05:02 Dose: 40 mg Ursodiol (Actigall) 300 mg PO 0800,1800 [facility] PRN Reason: Protocol Last Admin: 10/10/17 17:30 Dose: 300 mg - Labs Labs: 10/10/17 06:30 10/10/17 06:30 - Constitutional Appears: Well, Non-toxic, No Acute Distress - Head Exam Head Exam: ATRAUMATIC, NORMOCEPHALIC - Eye Exam Eye Exam: EOMI, Normal appearance Pupil Exam: PERRL - ENT Exam ENT Exam: Mucous Membranes Moist - Neck Exam Neck Exam: absent: Tenderness - Respiratory Exam Respiratory Exam: Clear to Ausculation Bilateral, NORMAL BREATHING PATTERN - Cardiovascular Exam Cardiovascular Exam: REGULAR RHYTHM - GI/Abdominal Exam GI & Abdominal Exam: Soft, Normal Bowel Sounds. absent: Distended, Firm, Guarding, Rigid, Tenderness, Rebound - Extremities Exam Extremities Exam: Normal Capillary Refill - Back Exam Back Exam: absent: CVA tenderness (L), CVA tenderness (R) - Neurological Exam Neurological Exam: Alert, Awake, Oriented x3 - Psychiatric Exam Psychiatric exam: Normal Affect, Normal Mood - Skin Skin Exam: Dry, Intact, Normal Color, Warm Assessment and Plan - Assessment and Plan (Free Text) Plan: 67 F with PMH of HTN, IDDM, and HLD originally admitted for influenza and cholangitis s/p laparoscopic cholecystectomy POD#13, now in TCU 1. Cholangitis s/p cholecystectomy - Resolved - 2 more days of IV ABX - Surgery consulted - ID consulted - Tylenol prn - Zofran prn - Cont PT eval and treat - Ursodiol 2. HTN - Cardiology consulted - Cont Norvasc, Lisinopril, Lopressor - Cont Hydralazine prn 3. DM2 - Levemir 30units QAM - Levemir 35 units QPM - ISS - Accuchecks ACHS - Carb consistent diet GI/DVT PPx - Protonix - Lovenox Patient will be in TCU and continuing physical therapy until 10/12 Discussed in detail with Dr. Rafael Wilkinson PGY1
[2017-10-11] MEDS: Insulin Lispro (HUMAlog) HIGH Coverage SC SCH ×4 (07:23→21:48)
[2017-10-11] MEDS: Insulin Detemir 100 units/ml Vial (Levemir) SC SCH ×2 (07:23→21:49)
[2017-10-11] MEDS: Metoprolol Succinate 100 mg XL Tab PO SCH (08:02)
[2017-10-11] MEDS: Enoxaparin 40 mg Syringe SC SCH (10:45)
--- NOTE | 2017-10-11 15:53 | PN ---
DATE: 10/11/2017 SUBJECTIVE: The patient is seen ambulating on the floor today. The patient does not offer any specific complaint. PHYSICAL EXAMINATION VITAL SIGNS: T-max is 98.1; heart rate 66, 76, 74, 77; blood pressure 132/66, 143/74, 154/64; respiration 16; O2 sat 95%. HEAD: Normocephalic, atraumatic. EENT: Shows pink conjunctivae. Anicteric sclerae. No oropharyngeal lesion. No neck rigidity. CHEST: Kyphosis. LUNGS: Shows no rales, crackles or wheezing. CARDIOVASCULAR: S1, S2, regular rhythm. Questionable soft systolic murmur at left sternal border, right second intercostal space. ABDOMEN: Soft, nontender. No hepatosplenomegaly noted. No guarding, no rigidity, no rebound tenderness. GENITALIA: Female. RECTAL: Deferred. EXTREMITY: Shows no pitting edema, no calf tenderness, no Homans' sign. NEUROLOGIC: The patient is alert, awake, oriented x3. Cranial nerves II-XII intact. GAIT: Independent without assistance. VASCULAR: Palpable pulses. PSYCHIATRIC: Negative. LABORATORY DATA: No diagnostics today. Blood and urine cultures negative. IMPRESSION: 1. Deconditioning. 2. Gait dysfunction. 3. Sepsis due to acute cholangitis. 4. Status post endoscopic retrograde cholangiopancreatography . 5. Status post laparoscopic cholecystectomy. 6. Hypertension. 7. Postoperative persistent slow resolving refractory leukocytosis. 8. Thrombocytosis. 9. Granulocytosis. 10. Uncontrolled insulin-requiring diabetes mellitus with hyperglycemia. 11. Transaminitis with hyperbilirubinemia (resolved versus resolving). 12. Glycosuria. 13. Hepatic steatosis and fatty infiltration of the liver with increased echogenicity of the liver. 14. Gallbladder foci increased echogenicity representing postoperative changes and complex fluid. 15. Insulin-requiring diabetes mellitus. PLAN: At this time, the patient agrees to complete 14 days of IV antibiotics as recommended by Infectious Disease. CURRENT CONSULTATION: 1. Surgery. 2. Cardiology. 3. Infectious Disease. CURRENT MEDICATIONS: 1. Actigall 300 twice a day. 2. Hydralazine 10 mg p.o. q. 6 p.r.n. 3. Humalog high-dose sliding scale coverage a.c. and at bedtime. 4. Levemir 35 units at bedtime. 5. Levemir 30 units a.c. breakfast. 6. Lovenox 40 mg daily. 7. Meropenem 1 g IV q. 12. 8. Norvasc 5 mg daily. 9. Protonix 40 mg daily. 10. Tessalon Perles 200 mg three times a day. 11. Toprol XL 100 mg daily. 12. Zestril 40 mg daily. 13. Zofran 4 mg IV q. 6 p.r.n. 14. Consistent carbohydrate. Physical therapy and occupational therapy ordered. The patient will complete 14 days of IV antibiotic tomorrow. The patient will be discharged after tomorrow's completion of 14 days of IV antibiotic therapy. Dictated and electronically signed, not read. Bruce Hall MD
--- NOTE | 2017-10-11 17:03 | CP.PCM.PN ---
Subjective - Date & Time of Evaluation Date of Evaluation: 10/11/17 Time of Evaluation: 11:00 - Subjective Subjective: Comfortable, no fevers, no abdominal pain. Objective - Vital Signs/Intake and Output Vital Signs (last 24 hours): Temp Pulse Resp BP Pulse Ox 98.1 F 77 16 154/64 H 95 10/10/17 17:46 10/11/17 10:45 10/10/17 17:46 10/11/17 10:45 10/10/17 17:46 - Medications Medications: Current Medications Amlodipine Besylate (Norvasc) 5 mg PO DAILY [facility] Last Admin: 10/11/17 10:45 Dose: 5 mg Benzonatate (Tessalon Perles) 200 mg PO TID [facility] PRN Reason: Protocol Last Admin: 10/11/17 14:49 Dose: 200 mg Enoxaparin Sodium (Lovenox) 40 mg SC DAILY [facility] PRN Reason: Protocol Last Admin: 10/11/17 10:45 Dose: Not Given Hydralazine HCl (Apresoline) 10 mg PO Q6H PRN; Protocol PRN Reason: SBP>=170 AND/OR DBP>=100 Last Admin: 10/03/17 09:57 Dose: 10 mg Meropenem 1,000 mg/ Sodium (Chloride) 50 mls @ 100 mls/hr IVPB 0600,1800 [facility] PRN Reason: Protocol Stop: 10/13/17 18:01 Last Admin: 10/11/17 05:02 Dose: 100 mls/hr Insulin Detemir (Levemir) 35 unit SC HS [facility] Last Admin: 10/10/17 22:12 Dose: Not Given Insulin Detemir (Levemir) 30 unit SC ACB [facility] PRN Reason: Protocol Last Admin: 10/11/17 07:23 Dose: 30 unit Insulin Human Lispro (Humalog High) 0 units SC ACHS [facility] PRN Reason: Protocol Last Admin: 10/11/17 12:21 Dose: 10 units Lisinopril (Zestril) 40 mg PO DAILY [facility] PRN Reason: Protocol Last Admin: 10/11/17 10:45 Dose: 40 mg Metoprolol Succinate (Toprol Xl) 100 mg PO BRK [facility] PRN Reason: Protocol Last Admin: 10/11/17 08:02 Dose: 100 mg Ondansetron HCl (Zofran Inj) 4 mg IVP Q6H PRN; Protocol PRN Reason: Nausea/Vomiting Pantoprazole Sodium (Protonix Ec Tab) 40 mg PO 0600 [facility] PRN Reason: Protocol Last Admin: 10/11/17 05:02 Dose: 40 mg Ursodiol (Actigall) 300 mg PO 0800,1800 [facility] PRN Reason: Protocol Last Admin: 10/11/17 08:02 Dose: 300 mg - Labs Labs: 10/10/17 06:30 10/10/17 06:30 - Constitutional Appears: Chronically Ill - Head Exam Head Exam: NORMAL INSPECTION - Respiratory Exam Respiratory Exam: Decreased Breath Sounds - Cardiovascular Exam Cardiovascular Exam: +S1, +S2 - GI/Abdominal Exam GI & Abdominal Exam: Soft. absent: Tenderness Assessment and Plan - Assessment and Plan (Free Text) Plan: Assessment Sepsis due to acute cholangitis S/P ERCP, S/P laparoscopic cholecystectomy POD # 12, S/P systemic viral illness with Influenza, R/O post-operative fluid collection DM HTN dyslipidemia Plan Continue Merrem (Day 13) and continue to trend WBC count (starting to decrease) - HIDA scan is negative for biliary leak - complete 10-14 days of antibiotics completed Tamiflu course
[2017-10-11 18:16] VITALS: RESP 18; TEMP 98.8; O2SAT 94
[2017-10-12] MEDS: Pantoprazole 40 mg EC Tab PO SCH (06:20)
[2017-10-12] MEDS: Insulin Detemir 100 units/ml Vial (Levemir) SC SCH (07:27)
[2017-10-12] MEDS: Insulin Lispro (HUMAlog) HIGH Coverage SC SCH ×2 (07:28→12:20)
[2017-10-12] MEDS: Metoprolol Succinate 100 mg XL Tab PO SCH (08:25)
[2017-10-12 08:31] VITALS: BP 140/74; PULSE 70
[2017-10-12] MEDS: Enoxaparin 40 mg Syringe SC SCH (09:49)
--- NOTE | 2017-10-13 01:27 | DS ---
FINAL PROGRESS NOTE AND DISCHARGE SUMMARY HISTORY OF PRESENT ILLNESS: The patient is seen ambulating in the room in room 317. The patient is out of bed to chair. Overnight nurse's notes were reviewed. The patient did not offer any specific complaints. PHYSICAL EXAMINATION: VITAL SIGNS: T-max is 98.8, pulse of 70, blood pressure 140/74, respirations 18, O2 sat 95%. HEENT: Head examination normocephalic, atraumatic. HEENT examination shows pink conjunctivae, anicteric sclerae. No oropharyngeal lesion. No neck rigidity. CHEST: Kyphosis. LUNGS: Shows no rales, crackles or wheezing. CARDIOVASCULAR: S1 and S2. Regular rhythm. Questionable soft systolic murmur, left sternal border, right second intercostal space, left second intercostal space. ABDOMEN: Soft. Positive bowel sounds. GENITALIA: Female. RECTAL: Deferred. EXTREMITIES: Shows no pitting edema, no calf tenderness, no Homans' sign. NEUROLOGIC: The patient is alert, awake, oriented x3. Cranial nerves II through XII intact. Gait examination is independent. VASCULAR: Palpable pulses. MUSCULOSKELETAL: Plantars are downward. DTRs are 2+. DIAGNOSTICS: None. Fingerstick blood sugar in the last 24 hours 316, 327, 190, 254, 232. Hepatitis A, B, C serologies and HIV negative. Microbiology: Urine and blood cultures negative. FINAL IMPRESSION, PLAN AND DISCHARGE DIAGNOSES: 1. Deconditioning. 2. Gait dysfunction. 3. Sepsis secondary to acute cholangitis. 4. Status post endoscopic retrograde cholangiopancreatography and endoscopic ultrasound and sphincterotomy with removal of the gallbladder sludge. 5. Status post laparoscopic cholecystectomy, postoperative day 13. 6. Systemic viral illness secondary to influenza B. 7. Uncontrolled insulin-requiring diabetes mellitus. 8. History of hypertension. 9. Leukocytosis with granulocytosis. 10. Granulocytosis. 11. Thrombocytosis. 12. Hyperglycemia. 13. Post laparoscopic cholecystectomy transaminitis and mild hyperbilirubinemia. 14. Post laparoscopic cholecystectomy, leukocytosis. 15. Mild hyperuricemia. 16. Glycosuria. 17. Acute on chronic cholecystitis, cholelithiasis. 18. Gallbladder sludge and common bile duct sludge. 19. Status post laparoscopic cholecystectomy and intraoperative cholangiogram. The patient is cleared by all subspecialty for discharge. The patient's discharge medications will be, 1. Tylenol 650 p.r.n. 2. Norvasc 10 mg daily. 3. Plavix 75 mg daily, which the patient will resume at home. 4. Lopid 600 mg daily. 5. Lantus 30 units with breakfast and 35 units with dinner. 6. Humalog 30 units with lunch, which the patient is going to resume at home. 7. Zestril 40 mg daily. 8. Metformin 1000 mg twice a day. 9. Toprol-XL 100 mg daily. 10. Protonix 40 mg daily. 11. Pravachol 40 mg daily. 12. Actigall 300 mg twice a day. The patient has been discharged home after completion of TCU stay. Discharge mediations as per updated ambulatory orders plus new script. Copy of diabetic, low salt, low cholesterol diet to the patient upon discharge. Follow up with Dr. Hall and Dr. Saunders within 1 week. Time spent in the entire discharge process more than 45 minutes. Dictated and electronically signed, not read. Bruce Hall MD
== END 2017-10-12 12:14 | disposition home or self-care (01) | DRG 91 ==
LOC: TRCU 14:04
PROVIDERS: ADMIT Internal Medicine; ATTEND Internal Medicine
PROC: F07Z9ZZ Gait Training/Functional Ambulation Treatment (ICD-10-PCS; principal; 2017-10-03)
PROC: F08Z4ZZ Home Management Treatment (ICD-10-PCS; 2017-10-03)
DX: R26.9 Unspecified abnormalities of gait and mobility (principal); A41.9 Sepsis, unspecified organism; K83.0 Cholangitis; I50.9 Heart failure, unspecified; I11.0 Hypertensive heart disease with heart failure; K76.0 Fatty (change of) liver, not elsewhere classified; J10.1 Influenza due to other identified influenza virus with other respiratory manifestations; E11.65 Type 2 diabetes mellitus with hyperglycemia; E78.5 Hyperlipidemia, unspecified; E79.0 Hyperuricemia without signs of inflammatory arthritis and tophaceous disease; E78.1 Pure hyperglyceridemia; Z79.4 Long term (current) use of insulin; Z90.49 Acquired absence of other specified parts of digestive tract